=== PATIENT | male | born 1955 | race Caucasian/White ===

== ENCOUNTER → 2017-06-18 10:22 | Outpatient (CLI) | payer BC, SELFPAY ==
--- NOTE | 2017-06-18 10:43 | CT_ITS ---
STUDY: CT ABDOMEN AND PELVIS WITH AND WITHOUT CONTRAST REASON FOR EXAM: Male, 62 years old. Hematuria. History of pulmonary alveolar proteinosis. RADIATION DOSAGE (If Supplied By Facility): CTDIvol = ( 20.29 ) mGy, DLP = ( 3141.71 ) mGycm TECHNIQUE: Transaxial images were obtained from the dome of the diaphragm to the symphysis pubis with oral contrast. 100 ml of Isovue 300 contrast was administered. Sagittal and coronal images were reconstructed. Individualized dose optimization techniques were used for this CT. COMPARISON: Comparison is made with prior study dated January 30, 2015. FINDINGS: The visualized lung bases are unremarkable. The visualized portions of the heart are within normal limits. Normal liver. Questionable tiny gallbladder polyps versus tiny gallstones. Normal spleen. Normal pancreas. Normal bilateral adrenal glands. Normal right kidney. Normal left kidney. Normal visualized stomach. Normal small intestine. Normal colon. The appendix is visualized and appears normal. There is diffuse atherosclerotic calcification of the abdominal aorta, without a demonstrated aneurysm. Normal inferior vena cava. There is borderline retroperitoneal lymphadenopathy with enlarged nodes no greater than 10mm in the short axis diameter. Normal urinary bladder. There are prostatic calcifications. Enlargement of the prostate with indentation at the bladder base. There is evidence of prior anterior abdominal wall hernia repair. There are diffuse degenerative changes of the visualized lumbar spine. CT/CT Abd/Pelvis W/WO Contrast IMPRESSION: Tiny gallstones are gallbladder polyps. No other acute abnormality is seen. Electronically Signed: Donavan Lizama MD at 13:46 EST Tel [phone], Service support ,
[2017-06-18 10:55] LABS: CREATININE FINGERSTICK 1.3 mg/dL (0.70-1.30)
[2017-06-18 11:46] LABS: PSA,Total - Annual Screen 0.61 ng/mL (0.00-4.00)
== END ==
PROVIDERS: Family Provider Family Medicine; PCP Family Medicine; Visit Provider Nurse Practitioner Adult Health
DX: R31.9 Hematuria, unspecified (principal); Z12.5 Encounter for screening for malignant neoplasm of prostate
CPT/HCPCS: 36415; 74178; 84153; Q9967; G0103

== ENCOUNTER → 2017-06-18 13:08 | Outpatient (CLI) | payer BC, SELFPAY ==
[2017-04-27 11:09] VITALS: BP 130/88; BMI 30.9
--- NOTE | 2017-06-18 | FLU_PTH ---
PATIENT: SOLANGE HERNANDEZ LOC: [facility] U#:[id number] AGE/SX: 69/M ROOM: RE06/18/[address]: LISA Weinstein : 1955 BED: DIS: SPEC #: [id number] RECD: 06/18/17 13:56 STATUS: ALTON MARLENE #: [id number] PEDRO: 06/18/17 00:[address]: Kristi Alegria NP DEPT: CYTOLOGY RECD BY: Palmer Stock ENTERED: 06/18/17 13:57 SP TYPE: Fluid OTHR DR: Dr. Moo Carmichael MD Tissues: Urine Procedures: Pap Stain (control) Special Stain Group II Surgery Specimen Level IV Cytospin Fluid HEADER OPERATION: Not noted PRE-OP DIAGNOSIS: Hematuria TISSUE SUBMITTED: Urine for cytology DIAGNOSIS CYTOLOGY Urine for cytology (cytospin): Atypical urothelial noted suspicious for malignancy. SJ:iman 2/8/18 COMMENT Case has been reviewed in consultation with Dr. De who concurs with the above diagnosis. IDC:AM CYTOLOGY STUDY Slides are reviewed. CYTOLOGY GROSS Received is 35 ml of yellow hazy fluid labeled with the patient's name and and designated per the requisition as urine. Submitted for cytology preparation. 06/18/17 TC:5 CPT: 76000
[2017-06-18 13:11] LABS: Cytology, Body Fluid / CSF SEE PATHOLOGY REPORT
== END ==
PROVIDERS: Family Provider Family Medicine; PCP Family Medicine; Visit Provider Nurse Practitioner Adult Health
DX: R31.9 Hematuria, unspecified (principal)
CPT/HCPCS: 87086; 88108; 88305; 88313

== ENCOUNTER → 2017-07-03 15:57 | Outpatient (CLI) | payer BC, SELFPAY ==
--- NOTE | 2017-07-03 15:59 | CT_ITS ---
CT of the temporal bones INDICATION: Left ear infection TECHNIQUE: CT of the temporal bones was performed in the axial projection without contrast followed by sagittal and coronal reconstructed. Radiographic technique was optimized to limit patient radiation dose. FINDINGS External auditory canal is well-aerated and patent. There is no appreciable mucosal thickening however, there is thickening and retraction of the tympanic membrane with soft tissue thickening of the cisco septum suspicious for acquired cholesteatoma. There is mucosal thickening within the tympanic cavity encasing the auditory ossicles.:. There is diffuse opacification of the mastoid air cells however, there is destruction of air cell septae which may be consistent with coalescent mastoiditis and possible coexisting cholesteatoma. The dural plate appears intact There also appears to be a cavity suggesting partial mastoid resection however clinical correlation is recommended in this regard CT/Orb Sella Post Fossa Ear w/o IMPRESSION: Left-sided otomastoiditis and findings suggestive of coexisting cholesteatoma. Clinical correlation recommended Electronically Signed: Issa Reinoso MD at 21:55 EST , Service support ,
== END ==
PROVIDERS: Family Provider Family Medicine; PCP Family Medicine; Visit Provider Otolaryngology
DX: H92.12 Otorrhea, left ear (principal); Z98.890 Other specified postprocedural states
CPT/HCPCS: 70480

== ENCOUNTER 2017-07-04 09:59 | Day surgery (SDC) | payer BC, SELFPAY ==
--- NOTE | 2017-07-04 | CYSPIN_PTH ---
PATIENT: SOLANGE HERNANDEZ [place] [facility] [place][id number] AGE/SX: 62/M ROOM: RE07/04/[address]: Dr. Homero Lopez MD : 1955 BED: DIS: 07/04/2017 SPEC #: [id number] RECD: 07/04/17 15:01 STATUS: ALTON MARLENE #: [id number] PEDRO: 07/04/17 00:[address]: Homero Lopez DEPT: CYTOLOGY RECD BY: Nikita Jc ENTERED: 07/04/17 15:02 SP TYPE: CYSPIN FL OTHR DR: Dr. Moo Carmichael MD Tissues: A - Urine B - Urine C - Urine Procedures: Pap Stain (control) Special Stain Group II Cytospin Fluid HEADER OPERATION: Cysto, retrogrades, urine collected for cytology PRE-OP DIAGNOSIS: Microscopic hematuria, abnormal cytology TISSUE SUBMITTED: A ? Urine for cytology ? bladder, B - Urine for cytology ? left ureter, C - Urine for cytology ? right ureter DIAGNOSIS CYTOLOGY A. Urine for cytology, bladder (cytospin): A cluster of mildly atypical urothelial cells noted. B. Urine for cytology, left ureter (cytospin): Clusters of urothelial cells are noted without significant atypia. C. Urine for cytology, right ureter (cytospin): Clusters of urothelial cells are noted without significant atypia. SJ:iman 07/07/17 COMMENT A. Differential diagnosis includes instrumentation, calculi or low-grade urothelial neoplasm. Please make reference to previous specimen ([id number]) urine for cytology with diagnosis of atypical urothelial cells noted suspicious for malignancy. CYTOLOGY STUDY Slides are reviewed. CYTOLOGY GROSS A - Received is 30 ml of yellow cloudy fluid labeled with the patient's name and and designated per the requisition as urine - bladder. Submitted for cytology preparation. B - Received is 1 ml of light yellow fluid labeled with the patient's name and and designated per the requisition as urine ? left ureter. Submitted for cytology preparation. C - Received is 1 ml of light yellow fluid labeled with the patient's name and and designated per the requisition as urine ? right ureter. Submitted for cytology preparation. / 07/04/17 TC:5 CPT: 40939 x3
[2017-07-04 10:21] VITALS: BP 133/88; PULSE 66; RESP 16; TEMP 35.9; O2SAT 99; BMI 29.7
[2017-07-04] MEDS: Cefazolin 2 GM in 0.9% Normal Saline 100 ML IV (12:17)
[2017-07-04 12:52] VITALS: BP 133/88; BP 138/94; PULSE 74; RESP 16; TEMP 36.8; O2SAT 98
--- NOTE | 2017-07-04 12:52 | PCM.OPRPT ---
Problem List (1) Microscopic hematuria Status: Acute Report of Operation Date of Procedure: 07/04/17 Pre-Operative Diagnosis: Microscopic hematuria and abnormal cytology Post-Operative Diagnosis: normal bladder normal retrograde pyelograms Surgery/Procedure Performed:: Cystoscopy bilateral retrograde pyelograms Description of Surgical Findings:: 62-year-old male taken back to the operating room he had an office cystoscopy the cytology came back suspicious for malignant cells. Urine taken back to the operating room today for a cystoscopy and bilateral retrogrades possible ureteroscopy and biopsy if necessary. 62-year-old male taken back to the operating room penis and testicles were prepped and draped in usual sterile fashion went into the bladder with a 21 [place]bourg[place] rigid cystourethroscope the entire length of of the urethra was normal, I did a cystoscopy of the bladder the bladder was completely normal no tumors or stones seen within the bladder left and right ureteral orifice normal prostate was mildly obstructive but no significant tissue. Think cannulated the left ureteral orifice got urine from the left kidney is sent this off for cytology the left retrograde That was normal. Cannulated the right ureteral orifice, got urine from the right kidney sent this for cytology. The right retrograde pyelogram and this was normal. I then drained the bladder patient anesthetic was reversed taken back to PACU in good condition will see him in 2 weeks to review the cytologies. Type of Anesthesia:: General Drains: none - Admit VTE Documentation VTE Present on Admission: No VTE Mechan Device Prophylaxis: SCD's VTE Pharm Prophylaxis ordered?: No Reason prophylaxis not ordered:: Treatment Not Indicated
[2017-07-04 13:00] VITALS: BP 133/88; BP 138/96; PULSE 70; RESP 16; O2SAT 97
[2017-07-04 13:15] VITALS: BP 133/85; BP 133/88; PULSE 66; RESP 16; O2SAT 94
[2017-07-04 13:22] VITALS: BP 132/87; BP 133/88; PULSE 63; RESP 16; TEMP 36.5; O2SAT 96
[2017-07-04 14:40] VITALS: BP 133/88
[2017-07-08 14:39] LABS: Cytology, Body Fluid / CSF SEE PATHOLOGY REPORT
[2017-07-08 14:39] LABS: Cytology, Body Fluid / CSF SEE PATHOLOGY REPORT
[2017-07-08 14:40] LABS: Cytology, Body Fluid / CSF SEE PATHOLOGY REPORT
== END 2017-07-04 14:40 | disposition home or self-care (01) ==
LOC: SDC 10:00 → AC 10:01
PROVIDERS: Family Provider Family Medicine; PCP Family Medicine; Visit Provider Urology
PROC: 0TJ98ZZ Inspection of Ureter, Via Natural or Artificial Opening Endoscopic (ICD-10-PCS; CPT 52351; principal; 2017-07-04 11:40)
DX: R31.21 Asymptomatic microscopic hematuria (principal); I10 Essential (primary) hypertension; J84.01 Alveolar proteinosis; J44.9 Chronic obstructive pulmonary disease, unspecified; K21.9 Gastro-esophageal reflux disease without esophagitis; Z79.899 Other long term (current) drug therapy; Z86.718 Personal history of other venous thrombosis and embolism; Z86.711 Personal history of pulmonary embolism
CPT/HCPCS: 52005; 76000; 88108; 88313; J7120; C1769; J2405

== ENCOUNTER → 2017-10-27 15:04 | Outpatient (CLI) | payer BC, SELFPAY ==
[2017-10-27 17:54] LABS: Absolute Lymphocyte Count 2.34 X10^3/ul (0.83-4.51); Absolute Neutrophil Count 3.8 X10^3/uL (2.0-7.7); Basophil# 0.01 X10^3/uL; Basophil% 0.1 % (0-1); Eosinophil# 0.07 X10^3/uL; Hematocrit 42.1 % (40-54); Hemoglobin 14.2 g/dl (13.0-16.5); Lymphocyte # 2.34 X10^3/ul (4.0); Lymphocyte % 34.7 % (19-41); Mean Corp Hgb Conc 33.7 g/gl (32-36); Mean Corpuscular Hgb 30.7 pg (27.0-32.0); Mean Corpuscular Volume 91.1 fL (80-94); Mean Platelet Vol. 10.2 fl (6.2-12.0); Monocyte# 0.56 X10^3/uL; Monocyte% 8.3 % (0-10); Neutrophil # 3.75 X10^3/uL (2.7-7.7); Neutrophil % 55.8 % (47-70); POSITIVE COUNT NO; POSITIVE DIFFERENTIAL NO; POSITIVE MORPHOLOGY NO; Platelet Count 290 K/mm3 (150-450); RBC Distribution Width CV 13.9 % (11.6-14.6); Red Blood Count 4.62 M/mm3 (4.6-6.2); White Blood Count 6.7 K/mm3 (4.4-11.0)
[2017-10-27 18:00] LABS: Vitamin B12 1186 pg/mL (211-911)
[2017-10-27 18:29] LABS: ALB/GLOB Ratio 0.9 RATIO (0.9-2.4); AST(SGOT) 25 U/L (15-37); Alanine Aminotransfer ALT/SGPT 45 U/L (16-61); Albumin, Serum 3.6 g/dL (3.2-5.0); Alkaline Phosphatase 72 U/L (45-117); Anion Gap 8 (5-15); BUN 24 mg/dL (7-18); BUN/Creat Ratio 17.1 RATIO (10-20); Calcium,Total 8.8 mg/dL (8.5-10.1); Chloride 104 mmol/L (98-107); Cholesterol 257 mg/dL (200); EST Glomerular Filtration Rate 55 mL/min (>60); Est Glom Filt Rate - Afr Amer 66 mL/min (>60); Globulin 3.8 g/dL (2.2-4.2); Glucose 87 mg/dL (74-106); High Density Lipoprotein 50 mg/dL; Potassium 4.3 mmol/L (3.5-5.1); Protein, Total 7.4 g/dL (6.4-8.2); Sodium Level 139 mmol/L (136-145); Thyroid Stim Hormone (TSH) 2.31 uIU/mL (0.358-3.74); Triglycerides 232 mg/dL; Very Low Density Lipoprotein 46 mg/dL (5-40)
[2017-10-27 19:16] LABS: Microalbumin,Random Urine 21.4 mg/L (NO RANGE EST.); Microalbumin:Creatinine Ratio 33.2 mg/g CRE (<30 mg/g CRE)
== END ==
PROVIDERS: Family Provider Family Medicine; PCP Family Medicine; Visit Provider Family Medicine
DX: I10 Essential (primary) hypertension (principal); E53.8 Deficiency of other specified B group vitamins
CPT/HCPCS: 36415; 80053; 80061; 82043; 82570; 82607; 82746; 84443; 85025

== ENCOUNTER → 2018-01-26 19:37 | Outpatient (CLI) | payer BC, SELFPAY ==
--- NOTE | 2018-01-26 | CYSPIN_PTH ---
PATIENT: SOLANGE HERNANDEZ LOC: [facility] U#:[id number] AGE/SX: 69/M ROOM: RE01/26/[address]: LISA Weinstein : 1955 BED: DIS: SPEC #: [id number] RECD: 01/27/18 08:27 STATUS: ALTON MARLENE #: [id number] PEDRO: 01/26/18 00:[address]: Kristi Alegria NP DEPT: CYTOLOGY RECD BY: Nikita Jc ENTERED: 01/27/18 08:27 SP TYPE: CYSPIN FL OTHR DR: Dr. Moo Carmichael MD Tissues: Urine Procedures: Pap Stain (control) Special Stain Group II Cytospin Fluid HEADER OPERATION: Not noted PRE-OP DIAGNOSIS: N31.1 TISSUE SUBMITTED: Urine for cytology DIAGNOSIS CYTOLOGY Urine for cytology (cytospin): Negative for malignant cells. See cytology study and comment. SJ:iman 01/28/18 COMMENT Clinical correlation and appropriate follow up are necessary. Please make reference to previous specimen ([id number]) urine for cytology with diagnosis of atypical urothelial cells noted suspicious for malignancy and ([id number]) urine for cytology, bladder with diagnosis of a cluster of mildly atypical urothelial cells and urine for cytology, left ureter and right ureter with diagnosis of clusters of urothelial cells are noted without significant atypia. CYTOLOGY STUDY Slides are reviewed. The specimen consists of benign urothelial cells, squamous cells, inflammatory cells and red blood cells. CYTOLOGY GROSS Received is 50 ml of clear yellow fluid labeled with the patient's name and and designated per the requisition as urine. Submitted for cytology preparation. 01/27/18 TC:5 CPT: 34759
[2018-01-26 20:00] LABS: Cytology, Body Fluid / CSF SEE PATHOLOGY REPORT
== END ==
PROVIDERS: Family Provider Family Medicine; PCP Family Medicine; Visit Provider Nurse Practitioner Adult Health
DX: N31.1 Reflex neuropathic bladder, not elsewhere classified (principal)
CPT/HCPCS: 88108; 88313

== ENCOUNTER → 2018-03-11 14:56 | Outpatient (CLI) | payer BC, SELFPAY ==
[2018-03-11 18:07] LABS: Microalbumin,Random Urine 50.3 mg/L (NO RANGE EST.); Microalbumin:Creatinine Ratio 39.9 mg/g CRE (<30 mg/g CRE)
[2018-03-13 16:12] LABS: Cytoplasmic Ab (C-ANCA) <1:20 titer (Neg:<1:20); Free Kappa Light Chains 12.2 mg/L (3.3-19.4); Free Lambda Light Chains 17.1 mg/L (5.7-26.3)
[2018-03-16 11:58] LABS: Complement C3 152 mg/dL (82-167); Perinuclear Ab (P-ANCA) <1:20 titer (Neg:<1:20)
[2018-03-16 12:04] LABS: ANTINUCLEAR ANTIBODIES DIRECT Negative (Negative)
== END ==
PROVIDERS: Family Provider Family Medicine; PCP Family Medicine; Visit Provider Internal Medicine Nephrology
DX: R31.21 Asymptomatic microscopic hematuria (principal)
CPT/HCPCS: 36415; 82043; 82570; 83883; 86038; 86160; 86256

== ENCOUNTER → 2018-04-15 10:27 | Outpatient (CLI) | payer BC, SELFPAY ==
[2018-04-15 10:35] LABS: Bacteria 0 SEEN /hpf (None Seen)
[2018-04-15 11:39] LABS: Absolute Neutrophil Count 3.5 X10^3/uL (2.0-7.7); Basophil# 0.01 X10^3/uL; Basophil% 0.2 % (0-1); Eosinophil# 0.08 X10^3/uL; Eosinophils% 1.4 % (0-5); Hematocrit 43.1 % (40-54); Hemoglobin 14.5 g/dl (13.0-16.5); Lymphocyte % 26.7 % (19-41); Mean Corp Hgb Conc 33.6 g/gl (32-36); Mean Corpuscular Hgb 30.8 pg (27.0-32.0); Mean Corpuscular Volume 91.5 fL (80-94); Mean Platelet Vol. 9.4 fl (6.2-12.0); Monocyte# 0.51 X10^3/uL; Monocyte% 9.1 % (0-10); Neutrophil % 62.4 % (47-70); Platelet Count 286 K/mm3 (150-450); RBC Distribution Width CV 14.2 % (11.6-14.6); RBC Distribution Width SD 47.1 fl (35.1-43.9); Red Blood Count 4.71 M/mm3 (4.6-6.2); White Blood Count 5.6 K/mm3 (4.4-11.0)
[2018-04-15 11:41] LABS: Color, Urine Yellow (Yellow); Glucose, Dipstick Normal (Normal); Ketone-Dipstick Negative (Negative); Leukocyte Esterase-Dipstick Negative /ul (Negative); Nitrite-Dipstick Negative (Negative); Occult Blood-Urine 150 /ul (Negative); Protein-Dipstick Negative (Negative); Urine Bilirubin Dipstick Negative (Negative); Urine Clarity Sl. Cloudy (Clear); Urine Urobilinogen Normal (Normal)
[2018-04-15 11:41] LABS: POSITIVE COUNT NO; POSITIVE DIFFERENTIAL NO; POSITIVE MORPHOLOGY NO
[2018-04-15 11:49] LABS: Mucous, Urine RARE /hpf (<or=2+); Red Blood Cells-Urine 0-5 SEEN /hpf (0-5); Squamous Epithelial Cells - UA 0-5 SEEN /hpf (0-5); White Blood Cells 0-5 SEEN /hpf (0-5)
[2018-04-15 12:04] LABS: AST(SGOT) 35 U/L (15-37); Alanine Aminotransfer ALT/SGPT 43 U/L (16-61); Albumin, Serum 3.8 g/dL (3.2-5.0); Alkaline Phosphatase 59 U/L (45-117); Anion Gap 7 (5-15); BUN 23 mg/dL (7-18); BUN/Creat Ratio 16.7 RATIO (10-20); Calcium,Total 9.3 mg/dL (8.5-10.1); Chloride 105 mmol/L (98-107); Cholesterol 198 mg/dL (200); Creatinine, Serum 1.38 mg/dL (0.70-1.30); EST Glomerular Filtration Rate 56 mL/min (>60); Est Glom Filt Rate - Afr Amer 67 mL/min (>60); Globulin 3.9 g/dL (2.2-4.2); Glucose 83 mg/dL (74-106); High Density Lipoprotein 70 mg/dL; Potassium 4.1 mmol/L (3.5-5.1); Protein, Total 7.7 g/dL (6.4-8.2); Sodium Level 141 mmol/L (136-145); Triglycerides 77 mg/dL; Very Low Density Lipoprotein 15 mg/dL (5-40)
[2018-04-16 11:36] LABS: Bilirubin, Direct 0.21 mg/dL (0.00-0.30); Phosphorus 2.9 mg/dL (2.5-4.9)
== END ==
PROVIDERS: Family Provider Family Medicine; PCP Family Medicine; Referring Provider Internal Medicine Nephrology; Visit Provider Internal Medicine Nephrology
DX: E78.5 Hyperlipidemia, unspecified (principal); R31.21 Asymptomatic microscopic hematuria; N18.3 Chronic kidney disease, stage 3 (moderate)
CPT/HCPCS: 36415; 80053; 80061; 81001; 82248; 84100; 85025

== ENCOUNTER → 2018-06-19 12:58 | Outpatient (CLI) | payer BC, SELFPAY ==
[2017-10-21 16:21] VITALS: BMI 28.7
[2018-06-19 13:04] LABS: Bacteria 0 SEEN /hpf (None Seen); Mucous, Urine 0 SEEN /hpf (<or=2+); Squamous Epithelial Cells - UA 0 SEEN /hpf (0-5)
[2018-06-19 13:28] LABS: Color, Urine Yellow (Yellow); Glucose, Dipstick Normal (Normal); Ketone-Dipstick Negative (Negative); Leukocyte Esterase-Dipstick Negative /ul (Negative); Nitrite-Dipstick Negative (Negative); Occult Blood-Urine 50 /ul (Negative); Protein-Dipstick Negative (Negative); Specific Gravity, Urine 1.015 (1.002-1.030); Urine Bilirubin Dipstick Negative (Negative); Urine Clarity Clear (Clear); Urine Urobilinogen Normal (Normal)
[2018-06-19 13:40] LABS: Red Blood Cells-Urine 0-5 SEEN /hpf (0-5)
[2018-06-19 13:41] LABS: White Blood Cells 0-5 SEEN /hpf (0-5)
[2018-06-19 13:50] LABS: Albumin, Serum 3.6 g/dL (3.2-5.0); BUN 20 mg/dL (7-18); BUN/Creat Ratio 15.2 RATIO (10-20); Calcium,Total 8.8 mg/dL (8.5-10.1); Chloride 105 mmol/L (98-107); Creatinine, Serum 1.32 mg/dL (0.70-1.30); EST Glomerular Filtration Rate 59 mL/min (>60); Est Glom Filt Rate - Afr Amer 71 mL/min (>60); Glucose 89 mg/dL (74-106); Phosphorus 3.7 mg/dL (2.5-4.9); Potassium 4.1 mmol/L (3.5-5.1); Sodium Level 139 mmol/L (136-145)
[2018-06-19 13:57] LABS: Protein, Urine (Random) < 6.0 mg/dL (<11.9)
== END ==
PROVIDERS: Family Provider Family Medicine; PCP Family Medicine; Referring Provider Internal Medicine Nephrology; Visit Provider Internal Medicine Nephrology
DX: R31.21 Asymptomatic microscopic hematuria (principal)
CPT/HCPCS: 36415; 80069; 81001; 82570; 84156

== ENCOUNTER → 2018-10-28 | Outpatient (CLI) | payer BC, SELFPAY ==
[2018-10-20 15:11] VITALS: BMI 29.5
[2018-10-28 17:56] LABS: Vitamin B12 501 pg/mL (211-911)
== END | disposition home or self-care (01) ==
LOC: MFPLAB 15:55
PROVIDERS: Family Provider Family Medicine; PCP Family Medicine; Referring Provider Family Medicine; Visit Provider Family Medicine
DX: E53.8 Deficiency of other specified B group vitamins (principal)
CPT/HCPCS: 36415; 82607

== ENCOUNTER → 2018-12-03 | Outpatient (CLI) | payer BC, SELFPAY ==
[2018-10-20 15:11] VITALS: BMI 29.5
[2018-12-03 17:47] LABS: Hematocrit 44.9 % (40-54); Hemoglobin 15.1 g/dL (13.0-16.5); Mean Corp Hgb Conc 33.6 g/dL (32-36); Mean Corpuscular Hgb 30.8 pg (27.0-32.0); Mean Corpuscular Volume 91.6 fL (80-94); Mean Platelet Vol. 9.7 fl (6.2-12.0); Platelet Count 274 K/mm3 (150-450); RBC Distribution Width CV 13.2 % (11.6-14.6); RBC Distribution Width SD 44.8 fl (35.1-43.9); White Blood Count 5.6 K/mm3 (4.4-11.0)
[2018-12-03 18:13] LABS: Microalbumin,Random Urine 16.2 mg/L (NO RANGE EST.); Microalbumin:Creatinine Ratio 10.1 mg/g CRE (<30 mg/g CRE)
[2018-12-03 18:15] LABS: Vitamin B12 569 pg/mL (211-911)
[2018-12-03 18:27] LABS: AST(SGOT) 28 U/L (15-37); Alanine Aminotransfer ALT/SGPT 36 U/L (16-61); Albumin, Serum 3.6 g/dL (3.2-5.0); Alkaline Phosphatase 57 U/L (45-117); Anion Gap 10 (5-15); BUN 24 mg/dL (7-18); BUN/Creat Ratio 16.9 RATIO (10-20); Calcium,Total 8.9 mg/dL (8.5-10.1); Chloride 106 mmol/L (98-107); Cholesterol 218 mg/dL (200); Creatinine, Serum 1.42 mg/dL (0.70-1.30); EST Glomerular Filtration Rate 54 mL/min (>60); Est Glom Filt Rate - Afr Amer 65 mL/min (>60); Globulin 3.6 g/dL (2.2-4.2); Glucose 81 mg/dL (74-106); High Density Lipoprotein 55 mg/dL; Potassium 3.9 mmol/L (3.5-5.1); Protein, Total 7.2 g/dL (6.4-8.2); Sodium Level 139 mmol/L (136-145); Thyroid Stim Hormone (TSH) 1.69 uIU/mL (0.358-3.74); Triglycerides 167 mg/dL; Very Low Density Lipoprotein 33 mg/dL (5-40)
== END | disposition home or self-care (01) ==
LOC: MFPLAB 15:33
PROVIDERS: Family Provider Family Medicine; PCP Family Medicine; Referring Provider Family Medicine; Visit Provider Family Medicine
DX: I10 Essential (primary) hypertension (principal); E53.8 Deficiency of other specified B group vitamins
CPT/HCPCS: 36415; 80053; 80061; 82043; 82570; 82607; 84443; 85027

== ENCOUNTER → 2018-12-22 07:53 | Outpatient (CLI) | payer BC, SELFPAY ==
[2017-10-21 16:21] VITALS: BMI 28.7
[2018-10-20 15:11] VITALS: BMI 29.5
[2018-12-22 09:01] LABS: Protein, Urine (Random) 8.6 mg/dL (<11.9); Protein:Creat Ratio 117 mg/g CRE (0-200)
[2018-12-22 09:22] LABS: Albumin, Serum 3.6 g/dL (3.2-5.0); BUN 18 mg/dL (7-18); Calcium,Total 8.8 mg/dL (8.5-10.1); Chloride 106 mmol/L (98-107); EST Glomerular Filtration Rate 51 mL/min (>60); Est Glom Filt Rate - Afr Amer 61 mL/min (>60); Glucose 93 mg/dL (74-106); Potassium 4.1 mmol/L (3.5-5.1); Sodium Level 142 mmol/L (136-145)
== END ==
PROVIDERS: Family Provider Family Medicine; PCP Family Medicine; Referring Provider Internal Medicine Nephrology; Visit Provider Internal Medicine Nephrology
DX: N18.3 Chronic kidney disease, stage 3 (moderate) (principal)
CPT/HCPCS: 36415; 80069; 82570; 84156

== ENCOUNTER → 2019-01-20 | Outpatient (CLI) | payer BC, SELFPAY ==
[2018-10-20 15:11] VITALS: BMI 29.5
[2019-01-20 10:29] LABS: Albumin, Serum 3.6 g/dL (3.2-5.0); BUN 23 mg/dL (7-18); Calcium,Total 9.3 mg/dL (8.5-10.1); Chloride 107 mmol/L (98-107); Creatinine, Serum 1.35 mg/dL (0.70-1.30); EST Glomerular Filtration Rate 57 mL/min (>60); Est Glom Filt Rate - Afr Amer 69 mL/min (>60); Glucose 93 mg/dL (74-106); Phosphorus 2.6 mg/dL (2.5-4.9); Potassium 3.9 mmol/L (3.5-5.1); Sodium Level 138 mmol/L (136-145)
== END | disposition home or self-care (01) ==
LOC: LAB 08:54
PROVIDERS: Family Provider Family Medicine; PCP Family Medicine; Referring Provider Internal Medicine Nephrology; Visit Provider Internal Medicine Nephrology
DX: N18.3 Chronic kidney disease, stage 3 (moderate) (principal); R31.21 Asymptomatic microscopic hematuria
CPT/HCPCS: 36415; 80069

== ENCOUNTER → 2019-05-10 07:38 | Outpatient (CLI) | payer BC, SELFPAY ==
[2018-10-20 15:11] VITALS: BMI 29.5
[2019-05-10 07:45] LABS: Bacteria 0 SEEN /hpf (None Seen); Mucous, Urine 0 SEEN /hpf (<or=2+); Squamous Epithelial Cells - UA 0 SEEN /hpf (0-5); White Blood Cells 0 SEEN /hpf (0-5)
[2019-05-10 08:16] LABS: Color, Urine Yellow (Yellow); Glucose, Dipstick Normal (Normal); Ketone-Dipstick Negative (Negative); Leukocyte Esterase-Dipstick Negative /ul (Negative); Nitrite-Dipstick Negative (Negative); Occult Blood-Urine 50 /ul (Negative); Protein-Dipstick Negative (Negative); Specific Gravity, Urine 1.015 (1.002-1.030); Urine Bilirubin Dipstick Negative (Negative); Urine Clarity Clear (Clear); Urine Urobilinogen Normal (Normal); Urine pH 6.5 (5.0 - 8.0)
[2019-05-10 08:19] LABS: Red Blood Cells-Urine 0-5 SEEN /hpf (0-5)
[2019-05-10 08:38] LABS: Albumin, Serum 3.3 g/dL (3.2-5.0); BUN 23 mg/dL (7-18); BUN/Creat Ratio 15.6 RATIO (10-20); Chloride 104 mmol/L (98-107); Creatinine, Serum 1.47 mg/dL (0.70-1.30); EST Glomerular Filtration Rate 52 mL/min (>60); Est Glom Filt Rate - Afr Amer 62 mL/min (>60); Glucose 95 mg/dL (74-106); Phosphorus 2.8 mg/dL (2.5-4.9); Potassium 3.8 mmol/L (3.5-5.1); Sodium Level 139 mmol/L (136-145)
== END ==
LOC: LAB.FUTURE 07:42 → LAB 07:44
PROVIDERS: Family Provider Family Medicine; PCP Family Medicine; Referring Provider Internal Medicine Nephrology; Visit Provider Internal Medicine Nephrology
DX: N18.3 Chronic kidney disease, stage 3 (moderate) (principal); R31.21 Asymptomatic microscopic hematuria
CPT/HCPCS: 36415; 80069; 81001

== ENCOUNTER → 2019-09-06 | Outpatient (CLI) | payer BC, SELFPAY ==
[2018-10-20 15:11] VITALS: BMI 29.5
[2019-09-06 09:08] LABS: Bacteria 0 SEEN /hpf (None Seen); Mucous, Urine 0 SEEN /hpf (<or=2+); Squamous Epithelial Cells - UA 0 SEEN /hpf (0-5); White Blood Cells 0 SEEN /hpf (0-5)
[2019-09-06 09:44] LABS: Absolute Lymphocyte Count 1.33 X10^3/uL (0.83-4.51); Absolute Neutrophil Count 2.9 X10^3/uL (2.0-7.7); Basophil# 0.02 X10^3/uL; Basophil% 0.4 % (0-1); Eosinophil# 0.12 X10^3/uL; Eosinophils% 2.5 % (0-5); Hematocrit 43.2 % (40-54); Hemoglobin 14.4 g/dL (13.0-16.5); Lymphocyte # 1.33 X10^3/ul (4.0); Lymphocyte % 27.9 % (19-41); Mean Corp Hgb Conc 33.3 g/dL (32-36); Mean Corpuscular Hgb 30.2 pg (27.0-32.0); Mean Corpuscular Volume 90.6 fL (80-94); Mean Platelet Vol. 9.3 fl (6.2-12.0); Monocyte# 0.41 X10^3/uL; Monocyte% 8.6 % (0-10); NRBC Flagged by Analyzer 0 % (0-5); Neutrophil # 2.88 X10^3/uL (2.7-7.7); Neutrophil % 60.4 % (47-70); Platelet Count 234 K/mm3 (150-450); RBC Distribution Width CV 13.7 % (11.6-14.6); RBC Distribution Width SD 45.7 fl (35.1-43.9); Red Blood Count 4.77 M/mm3 (4.6-6.2); White Blood Count 4.8 K/mm3 (4.4-11.0)
[2019-09-06 09:46] LABS: Color, Urine Yellow (Yellow); Glucose, Dipstick Normal (Normal); Ketone-Dipstick Negative (Negative); Leukocyte Esterase-Dipstick Negative /ul (Negative); Nitrite-Dipstick Negative (Negative); Occult Blood-Urine 10 /ul (Negative); Protein-Dipstick Negative (Negative); Urine Bilirubin Dipstick Negative (Negative); Urine Clarity Clear (Clear); Urine Urobilinogen Normal (Normal); Urine pH 6.5 (5.0 - 8.0)
[2019-09-06 10:01] LABS: Protein, Urine (Random) < 6.0 mg/dL (<11.9)
[2019-09-06 10:03] LABS: Red Blood Cells-Urine 0-5 SEEN /hpf (0-5)
[2019-09-06 10:44] LABS: Albumin, Serum 3.4 g/dL (3.2-5.0); BUN 22 mg/dL (7-18); BUN/Creat Ratio 17.6 RATIO (10-20); Calcium,Total 8.8 mg/dL (8.5-10.1); Chloride 107 mmol/L (98-107); Cholesterol 209 mg/dL (200); Creatinine, Serum 1.25 mg/dL (0.70-1.30); EST Glomerular Filtration Rate 62 mL/min (>60); Est Glom Filt Rate - Afr Amer 75 mL/min (>60); Ferritin 86 ng/mL (26-388); Glucose 97 mg/dL (74-106); High Density Lipoprotein 57 mg/dL; Phosphorus 2.7 mg/dL (2.5-4.9); Potassium 3.6 mmol/L (3.5-5.1); Sodium Level 140 mmol/L (136-145); Triglycerides 184 mg/dL; Very Low Density Lipoprotein 37 mg/dL (5-40)
[2019-09-06 10:51] LABS: Vitamin B12 429 pg/mL (211-911)
== END | disposition home or self-care (01) ==
LOC: LAB 09:00
PROVIDERS: Family Provider Family Medicine; PCP Family Medicine; Referring Provider Internal Medicine Nephrology; Visit Provider Internal Medicine Nephrology
DX: N18.3 Chronic kidney disease, stage 3 (moderate) (principal); R31.21 Asymptomatic microscopic hematuria; E53.8 Deficiency of other specified B group vitamins; E78.5 Hyperlipidemia, unspecified
CPT/HCPCS: 36415; 80061; 80069; 81001; 82570; 82607; 82728; 82746; 84156; 85025

== ENCOUNTER → 2020-02-29 | Outpatient (CLI) | payer BC, SELFPAY ==
[2018-10-20 15:11] VITALS: BMI 29.5
[2020-02-29 07:57] LABS: Bacteria 0 SEEN /hpf (None Seen); Mucous, Urine 0 SEEN /hpf (<or=2+); Squamous Epithelial Cells - UA 0 SEEN /hpf (0-5); White Blood Cells 0 SEEN /hpf (0-5)
[2020-02-29 08:39] LABS: Hematocrit 45.7 % (40-54); Hemoglobin 14.8 g/dL (13.0-16.5); Mean Corp Hgb Conc 32.4 g/dL (32-36); Mean Corpuscular Hgb 30.4 pg (27.0-32.0); Mean Corpuscular Volume 93.8 fL (80-94); Mean Platelet Vol. 9.5 fl (6.2-12.0); Platelet Count 258 K/mm3 (150-450); RBC Distribution Width CV 13.2 % (11.6-14.6); RBC Distribution Width SD 45.6 fl (35.1-43.9); Red Blood Count 4.87 M/mm3 (4.6-6.2); White Blood Count 4.6 K/mm3 (4.4-11.0)
[2020-02-29 09:05] LABS: Albumin, Serum 3.5 g/dL (3.2-5.0); BUN 19 mg/dL (7-18); BUN/Creat Ratio 14.4 RATIO (10-20); Calcium,Total 9.1 mg/dL (8.5-10.1); Chloride 102 mmol/L (98-107); Creatinine, Serum 1.32 mg/dL (0.70-1.30); EST Glomerular Filtration Rate 58 mL/min (>60); Est Glom Filt Rate - Afr Amer 71 mL/min (>60); Glucose 102 mg/dL (74-106); Phosphorus 2.5 mg/dL (2.5-4.9); Potassium 4.1 mmol/L (3.5-5.1); Sodium Level 138 mmol/L (136-145)
[2020-02-29 09:22] LABS: Color, Urine Yellow (Yellow); Glucose, Dipstick Normal (Normal); Ketone-Dipstick Negative (Negative); Leukocyte Esterase-Dipstick Negative /ul (Negative); Nitrite-Dipstick Negative (Negative); Occult Blood-Urine 10 /ul (Negative); Protein-Dipstick Negative (Negative); Specific Gravity, Urine 1.005 (1.002-1.030); Urine Bilirubin Dipstick Negative (Negative); Urine Clarity Clear (Clear); Urine Urobilinogen Normal (Normal); Urine pH 6.5 (5.0 - 8.0)
[2020-02-29 09:31] LABS: Red Blood Cells-Urine 0-5 SEEN /hpf (0-5)
[2020-02-29 09:41] LABS: Protein, Urine (Random) < 6.0 mg/dL (<11.9)
[2020-02-29 11:28] LABS: Hepatitis C Antibody Non-Reactive (Nonreactive)
== END | disposition home or self-care (01) ==
PROVIDERS: PCP Family Medicine; Referring Provider Internal Medicine Nephrology; Visit Provider Internal Medicine Nephrology
DX: N18.30 Chronic kidney disease, stage 3 unspecified (principal); R31.21 Asymptomatic microscopic hematuria; Z11.59 Encounter for screening for other viral diseases
CPT/HCPCS: 36415; 80069; 81001; 82570; 84156; 85027; 86803

== ENCOUNTER → 2020-05-17 13:40 | Outpatient (CLI) | payer BC, SELFPAY ==
[2018-10-20 15:11] VITALS: BMI 29.5
== END ==
PROVIDERS: PCP Family Medicine; Referring Provider Family Medicine; Visit Provider Family Medicine
DX: R69 Illness, unspecified (principal)

== ENCOUNTER → 2020-06-28 15:38 | Outpatient (CLI) | payer BC, SELFPAY ==
[2018-10-20 15:11] VITALS: BMI 29.5
--- NOTE | 2020-06-28 15:42 | RAD_ITS ---
STUDY: X-RAY - LEFT SHOULDER REASON FOR EXAM: Male, 65 years old. fall on ice, left shoulder pain TECHNIQUE: 4 view(s) of the shoulder. COMPARISON: None. FINDINGS: Normal glenohumeral articulation. Normal acromioclavicular joint. Normal acromion. Normal humeral head and visualized proximal humerus. The soft tissue structures are unremarkable. Normal visualized pulmonary apex. RAD/Shoulder min 2 Views IMPRESSION: Normal x-ray examination of the shoulder. Electronically Signed: Andrea Pizarro DO at 4:42 EST Tel , Service support ,
== END ==
PROVIDERS: PCP Family Medicine; Referring Provider Family Medicine; Visit Provider Family Medicine
DX: M25.512 Pain in left shoulder (principal)
CPT/HCPCS: 73030

== ENCOUNTER 2020-08-15 08:00 | Outpatient (RCR) | payer BC, SELFPAY ==
[2018-10-20 15:11] VITALS: BMI 29.5
--- NOTE | 2020-07-04 13:58 | HP.PTEVAL_ITS ---
Patient's Visit Information SOLANGE HERNANDEZ is a 65 year old M referred to Physical Therapy by Dr. Kishore Carvajal MD with a diagnosis of L SHLD PAIN. Date of Evaluation: 07/04/20 Physical Therapist: Norma Amanda PT, Cert MDT - Visit Plan Frequency: 2-3x /Week Duration: 4-6 Weeks Plan: L SHLD US, MANUAL THERAPY, POSTURE CORRECTION/STRENGTHENING, INSTRUCTION IN APPROPRIATE BODY MECHANICS AND ACTIVITY MODIFICATIONS. FRANCINE UE ROM, STRETCHING AND STRENGTHENING. HEP INSTRUCTION. ELECTRICAL STIMULATION WITH CP OR MH. - Subjective Diagnosis: L SHLD PAIN. 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 Disability: NO. Present symptoms: CONSTANT LEFT LATERAL SHLD PAIN. INTERMITTENT PAIN L NECK - RARE. INTERMITTENT TINGLING OF ALL THE LEFT FINGERS. Present since: MAY 29 2020. Pain Scale: Worst - 8/10 Least - 3/10. Currently: 4/10 - WORSENING. Commenced as a result of: FALL ON ICE ON PUBLIC SIDEWALK. JAMMED L ARM AND SIDE. HIT HEAD A LITTLE BIT. WENT TO DOCTOR A FEW DAYS LATER TO GET RIBS CHECKED. WENT ON MEDICINE FOR ABOUT 7 DAYS AND RIB PAIN GOT 90% BETTER. Symptoms at onset: L SHLD SORENESS. Worse: PICKING UP ANY HEAVY WEIGHT (OVER 10 LBS) CAUSES SEVERE PAIN, LYING SUPINE, REACHING FOR A SEAT BELT, ANYTHING THAT REQUIRES REACHING BACKWARDS, TUCKING IN SHIRT, PUTTING HAND BEHIND HEAD. LIFT L UE UP OFF THE BED IN SUPINE. REACHING ACROSS TO RIGHT SHLD WITH L UE. Better: IBUPROFEN, REST. Disturbed sleep: YES. NORMALLY SLEEPS ON L SIDE. Previous history/Previous treatment: NO HISTORY OF L SHLD PROBLEMS BEFORE THE FALL. NO SIGNIFICANT NECK HISTORY OR TREATMENTS. NO NECK OR SHLD SX'S. NO NECK OR SHLD INJECTIONS. SEVERAL MONTHS AGO WENT TO [facility] ONE VISIT FOR ALIGNMENT BECAUSE HELPED A FRIEND WITH A SIDE JOB - [facility] ADJUSTED NECK AND BACK - FELT GOOD AFTER. This episode: TRIED RESTING IT AND IBUPROFEN. Dizziness: NO. Tinnitis: NO. Nausea: NO. Shortness of Breath: NO. Difficulty Swollowing: NO. Gait: NORMAL. Accidents: UNREMARKABLE. Unexplained weight loss: NO. Imaging: SHLD X-RAY: IMPRESSION: Normal x-ray examination of the shoulder. Electronically Signed: Andrea Pizarro DO. at 4:42 EST. PMH/Recent major surgery: SEE BELOW. 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 - Objective Sitting Posture/Standing Posture: POOR. FH. R SHLD'S. Active Correction of posture: NE. Other Observations: INDEP GAIT AND TRANSFERS. GUARDING OF L UE THROUGHOUT SESSION AND GRIMMACING WITH AROM OF L SHLD CONSISTANTLY. Motor deficit: RIGHT UE 5/5 WITH MMT'ING AND QUARTER LINING SMOOTHER 80 LBS. L GRIB 70 LBS. L UE: SHLD FLEX 2+/5, ABD 3-/5, IR 4-/5, ER 3-/5. ELBOW, WRIST AND HAND 5/5. TESTING OF SHOULDER ALL PLANES PROVOKES C/O SHLD PAIN BUT PATIENT DENIES PAIN WITH TESTING OF ELBOW, WRIST AND HAND. Sensory deficit: FRANCINE UE LIGHT TOUCH SENSATION INTACT AND SYMMETRICAL. ROM deficit: SEATED: 130 DEG ACTIVE FLEX L SHLD, ABD 165 DEG. SUPINE PASSIVE FLEX 130 DEG, IR 50 DEG AND ER 45 DEG WITH 60 DEG ABD. Reflexes: 2/3 FRANCINE UE'S. Dural Signs: NEGATIVE FRANCINE UE'S. Cervical Mvmt Loss: Flex: NIL. Pro: NIL. Ext: MOD. Ret: MOD. RSB: MOD. LSB: MOD. R Rot: MIN. L Rot: MIN. PATIENT C/O LEFT UT PULLING WITH L ROTATION TESTING. Postural strength: POOR. TREATMENT: INSTRUCTION IN GENTLE PASSIVE SHLD FLEXION WITH TABLE WALK-AWAYS AND TOLERATED WELL. - Goals Goal 1:: DECREASE C/O L NECK AND SHLD PAIN Goal Time Frame: 4-6 Weeks Goal 2:: IMPROVE PERSONAL CARE, LIFTING, SLEEP, ADL, WORK AND RECREATIONAL FUNCTION. Goal Time Frame: 4-6 Weeks Goal 3:: PATIENT WILL BE INDEP WITH A HEP FOR CONTINUED IMPROVEMENT ONCE FORMAL PHYSICAL THERAPY CONCLUDES. Goal Time Frame: 4-6 Weeks - Anticipated Interventions Patient/Client Instruction: Educate patient on: Condition, Plan of Care, Risk Factors, Benefits of Fitness Program For the Purpose of:: To improve self management Therapeutic Exercise to Include: Strength training, Body mechanics, Postural training, Flexibilty training, Neuromotor development, Passive ROM, Active ROM, Scapular Strength/Stabilization For the Purpose of:: To decrease pain, To increase ROM, To improve muscle performance and motor function, To increase tolerance to activity/condition/position, To improve ability of physical actions for home/community/work/leisure Manual Therapy Techniques to Include: Mobilization, Passive ROM For the Purpose of:: To increase ROM TENS: Yes IF ES: Yes Cryotherapy (ice pack, ice massage): Yes Thermo therapy (hot pack): Yes Ultrasound (thermal/non thermal): Yes For the Purpose of:: To decrease pain, To decrease swelling/inflammation, To improve nutrient delivery to tissue Thank you for the opportunity to evaluate your patient. For Medicare and Medicare HMO plans, please review the plan of care and approve it. It will need to be FAXED BACK to us at [phone] for Medicare purposes. For Medicare only, by signing this I certify the plan of care. Please let me know if there are questions or concerns regarding this plan of care. Physician Signature: Date:
== END 2020-08-15 19:00 | disposition home or self-care (01) ==
LOC: PT 08:00
PROVIDERS: PCP Family Medicine; Referring Provider Family Medicine; Visit Provider Family Medicine
DX: M25.512 Pain in left shoulder (principal)
CPT/HCPCS: 97035; 97110; 97140; 97162; 97164; 97530

== ENCOUNTER → 2020-09-12 08:20 | Outpatient (CLI) | payer BC, SELFPAY ==
[2020-08-30 10:51] VITALS: BMI 27.7
[2020-09-12 08:33] LABS: Bacteria 0 SEEN /hpf (None Seen); Mucous, Urine 0 SEEN /hpf (<or=2+); Red Blood Cells-Urine 0 SEEN /hpf (0-5); Squamous Epithelial Cells - UA 0 SEEN /hpf (0-5); White Blood Cells 0 SEEN /hpf (0-5)
[2020-09-12 09:35] LABS: Absolute Lymphocyte Count 1.31 X10^3/uL (0.83-4.51); Basophil# 0.02 X10^3/uL; Basophil% 0.4 % (0-1); Eosinophil# 0.15 X10^3/uL; Eosinophils% 3.1 % (0-5); Hematocrit 45.1 % (40-54); Hemoglobin 14.4 g/dL (13.0-16.5); Lymphocyte # 1.31 X10^3/ul (0.83-4.51); Lymphocyte % 26.8 % (19-41); Mean Corp Hgb Conc 31.9 g/dL (32-36); Mean Corpuscular Hgb 29.9 pg (27.0-32.0); Mean Corpuscular Volume 93.6 fL (80-94); Mean Platelet Vol. 9.6 fl (6.2-12.0); Monocyte# 0.42 X10^3/uL; Monocyte% 8.6 % (0-10); NRBC Flagged by Analyzer 0 % (0-5); Neutrophil # 2.98 X10^3/uL (2.7-7.7); Neutrophil % 60.9 % (47-70); Platelet Count 273 K/mm3 (150-450); RBC Distribution Width CV 13.6 % (11.6-14.6); RBC Distribution Width SD 46.8 fl (35.1-43.9); Red Blood Count 4.82 M/mm3 (4.6-6.2); White Blood Count 4.9 K/mm3 (4.4-11.0)
[2020-09-12 09:36] LABS: Color, Urine Straw (Yellow); Glucose, Dipstick Normal (Normal); Ketone-Dipstick Negative (Negative); Leukocyte Esterase-Dipstick Negative /ul (Negative); Nitrite-Dipstick Negative (Negative); Occult Blood-Urine Negative /ul (Negative); Protein-Dipstick Negative (Negative); Urine Bilirubin Dipstick Negative (Negative); Urine Clarity Clear (Clear); Urine Urobilinogen Normal (Normal)
[2020-09-12 09:44] LABS: Protein, Urine (Random) 16.3 mg/dL (<11.9); Protein:Creat Ratio 94 mg/g CRE (0-200)
[2020-09-12 10:14] LABS: Albumin, Serum 3.5 g/dL (3.2-5.0); BUN 18 mg/dL (7-18); BUN/Creat Ratio 14.3 RATIO (10-20); Calcium,Total 8.9 mg/dL (8.5-10.1); Chloride 104 mmol/L (98-107); Creatinine, Serum 1.26 mg/dL (0.70-1.30); EST Glomerular Filtration Rate 61 mL/min (>60); Est Glom Filt Rate - Afr Amer 74 mL/min (>60); Glucose 98 mg/dL (74-106); Phosphorus 2.7 mg/dL (2.5-4.9); Sodium Level 139 mmol/L (136-145); Thyroid Stim Hormone (TSH) 2.63 uIU/mL (0.358-3.74)
== END ==
PROVIDERS: PCP Family Medicine; Referring Provider Physician Assistant Medical; Visit Provider Physician Assistant Medical
DX: N18.31 Chronic kidney disease, stage 3a (principal); R00.0 Tachycardia, unspecified; R31.21 Asymptomatic microscopic hematuria
CPT/HCPCS: 36415; 80069; 81001; 82570; 83735; 84156; 84443; 85025; 93225; 93226

== ENCOUNTER → 2020-09-19 14:50 | Outpatient (CLI) | payer BC, SELFPAY ==
[2020-08-30 10:51] VITALS: BMI 27.7
--- NOTE | 2020-09-19 14:56 | ECHOD_ITS ---
Reason For Study: ARRHYTHMIA Procedure This was a 2D Doppler, Color Flow transthoracic echocardiogram. Exam performed in department. Left Ventricle Normal LV size. Left ventricular systolic function is normal. The estimated ejection fraction is 55 %. Stage 1 diastolic dysfunction. Tricuspid Valve Normal tricuspid valve. Mild (1+) tricuspid valve insufficiency. Pulmonary artery systolic pressure is 33 mmHg. Aortic Valve Normal aortic valve. Trisinus/trileaflet aortic valve. Pulmonic Valve Normal pulmonic valve. Great Vessels Normal aortic root. The pulmonary artery is normal size. Normal inferior vena cava. Pericardium/Pleural No pericardial effusion. MMode/2D Measurements & Calculations LVIDd: 4.9 cm IVSd: 0.91 cm Ao root diam: 3.2 cm LVIDs: 3.2 cm LVPWd: 0.82 cm RVDd: 3.6 cm FS: 33.7 % LAV(MOD-bp): 30.2 ml SV(MOD-sp4): 55.9 ml LVAd ap4: 28.9 cm2 LAV(MOD-bp) Indexed: 16.1 ml/m2 LVLd ap4: 7.3 cm LAV(MOD-sp2): 37.0 ml EDV(MOD-sp4): 92.4 ml LAV(MOD-sp4): 24.2 ml EDV(sp4-el): 96.4 ml LVAs ap4: 16.5 cm2 LVLs ap4: 6.3 cm ESV(MOD-sp4): 36.5 ml ESV(sp4-el): 36.2 ml EF(MOD-sp4): 60.5 % EF(sp4-el): 62.4 % SV(sp4-el): 60.1 ml LA dimension(2D): 3.1 cm LA A4 area: 11.3 cm2 RA A4 area: 11.9 cm2 Time Measurements MV dec time: 0.34 sec Doppler Measurements & Calculations MV E max kevin: 61.2 cm/sec Lat Peak E' Kevin: 7.5 cm/sec Med Peak E' Kevin: 5.6 cm/sec MV A max kevin: 70.7 cm/sec E/E' lat: 8.2 E/E' med: 10.9 MV E/A: 0.87 Ao V2 max: 100.9 cm/sec LV V1 max: 86.6 cm/sec PA V2 max: 72.6 cm/sec Ao max P.1 mmHg LV V1 max P.0 mmHg TR max kevin: 264.6 cm/sec TR max P.0 mmHg ECHO/Echo Complete Interpretation Summary Normal LV size. Left ventricular systolic function is normal. Stage 1 diastolic dysfunction. The estimated ejection fraction is 55 %. Structurally normal valves. Ordering Physician: Tori Rivera/Surya Jose Referring Physician: HAYDEE STEPHENSON Performed By: Jennifer Huff RDCS
== END ==
PROVIDERS: PCP Family Medicine; Referring Provider Physician Assistant Medical; Visit Provider Physician Assistant Medical
DX: R00.0 Tachycardia, unspecified (principal); I10 Essential (primary) hypertension
CPT/HCPCS: 93306

== ENCOUNTER → 2020-10-12 08:40 | Outpatient (CLI) | payer BC, SELFPAY ==
[2020-08-30 10:51] VITALS: BMI 27.7
[2020-10-12 10:26] LABS: Absolute Lymphocyte Count 1.18 X10^3/uL (0.83-4.51); Absolute Neutrophil Count 3.7 X10^3/uL (2.0-7.7); Basophil# 0.01 X10^3/uL; Basophil% 0.2 % (0-1); Eosinophil# 0.08 X10^3/uL; Eosinophils% 1.5 % (0-5); Hematocrit 44.1 % (40-54); Hemoglobin 14.7 g/dL (13.0-16.5); Lymphocyte # 1.18 X10^3/ul (0.83-4.51); Lymphocyte % 21.7 % (19-41); Mean Corp Hgb Conc 33.3 g/dL (32-36); Mean Corpuscular Hgb 31.1 pg (27.0-32.0); Mean Corpuscular Volume 93.2 fL (80-94); Mean Platelet Vol. 9.7 fl (6.2-12.0); Monocyte% 9.2 % (0-10); NRBC Flagged by Analyzer 0 % (0-5); Neutrophil # 3.65 X10^3/uL (2.7-7.7); Neutrophil % 67.2 % (47-70); Platelet Count 279 K/mm3 (150-450); RBC Distribution Width CV 14.2 % (11.6-14.6); Red Blood Count 4.73 M/mm3 (4.6-6.2); White Blood Count 5.4 K/mm3 (4.4-11.0)
[2020-10-12 10:58] LABS: Vitamin B12 315 pg/mL (211-911)
[2020-10-12 11:20] LABS: Ferritin 133 ng/mL (26-388)
== END ==
PROVIDERS: PCP Family Medicine; Referring Provider Family Medicine; Visit Provider Family Medicine
DX: E53.8 Deficiency of other specified B group vitamins (principal)
CPT/HCPCS: 36415; 82607; 82728; 82746; 85025

== ENCOUNTER → 2021-03-08 08:15 | Outpatient (CLI) | payer BC, SELFPAY ==
[2021-03-08 09:14] LABS: Absolute Lymphocyte Count 1.39 X10^3/uL (0.83-4.51); Absolute Neutrophil Count 2.6 X10^3/uL (2.0-7.7); Basophil# 0.02 X10^3/uL; Basophil% 0.4 % (0-1); Eosinophil# 0.11 X10^3/uL; Eosinophils% 2.4 % (0-5); Hematocrit 44.6 % (40-54); Hemoglobin 15.1 g/dL (13.0-16.5); Lymphocyte # 1.39 X10^3/ul (0.83-4.51); Mean Corp Hgb Conc 33.9 g/dL (32-36); Mean Corpuscular Hgb 31.2 pg (27.0-32.0); Mean Corpuscular Volume 92.1 fL (80-94); Mean Platelet Vol. 9.4 fl (6.2-12.0); Monocyte# 0.47 X10^3/uL; Monocyte% 10.1 % (0-10); NRBC Flagged by Analyzer 0 % (0-5); Neutrophil # 2.64 X10^3/uL (2.7-7.7); Neutrophil % 56.9 % (47-70); Platelet Count 260 K/mm3 (150-450); RBC Distribution Width CV 13.4 % (11.6-14.6); RBC Distribution Width SD 45.7 fl (35.1-43.9); Red Blood Count 4.84 M/mm3 (4.6-6.2); White Blood Count 4.6 K/mm3 (4.4-11.0)
[2021-03-08 09:47] LABS: Vitamin B12 1057 pg/mL (211-911)
[2021-03-08 10:25] LABS: ALB/GLOB Ratio 0.9 RATIO (0.9-2.4); AST(SGOT) 32 U/L (15-37); Alanine Aminotransfer ALT/SGPT 45 U/L (16-61); Albumin, Serum 3.5 g/dL (3.2-5.0); Alkaline Phosphatase 57 U/L (45-117); Anion Gap 4 (5-15); BUN 21 mg/dL (7-18); BUN/Creat Ratio 13.8 RATIO (10-20); Calcium,Total 9.2 mg/dL (8.5-10.1); Chloride 106 mmol/L (98-107); Cholesterol 187 mg/dL (200); Creatinine, Serum 1.52 mg/dL (0.70-1.30); EST Glomerular Filtration Rate 49 mL/min (>60); Est Glom Filt Rate - Afr Amer 60 mL/min (>60); Globulin 3.8 g/dL (2.2-4.2); Glucose 92 mg/dL (74-106); High Density Lipoprotein 63 mg/dL; Potassium 4.1 mmol/L (3.5-5.1); Protein, Total 7.3 g/dL (6.4-8.2); Sodium Level 139 mmol/L (136-145); Triglycerides 128 mg/dL; Very Low Density Lipoprotein 26 mg/dL (5-40)
== END ==
PROVIDERS: PCP Family Medicine; Referring Provider Family Medicine; Visit Provider Family Medicine
DX: Z00.00 Encounter for general adult medical examination without abnormal findings (principal); E78.5 Hyperlipidemia, unspecified; I10 Essential (primary) hypertension; E53.8 Deficiency of other specified B group vitamins
CPT/HCPCS: 36415; 80053; 80061; 82607; 82746; 85025

== ENCOUNTER → 2022-02-22 | Outpatient (CLI) | payer BC, SELFPAY ==
[2022-02-22 11:52] LABS: Bacteria 0 SEEN /hpf (None Seen); Mucous, Urine 0 SEEN /hpf (<or=2+); Red Blood Cells-Urine 0 SEEN /hpf (0-5); Squamous Epithelial Cells - UA 0 SEEN /hpf (0-5); White Blood Cells 0 SEEN /hpf (0-5)
[2022-02-22 12:38] LABS: Color, Urine Yellow (Yellow); Glucose, Dipstick Normal (Normal); Ketone-Dipstick Negative (Negative); Leukocyte Esterase-Dipstick 25 /ul (Negative); Nitrite-Dipstick Negative (Negative); Occult Blood-Urine Negative /ul (Negative); Protein-Dipstick Negative (Negative); Urine Bilirubin Dipstick Negative (Negative); Urine Clarity Clear (Clear); Urine Urobilinogen Normal (Normal)
[2022-02-22 12:46] LABS: Protein:Creat Ratio 101 mg/g CRE (0-200)
[2022-02-22 13:18] LABS: Albumin, Serum 3.5 g/dL (3.2-5.0); BUN 17 mg/dL (7-18); Calcium,Total 9.2 mg/dL (8.5-10.1); Chloride 105 mmol/L (98-107); Creatinine, Serum 1.31 mg/dL (0.70-1.30); EST Glomerular Filtration Rate 58 mL/min (>60); Est Glom Filt Rate - Afr Amer 71 mL/min (>60); Glucose 100 mg/dL (74-106); Phosphorus 2.6 mg/dL (2.5-4.9); Potassium 4.3 mmol/L (3.5-5.1); Sodium Level 139 mmol/L (136-145)
== END | disposition home or self-care (01) ==
PROVIDERS: PCP Family Medicine; Referring Provider Internal Medicine Nephrology; Visit Provider Internal Medicine Nephrology
DX: N18.31 Chronic kidney disease, stage 3a (principal)
CPT/HCPCS: 36415; 80069; 81001; 82570; 84156

== ENCOUNTER → 2022-07-05 | Outpatient (CLI) | payer BC, SELFPAY | END | disposition home or self-care (01) | LOC: PSN 09:19 | PROVIDERS: PCP Family Medicine; Referring Provider Physician Assistant Medical; Visit Provider Physician Assistant Medical | DX: R00.0 Tachycardia, unspecified (principal); I10 Essential (primary) hypertension | CPT/HCPCS: 93225; 93226 ==

== ENCOUNTER → 2022-07-15 | Outpatient (CLI) | payer BC, SELFPAY ==
--- NOTE | 2022-07-15 16:24 | CT_ITS ---
STUDY: CTA CHEST REASON FOR EXAM: Male, 67 years old. PE, hx of bilateral PE RADIATION DOSAGE (If Supplied By Facility): CTDIvol = ( 10.77 ) mGy, DLP = ( 521.56 ) mGycm TECHNIQUE: The examination was performed with the intravenous administration of 100mL Isovue-370. Post-processing of the angiographic images was performed, with multiplanar reformation and 3D reconstruction. Individualized dose optimization techniques were used for this CT. COMPARISON: 08/09/2013 FINDINGS: Normal enhancement of the main pulmonary artery and right and left pulmonary arteries. Normal enhancement of the bilateral peripheral pulmonary arteries. There is no demonstrated pulmonary embolism. Normal thoracic aorta and visualized great vessels. There is no demonstrated aortic dissection. Normal heart and pericardium. Normal mediastinum. Normal hilar regions. Normal visualized trachea and bronchi. Significant decrease in the diffuse bilateral reticular opacities with minimal residual peripheral opacities. No consolidations, mass lesions or pleural effusions. Normal chest wall structures. No acute or aggressive osseous abnormality. No acute findings in the upper abdomen. Cholelithiasis. CT/CTA Chest W/WO Contrast IMPRESSION: Normal CTA chest examination, without a demonstrated pulmonary embolism or arterial dissection. Minimal residual interstitial changes, likely sequela of prior lung disease. No definite acute pulmonary findings. Electronically Signed: Dieter Lee MD at 17:59 EST ,
[2022-07-15 17:10] LABS: CREATININE FINGERSTICK 1.2 mg/dL (0.70-1.30); EGFR FINGERSTICK > 60.0000 mL/min (>60)
== END | disposition home or self-care (01) ==
LOC: CT 16:22
PROVIDERS: PCP Family Medicine; Visit Provider Physician Assistant Medical
DX: R00.0 Tachycardia, unspecified (principal); I26.99 Other pulmonary embolism without acute cor pulmonale; I10 Essential (primary) hypertension
CPT/HCPCS: 71275; Q9967

== ENCOUNTER → 2022-07-25 | Outpatient (CLI) | payer BC, SELFPAY ==
--- NOTE | 2022-07-25 07:47 | ECHOD_ITS ---
Reason For Study: SOB Procedure This was a 2D Doppler, Color Flow transthoracic echocardiogram. Exam performed in department. Left Ventricle Normal LV size. Left ventricular systolic function is normal. The estimated ejection fraction is 55 %. Stage 1 diastolic dysfunction. No regional wall motion abnormalities noted. Right Ventricle Normal RV size. Normal systolic function. Atria Normal left atrium. Normal right atrium. Mitral Valve Normal mitral valve. Mild (1+) eccentric mitral valve insufficiency. Tricuspid Valve Normal tricuspid valve. Unable to estimate RV systolic pressure due to inadequate jet, pulmonary artery pressure probably normal. Aortic Valve Normal aortic valve. Trisinus/trileaflet aortic valve. Pulmonic Valve Normal pulmonic valve. Great Vessels Normal aortic root. The pulmonary artery is normal size. Normal inferior vena cava. Pericardium/Pleural No pericardial effusion. MMode/2D Measurements & Calculations LVIDd: 5.6 cm IVSd: 0.95 cm Ao root diam: 3.5 cm LVIDs: 3.4 cm LVPWd: 0.87 cm FS: 39.8 % LAV(MOD-sp4): 26.1 ml LVAd ap4: 24.7 cm2 SV(MOD-sp4): 39.8 ml LVLd ap4: 7.2 cm EDV(MOD-sp4): 69.6 ml EDV(sp4-el): 71.9 ml LVAs ap4: 14.6 cm2 LVLs ap4: 6.3 cm ESV(MOD-sp4): 29.8 ml ESV(sp4-el): 28.9 ml EF(MOD-sp4): 57.2 % EF(sp4-el): 59.9 % SV(sp4-el): 43.1 ml LA A4 area: 11.9 cm2 LA dimension(2D): 3.9 cm RA A4 area: 15.3 cm2 Time Measurements MV dec time: 0.24 sec Doppler Measurements & Calculations MV E max kevin: 52.3 cm/sec Lat Peak E' Kevin: 5.0 cm/sec Med Peak E' Kevin: 5.3 cm/sec MV A max kevin: 59.4 cm/sec E/E' lat: 10.5 E/E' med: 9.9 MV E/A: 0.88 MV V2 max: 65.6 cm/sec Ao V2 max: 89.2 cm/sec MV max P.7 mmHg MV dec slope: 223.0 cm/sec2 Ao max P.2 mmHg MV V2 mean: 43.4 cm/sec Ao V2 mean: 62.8 cm/sec MV mean P.82 mmHg Ao mean P.8 mmHg MV V2 VTI: 22.6 cm Ao V2 VTI: 20.2 cm AV (velocity ratio): 0.83 LV V1 max: 76.8 cm/sec PA V2 max: 102.9 cm/sec LV V1 max P.4 mmHg PA V2 mean: 58.9 cm/sec LV V1 mean P.3 mmHg LV V1 mean: 53.6 cm/sec LV V1 VTI: 16.7 cm ECHO/Echo Complete Interpretation Summary Normal LV size. Left ventricular systolic function is normal. The estimated ejection fraction is 55 %. Mild (1+) eccentric mitral valve insufficiency. Stage 1 diastolic dysfunction. Ordering Physician: Tori Rivera Referring Physician: Tori Rivera Performed By: May Swenson RCS
== END | disposition home or self-care (01) ==
PROVIDERS: PCP Family Medicine; Referring Provider Physician Assistant Medical; Visit Provider Physician Assistant Medical
DX: R06.02 Shortness of breath (principal); I10 Essential (primary) hypertension; R00.0 Tachycardia, unspecified
CPT/HCPCS: 93306

== ENCOUNTER → 2022-11-28 | Outpatient (CLI) | payer BC, SELFPAY ==
[2022-11-28 14:39] LABS: Absolute Lymphocyte Count 1.67 X10^3/uL (0.83-4.51); Absolute Neutrophil Count 3.5 X10^3/uL (2.0-7.7); Basophil# 0.03 X10^3/uL; Basophil% 0.5 % (0-1); Eosinophil# 0.12 X10^3/uL; Hematocrit 44.1 % (40-54); Hemoglobin 14.5 g/dL (13.0-16.5); Lymphocyte # 1.67 X10^3/ul (0.83-4.51); Lymphocyte % 28.4 % (19-41); Mean Corp Hgb Conc 32.9 g/dL (32-36); Mean Corpuscular Hgb 31.1 pg (27.0-32.0); Mean Corpuscular Volume 94.6 fL (80-94); Mean Platelet Vol. 9.4 fl (6.2-12.0); Monocyte# 0.59 X10^3/uL; Monocyte% 10.1 % (0-10); NRBC Flagged by Analyzer 0 % (0-5); Neutrophil # 3.45 X10^3/uL (2.7-7.7); Neutrophil % 58.8 % (47-70); Platelet Count 271 K/mm3 (150-450); RBC Distribution Width CV 13.6 % (11.6-14.6); RBC Distribution Width SD 47.1 fl (35.1-43.9); Red Blood Count 4.66 M/mm3 (4.6-6.2); White Blood Count 5.9 K/mm3 (4.4-11.0)
[2022-11-28 15:05] LABS: Microalbumin,Random Urine 7.8 mg/L (NO RANGE EST.); Microalbumin:Creatinine Ratio 4.2 mg/g CRE (<30 mg/g CRE)
[2022-11-28 15:13] LABS: ALB/GLOB Ratio 0.8 RATIO (0.9-2.4); AST(SGOT) 26 U/L (15-37); Alanine Aminotransfer ALT/SGPT 33 U/L (16-61); Albumin, Serum 3.3 g/dL (3.2-5.0); Alkaline Phosphatase 60 U/L (45-117); Anion Gap 6 (5-15); BUN 19 mg/dL (7-18); BUN/Creat Ratio 14.6 RATIO (10-20); Chloride 107 mmol/L (98-107); Cholesterol 193 mg/dL (200); EST Glomerular Filtration Rate 59 mL/min (>60); Est Glom Filt Rate - Afr Amer 71 mL/min (>60); Globulin 3.9 g/dL (2.2-4.2); Glucose 93 mg/dL (74-106); High Density Lipoprotein 56 mg/dL; Potassium 4.2 mmol/L (3.5-5.1); Protein, Total 7.2 g/dL (6.4-8.2); Sodium Level 139 mmol/L (136-145); Triglycerides 299 mg/dL; Very Low Density Lipoprotein 60 mg/dL (5-40)
== END | disposition home or self-care (01) ==
LOC: LAB 13:17
PROVIDERS: PCP Family Medicine; Referring Provider Physician Assistant Medical; Visit Provider Physician Assistant Medical
DX: I12.9 Hypertensive chronic kidney disease with stage 1 through stage 4 chronic kidney disease, or unspecified chronic kidney disease (principal); N18.31 Chronic kidney disease, stage 3a; E78.5 Hyperlipidemia, unspecified
CPT/HCPCS: 36415; 80053; 80061; 82043; 82570; 85025

== ENCOUNTER → 2023-04-18 | Outpatient (CLI) | payer BC, SELFPAY ==
[2023-04-18 13:58] LABS: Anion Gap 5 (5-15); BUN 24 mg/dL (7-18); BUN/Creat Ratio 16.7 RATIO (10-20); Chloride 104 mmol/L (98-107); Creatinine, Serum 1.44 mg/dL (0.70-1.30); EST Glomerular Filtration Rate 52 mL/min (>60); Est Glom Filt Rate - Afr Amer 63 mL/min (>60); Glucose 115 mg/dL (74-106); Potassium 3.9 mmol/L (3.5-5.1); Sodium Level 136 mmol/L (136-145)
== END | disposition home or self-care (01) ==
LOC: LAB 12:53
PROVIDERS: PCP Family Medicine; Referring Provider Physician Assistant Medical; Visit Provider Physician Assistant Medical
DX: I10 Essential (primary) hypertension (principal)
CPT/HCPCS: 36415; 80048

== ENCOUNTER 2023-09-05 06:29 | Day surgery (SDC) | payer BC, SELFPAY ==
[2023-09-05] VITALS (7 sets, daily range): BP systolic 94–130; BP diastolic 75–86; PULSE 67–86; RESP 16–18; TEMP 35.8–36.5; O2SAT 91–100; BMI 30.7
[2023-09-05] MEDS: Lactated Ringers 1,000 ML 15 ML IV (07:00)
--- NOTE | 2023-09-05 07:21 | HP.PCM_ITS ---
HPI - General General Date of Admission: 01/25/20 Date of Service: 09/05/23 Chief Complaint: Screening for intestinal cancer HPI Narrative SOLANGE HERNANDEZ, is a 68 M who presents for screening colonoscopy today. Previous 1 was 13 years ago. He presents via open access. No abdominal pain. No bright red blood per rectum or melena. No abdominal pain. He otherwise enjoys good health except for his chronic pulmonary disease. [facility] Medical History (Updated 09/02/23 @ 10:51 by Dayana Lockhart) Bilateral pulmonary embolism Cardiology follow-up encounter COVID-19 (04/2020) DVT (deep venous thrombosis) (2014) Essential (primary) hypertension GERD (gastroesophageal reflux disease) High cholesterol History of echocardiogram HLD (hyperlipidemia) Hypertension Knee pain Lung disease Nocardia infection Non-smoker Pulmonary alveolar proteinosis Pulmonary embolism Wears glasses Home Medications multivitamin 1 ea PO DAILY SUPPLEMENT 06/27/17 [History Last Taken 09/04/23] lisinopril 10 mg tablet 10 mg PO DAILY #90 tabs 11/05/22 [Rx Last Taken 09/05/23 06:00] hydrochlorothiazide 25 mg tablet 25 mg PO DAILY #30 tabs 04/01/23 [Rx Last Taken 09/04/23] rosuvastatin 40 mg tablet 20 mg PO DAILY 30 days #15 tabs 04/01/23 [History Last Taken 09/04/23] amitriptyline 50 mg tablet 50 mg PO QHS PRN SLEEPI 07/21/23 [History Last Taken 09/04/23] carvedilol 12.5 mg tablet 12.5 mg PO DAILY 09/02/23 [History Last Taken 09/04/23] Allergy/AdvReac Type Severity Reaction Status Date / Time atorvastatin Allergy Vomiting Verified 09/05/23 06:47 morphine Allergy Nausea,Vomi Verified 09/05/23 06:47 ting piperacillin [From Zosyn] AdvReac Vomiting Verified 09/05/23 06:47 tazobactam [From Zosyn] AdvReac Vomiting Verified 09/05/23 06:47 Family History (Updated 07/21/23 @ 10:35 by Cristina Yañez) Brother Myocardial infarction Kidney disease Mother CAD (coronary artery disease) Father Cancer Oral ca Brother CVA (cerebral vascular accident) Surgical History (Updated 09/02/23 @ 10:51 by Dayana Lockhart) Bilateral therapeutic whole-lung lavage (2015) H/O knee surgery H/O nasal septoplasty History of bronchoscopy History of cardiac catheterization History of herniorrhaphy History of left heart catheterization (04/20/09) Hx of colonoscopy Status post stereotactic brain biopsy (2014) Social History (Updated 07/21/23 @ 10:36 by Cristina Yañez) current occupational status: employed current occupation: [employer] Smoking Status: Never smoker alcohol intake: current alcohol intake frequency: a few times a week Alcohol type: beer substance use type: does not use caffeine: Yes Type: tea Number of servings: 1 ROS Constitutional Constitutional: Reports systems reviewed and no addt'l complaints, except as documented Cardiovascular Cardiovascular: Denies chest pain Respiratory/Chest Respiratory/Chest: Denies shortness of breath at rest Gastrointestinal Gastrointestinal: Denies abdominal pain, change in bowel habits, hematochezia or melena Vital Signs Vital Signs Vital Signs: 09/05/23 06:49 09/05/23 06:50 Temperature 96.9 F L Temperature Source Temporal Pulse Rate 67 Respiratory Rate 16 Respiratory Pattern Normal Blood Pressure 130/86 H Blood Pressure Mean 100 Blood Pressure Source Monitor Blood Pressure Position Semi-Fowlers Blood Pressure Location Left Arm Pulse Ox 97 Oxygen Delivery Method Room Air Weight Weight: 185 lb Body Mass Index (BMI) 30.7 Physical Exam Const alert, oriented x3 and no apparent distress General Appearance: cooperative and comfortable Eyes General Eye: normal appearance of both eyes Neck General: normal visual inspection Chest inspection of chest normal Resp Effort and Inspection: able to speak in complete sentences and symmetric chest movement Auscultation: clear to auscultation bilaterally Cardio regular rate and regular rhythm GI soft to palpation, non-tender and non-distended Extremity no calf tenderness Neuro oriented x3 Psych thought process normal Assessment & Plan Assessment/Plan (1) Encounter for screening for malignant neoplasm of colon: PLAN: The patient presents via open access today for screening colonoscopy. He is aware of the technique, benefit, risk, alternatives. He has had an opportunity to ask and have questions answered. We will proceed as noted. Lam Benavidez M.D., F.A.C.S.
--- NOTE | 2023-09-05 07:30 | COLBX_PTH ---
PATIENT: SOLANGE HERNNADEZ LOC: EN U#:[id number] AGE/SX: 68/M ROOM: RE09/05/[address]: Dr. Lam Benavidez MD : 1955 BED: DIS: 09/05/2023 SPEC #: [id number] RECD: 09/05/23 11:10 STATUS: ALTON MARLENE #: [id number] PEDRO: 09/05/23 07:[address]: Lam Benavidez DEPT: SURGICAL PATHOLOGY RECD BY: Winter Med[place] ENTERED: 09/05/23 12:01 SP TYPE: COLON BX RESHMA DR: Dr. Moo Carmichael MD Tissues: Descending colon Procedures: Surgery Specimen Level IV HEADER OPERATION: Colonoscopy with biopsy PRE-OP DIAGNOSIS: Encounter for screening for malignant neoplasm of colon TISSUE SUBMITTED: Descending colon biopsy MICROSCOPIC DIAGNOSIS Descending colon, biopsy: Tubular adenoma. AM/mr 09/09/2023 MICROSCOPIC DESCRIPTION Slides are reviewed. GROSS DESCRIPTION Received in fixative is one container labeled with the patient's name and designated Descending colon biopsy. The specimen consists of one irregular fragment of light [place] soft tissue that measures 0.3 x 0.3 x 0.1 cm. The specimen is totally submitted in one cassette. ABILIO/ 09/05/2023 TC:5 CPT:16483
--- NOTE | 2023-09-05 08:23 | OP.COLON_ITS ---
Patient Name: Anthony Ma Procedure Date: 09/05/2023 7:48 AM Date of : 1955 Age: 68 Procedure: Colonoscopy Indications: Screening for colorectal malignant neoplasm Providers: Lam Benavidez MD Medicines: See the Anesthesia note for documentation of the administered medications Patient Profile: Last Colonoscopy: May 2011. Complications: No immediate complications. Procedure: Pre-Anesthesia Assessment: - Prior to the procedure, a History and Physical was performed, and patient medications and allergies were reviewed. The patient's tolerance of previous anesthesia was also reviewed. The risks and benefits of the procedure and the sedation options and risks were discussed with the patient. All questions were answered, and informed consent was obtained. Prior Anticoagulants: The patient has taken no anticoagulant or antiplatelet agents. ASA Grade Assessment: II - A patient with mild systemic disease. After reviewing the risks and benefits, the patient was deemed in satisfactory condition to undergo the procedure. After I obtained informed consent, the scope was passed under direct vision. Throughout the procedure, the patient's blood pressure, pulse, and oxygen saturations were monitored continuously. The adult colonoscope was introduced through the anus and advanced to the terminal ileum, with identification of the appendiceal orifice and IC valve. The colonoscopy was somewhat difficult due to a tortuous colon. The patient tolerated the procedure well. The quality of the bowel preparation was good. The ileocecal valve and the appendiceal orifice were photographed. Scope In: 7:57:26 AM Scope Withdrawal Time 0 hours 9 minutes 53 seconds Scope Out: 8:18:10 AM Total Procedure Duration Time 0 hours 20 minutes 44 seconds Findings: The digital rectal exam findings include internal hemorrhoids that prolapse with straining, but spontaneously regress to the resting position (Grade II). Pertinent negatives include normal prostate (size, shape, and consistency). Scattered diverticula were found in the sigmoid colon. An area of small nodule mucosa was found in the descending colon. Biopsies were taken with a cold forceps for histology. The exam was otherwise without abnormality. Impression: - Internal hemorrhoids that prolapse with straining, but spontaneously regress to the resting position (Grade II) found on digital rectal exam. - Diverticulosis in the sigmoid colon. - Abnormal mucosa in the descending colon. Biopsied. - The examination was otherwise normal. Recommendation: - Discharge patient to home. - Resume previous diet. - Continue present medications. - Repeat colonoscopy in 10 years for surveillance based on pathology results. - Telephone my office for pathology results in 1 week. Procedure Code(s): --- Professional --- 04106, Colonoscopy, flexible; with biopsy, single or multiple Diagnosis Code(s): --- Professional --- Z12.11, Encounter for screening for malignant neoplasm of colon K64.1, Second degree hemorrhoids K63.89, Other specified diseases of intestine K57.30, Diverticulosis of large intestine without perforation or abscess without bleeding CPT copyright 2021 [employer]. All rights reserved. The codes documented in this report are preliminary and upon antenna specialist review may be revised to meet current compliance requirements. Lam Benavidez MD 09/05/2023 8:23:16 AM This report has been signed electronically. Number of Addenda: 0 Note Initiated On: 09/05/2023 7:48 AM
--- NOTE | 2023-09-05 08:24 | OP.CCLET_ITS ---
09/05/2023 Moo Carmichael [address] [place] [address] Re : Colonoscopy procedure for Anthony Ma Dear Dr. Carmichael This procedure was performed on Tuesday, September 05, 2023. My impressions and recommendations are as follows: Impressions : - Internal hemorrhoids that prolapse with straining, but spontaneously regress to the resting position (Grade II) found on digital rectal exam. - Diverticulosis in the sigmoid colon. - Abnormal mucosa in the descending colon. Biopsied. - The examination was otherwise normal. Recommendations : - Discharge patient to home. - Resume previous diet. - Continue present medications. - Repeat colonoscopy in 10 years for surveillance based on pathology results. - Telephone my office for pathology results in 1 week. My findings are described in the full procedure note, which is enclosed. If I can be of further assistance, please feel free to contact me at Doctor phone number(s): Work: . Sincerely, Lam Benavidez MD 09/05/2023 8:23:16 AM This report has been signed electronically.
== END 2023-09-05 09:29 | disposition home or self-care (01) ==
LOC: EN 06:30 → AC 06:31
PROVIDERS: PCP Family Medicine; Referring Provider Surgery; Visit Provider Surgery
PROC: 0DJD8ZZ Inspection of Lower Intestinal Tract, Via Natural or Artificial Opening Endoscopic (ICD-10-PCS; CPT 45378; principal; 2023-09-05 07:25)
DX: Z12.11 Encounter for screening for malignant neoplasm of colon (principal); D12.4 Benign neoplasm of descending colon; K64.1 Second degree hemorrhoids; I10 Essential (primary) hypertension; K57.30 Diverticulosis of large intestine without perforation or abscess without bleeding; E78.00 Pure hypercholesterolemia, unspecified; Z79.899 Other long term (current) drug therapy
CPT/HCPCS: 45380; 88305; J7120; J2405

== ENCOUNTER 2023-09-30 07:39 | Outpatient (CLI) | payer BC, SELFPAY ==
[2023-09-30 08:38] LABS: Absolute Lymphocyte Count 1.24 X10^3/uL (0.83-4.51); Absolute Neutrophil Count 2.4 X10^3/uL (2.0-7.7); Basophil# 0.02 X10^3/uL; Basophil% 0.5 % (0-1); Eosinophil# 0.11 X10^3/uL; Eosinophils% 2.6 % (0-5); Hematocrit 42.3 % (40-54); Hemoglobin 13.8 g/dL (13.0-16.5); Lymphocyte # 1.24 X10^3/ul (0.83-4.51); Lymphocyte % 29.7 % (19-41); Mean Corp Hgb Conc 32.6 g/dL (32-36); Mean Corpuscular Hgb 30.4 pg (27.0-32.0); Mean Corpuscular Volume 93.2 fL (80-94); Mean Platelet Vol. 9.8 fl (6.2-12.0); Monocyte# 0.42 X10^3/uL; Monocyte% 10.1 % (0-10); NRBC Flagged by Analyzer 0 % (0-5); Neutrophil # 2.37 X10^3/uL (2.7-7.7); Neutrophil % 56.9 % (47-70); Platelet Count 267 K/mm3 (150-450); RBC Distribution Width CV 13.2 % (11.6-14.6); RBC Distribution Width SD 44.7 fl (35.1-43.9); Red Blood Count 4.54 M/mm3 (4.6-6.2); White Blood Count 4.2 K/mm3 (4.4-11.0)
[2023-09-30 09:22] LABS: Cholesterol 195 mg/dL (200); High Density Lipoprotein 55 mg/dL; Triglycerides 204 mg/dL; Very Low Density Lipoprotein 41 mg/dL (5-40)
[2023-09-30 10:16] LABS: Microalbumin,Random Urine 5.3 mg/L (NO RANGE EST.); Microalbumin:Creatinine Ratio 2.8 mg/g CRE (<30 mg/g CRE)
[2023-09-30 10:48] LABS: Vitamin B12 297 pg/mL (211-911); Vitamin D,25 Hydroxy 40.2 ng/mL
[2023-09-30 10:53] LABS: ALB/GLOB Ratio 0.9 RATIO (0.9-2.4); AST(SGOT) 26 U/L (15-37); Alanine Aminotransfer ALT/SGPT 34 U/L (16-61); Albumin, Serum 3.3 g/dL (3.2-5.0); Alkaline Phosphatase 51 U/L (45-117); Anion Gap 4 (5-15); BUN 20 mg/dL (7-18); BUN/Creat Ratio 15.4 RATIO (10-20); Calcium,Total 9.3 mg/dL (8.5-10.1); Chloride 105 mmol/L (98-107); EST Glomerular Filtration Rate 59 mL/min (>60); Est Glom Filt Rate - Afr Amer 71 mL/min (>60); Globulin 3.5 g/dL (2.2-4.2); Glucose 110 mg/dL (74-106); Potassium 3.9 mmol/L (3.5-5.1); Protein, Total 6.8 g/dL (6.4-8.2); Sodium Level 139 mmol/L (136-145)
== END 2023-09-30 23:59 | disposition home or self-care (01) ==
PROVIDERS: Physician Assistant Medical; PCP Family Medicine; Referring Provider Family Medicine; Visit Provider Family Medicine
DX: E53.8 Deficiency of other specified B group vitamins (principal); N18.31 Chronic kidney disease, stage 3a; I12.9 Hypertensive chronic kidney disease with stage 1 through stage 4 chronic kidney disease, or unspecified chronic kidney disease; E78.2 Mixed hyperlipidemia
CPT/HCPCS: 36415; 80053; 80061; 82043; 82306; 82570; 82607; 82746; 85025

== ENCOUNTER → 2024-04-29 | Outpatient (CLI) | payer BC, SELFPAY ==
[2024-04-29 10:57] LABS: AST(SGOT) 27 U/L (15-37); Alanine Aminotransfer ALT/SGPT 40 U/L (16-61); Albumin, Serum 3.6 g/dL (3.2-5.0); Alkaline Phosphatase 54 U/L (45-117); Bilirubin, Direct 0.16 mg/dL (0.00-0.30); Cholesterol 165 mg/dL (200); Globulin 3.6 g/dL (2.2-4.2); High Density Lipoprotein 54 mg/dL; Protein, Total 7.2 g/dL (6.4-8.2); Triglycerides 136 mg/dL; Very Low Density Lipoprotein 27 mg/dL (5-40)
[2024-04-29 11:00] LABS: Microalbumin,Random Urine 5.8 mg/L (NO RANGE EST.); Microalbumin:Creatinine Ratio 3.1 mg/g CRE (<30 mg/g CRE)
[2024-04-29 11:10] LABS: ALB/GLOB Ratio 0.9 RATIO (0.9-2.4); AST(SGOT) 29 U/L (15-37); Alanine Aminotransfer ALT/SGPT 40 U/L (16-61); Albumin, Serum 3.5 g/dL (3.2-5.0); Alkaline Phosphatase 59 U/L (45-117); Anion Gap 6 (5-15); BUN 21 mg/dL (7-18); BUN/Creat Ratio 15.9 RATIO (10-20); Calcium,Total 9.3 mg/dL (8.5-10.1); Chloride 104 mmol/L (98-107); Creatinine, Serum 1.32 mg/dL (0.70-1.30); EST Glomerular Filtration Rate 58 mL/min (>60); Est Glom Filt Rate - Afr Amer 70 mL/min (>60); Globulin 3.8 g/dL (2.2-4.2); Glucose 109 mg/dL (74-106); PSA,Total - Annual Screen 0.85 ng/mL (0.00-4.00); Protein, Total 7.3 g/dL (6.4-8.2); Sodium Level 136 mmol/L (136-145)
== END | disposition home or self-care (01) ==
LOC: MFPLAB 08:05
PROVIDERS: Physician Assistant Medical; PCP Family Medicine; Referring Provider Family Medicine; Visit Provider Family Medicine
DX: I12.9 Hypertensive chronic kidney disease with stage 1 through stage 4 chronic kidney disease, or unspecified chronic kidney disease (principal); N18.31 Chronic kidney disease, stage 3a; Z12.5 Encounter for screening for malignant neoplasm of prostate
CPT/HCPCS: 36415; 80053; 80061; 80076; 82043; 82570; 84153; G0103

== ENCOUNTER 2024-07-19 02:05 | Observation (INO) | payer BC, MEDICARE, SELFPAY ==
[2024-07-19] VITALS (11 sets, daily range): BP systolic 134–171; BP diastolic 87–99; PULSE 72–90; RESP 14–18; TEMP 36.3–37.2; O2SAT 94–98; BMI 31.4; BMI 30.7
--- NOTE | 2024-07-19 02:08 | EX.ED.DYSGE1 ---
HPI History of Present Illness Chief Complaint: Neuro S/Sx PFSH [facility] Medical History Wears glasses High cholesterol Pulmonary embolism Non-smoker Hypertension History of echocardiogram Cardiology follow-up encounter COVID-19 (04/2020) Bilateral pulmonary embolism GERD (gastroesophageal reflux disease) DVT (deep venous thrombosis) (2014) Pulmonary alveolar proteinosis HLD (hyperlipidemia) Essential (primary) hypertension Nocardia infection Knee pain Lung disease Home Medications ?Medication ?Instructions ?Recorded ?Last Taken ?Type multivitamin 1 ea PO DAILY SUPPLEMENT 06/27/17 09/04/23 History rosuvastatin 40 mg tablet 20 mg PO DAILY 30 days #15 tabs 04/01/23 09/04/23 History lisinopril 10 mg tablet 10 mg PO DAILY #90 tabs 11/18/23 Unknown Rx carvedilol 12.5 mg tablet 12.5 mg PO DAILY #180 tabs 12/26/23 Unknown Rx hydrochlorothiazide 25 mg tablet 25 mg PO DAILY #30 tabs 04/27/24 Unknown Rx Allergy/AdvReac Type Severity Reaction Status Date / Time atorvastatin Allergy Vomiting Verified 07/19/24 02:09 morphine Allergy Nausea,Vomi Verified 07/19/24 02:09 ting piperacillin (From Zosyn) AdvReac Vomiting Verified 07/19/24 02:09 tazobactam (From Zosyn) AdvReac Vomiting Verified 07/19/24 02:09 Family History Brother Myocardial infarction Kidney disease Mother CAD (coronary artery disease) Father Cancer Oral ca Brother CVA (cerebral vascular accident) Surgical History History of cardiac catheterization Hx of colonoscopy History of bronchoscopy History of herniorrhaphy H/O nasal septoplasty H/O knee surgery History of left heart catheterization (04/20/09) Bilateral therapeutic whole-lung lavage (2015) Status post stereotactic brain biopsy (2014) Social History current occupational status: employed current occupation: [employer] Smoking Status: Never smoker alcohol intake: current alcohol intake frequency: a few times a week Alcohol type: beer substance use type: does not use caffeine: Yes Type: tea Number of servings: 1 [facility] Narrative Medical decision making narrative: HISTORY OF PRESENT ILLNESS: 69-year-old male history of high cholesterol, DVT, PE, tobacco abuse, hypertension, presents with numbness and ting in the left arm and left cheek. He endorses he feels like his left cheek is going to droop. He noted his blood pressure was elevated 168/100 and this prompted him to come to the emergency department. Denies history of strokes. Denies falls or trauma. Denies chest pain or palpitations. He notes his last known well was approximate 11 PM on 07/18/2024 as he went to sleep and woke up with left arm tingling numbness heaviness. REVIEW OF SYSTEMS: Pertinent positives: Left face and left arm tingling Pertinent negatives: Chest pain PHYSICAL EXAM: Nursing triage notes reviewed, Vital signs reviewed Constitutional: please see mdm HENT: MMM Eyes: Pupils equal round and reactive to light, Extraocular muscles intact Neck: No stridor, no JVD, full neck ROM Lungs: Clear to auscultation, No wheezing or rales. No increased work of breathing, no conversational dyspnea, no accessory muscle use, no nasal flaring. No respiratory distress noted Heart: Regular rate and rhythm, No murmurs, No rubs and No gallops, 2+ distal pulses (radial, femoral, posterior tibial) in all extremities Abdomen: Soft, there is no tenderness, rigidity, rebound or guarding, no obvious peritoneal signs, no palpable pulsatile abdominal masses, no auscultated abdominal bruit : No CVAT Extremities: No edema Neuro: [Alert and oriented x3, neuro exam at baseline, cranial nerves II through XII are intact. No pain with extraocular muscle movement. There is negative test of skew. 5 of 5 strength in upper and lower extremities in flexion extension. Intact sensation to light touch in upper and lower extremity dermatomes. No truncal or extremity ataxia. No dysdiadochokinesia. Normal gait. 2+ reflexes in upper and lower extremities. No meningeal signs. Negative Babinski. NIH of 0 (I cannot elicit any sensory changes with palpation of involved areas on multiple attempts). Skin: No rash or lesions noted MEDICAL DECISION MAKING: Chief Complaint: Left-sided numbness, tingling External records reviewed: Prior imaging reviewed: Reviewed CT scan of the brain from 2015 noted brain mass at this time Factors affecting care: Brain mass as well as as per HPI Social determinants of health: none History obtained from others: family friend Consults: Radiology (Dr. Yepez) - noted no ICH, mass, ischemic change, internal medicine MDM Narrative: Patient was initially hypertensive with blood pressure 164/89, otherwise afebrile and nontoxic-appearing. His last known well was in the TNK and thrombectomy window however his NIH was 0. Could not elicit any sensory changes despite the patient's complaint of numbness and tingling. I considered the following differential diagnosis: ICH, CVA, TIA, large vessel occlusion, arterial dissection, Cory's paralysis, peripheral neuropathy Although a code stroke was not called I did obtain a Noncon CT head and CTA head and neck promptly. Also obtained additional labs images To further risk stratify the patient ALL IMAGES (IF OBTAINED) HAVE BEEN PERSONALLY REVIEWED AND INTERPRETED BY MYSELF. EKG with normal sinus bradycardia, normal axis, levels, no STEMI, no acute Noncon CT head negative CT of the head neck negative for dissection, large vessel occlusion or other acute vascular abnormality I have personally reviewed the patient's chest x-ray. Chest x-ray is unremarkable for pulmonary edema, pneumothorax, pneumonia or focal cardiopulmonary abnormality. CBC without leukocytosis, severe anemia, no thrombocytopenia. No coagulopathy BMP without evidence of significant electrolyte abnormalities, no anion gap, no acute kidney injury. High-sensitivity troponin is negative, no evidence of myocardial ischemia Will offer admission given subjective sensory changes for confirmatory MRI and risk factor modification. Will discuss with hospitalist. Hospitalist agreed to accept the patient for The patient and/or family, caregivers express understanding. The patient and/or family, caregivers agrees with the plan. Shared decision making: I will have a discussion with the patient and or visitors regarding risk/benefits of further testing or admission. They will be made aware of of the risk/benefits inherent in this decision they will be given the opportunity to voice understanding. Total critical care time today provided was at least 0 minutes. This excludes separately billable procedures. Critical care time (if documented) is secondary to the patient having high probability of clinically significant/life threatening deterioration in the patient's condition which required my urgent intervention. Impression: 1. Paresthesias 2. History of hypertension Dispo: Admit to PCU ops This note was generated with RENTISH dictation software. It may contain incorrect words, spelling, and punctuation that were not noted in review of the chart prior to signing. Discharge Plan Triage Chief Complaint: Neuro S/Sx ED Provider: Mike Redd Dx/Rx/DC Orders Prescriptions: No Action rosuvastatin 40 mg tablet 20 mg PO DAILY 30 Days Qty: 15 multivitamin 1 EACH tablet 1 ea PO DAILY lisinopril 10 mg tablet 10 mg PO DAILY Qty: 90 3RF carvedilol 12.5 mg tablet 12.5 mg PO DAILY Qty: 180 3RF Rx Instructions: must administer with a meal/food hydrochlorothiazide 25 mg tablet 25 mg PO DAILY Qty: 30 11RF Primary Care Provider: Moo Carmichael Referrals: Moo Carmichael MD [Primary Care Provider] - Print Language: Romansh
--- NOTE | 2024-07-19 02:14 | EKG12_ITS ---
Test Reason : DYSRHYTHMIA Blood Pressure : */* mmHG Vent. Rate : 88 BPM Atrial Rate : 88 BPM P-R Int : 188 ms QRS Dur : 90 ms QT Int : 358 ms P-R-T Axes : 49 31 25 degrees QTcB Int : 433 ms Normal sinus rhythm Normal ECG Confirmed by Eugene Cabral ([id number]), web editor DON CHAVIRA ([id number]) on 07/20/2024 10:49:20 AM Referred By: Confirmed By: Eugene Cabral
--- NOTE | 2024-07-19 02:14 | CT_ITS ---
PROCEDURE: STROKE BRAIN/HEAD WITHOUT CONT REASON FOR EXAM: Stroke, left-sided weakness TECHNIQUE: Noncontrast head CT with coronal and sagittal reformatted images COMPARISON: None. FINDINGS: No intracranial hemorrhage, mass effect or CT evidence of large vascular territory acute infarct. Small focus left convexity encephalomalacia seen. The ventricles are within limits and midline. Mild volume loss, atrophy. Mild mucoperiosteal thickening in the lower maxillary sinuses. Previous left mastoid surgery. The right mastoid and orbits appear within limits. CT/STROKE Brain/Head without Cont IMPRESSION: No intracranial hemorrhage, mass effect or CT evidence of large vascular territ ory acute infarct. Results reported verbally by phone by myself to Dr. Redd 07/19/2024 at 2:36 a .m.. One or more dose reduction techniques were used (e.g., Automated exposure contr ol, adjustment of the mA and/or kV according to patient size, use of iterative reconstruction technique). Reading Location: [id number]
--- NOTE | 2024-07-19 02:14 | RAD_ITS ---
PROCEDURE: CHEST 1 VIEW REASON FOR EXAM: Neuro deficit, acute, stroke suspected TECHNIQUE: Frontal view of the chest. COMPARISON: None available FINDINGS: The lungs appear clear. The cardiac and mediastinal contours appear within limits. The visualized osseous structures appear within limits. RAD/Chest 1 View IMPRESSION: No evidence of acute disease Reading Location: [id number]
--- NOTE | 2024-07-19 02:14 | CT_ITS ---
PROCEDURE: CTA HEAD AND NECK W/ CONTRAST REASON FOR EXAM: Stroke TECHNIQUE: CTA of the head and neck with coronal and sagittal and MIP reformatted images 3D reconstructions. IV CONTRAST: 93 cc Isovue 370 COMPARISON: None. FINDINGS: The [id number] appears intact. Anterior and posterior circulations appear intact. Codominant vertebrals form the basilar artery. No vessel cut off, flow significant stenosis or aneurysm identified. Standard appearing three-vessel arch noted. Both vertebrals arise from the subclavian as expected. Codominant vertebral arteries are intact throughout the cervical portions. Right and left common, internal and external carotid arteries are patent without flow significant stenosis or dissection. Major dural venous sinuses appear within limits. Mild mucoperiosteal thickening lower maxillary sinuses with possible tiny fluid level in the right may represent mild sinusitis. Previous left mastoidectomy. Cervical spondylosis/discogenic change C3 through C5. CT/CTA Head AND Neck W/ Contrast IMPRESSION: No vessel cut off, flow significant stenosis, dissection or aneurysm identified as above. Appearance of mild maxillary sinusitis as above. Results communicated verbally by phone by myself to Dr. Redd 07/19/2024 at 2: 56 a.m.. One or more dose reduction techniques were used (e.g., Automated exposure contr ol, adjustment of the mA and/or kV according to patient size, use of iterative reconstruction technique). Reading Location: [id number]
[2024-07-19 02:26] LABS: Absolute Lymphocyte Count 2.42 X10^3/uL (0.83-4.51); Basophil# 0.02 X10^3/uL; Basophil% 0.3 % (0-1); Eosinophil# 0.29 X10^3/uL; Eosinophils% 4.5 % (0-5); Hemoglobin 14.5 g/dL (13.0-16.5); Lymphocyte # 2.42 X10^3/ul (0.83-4.51); Lymphocyte % 37.3 % (19-41); Mean Corp Hgb Conc 33.7 g/dL (32-36); Mean Corpuscular Hgb 30.5 pg (27.0-32.0); Mean Corpuscular Volume 90.5 fL (80-94); Mean Platelet Vol. 9.1 fl (6.2-12.0); Monocyte# 0.74 X10^3/uL; Monocyte% 11.4 % (0-10); NRBC Flagged by Analyzer 0 % (0-5); Neutrophil # 2.99 X10^3/uL (2.7-7.7); Neutrophil % 46.2 % (47-70); Platelet Count 269 K/mm3 (150-450); RBC Distribution Width CV 12.8 % (11.6-14.6); RBC Distribution Width SD 42.5 fl (35.1-43.9); Red Blood Count 4.75 M/mm3 (4.6-6.2); White Blood Count 6.5 K/mm3 (4.4-11.0)
[2024-07-19 02:31] LABS: International Normalized Ratio 0.9; Prothrombin Time (Protime)PT. 12.1 SECONDS (11.7-14.9)
[2024-07-19 02:32] LABS: Partial Thromboplast Time 27.4 Seconds (24.1-36.2)
[2024-07-19 02:46] LABS: Bedside Glucose 91 mg/dL (74-106)
[2024-07-19 02:52] LABS: Anion Gap 12 (5-15); BUN 24 mg/dL (4-19); BUN/Creat Ratio 17.1 RATIO (10-20); Carbon Dioxide 24.6 mmol/L (21.0-32.0); Chloride 100 mmol/L (98-108); Creatinine, Serum 1.43 mg/dL (0.70-1.20); EST Glomerular Filtration Rate 54 (>60); Estimated Creatinine Clearance 52.16 ml/min (50-250); Glucose 105 mg/dL (70-99); Potassium 3.5 mmol/L (3.3-5.1); Sodium Level 137 mmol/L (133-145); Troponin T High Sensitivity 9 ng/L (<=22)
--- NOTE | 2024-07-19 03:06 | PCM.HP.STD ---
HPI - General General Date of Admission: 07/19/24 Date of Service: 07/19/24 Chief Complaint: L face, LUE paresthesias. HPI Narrative The patient is a 69 y/o M w/ PMHx: CKD stage III unclear subtype per GFR trending, HTN, HLD, Hx VTE (DVT, PE), Obesity, GERD, Hx pulmonary artery alveolar proteinosis, Hx Brain nodcardial infection as well as pulmonary infection with serial lavages with associated right hemiparesis who presents to the [facility] ED on 07/19/24 with history of awakening with numbness and tingling of his left arm and left cheek with elevated blood pressure at home noted be 168/100 prompting eventual ED evaluation to be cautious. He notes that he felt well at approximately 11 PM the evening prior and went to sleep without issue. He does report heaviness to the left upper extremity. He does report that he took 2 aspirin tablets before he left but is unsure of the exact amount. Workup in the ED included T98.3, heart rate 85, BP 164/89, respiratory rate 18, 98% room air, CBC with WC 6.5, human 14.5, platelet 269 without marked shift, unremarkable coags, BUN/: 24/1.43, GFR 54, glucose 105, troponin 9, CT of the brain with no acute intracranial hemorrhage, mass effect or large vascular territory infarct with a small focus of left convexity encephalomalacia seen, chest x-ray with no acute cardiopulmonary findings, CTA head neck with no vessel cutoff, flow significant stenosis, dissection or aneurysm identified, EKG with sinus bradycardia with no acute evidence of ischemia. In the ED NIH stroke scale was 0 with inability to elicit any difference as far as paresthesias per ED physician. [facility] Medical History Wears glasses High cholesterol Pulmonary embolism Non-smoker Hypertension History of echocardiogram Cardiology follow-up encounter COVID-19 (04/2020) Bilateral pulmonary embolism GERD (gastroesophageal reflux disease) DVT (deep venous thrombosis) (2014) Pulmonary alveolar proteinosis HLD (hyperlipidemia) Essential (primary) hypertension Nocardia infection Knee pain Lung disease Home Medications ?Medication ?Instructions ?Recorded ?Last Taken ?Type multivitamin 1 ea PO DAILY SUPPLEMENT 06/27/17 09/04/23 History rosuvastatin 40 mg tablet 20 mg PO DAILY 30 days #15 tabs 04/01/23 09/04/23 History lisinopril 10 mg tablet 10 mg PO DAILY #90 tabs 11/18/23 Unknown Rx carvedilol 12.5 mg tablet 12.5 mg PO DAILY #180 tabs 12/26/23 Unknown Rx hydrochlorothiazide 25 mg tablet 25 mg PO DAILY #30 tabs 04/27/24 Unknown Rx Allergy/AdvReac Type Severity Reaction Status Date / Time atorvastatin Allergy Vomiting Verified 07/19/24 02:09 morphine Allergy Nausea,Vomi Verified 07/19/24 02:09 ting piperacillin (From Zosyn) AdvReac Vomiting Verified 07/19/24 02:09 tazobactam (From Zosyn) AdvReac Vomiting Verified 07/19/24 02:09 Family History Brother Myocardial infarction Kidney disease Mother CAD (coronary artery disease) Father Cancer Oral ca Brother CVA (cerebral vascular accident) Surgical History History of cardiac catheterization Hx of colonoscopy History of bronchoscopy History of herniorrhaphy H/O nasal septoplasty H/O knee surgery History of left heart catheterization (04/20/09) Bilateral therapeutic whole-lung lavage (2015) Status post stereotactic brain biopsy (2014) Social History current occupational status: employed current occupation: [employer] Smoking Status: Never smoker alcohol intake: current alcohol intake frequency: a few times a week Alcohol type: beer substance use type: does not use caffeine: Yes Type: tea Number of servings: 1 ROS ROS Narrative Admission Review of Systems: CONSTITUTIONAL: No weight loss, fever, chills, + weakness or fatigue. HEENT: + Facial paresthesias. Eyes: No visual loss, blurred vision, double vision or yellow sclerae. Ears, Nose, Throat: No hearing loss, sneezing, congestion, runny nose or sore throat. SKIN: No rash or itching, lesions, wounds. CARDIOVASCULAR: No chest pain, chest pressure or chest discomfort, palpitations, edema, orthopnea, syncopal events. RESPIRATORY: No shortness of breath, cough or sputum, wheezing, hemoptysis. GASTROINTESTINAL: No anorexia, nausea, vomiting or diarrhea, abdominal pain, melena, BRBPR. GENITOURINARY: No dysuria, frequency, urgency or retention. NEUROLOGICAL: + Facial, extremity paresthesias. No headache, dizziness, syncope, paralysis, ataxia, focal weakness, change in bowel or bladder control, seizure. MUSCULOSKELETAL: + muscle, back pain, joint pain or stiffness. HEMATOLOGIC: No anemia, bleeding or bruising. LYMPHATICS: No enlarged nodes. No history of splenectomy. PSYCHIATRIC: No history of depression or anxiety. ENDOCRINOLOGIC: No reports of sweating, cold or heat intolerance. No polyuria or polydipsia. ALLERGIES: No history of asthma, hives, eczema or rhinitis. Vital Signs Vital Signs Vital Signs: 07/19/24 02:06 07/19/24 02:14 07/19/24 02:14 Temperature 98.3 F Temperature Source Oral Pulse Rate 85 90 Respiratory Rate 18 18 Blood Pressure 164/89 H 163/93 H Blood Pressure Mean 114 116 Pulse Ox 98 98 Oxygen Delivery Method Room Air Room Air 07/19/24 02:44 Temperature Temperature Source Pulse Rate 84 Respiratory Rate 18 Blood Pressure 171/99 H Blood Pressure Mean 123 Pulse Ox 98 Oxygen Delivery Method Room Air Weight Weight: 194 lb 7.163 oz Body Mass Index (BMI) 31.4 Physical Exam Narrative Physical Examination: General: Awake, alert, oriented x 3 and cooperative, seated upright in the ED bed, fatigued but no acute distress. Skin: Normal color, normal turgor, no icterus, no cyanosis. HEENT: AT/NC, EOMI, PERRLA, mildly dry MM, no carotid bruits or JVD noted. Lungs: Mildly diminished, greater bases, appropriate effort, no rales, ronchi or wheezing. Heart: Regular rate and rhythm; no gallop, rub audible. Abdomen: Soft, obese, NTTP, ND, mildly hyperactive BS, no appreciated HSM. Extremities: No cyanosis, clubbing, or edema. Neurological: Patient awake, alert, oriented as noted, cognitive function intact; pupils equally reactive to light and accommodation, cranial nerves grossly normal, moving all 4 extremities, no focal deficits, strength preserved, sensation despite his complaints intact equivocally bilaterally, finger-nose and [id number] appropriate, equivocal Babinski. Psychiatric: Affect appears fatigued otherwise normal, no acute evidence of depressive or anxiety feelings. Results Lab / Micro Data 07/19/24 02:09 07/19/24 02:09 Labs: Laboratory Results - last 24 hr 07/19/24 02:09: WBC 6.5, RBC 4.75, Hgb 14.5, Hct 43.0, MCV 90.5, MCH 30.5, MCHC 33.7, RDW Std Deviation 42.5, RDW Coeff of Colt 12.8, Plt Count 269, MPV 9.1, Immature Gran % (Auto) 0.300, Neut % (Auto) 46.2 L, Lymph % (Auto) 37.3, Roosevelt % (Auto) 11.4 H, Eos % (Auto) 4.5, Baso % (Auto) 0.3, Absolute Neuts (auto) 3.0, Absolute Lymphs (auto) 2.42, Nucleated RBC % 0, PT 12.1, INR 0.9, APTT 27.4, Sodium 137, Potassium 3.5, Chloride 100, Carbon Dioxide 24.6, Anion Gap 12, BUN 24 H, Creatinine 1.43 H, Estim Creat Clear Calc 52.16, Est GFR (MDRD) Non-Af 54 L, BUN/Creatinine Ratio 17.1, Glucose 105 H, Calcium 9.0, Troponin T High Sens 9 07/19/24 02:11: POC Glucose 91 07/19/24 04:14: Troponin T Hi Sens 2 Hr Cancelled Imaging Radiology Impression Brain CT 07/19/24 02:14 IMPRESSION: No intracranial hemorrhage, mass effect or CT evidence of large vascular territory acute infarct. Results reported verbally by phone by myself to Dr. Redd 07/19/2024 at 2:36 a.m.. One or more dose reduction techniques were used (e.g., Automated exposure control, adjustment of the mA and/or kV according to patient size, use of iterative reconstruction technique). Reading Location: [facility] Chest X-Ray 07/19/24 02:14 IMPRESSION: No evidence of acute disease Reading Location: [facility] Head/Neck CTA 07/19/24 02:14 IMPRESSION: No vessel cut off, flow significant stenosis, dissection or aneurysm identified as above. Appearance of mild maxillary sinusitis as above. Results communicated verbally by phone by myself to Dr. Redd 07/19/2024 at 2:56 a.m.. One or more dose reduction techniques were used (e.g., Automated exposure control, adjustment of the mA and/or kV according to patient size, use of iterative reconstruction technique). Reading Location: [id number] Assessment & Plan Assessment/Plan (1) Paresthesias: PLAN: Plan The patient is a 69 y/o M w/ PMHx: CKD stage III unclear subtype per GFR trending, HTN, HLD, Hx VTE (DVT, PE), Obesity, GERD, Hx pulmonary artery alveolar proteinosis, Hx Brain nodcardial infection as well as pulmonary infection with serial lavages with associated right hemiparesis who presents to the [facility] ED on 07/19/24 with history of awakening with numbness and tingling of his left arm and left cheek with elevated blood pressure at home noted be 168/100 prompting eventual ED evaluation to be cautious. #1. Paresthesias to the left upper extremity and face concerning for possible TIA/CVA: Will admit to PCU, will obtain MRI Brain, ECHO, PT/OT/Speech/Nutrition evaluation per protocol. Will allow permissive HTN, maintain on asa, statin, aspiration/fall precautions. Mag, TSH, FLP, HgbA1c requested. Maintain on fall and aspiration precautions. Initial troponin normal, EKG with no acute findings. Cautious will continue to cycle cardiac enzymes although certainly would be an atypical presentation for ACS. Initiate neurology evaluation. #2. History of VTE: Patient with history DVT, PE, currently not chronically anticoagulated, will maintain on chemoprophylaxis is noted. #3. Hypertension: Will maintain permissive hypertension for as needed agents per stroke protocol. #4. Hyperlipidemia: Continue home statin regimen. AM FLP. #5. 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 #6. Chronic Kidney Disease Stage III, unclear subtype per GFR trend: Admission BUN/Cr 24/1.43, GFR 54, baseline renal function primarily 1.3-1.5, repeat BMP in AM. #7. Chronic insomnia: Per record previously been on amitriptyline regimen, not currently listed, will have as needed melatonin. #8. Obesity: Weight loss and lifestyle changes encouraged. #9. GERD: Will have as needed Mylanta regimen. #10. DVT prophylaxis: Lovenox. #11. CODE status: Patient THU is his son and living will is currently in place. Discussed CODE status at length including difference between FULL code, DNR-CCA and DNR-CC status. Following discussions about the differences in these status, requested Full Code status. Charges/Coding Visit Charges Inpatient E&M: 68956 Init Hosp L3
[2024-07-19 03:37] LABS: Magnesium 1.7 mg/dL (1.5-2.2)
--- NOTE | 2024-07-19 03:48 | MRI_ITS ---
PROCEDURE: BRAIN WITHOUT CONTRAST (MRIBR), 07/19/2024 REASON FOR EXAM: TIA/CVA. Per technologist report, numbness/tingling of the left arm and face. History of previous brain biopsy and meningitis. COMPARISON: CT and CTA of same date TECHNIQUE: Multisequence multiplanar MRI brain was performed without intravenous contrast. Contrast: None. FINDINGS: Cerebrum: No acute infarct, definite/appreciable acute intracranial hemorrhage, or mass identified. Changes presumably related to previous biopsy in the left frontal lobe near the vertex extending to the corpus callosum, including hemosiderin staining and mild surrounding likely gliosis. Cerebellum: Unremarkable. Brainstem: Unremarkable. Ventricles/extra-axial spaces: Unremarkable. Major flow voids: Grossly unremarkable within limits of nondedicated technique, better evaluated previously. Paranasal sinuses: Mild bilateral maxillary mucosal thickening. Left mastoidectomy with fluid in some of the remaining inferior and posterior mastoid air cells. Scalp/calvarium: Unremarkable. Orbits: Grossly unremarkable within limits of nondedicated technique. Other: None. MRI/Brain without Contrast IMPRESSION: 1. No acute infarct or other definite evidence of an acute intracranial process identified. 2. Mild bilateral maxillary paranasal sinus disease. Left mastoidectomy with f luid in some of the remaining inferior and posterior mastoid air cells. 3. Additional description as above. Reading Location: [id number]
--- NOTE | 2024-07-19 03:48 | ECHOD_ITS ---
Reason For Study Reason For Study: TIA/CVA Procedure This was a 2D Doppler, Color Flow transthoracic echocardiogram. Exam performed portable in patient room. Left Ventricle Normal LV size. The estimated ejection fraction is 60 %. No evidence for diastolic dysfunction. No regional wall motion abnormalities noted. Right Ventricle Normal RV size. Normal systolic function. Atria The left and right atria are normal. No doppler evidence for ASD. Mitral Valve There is no mitral valve stenosis. Trivial mitral valve insufficiency. Tricuspid Valve There is no tricuspid stenosis. Trivial tricuspid valve insufficiency. Unable to estimate RV systolic pressure due to insufficient tricuspid regurgitant envelope. Aortic Valve Trisinus/trileaflet aortic valve. There is no aortic stenosis. No aortic valve insufficiency. Pulmonic Valve There is no pulmonic valvular stenosis. No pulmonic valve insufficiency. Great Vessels Normal sized aortic root. Pericardium/Pleural No pericardial effusion. MMode/2D Measurements & Calculations LVIDd: 4.5 cm IVSd: 1.2 cm Ao root diam: 3.2 cm LVIDs: 2.4 cm LVPWd: 1.2 cm RVDd: 3.0 cm FS: 46.0 % LAV(MOD-bp): 27.4 ml LVAd ap4: 21.8 cm2 LVAd ap2: 20.6 cm2 LAV(MOD-bp) Indexed: 14.0 ml/m2 LVLd ap4: 7.3 cm LVLd ap2: 7.2 cm LAV(MOD-sp2): 34.9 ml EDV(MOD-sp4): 54.2 ml EDV(MOD-sp2): 49.4 ml LAV(MOD-sp4): 20.9 ml EDV(sp4-el): 55.4 ml EDV(sp2-el): 49.8 ml LVAs ap4: 10.5 cm2 LVAs ap2: 11.3 cm2 LVLs ap4: 6.4 cm LVLs ap2: 6.6 cm ESV(MOD-sp4): 15.0 ml ESV(MOD-sp2): 16.5 ml ESV(sp4-el): 14.7 ml ESV(sp2-el): 16.5 ml EF(MOD-sp4): 72.3 % EF(MOD-sp2): 66.6 % EF(sp4-el): 73.5 % SV(MOD-sp4): 39.2 ml SV(MOD-sp2): 32.9 ml SV(sp4-el): 40.7 ml SI(MOD-sp4): 20.0 ml/m2 SI(MOD-sp2): 16.8 ml/m2 LA A4 area: 10.3 cm2 LA dimension(2D): 3.3 cm RA A4 area: 10.8 cm2 TAPSE: 2.1 cm Time Measurements MV dec time: 0.21 sec Doppler Measurements & Calculations MV E max kevin: 71.3 cm/sec Lat Peak E' Kevin: 10.3 cm/sec Med Peak E' Kevin: 8.8 cm/sec MV A max kevin: 95.1 cm/sec E/E' lat: 6.9 E/E' med: 8.1 MV E/A: 0.75 Ao V2 max: 102.8 cm/sec LV V1 max: 82.4 cm/sec PA V2 max: 74.9 cm/sec Ao max P.2 mmHg LV V1 max P.7 mmHg TR max kevin: 233.3 cm/sec TR max P.8 mmHg ECHO/Echo Complete Interpretation Summary The estimated ejection fraction is 60 %. No evidence for diastolic dysfunction. Trivial mitral valve insufficiency. Ordering Physician: Maraym Vale Referring Physician: Moo Carmichael MD Performed By: Jennifer Huff RDCS
[2024-07-19] MEDS: 0.9% Normal Saline (1000mL) 1,000 ML 100 ML IV (04:33)
[2024-07-19 06:57] LABS: Basophil# 0.02 X10^3/uL; Basophil% 0.4 % (0-1); Eosinophil# 0.19 X10^3/uL; Eosinophils% 3.7 % (0-5); Hematocrit 39.5 % (40-54); Hemoglobin 13.7 g/dL (13.0-16.5); Lymphocyte % 28.9 % (19-41); Mean Corp Hgb Conc 34.7 g/dL (32-36); Mean Corpuscular Volume 89.4 fL (80-94); Mean Platelet Vol. 9.2 fl (6.2-12.0); Monocyte# 0.49 X10^3/uL; Monocyte% 9.4 % (0-10); NRBC Flagged by Analyzer 0 % (0-5); Neutrophil # 2.98 X10^3/uL (2.7-7.7); Neutrophil % 57.4 % (47-70); Platelet Count 254 K/mm3 (150-450); RBC Distribution Width CV 12.9 % (11.6-14.6); RBC Distribution Width SD 42.4 fl (35.1-43.9); Red Blood Count 4.42 M/mm3 (4.6-6.2); White Blood Count 5.2 K/mm3 (4.4-11.0)
[2024-07-19 08:16] LABS: ALB/GLOB Ratio 1.4 RATIO (0.9-2.4); AST(SGOT) 43 U/L (<=37); Alanine Aminotransfer ALT/SGPT 47 U/L (<=46); Albumin, Serum 3.6 g/dL (3.4-4.8); Alkaline Phosphatase 53 U/L (40-129); Anion Gap 13 (5-15); BUN 21 mg/dL (4-19); BUN/Creat Ratio 17.1 RATIO (10-20); Calcium,Total 8.9 mg/dL (7.6-11.0); Carbon Dioxide 22.5 mmol/L (21.0-32.0); Chloride 102 mmol/L (98-108); Creatinine, Serum 1.24 mg/dL (0.70-1.20); EST Glomerular Filtration Rate 64 (>60); Estimated Creatinine Clearance 59.53 ml/min (50-250); Globulin 2.6 g/dL (2.2-4.2); Glucose 97 mg/dL (70-99); Protein, Total 6.2 g/dL (5.9-8.4); Sodium Level 138 mmol/L (133-145); Total Bilirubin 0.32 mg/dL (0.00-1.30)
[2024-07-19 08:21] LABS: Hemoglobin A1c 5.9 % (<=5.6)
[2024-07-19] MEDS: Enoxaparin 40 MG/0.4 ML Syringe SC (08:30)
[2024-07-19 08:36] LABS: Cholesterol 180 mg/dL (<=200); High Density Lipoprotein 46 mg/dL; Low Density Lipoprotein Calc. 91 mg/dL; Triglycerides 214 mg/dL; Very Low Density Lipoprotein 43 mg/dL (5-40); cholesterol:hdl ratio screen 3.92
--- NOTE | 2024-07-19 12:35 | STROKE.CONS ---
Assessment and Plan: Stroke Assessment/Plan SOLANGE HERNANDEZ is a 69 M with a history of CKD stage III unclear subtype per GFR trending, HTN, HLD, Hx VTE (DVT, PE), Obesity, GERD, Hx pulmonary artery alveolar proteinosis, Hx Brain nodcardial infection as well as pulmonary infection with serial lavages with associated right hemiparesis who presents with numbness and tingling of his left arm, left cheek, left leg with elevated blood pressure at home. Not a TNK or IR candidate. His symptoms have improved. Likely had a TIA. Neurological examination shows intact examination. Neuroimaging shows MRI Brain :No acute stroke. 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 If negative can get a 30 day Cardiac event monitor upon DC Thanks for consultation. spent 70 min in evaluation and management of this patient. HPI Consult Data Date of Consult: 07/19/24 HPI Narrative HPI Narrative: SOLANGE HERNANDEZ, is a 69 M with CKD stage III unclear subtype per GFR trending, HTN, HLD, Hx VTE (DVT, PE), Obesity, GERD, Hx pulmonary artery alveolar proteinosis, Hx Brain nodcardial infection as well as pulmonary infection with serial lavages with associated right hemiparesis who presents to the [facility] ED on 07/19/24 with history of awakening with numbness and tingling of his left arm and left cheek with elevated blood pressure at home. Also had tingling of the left leg. His BP was 168/100 prompting eventual ED evaluation to be cautious. He notes that he felt well at approximately 11 PM the evening prior and went to sleep without issue. He does report heaviness to the left upper extremity. His NIHSS in ER was 0 upon arrival. he has no symptoms in his face and leg, improvement in tingling in left arm. No neck pain. Workup showed CT of the brain with no acute intracranial hemorrhage, mass effect or large vascular territory infarct with a small focus of left convexity encephalomalacia seen, chest x-ray with no acute cardiopulmonary findings. CTA head neck with no vessel cutoff, flow significant stenosis, dissection or aneurysm identified, EKG with sinus bradycardia with no acute evidence of ischemia. [facility] Medical History Wears glasses High cholesterol Pulmonary embolism Non-smoker Hypertension History of echocardiogram Cardiology follow-up encounter COVID-19 (04/2020) Bilateral pulmonary embolism GERD (gastroesophageal reflux disease) DVT (deep venous thrombosis) (2014) Pulmonary alveolar proteinosis HLD (hyperlipidemia) Essential (primary) hypertension Nocardia infection Knee pain Lung disease Home Medications ?Medication ?Instructions ?Recorded ?Last Taken ?Type multivitamin 1 ea PO DAILY SUPPLEMENT 06/27/17 09/04/23 History rosuvastatin 40 mg tablet 20 mg PO DAILY 30 days #15 tabs 04/01/23 09/04/23 History lisinopril 10 mg tablet 10 mg PO DAILY #90 tabs 11/18/23 Unknown Rx carvedilol 12.5 mg tablet 12.5 mg PO DAILY #180 tabs 12/26/23 Unknown Rx hydrochlorothiazide 25 mg tablet 25 mg PO DAILY #30 tabs 04/27/24 Unknown Rx Allergy/AdvReac Type Severity Reaction Status Date / Time atorvastatin Allergy Vomiting Verified 07/19/24 02:09 morphine Allergy Nausea,Vomi Verified 07/19/24 02:09 ting piperacillin (From Zosyn) AdvReac Vomiting Verified 07/19/24 02:09 tazobactam (From Zosyn) AdvReac Vomiting Verified 07/19/24 02:09 Family History Brother Myocardial infarction Kidney disease Mother CAD (coronary artery disease) Father Cancer Oral ca Brother CVA (cerebral vascular accident) Surgical History History of cardiac catheterization Hx of colonoscopy History of bronchoscopy History of herniorrhaphy H/O nasal septoplasty H/O knee surgery History of left heart catheterization (04/20/09) Bilateral therapeutic whole-lung lavage (2015) Status post stereotactic brain biopsy (2014) Social History current occupational status: employed current occupation: [employer] Smoking Status: Never smoker alcohol intake: current alcohol intake frequency: a few times a week Alcohol type: beer substance use type: does not use caffeine: Yes Type: tea Number of servings: 1 Vital Signs Vital Signs Vital Signs: 07/19/24 02:06 07/19/24 02:14 07/19/24 02:14 Temperature 98.3 F Temperature Source Oral Pulse Rate 85 90 Pulse Strength Respiratory Rate 18 18 Respiratory Effort Respiratory Depth Respiratory Pattern Blood Pressure 164/89 H 163/93 H Blood Pressure Mean 114 116 Blood Pressure Source Blood Pressure Position Blood Pressure Location Pulse Ox 98 98 Oxygen Delivery Method Room Air Room Air 07/19/24 02:44 07/19/24 03:00 07/19/24 03:06 Temperature 98.0 F Temperature Source Temporal Pulse Rate 84 82 83 Pulse Strength Respiratory Rate 18 18 Respiratory Effort Respiratory Depth Respiratory Pattern Blood Pressure 171/99 H 160/94 H Blood Pressure Mean 123 116 Blood Pressure Source Blood Pressure Position Blood Pressure Location Pulse Ox 98 97 Oxygen Delivery Method Room Air Room Air 07/19/24 03:12 07/19/24 03:30 07/19/24 04:30 Temperature 98.0 F Temperature Source Pulse Rate 80 83 Pulse Strength Respiratory Rate 18 18 Respiratory Effort Normal Non-Labored Respiratory Depth Normal Respiratory Pattern Normal Blood Pressure 160/94 H 155/98 H Blood Pressure Mean 116 117 Blood Pressure Source Blood Pressure Position Blood Pressure Location Pulse Ox 96 98 Oxygen Delivery Method Room Air Room Air 07/19/24 04:30 07/19/24 08:12 07/19/24 10:00 Temperature 98.9 F 97.8 F Temperature Source Oral Oral Pulse Rate 75 72 Pulse Strength Normal (2+) Respiratory Rate 14 17 Respiratory Effort Respiratory Depth Respiratory Pattern Blood Pressure 163/93 H 134/87 H Blood Pressure Mean 116 102 Blood Pressure Source Monitor Monitor Blood Pressure Position Semi-Fowlers Supine Blood Pressure Location Right Arm Left Arm Pulse Ox 98 97 Oxygen Delivery Method Room Air Room Air Weight Weight: 86.3 kg Body Mass Index (BMI) 30.7 NIHSS NIHSS Nursing Documentation NIHSS Nursing Documentation: NIHSS: Ischemic Stroke/TIA Start: 07/19/24 03:48 Text: For PCU Patients: NIH and Neuro Check every 4 Status: Active hours, PRN and with change in RN caregiver. Freq: [id number] Protocol: Activity Type Activity Date Activity User E-sign Co-sign Detail Recorded Client Recorded Date Recorded By Document 07/19/24 10:00 AB [id number] 07/19/24 10:51 AB 07/19/24 10:00 NIH Stroke Scale [NIHSS] A score of 0 is normal or asymptomatic . Total possible score is 42. Inpatient: RN or Physician to activate a stroke alert for onset of new stroke symptoms or with NIHSS increase >/= 3 points. Following change in neurological status, NIHSS will be performed per physician order or more frequently PRN. -1a. Level of Consciousness Alert; keenly responsive -1b. LOC Questions Answers BOTH questions correctly. -1c. LOC Commands Performs both tasks correctly . -2. Best Gaze Normal -3. Visual No visual loss -4. Facial Palsy Minor paralysis (flattened nasolabial fold , asymmetry on smiling) -5a. Left Arm No drift; arm holds 90 (or 45 ) degrees for full 10 seconds -5b. Right Arm No drift; arm holds 90 (or 45 ) degrees for full 10 seconds -6a. Left Leg No drift; leg holds 30-degree position for full 5 seconds -6b. Right Leg No drift; leg holds 30-degree position for full 5 seconds -7. Limb Ataxia Absent -8. Sensory Mild-to- moderate sensory loss; -9. Best Language No aphasia; normal -10. Dysarthria Normal -11. Extinction and Inattention No abnormality -Total 2 Query Text:A score of 0 is normal or asymptomatic. Total possible score is 42 . ED: Notify Physician for NIHSS increase by > / = 3 points. Inpatient: RN or Physician to activate a stroke alert for NIHSS increase of > / = 3 points. Coma Scale [Assess] -Eye Opening Spontaneous -Motor Obeys Commands -Verbal Oriented [Total] -Coma Scale Total 15 NIHSS 1a. Level of Consciousness: Alert; keenly responsive 1b. LOC Questions: Answers BOTH questions correctly. 1c. LOC Commands: Performs both tasks correctly. 2. Best Gaze: Normal 3. Visual: No visual loss 4. Facial Palsy: Normal symmetrical movements 5a. Left Arm: No drift; arm holds 90 (or 45) degrees for full 10 seconds 5b. Right Arm: No drift; arm holds 90 (or 45) degrees for full 10 seconds 6a. Left Leg: No drift; leg holds 30-degree position for full 5 seconds 6b. Right Leg: No drift; leg holds 30-degree position for full 5 seconds 7. Limb Ataxia: Absent 8. Sensory: Normal; no sensory loss 9. Best Language: No aphasia; normal 10. Dysarthria: Normal 11. Extinction and Inattention: No abnormality Total: 0 Physical Exam Const alert, oriented x3 and no apparent distress General Appearance: cooperative, comfortable and well kempt HEENT normocephalic Face and Sinus: normal facial exam Neuro Neuro Narrative: Awake, alert oriented X3 Speech fluent, no aphasia CN 2-12 intact Power 5/5 in all extremities Sensation: Intact No ataxia Lab / Micro Data 07/19/24 06:17 07/19/24 06:17 Labs: Laboratory Results - last 24 hr 07/19/24 02:09: WBC 6.5, RBC 4.75, Hgb 14.5, Hct 43.0, MCV 90.5, MCH 30.5, MCHC 33.7, RDW Std Deviation 42.5, RDW Coeff of Colt 12.8, Plt Count 269, MPV 9.1, Immature Gran % (Auto) 0.300, Neut % (Auto) 46.2 L, Lymph % (Auto) 37.3, Todd % (Auto) 11.4 H, Eos % (Auto) 4.5, Baso % (Auto) 0.3, Absolute Neuts (auto) 3.0, Absolute Lymphs (auto) 2.42, Nucleated RBC % 0, PT 12.1, INR 0.9, APTT 27.4, Sodium 137, Potassium 3.5, Chloride 100, Carbon Dioxide 24.6, Anion Gap 12, BUN 24 H, Creatinine 1.43 H, Estim Creat Clear Calc 52.16, Est GFR (MDRD) Non-Af 54 L, BUN/Creatinine Ratio 17.1, Glucose 105 H, Calcium 9.0, Magnesium 1.7, Troponin T High Sens 9 07/19/24 02:11: POC Glucose 91 07/19/24 04:14: Troponin T Hi Sens 2 Hr Cancelled 07/19/24 06:17: WBC 5.2, RBC 4.42 L, Hgb 13.7, Hct 39.5 L, MCV 89.4, MCH 31.0, MCHC 34.7, RDW Std Deviation 42.4, RDW Coeff of Colt 12.9, Plt Count 254, MPV 9.2, Immature Gran % (Auto) 0.200, Neut % (Auto) 57.4, Lymph % (Auto) 28.9, Todd % (Auto) 9.4, Eos % (Auto) 3.7, Baso % (Auto) 0.4, Absolute Neuts (auto) 3.0, Absolute Lymphs (auto) 1.50, Nucleated RBC % 0, Sodium 138, Potassium 4.0, Chloride 102, Carbon Dioxide 22.5, Anion Gap 13, BUN 21 H, Creatinine 1.24 H, Estim Creat Clear Calc 59.53, Est GFR (MDRD) Non-Af 64, BUN/Creatinine Ratio 17.1, Glucose 97, Hemoglobin A1c 5.9, Calcium 8.9, Total Bilirubin 0.32, AST 43 H, ALT 47, Alkaline Phosphatase 53, Total Protein 6.2, Albumin 3.6, Globulin 2.6, Albumin/Globulin Ratio 1.4, Triglycerides 214 H, Cholesterol 180, LDL Cholesterol, Calc 91, VLDL Cholesterol 43 H, HDL Cholesterol 46, Cholesterol/HDL Ratio 3.92, TSH 2.920 Imaging Radiology Impression Brain CT 07/19/24 02:14 IMPRESSION: No intracranial hemorrhage, mass effect or CT evidence of large vascular territory acute infarct. Results reported verbally by phone by myself to Dr. Redd 07/19/2024 at 2:36 a.m.. One or more dose reduction techniques were used (e.g., Automated exposure control, adjustment of the mA and/or kV according to patient size, use of iterative reconstruction technique). Reading Location: [facility] Chest X-Ray 07/19/24 02:14 IMPRESSION: No evidence of acute disease Reading Location: [facility] Head/Neck CTA 07/19/24 02:14 IMPRESSION: No vessel cut off, flow significant stenosis, dissection or aneurysm identified as above. Appearance of mild maxillary sinusitis as above. Results communicated verbally by phone by myself to Dr. Redd 07/19/2024 at 2:56 a.m.. One or more dose reduction techniques were used (e.g., Automated exposure control, adjustment of the mA and/or kV according to patient size, use of iterative reconstruction technique). Reading Location: [facility] Brain MRI 07/19/24 03:48 IMPRESSION: 1. No acute infarct or other definite evidence of an acute intracranial process identified. 2. Mild bilateral maxillary paranasal sinus disease. Left mastoidectomy with fluid in some of the remaining inferior and posterior mastoid air cells. 3. Additional description as above. Reading Location: [id number] Active Medications Active Medications Active Medications: Current Medications Generic Name Dose Route Start Last Admin Trade Name Freq PRN Reason Stop Dose Admin Acetaminophen 650 mg 07/19/24 03:48 Acetaminophen 325 Mg Tablet PO Q4H PRN PRN Fever, pain 1-02/18 Al Hydroxide/Mg Hydroxide 30 ml 07/19/24 03:48 Mag Hydrox/Al Hydrox/Simeth 30 Ml Udc PO Q6H PRN PRN Gastric Burning Albuterol Sulfate 2.5 mg 07/19/24 03:48 Albuterol 2.5 Mg/3 Ml Vial.Neb. INHALATION Q2H PRN PRN Dyspnea, wheezing Aspirin 81 mg 07/20/24 08:00 Aspirin 81 Mg Tab.Chew PO BREAKFAST AILEEN Enoxaparin Sodium 40 mg 07/19/24 10:00 07/19/24 08:30 Enoxaparin 40 Mg/0.4 Ml Syringe SC 40 mg DAILY AILEEN Administration Guaifenesin 20 ml 07/19/24 03:48 Guaifenesin 10 Ml Udc (200mg/10ml) PO Q4H PRN PRN COUGH Hydralazine HCl 5 mg 07/19/24 03:48 Hydralazine 20 Mg/Ml Vial IV 07/20/24 03:48 Q30M PRN maintain BP parameters with HR <60 Sodium Chloride 1,000 mls @ 100 mls/hr 07/19/24 03:48 07/19/24 04:33 IV 07/19/24 13:47 100 mls/hr .Q10H AILEEN Administration Protocol Labetalol HCl 10 - 20 mg 07/19/24 03:48 Labetalol 20mg/4ml Syringe IV 07/20/24 03:48 Q10M PRN PRN maintain BP parameters with HR >/=60 Melatonin 3 mg 07/19/24 03:48 Melatonin 3 Mg Tablet PO QHS PRN PRN INSOMNIA Ondansetron HCl 4 mg 07/19/24 03:48 Ondansetron 4 Mg/2 Ml Vial IV Q8H PRN PRN NAUSEA/VOMITING Prochlorperazine Edisylate 5 mg 07/19/24 03:48 Prochlorperazine 10 Mg/2 Ml Vial IV Q4H PRN PRN Breakthrough Nausea/Vomiting Rosuvastatin Calcium 20 mg 07/19/24 22:00 Rosuvastatin Calcium 20 Mg Tablet PO QHS AILEEN Senna/Docusate Sodium 2 tablet 07/19/24 03:48 Senna/Docusate Sodium 1 Tablet PO BID PRN PRN Constipation Sodium Chloride 10 - 40 ml 07/19/24 04:17 0.9% Saline Lock 10 Ml Syringe IV UD PRN SALINE FLUSH
--- NOTE | 2024-07-19 13:50 | PCM.DC ---
Discharge Instructions Diet Discharge Diet: No restrictions DC O2, CPAP, BIPAP needs Home O2 Discharge instructions: No Dressing / Incision Discharge Activity: Return to Normal Activity Weight Bearing Status: Full weight bearing Follow Up Care Test Results: Test results from this visit will be discussed in further detail at your follow-up appointment, if applicable. Discharge Plan Admission Admit Date/Time: 07/19/24 03:07 Primary Reason for Your Visit: TIA Attending Provider: Brett Fairbanks Primary Care Provider: Moo Carmichael Consulting Providers: Nam Soto; Lucretia Lewis; Nina Westfall; Maricel Coleman; Maura Restrepo; Suhail Blanchard; Tatiana Gastelum; Odilon Burns; Kunal Gonzalez; Denilson Nash; Tamela Crews; Tonny Gong; Margot Jones; Gabby Beatty; Emily Washington; Baron Castrejon; Deborah White; Isauro Santiago; Michelle Pappas; Magda Valdovinos; Maryam Vale Discharge Orders/Prescriptions Prescriptions: New aspirin 81 mg Tablet,Chewable 81 mg PO BREAKFAST Qty: 0 0RF rosuvastatin [Crestor] 40 mg tablet 40 mg PO DAILY Qty: 1 0RF Continued multivitamin 1 EACH tablet 1 ea PO DAILY lisinopril 10 mg tablet 10 mg PO DAILY Qty: 90 3RF carvedilol 12.5 mg tablet 12.5 mg PO DAILY Qty: 180 3RF Rx Instructions: must administer with a meal/food hydrochlorothiazide 25 mg tablet 25 mg PO DAILY Qty: 30 11RF Discontinued rosuvastatin 40 mg tablet 20 mg PO DAILY 30 Days Qty: 15 Other Ambulatory Orders: 30 Day Event Recorder Preventi (Urgent) Timeframe: 1 Day Facility: [facility] - Location: Cardiovascular Services Ordered By: Dr. Brett Fairbanks Referrals / Follow Up: Moo Carmichael MD [Primary Care Provider] - Within 2 Weeks Disposition Disposition (needs filled in before D/C Order can be placed): Home, Self Care
--- NOTE | 2024-07-19 13:55 | DS.PCM_ITS ---
Providers Date of Admission: 07/19/24 Date of Discharge: 07/19/24 Primary Care Physician: Dr. Moo Carmichael MD Consultations 07/19/24 03:48 Consult: Tele-Neurology Routine Consulting Provider: [facility] Reason for Consult: Acute Ischemic Stroke/TIA EMERGENT Consult: No MD Notified: Yes Date Notified: 07/19/24 Time Notified: 04:48 Method of Notification: Answering Service Nursing Unit Staff Notify [facility] of Tele-Neurology Consult: Yes Reason For Visit: PARESTHESIAS Diagnosis Discharge Diagnosis (1) Paresthesias: Status: Acute Code(s): R20.2 - Paresthesia of skin Plan Final diagnosis #1 transient ischemic attack #2 chronic kidney disease stage IIIa #3 essential hypertension #4 hyperlipidemia Medications at Discharge Home Medications multivitamin 1 ea PO DAILY SUPPLEMENT 06/27/17 lisinopril 10 mg tablet 10 mg PO DAILY blood pressure #90 tabs 11/18/23 carvedilol 12.5 mg tablet 12.5 mg PO DAILY blood pressure #180 tabs 12/26/23 hydrochlorothiazide 25 mg tablet 25 mg PO DAILY diuretic #30 tabs 04/27/24 aspirin 81 mg chewable tablet 81 mg PO BREAKFAST #0 tabs 07/19/24 rosuvastatin 40 mg tablet (Crestor) 40 mg PO DAILY #1 TAB 07/19/24 Hospital Course Operations None Procedures 2-D Echocardiogram Summary of Care Provided Minutes Spent on Discharge: 70 Hospital Course: This 69-year-old white male was seen in the emergency room at [facility] with complaints of numbness and tingling in his left arm and left cheek. He took his blood pressure at home and it was elevated and it prompted him to come to the ER for evaluation. On examination in the ER, patient's NIH score was 0, a noncontrasted CT of the head was obtained and a CT of the head and neck was obtained. No acute abnormalities were noted. Patient was placed in observation status on PCU, he was seen by teleneurology and underwent an MRI of the brain which showed no evidence of acute stroke. It was recommended that the patient remain on aspirin and a statin on discharge from the hospital and it was recommended that he have a 30-day Holter monitor ordered. On 07/19/2024, patient was seen and examined: On examination he appeared in good health and spirits. Vital signs as documented. Skin warm and dry and without overt rashes. Neck without JVD, neck was supple, trachea midline, thyroid was normal. Lungs clear bilaterally, normal air movement was noted. Heart exam notable for regular rhythm, normal sounds and absence of murmurs, rubs or gallops. Abdomen unremarkable and without evidence of organomegaly, masses, or abdominal aortic enlargement. Bowel sounds are present, abdomen is not distended. Extremities nonedematous, no cyanosis was noted, no clubbing was noted. Neuro: Cranial nerves II through XII are grossly intact, no focal motor deficits were noted, sensation to light touch and pinprick intact, motor exam 5/5 throughout. Psych: Patient is alert and oriented x3, he does not appear anxious or depressed, he does not appear agitated. On 07/19/2024, patient was discharged home in stable condition Weight / BMI Weight Weight: 86.3 kg Body Mass Index (BMI) 30.7 ABG / Lab / Microbiology Data 07/19/24 06:17 07/19/24 06:17 Laboratory: Laboratory Results - last 24 hr 07/19/24 02:09: WBC 6.5, RBC 4.75, Hgb 14.5, Hct 43.0, MCV 90.5, MCH 30.5, MCHC 33.7, RDW Std Deviation 42.5, RDW Coeff of Colt 12.8, Plt Count 269, MPV 9.1, Immature Gran % (Auto) 0.300, Neut % (Auto) 46.2 L, Lymph % (Auto) 37.3, Hanson % (Auto) 11.4 H, Eos % (Auto) 4.5, Baso % (Auto) 0.3, Absolute Neuts (auto) 3.0, Absolute Lymphs (auto) 2.42, Nucleated RBC % 0, PT 12.1, INR 0.9, APTT 27.4, Sodium 137, Potassium 3.5, Chloride 100, Carbon Dioxide 24.6, Anion Gap 12, BUN 24 H, Creatinine 1.43 H, Estim Creat Clear Calc 52.16, Est GFR (MDRD) Non-Af 54 L, BUN/Creatinine Ratio 17.1, Glucose 105 H, Calcium 9.0, Magnesium 1.7, Troponin T High Sens 9 07/19/24 02:11: POC Glucose 91 07/19/24 04:14: Troponin T Hi Sens 2 Hr Cancelled 07/19/24 06:17: WBC 5.2, RBC 4.42 L, Hgb 13.7, Hct 39.5 L, MCV 89.4, MCH 31.0, MCHC 34.7, RDW Std Deviation 42.4, RDW Coeff of Colt 12.9, Plt Count 254, MPV 9.2, Immature Gran % (Auto) 0.200, Neut % (Auto) 57.4, Lymph % (Auto) 28.9, Hanson % (Auto) 9.4, Eos % (Auto) 3.7, Baso % (Auto) 0.4, Absolute Neuts (auto) 3.0, Absolute Lymphs (auto) 1.50, Nucleated RBC % 0, Sodium 138, Potassium 4.0, Chloride 102, Carbon Dioxide 22.5, Anion Gap 13, BUN 21 H, Creatinine 1.24 H, Estim Creat Clear Calc 59.53, Est GFR (MDRD) Non-Af 64, BUN/Creatinine Ratio 17.1, Glucose 97, Hemoglobin A1c 5.9, Calcium 8.9, Total Bilirubin 0.32, AST 43 H, ALT 47, Alkaline Phosphatase 53, Total Protein 6.2, Albumin 3.6, Globulin 2.6, Albumin/Globulin Ratio 1.4, Triglycerides 214 H, Cholesterol 180, LDL Cholesterol, Calc 91, VLDL Cholesterol 43 H, HDL Cholesterol 46, Cholesterol/HDL Ratio 3.92, TSH 2.920 Radiography Diagnostic Testing: Radiology Impression Brain CT 07/19/24 02:14 IMPRESSION: No intracranial hemorrhage, mass effect or CT evidence of large vascular territory acute infarct. Results reported verbally by phone by myself to Dr. Redd 07/19/2024 at 2:36 a.m.. One or more dose reduction techniques were used (e.g., Automated exposure control, adjustment of the mA and/or kV according to patient size, use of iterative reconstruction technique). Reading Location: [facility] Chest X-Ray 07/19/24 02:14 IMPRESSION: No evidence of acute disease Reading Location: [facility] Head/Neck CTA 07/19/24 02:14 IMPRESSION: No vessel cut off, flow significant stenosis, dissection or aneurysm identified as above. Appearance of mild maxillary sinusitis as above. Results communicated verbally by phone by myself to Dr. Redd 07/19/2024 at 2:56 a.m.. One or more dose reduction techniques were used (e.g., Automated exposure control, adjustment of the mA and/or kV according to patient size, use of iterative reconstruction technique). Reading Location: [facility] Brain MRI 07/19/24 03:48 IMPRESSION: 1. No acute infarct or other definite evidence of an acute intracranial process identified. 2. Mild bilateral maxillary paranasal sinus disease. Left mastoidectomy with fluid in some of the remaining inferior and posterior mastoid air cells. 3. Additional description as above. Reading Location: [facility] Echocardiogram 07/19/24 03:48 Interpretation Summary The estimated ejection fraction is 60 %. No evidence for diastolic dysfunction. Trivial mitral valve insufficiency. Ordering Physician: Maryam Vale Referring Physician: Moo Carmichael MD Performed By: Jennifer Huff RDCS D/C Instructions Discharge Diet: No restrictions Weight Bearing Status: Full weight bearing DC O2, CPAP, BIPAP Needs Home O2 Discharge instructions: No Meaningful Use Info Meaningful Use Meaningful Use Diagnoses (Choose all that apply): None applicable Ischemic Stroke Statin Dosing Therapy Reference: STATIN DOSE THERAPY REFERENCE: * Patients > 75 years receive moderate or high dose statin therapy. * Patients 75 years or YOUNGER should receive HIGH intensity statin dose unless contraindicated. You will be required to document reason for non-treatment if statin daily dose does not meet guidelines. HIGH DOSE STATIN THERAPY DAILY Atorvastatin > than or = to 40 mg Rosuvastatin > than or = to 20 mg Amlodipine + Atorvastatin > than or = to 2.5/40 mg Ezetimibe + Simvastatin 10/80 mg Simvastatin 80mg Discharge Plan Admission Admit Date/Time: 07/19/24 03:07 Primary Reason for Your Visit: TIA Attending Provider: Brett Fairbanks Primary Care Provider: Moo Carmichael Consulting Providers: Nam Soto; Lucretia Lewis; Nina Westfall; Maricel Coleman; Maura Restrepo; Suhail Blanchard; Tatiana Gastelum; Odilon Burns; Kunal Gonzalez; Denilson Nash; Tamela Crews; Tonny Gong; Margot Jones; Gabby Beatty; Emily Washington; Baron Castrejon; Deborah White; Isauro Santiago; Michelle Pappas; Magda Valdovinos; Maryam Vale Discharge Orders/Prescriptions Prescriptions: New aspirin 81 mg Tablet,Chewable 81 mg PO BREAKFAST Qty: 0 0RF rosuvastatin [Crestor] 40 mg tablet 40 mg PO DAILY Qty: 1 0RF Continued multivitamin 1 EACH tablet 1 ea PO DAILY lisinopril 10 mg tablet 10 mg PO DAILY Qty: 90 3RF carvedilol 12.5 mg tablet 12.5 mg PO DAILY Qty: 180 3RF Rx Instructions: must administer with a meal/food hydrochlorothiazide 25 mg tablet 25 mg PO DAILY Qty: 30 11RF Discontinued rosuvastatin 40 mg tablet 20 mg PO DAILY 30 Days Qty: 15 Other Ambulatory Orders: 30 Day Event Recorder Preventi (Urgent) Timeframe: 1 Day Facility: [facility] - Location: Cardiovascular Services Ordered By: Dr. Brett Fairbanks Referrals / Follow Up: Moo Carmichael MD [Primary Care Provider] - Within 2 Weeks Disposition Disposition (needs filled in before D/C Order can be placed): Home, Self Care Charges/Coding Visit Charges OBSV E&M: 80188 Observ/hosp same date L2
--- NOTE | 2024-07-19 14:27 | CASEMGMT ---
RN CM Noted DC order in. Reviewed chart, Pt I in room. No needs identified.
--- NOTE | 2024-07-20 09:24 | CASEMGMT ---
SW completed a PHQ 9 with patient as he had a TIA. Patient scored a 2 which indicates minimal depression. Patient denied any need for counseling resources. Candice KILLIAN
== END 2024-07-19 13:55 | disposition home or self-care (01) ==
LOC: ED 03:10 → PCU 03:24
PROVIDERS: Admitting Provider Family Medicine; Emergency Provider Emergency Medicine; PCP Family Medicine; Visit Provider Internal Medicine
DX: G45.9 Transient cerebral ischemic attack, unspecified (principal); N18.31 Chronic kidney disease, stage 3a; E78.00 Pure hypercholesterolemia, unspecified; E66.9 Obesity, unspecified; R00.1 Bradycardia, unspecified; I12.9 Hypertensive chronic kidney disease with stage 1 through stage 4 chronic kidney disease, or unspecified chronic kidney disease; Z86.718 Personal history of other venous thrombosis and embolism; K21.9 Gastro-esophageal reflux disease without esophagitis; R20.2 Paresthesia of skin; Z86.711 Personal history of pulmonary embolism; Z79.899 Other long term (current) drug therapy; Z68.31 Body mass index [BMI] 31.0-31.9, adult; G47.00 Insomnia, unspecified
CPT/HCPCS: 99284; 36415; 70450; 70496; 70498; 70551; 71045; 80048; 80053; 80061; 82962; 83036; 83735; 84443; 84484; 85025; 85610; 85730; 92610; 93005; 93306; 94668; 96360; 96361; 96372; 97802; 99221; Q9967; A4216; G0378

== ENCOUNTER → 2024-10-01 | Outpatient (CLI) | payer BC, SELFPAY ==
[2024-10-01 10:19] LABS: Anion Gap 10 (5-15); BUN 20 mg/dL (4-19); BUN/Creat Ratio 15.9 RATIO (10-20); Calcium,Total 9.5 mg/dL (7.6-11.0); Carbon Dioxide 25.7 mmol/L (21.0-32.0); Chloride 101 mmol/L (98-108); Creatinine, Serum 1.25 mg/dL (0.70-1.20); EST Glomerular Filtration Rate 63 (>60); Glucose 104 mg/dL (70-99); Potassium 4.5 mmol/L (3.3-5.1); Sodium Level 137 mmol/L (133-145)
== END | disposition home or self-care (01) ==
LOC: LAB 08:45
PROVIDERS: PCP Family Medicine; Referring Provider Student in an Organized Health Care Education/Training Program; Visit Provider Student in an Organized Health Care Education/Training Program
DX: I10 Essential (primary) hypertension (principal)
CPT/HCPCS: 36415; 80048

== ENCOUNTER 2025-05-02 19:49 | Emergency (ER) | payer BC, SELFPAY ==
[2025-05-02 19:50] VITALS: BP 149/97; PULSE 68; RESP 25; TEMP 36.1; O2SAT 99
--- NOTE | 2025-05-02 19:50 | ED.RN ---
Spoke with Dr. Redd about pt sx, advised no stroke alert at this time. Pt NIH is 0.
[2025-05-02 20:28] VITALS: BMI 32.1
--- NOTE | 2025-05-02 20:54 | EKG12_ITS ---
Test Reason : DYSRHYTHMIA Blood Pressure : */* mmHG Vent. Rate : 80 BPM Atrial Rate : 80 BPM P-R Int : 190 ms QRS Dur : 94 ms QT Int : 380 ms P-R-T Axes : 37 30 38 degrees QTcB Int : 438 ms Normal sinus rhythm Normal ECG Confirmed by Giorgi Vasques ([id number]), graphic editor MOMO PELAYO ([id number]) on 05/03/2025 10:54:03 AM Also confirmed by Giorgi Vasques ([id number]), graphic editor MOMO PELAYO ([id number]) on 05/04/2025 10:59:46 AM Referred By: Confirmed By: Giorgi Vasques
[2025-05-02 21:10] LABS: Hematocrit 43.1 % (40-54); Hemoglobin 14.6 g/dL (13.0-16.5); Immature Granulocytes Count 0.020 X10^3/uL (0.0-0.0); Mean Corp Hgb Conc 33.9 g/dL (32-36); Mean Corpuscular Volume 90.7 fL (80-94); Mean Platelet Vol. 9.1 fl (6.2-12.0); NRBC Flagged by Analyzer 0 % (0-5); Platelet Count 253 K/mm3 (150-450); RBC Distribution Width CV 12.7 % (11.6-14.6); RBC Distribution Width SD 41.9 fl (35.1-43.9); Red Blood Count 4.75 M/mm3 (4.6-6.2); White Blood Count 7.7 K/mm3 (4.4-11.0)
--- NOTE | 2025-05-02 21:14 | EX.ED.DYSGE1 ---
HPI History of Present Illness Chief Complaint: Dizziness [facility] Medical History Paresthesias Wears glasses High cholesterol Pulmonary embolism Non-smoker Hypertension History of echocardiogram Cardiology follow-up encounter COVID-19 (04/2020) Bilateral pulmonary embolism GERD (gastroesophageal reflux disease) DVT (deep venous thrombosis) (2014) Pulmonary alveolar proteinosis HLD (hyperlipidemia) Essential (primary) hypertension Nocardia infection Knee pain Lung disease Home Medications ?Medication ?Instructions ?Recorded ?Last Taken ?Type multivitamin 1 ea PO DAILY SUPPLEMENT 06/27/17 09/04/23 History hydrochlorothiazide 25 mg tablet 25 mg PO DAILY diuretic #30 tabs 04/27/24 Unknown Rx aspirin 81 mg chewable tablet 81 mg PO BREAKFAST #0 tabs 07/19/24 05/02/25 Rx rosuvastatin 40 mg tablet (Crestor) 40 mg PO DAILY #1 TAB 07/19/24 Unknown Rx carvedilol 6.25 mg tablet 6.25 mg PO DAILY blood pressure 10/01/24 Unknown Rx #30 tabs lisinopril 10 mg tablet 10 mg PO DAILY blood pressure #90 12/06/24 Unknown Rx tabs metoclopramide HCl 5 mg tablet 5 mg PO Q8H PRN nausea and 05/02/25 Unknown Rx (Reglan) vomiting 7 days #20 tabs Allergy/AdvReac Type Severity Reaction Status Date / Time atorvastatin Allergy Vomiting Verified 05/02/25 19:56 morphine Allergy Nausea,Vomi Verified 05/02/25 19:56 ting piperacillin (From Zosyn) AdvReac Vomiting Verified 05/02/25 19:56 tazobactam (From Zosyn) AdvReac Vomiting Verified 05/02/25 19:56 Family History Brother Myocardial infarction Kidney disease Mother CAD (coronary artery disease) Father Cancer Oral ca Brother CVA (cerebral vascular accident) Surgical History History of cardiac catheterization Hx of colonoscopy History of bronchoscopy History of herniorrhaphy H/O nasal septoplasty H/O knee surgery History of left heart catheterization (04/20/09) Bilateral therapeutic whole-lung lavage (2015) Status post stereotactic brain biopsy (2015) Social History (Updated 05/02/25 @ 20:30 by Dominique Gilliam) household members: spouse housing: house current occupational status: employed current occupation: [employer] Smoking Status: Never smoker alcohol intake: current alcohol intake frequency: a few times a week Alcohol type: beer substance use type: does not use caffeine: Yes Type: tea Number of servings: 1 EXAM Physical Exam Const Vital Signs: 05/02/25 19:50 05/02/25 20:54 05/02/25 21:22 Temperature 97 F L Temperature Source Temporal Pulse Rate 68 87 Respiratory Rate 25 H 19 H Blood Pressure 149/97 H Blood Pressure Mean 114 Pulse Ox 99 Oxygen Delivery Method Room Air Room Air 05/02/25 22:00 Temperature Temperature Source Pulse Rate 80 Respiratory Rate 18 Blood Pressure 143/89 H Blood Pressure Mean 107 Pulse Ox 99 Oxygen Delivery Method Room Air MDM MDM MDM Narrative Medical decision making narrative: HISTORY OF PRESENT ILLNESS: Chief complaint: Dizziness, blurred vision 69-year-old male history of pulm embolism,hypertension, hyperlipidemia Patient states he woke up approximately 6 AM this morning on 05/02/2025 with dizziness and blurred vision. Patient states symptoms resolved and then came back. He also complains of headache. He notes 1 episode of vomiting. Notes history of brain surgery. Denies falls or trauma. Denies slurred speech, facial drooping or loss of movement or sensation in the arms or legs. Endorses sick contacts and a significant other who had a cold recently. Denies history of migraines. Denies syncope. Denies chest pain or shortness of breath. Denies abdominal pain. Denies trouble urinating. Denies melena hematochezia REVIEW OF SYSTEMS: Pertinent positives: Headache, dizziness, blurred vision, nausea vomit Pertinent negatives: As per HPI PHYSICAL EXAM: Nursing triage notes reviewed, Vital signs reviewed Constitutional: please see mdm HENT: MMM Eyes: Pupils equal round and reactive to light, Extraocular muscles intact Neck: No stridor, no JVD, full neck ROM Lungs: Clear to auscultation, No wheezing or rales. No increased work of breathing, no conversational dyspnea, no accessory muscle use, no nasal flaring. No respiratory distress noted Heart: Regular rate and rhythm, No murmurs, No rubs and No gallops, 2+ distal pulses (radial, femoral, posterior tibial) in all extremities Abdomen: Soft, there is no tenderness, rigidity, rebound or guarding, no obvious peritoneal signs, no palpable pulsatile abdominal masses, no auscultated abdominal bruit : No CVAT Extremities: No edema Neuro: Alert and oriented x3, neuro exam at baseline, cranial nerves II through XII are intact. No pain with extraocular muscle movement. There is negative test of skew. 5 of 5 strength in upper and lower extremities in flexion extension. Intact sensation to light touch in upper and lower extremity dermatomes. No truncal or extremity ataxia. No gait ataxia. No dysdiadochokinesia. Normal gait. 2+ reflexes in upper and lower extremities. No meningeal signs. Negative Babinski. NIH of 0. Skin: No rash or lesions noted MEDICAL DECISION MAKING: Chief Complaint: please see HPI External records reviewed: Reviewed prior ED visit. Reviewed prior imaging Factors affecting care: As per HPI Social determinants of health: denies drug History obtained from others: Significant other Consults: none [facility] Narrative: Patient was initially hemodynamically stable, afebrile and nontoxic-appearing. Initial neurologic exam intact. No ataxia (gait or extremity), vertical or rotatory nystagmus to suggest a posterior circulation CVA I considered the following differential diagnosis: ICH, CVA, arrhythmia, anemia, electrolyte disturbance, dehydration I obtained a broad lab and imaging work to further determine if the patient was suffering from a life-threatening etiology. I initially treated the patient with 1 L normal saline, 0.5 mg IV Ativan, 5 mg of IV Reglan for symptomatic control of dizziness nausea and headache ALL IMAGES (IF OBTAINED) HAVE BEEN PERSONALLY REVIEWED AND INTERPRETED BY MYSELF. Initial EKG with normal sinus rhythm rate of 80, normal axis, normal intervals, no obvious STEMI CBC without leukocytosis, severe anemia, no thrombocytopenia. I have personally reviewed the patient's chest x-ray. Chest x-ray is unremarkable for pulmonary edema, pneumothorax, pneumonia or focal cardiopulmonary abnormality. CT scan of the brain showed no evidence of ICH or mass High-sensitivity troponin is negative, no evidence of myocardial ischemia CBC without leukocytosis, severe anemia, no thrombocytopenia. BMP without evidence of significant electrolyte abnormalities, no anion gap, no acute kidney injury. Upon reassessment the patient's vital signs remained stable. His neurologic exam remained intact with no focal deficits. He noted symptomatic improvement after the above interventions. His COVID flu and RSV tests are still pending. The synthesis of the patient's history, physical exam, labs images are most consistent with unknown etiology. Does not appear to be life-threatening. Will give Reglan to take as needed. Will give prompt PCP follow-up and strict return precautions The patient and/or family, caregivers express understanding. The patient and/or family, caregivers agrees with the plan. Shared decision making: I will have a discussion with the patient and or visitors regarding risk/benefits of further testing or admission. They will be made aware of of the risk/benefits inherent in this decision they will be given the opportunity to voice understanding. Total critical care time today provided was at least 0 minutes. This excludes separately billable procedures. Critical care time (if documented) is secondary to the patient having high probability of clinically significant/life threatening deterioration in the patient's condition which required my urgent intervention. Impression: 1. Headache 2. Nausea & Vomiting 3. Dizziness 4. Dehydration Dispo: Discharge home This note was generated with [employer] dictation software. It may contain incorrect words, spelling, and punctuation that were not noted in review of the chart prior to signing. Lab Data Labs: Laboratory Results - last 24 hr 05/02/25 05/02/25 21:01 21:23 WBC 7.7 RBC 4.75 Hgb 14.6 Hct 43.1 MCV 90.7 MCH 30.7 MCHC 33.9 RDW Std Deviation 41.9 RDW Coeff of Colt 12.7 Plt Count 253 MPV 9.1 Immature Gran % (Auto) 0.300 Neut % (Auto) 74.5 H Lymph % (Auto) 14.4 L Aiken % (Auto) 8.6 Eos % (Auto) 1.8 Baso % (Auto) 0.4 Absolute Neuts (auto) 5.7 Absolute Lymphs (auto) 1.10 Nucleated RBC % 0 Sodium 136 Potassium 4.2 Chloride 99 Carbon Dioxide 26.1 Anion Gap 11 BUN 22 H Creatinine 1.23 H Estim Creat Clear Calc 61.33 Est GFR (MDRD) Non-Af 64 BUN/Creatinine Ratio 17.9 Glucose 130 H Calcium 9.1 Troponin T High Sens 8 D POC Glucose 129 H Radiography Diagnostic Testing: Clinical Impression(s) from Imaging Studies Brain CT 05/02/25 21:44 IMPRESSION: No acute intracranial abnormality. Ancillary findings noted above. Reading Location: [facility] Chest X-Ray 05/02/25 22:40 IMPRESSION: Cardiomegaly. No acute pulmonary disease. Reading Location: [facility] Discharge Plan Triage Chief Complaint: Dizziness ED Provider: Mike Redd Dx/Rx/DC Orders Instructions: ED Dizziness, Uncertain Cause, ED Vomiting (Adult) Prescriptions: New metoclopramide HCl [Reglan] 5 mg tablet 5 mg PO Q8H PRN (Reason: nausea and vomiting) 7 Days Qty: 20 0RF No Action carvedilol 6.25 mg tablet 6.25 mg PO DAILY Qty: 30 11RF Rx Instructions: must administer with a meal/food multivitamin 1 EACH tablet 1 ea PO DAILY aspirin 81 mg Tablet,Chewable 81 mg PO BREAKFAST Qty: 0 0RF rosuvastatin [Crestor] 40 mg tablet 40 mg PO DAILY Qty: 1 0RF hydrochlorothiazide 25 mg tablet 25 mg PO DAILY Qty: 30 11RF lisinopril 10 mg tablet 10 mg PO DAILY Qty: 90 3RF Primary Care Provider: Moo Carmichael Referrals: Moo Carmichael MD [Primary Care Provider, Family Practice] Activity Restrictions/Additional Instructions: Thank you for trusting us with your care today! Your labs and images are reassuring. Please take Reglan as needed for nausea vomiting headache control at home Please take Tylenol (2 pills, 650 mg), ibuprofen (2 pills, 400 mg) every 6 hours as needed for pain and fever control. Please return to the emergency department if your symptoms change or worsen. Please follow with your primary care physician for further outpatient evaluation and management. Print Language: Amharic Disposition Disposition: Home, Self Care
[2025-05-02 21:22] VITALS: PULSE 87; RESP 19
[2025-05-02] MEDS: 0.9% Normal Saline (1000mL) 1,000 ML 999 ML IV (21:28)
--- NOTE | 2025-05-02 21:44 | CT_ITS ---
PROCEDURE: CT BRAIN/HEAD WITHOUT CONTRAST 05/02/2025 REASON FOR EXAM: DIZZINESS TECHNIQUE: Procedure Code: CTBR Modality: CT Procedure: BRAIN/HEAD WITHOUT CONTRAST Coronal and Sagittal reconstruction series were provided. One or more dose reduction techniques were used (e.g., Automated exposure control, adjustment of the mA and/or kV according to patient size, use of iterative reconstruction technique. RADIATION DOSE SUMMARY: CTDlvol: 44.99 mGy DLP: 796.11 mGycm COMPARISON: CT head/angiography and brain MRI 07/19/2024. FINDINGS: No acute intracranial hemorrhage, extra-axial collection, mass effect or evidence of acute infarct. Small area of chronic encephalomalacia/gliosis involving the left superior frontal gyrus. Mild atherosclerotic vascular calcifications. Grossly unremarkable orbits. Intact skull base and calvarium. Postoperative changes of left canal wall up mastoidectomy. Minimal peripheral mucosal thickening in the maxillary sinuses. Clear right mastoid air cells. CT/Brain/Head without Contrast IMPRESSION: No acute intracranial abnormality. Ancillary findings noted above. Reading Location: [id number]
[2025-05-02 21:46] LABS: Anion Gap 11 (7-18); BUN 22 mg/dL (4-19); BUN/Creat Ratio 17.9 RATIO (10-20); Calcium,Total 9.1 mg/dL (7.6-11.0); Carbon Dioxide 26.1 mmol/L (20.0-29.0); Chloride 99 mmol/L (96-106); Estimated Creatinine Clearance 61.33 ml/min (50-250); Glucose 130 mg/dL (70-99); Potassium 4.2 mmol/L (3.5-5.1)
--- OUTSIDE RECORDS SUMMARY | 2025-05-02 21:52 | XMS RPT_ITS | CCD ---
Author Organization 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 Moo Carmichael Primary Care Provider Dr. Moo Carmichael Referring Provider Nicole PINO, PA Tori Wilkinson Attending Provider Dr. Surya Jose Attending Provider Dr. Moo Carmichael Primary Care Provider Cristina Yañez Attending Provider Unavailable Dr. Lam Benavidez Attending Provider Dr. Lam Benavidez Referring Provider Dr. Lam Benavidez Other Provider Dr. Moo Carmichael Primary Care Provider Dr. Moo Carmichael Referring Provider ALVAREZ Tierney Attending Provider Dr. Moo Carmichael MD Primary Care Provider Dr. Moo Carmichael MD Attending Provider Dr. Moo Carmichael MD Referring Provider Tori Tierney Other Provider [phone] Dr. Mike Redd DO Emergency Provider Dr. Maryam Vale MD Admit Provider Dr. Maryam Vale MD Attending Provider Dr. Maryam Vale MD Other Provider Nam Soto MD Other Provider Unavailable Joshua JIMENEZ, Dr. Boykin Other Provider [phone] Malou JIMENEZ, Nina Other Provider Unavailable Jared NEGRETE, Dr. Connelly Other Provider Lauro JIMENEZ, Dr. Lorenzo Other Provider [phone] Santo JIMENEZ, Dr. Jang Other Provider [phone] Oriana JIMENEZ, Dr. Simpson Other Provider Grant JIMENEZ, Dr. Donald Other Provider [phone] Carlos JIMENEZ, Dr. Syed Other Provider Saad JIMENEZ, Dr. Oreilly Other Provider Mars JIMENEZ, Tamela Other Provider Farideh JIMENEZ, Dr. Lancaster Other Provider Robert JIMENEZ, Dr. Frost Other Provider [phone] Rogerio JIMENEZ, Dr. Pierre Other Provider Pamdini JIMENEZ, Dr. Emily Bai Other Provider Cash JIMENEZ, Dr. Draper Other Provider Cindy JIMENEZ, Dr. Cabrera Other Provider Jack JIMENEZ, Dr. Box Other Provider Mian JIMENEZ, Dr. Martinez Other Provider Unavailable Aruna JIMENEZ, Youhenrry Other Provider Unavailable Dr. Brett Fairbanks DO Attending Provider [phone] Didi JIMENEZ, Dr. Carney Attending Provider Dr. Moo Carmichael MD Primary Care Provider Rebeca JIMENEZ, Dr. London Attending Provider [phone] Brett Fairbanks DO Referring Provider [phone] Dr. Moo Carmichael MD Referring Provider Jameel Perez Attending Provider Jameel Perez Referring Provider [phone] Moo Carmichael Primary Care Unavailable Nam Soto Consulting Unavailable Maryam Vale L Admitting Unavailable Brett Fairbanks Attending Unavailable Adeli, Amir Consulting Unavailable Hinduja, Nina Consulting Unavailable Jared, Maricel Consulting Unavailable Zha, Maura Consulting Unavailable Santo, Suhail Consulting Unavailable Oriana, Tatiana Consulting Unavailable BitOdilon rush Consulting Unavailable Kunal Gonzalez Consulting Unavailable Denilson Nash Consulting Unavailable Tamela Crews Consulting Unavailable Tonny Gong Consulting Unavailable Margot Jones Consulting Unavailable Gabby Beatty Consulting Unavailable Emily Washington Consulting UnavailBaron Ye Consulting Unavailable White, Ramziggy Consulting Unavailable Jack, Isauro Consulting Unavailable Michelle Pappas Consulting Unavailable Magda Valdovinos Consulting Unavailable White, Maryam L Consulting Unavailable Carmichael, Moo Primary Care Unavailable Carmichael, Moo Referring Unavailable Tori Tierney Attending Unavail able Surya Jose Attending Unavailable Brett Fairbanks Referring Unavailable Carmichael, Moo Primary Care Unavailable Rommel Tolbert Attending Unavailpawan e Carmichael, Moo Primary Care Unavailable Carmichael, Moo Referring Unavailable Carmichael, Moo Attending Unavailable Carmichael, Moo Primary Care Unavailable Tori Tierney Consulting Unavail able Carmichael, Moo Primary Care Unavailable WhiteMaryam L Attending Unavailable White, Maryam L Consulting Unavailable White, Maryam L Admitting Unavailable Carmichael, Moo Primary Care Unavailable Carmichael, Moo Referring Unavailable Chula Carrenoyler Attending Unavailable Carmichael, Moo Primary Care Unavailable Claudioiter, Jameel Referring Unavailable ClaudioiterChulaJameel Attending Unavailable Magdi, Brett Referring Unavailable Brett Fairbanks Attending Unavailable Carmichael, Moo Primary Care Unavailable Allergies Allergy Classification Reported Allergen(s) Allergy Type Date of Onset Reaction(s) Facility (10 sources) atorvastatin; Translations: [atorvastatin] drug allergy 4 myalgias, Unknown, Vomiting [facility] Work Phone: (10 sources) morphine; Translations: [morphine] drug allergy 3 Nausea, Nausea,Vomitin g [facility] Work Phone: (3 sources) piperacillin / tazobactam drug allergy 5 Severe GI upset [facility] Work Phone: (2 sources) Sulfamethoxazole / Trimethoprim Drug Allergy 7 After [facility] use,severe GI [facility] Work Phone: (6 sources) Piperacillin Drug Allergy 3 Vomiting [facility] (6 sources) tazobactam Drug Allergy 3 Vomiting [facility] (1 source) Piperacillin Drug Allergy 5 [facility] (1 source) tazobactam Drug Allergy 5 [facility] Medications Current Medications Medication Drug Class(es) Dates Sig (Normalized) Sig (Original) aspirin 81 mg chewable tablet (8 sources) Nonsteroidal Anti-inflammatory Drug Start: 07-19-2024 take 1 tablet by mouth at breakfast Aspirin 81 mg Tablet,Chewable Active 81 mg PO WITH BREAKFAST 0 July 19, 2024 12:00am Start: 03-31-2013 End: 02-18-2014 take 1 tablet by mouth once daily ASPIRIN 81 MG TABS One tablet by mouth daily ASPIRIN [id number] Tori Rivera PA-C Start: 03-31-2013 End: 02-18-2014 take 1 tablet by mouth once daily ASPIRIN 81 MG TABS One tablet by mouth daily ASPIRIN [id number] Surya Jose MD carvedilol 6.25 mg oral tablet (20 sources) alpha-Adrenergic Sheng, beta-Adrenergic Sheng Start: 10-01-2024 take 1 tablet by mouth once daily at mealtime Carvedilol 6.25 mg tablet Active 6.25 mg PO DAILY October 01, 2024 8:27am must administer with a meal/food Start: 10-01-2024 End: 10-01-2024 take 6.25 mg by mouth once daily at mealtime Carvedilol 12.5 mg tablet Discontinued 6.25 mg PO DAILY October 01, 2024 8:02am October 01, 2024 8:28am must administer with a meal/food Start: 09-02-2023 End: 10-01-2024 take 1 tablet by mouth once daily at mealtime Carvedilol 12.5 mg tablet Discontinued 12.5 mg PO DAILY December 26, 2023 12:11pm October 01, 2024 8:02am must administer with a meal/food Start: 07-25-2022 End: 09-02-2023 take 1 tablet by mouth twice daily at mealtime Carvedilol 12.5 mg tablet Discontinued 12.5 mg PO TWICE A DAY 60 July 25, 2022 3:55pm September 02, 2023 10:44am must administer with a meal/food Start: 07-15-2022 End: 07-25-2022 take 1 tablet by mouth twice daily at mealtime Carvedilol (Coreg) 6.25 mg tablet Discontinued 6.25 mg PO TWICE A DAY 60 July 15, 2022 1:00am July 15, 2022 5:05pm must administer with a meal/food hydroCHLOROthiazide 25 mg oral tablet (8 sources) Thiazide Diuretic Start: 04-01-2023 End: 04-27-2024 take 1 tablet by mouth once daily Hydrochlorothiazide 25 mg tablet Active 25 mg PO DAILY April 27, 2024 5:24pm lisinopril 10 mg oral tablet (20 sources) Angiotensin Converting Enzyme Inhibitor Start: 11-05-2022 End: 11-18-2023 take 1 tablet by mouth once daily Lisinopril 10 mg tablet Active 10 mg PO DAILY November 18, 2023 2:18pm Start: 08-09-2013 End: 04-27-2017 take 1 tablet by mouth at bedtime Lisinopril 10 MG tablet Discontinued 10 mg PO AT BEDTIME May 24, 2014 1:00am April 27, 2017 12:24pm Multivitamin 1 EACH tablet (3 sources) Start: 06-27-2017 Multivitamin 1 EACH tablet Active 1 NMA PO DAILY June 27, 2017 1:00am Multivitamin preparation (3 sources) Start: 06-27-2017 Multivitamin A ctive 1 EACH PO DAILY June 27, 2017 12:00am Start: 06-27-2017 Multivitamin A ctive 1 EACH PO DAILY June 27, 2017 1:00am rosuvastatin calcium 40 mg oral tablet (13 sources) HMG-CoA Reductase Inhibitor Start: 07-19-2024 take 1 tablet by mouth once daily Rosuvastatin (Crestor) 40 mg tablet Active 40 mg PO DAILY July 19, 2024 12:00am Start: 04-01-2023 End: 07-19-2024 Rosuvastatin 40 mg tablet Discontinued 20 mg PO DAILY April 01, 2023 12:18pm July 19, 2024 1:52pm Start: 04-01-2023 take 20 mg by mouth once daily Rosuvastatin Active 20 MG PO DAILY April 01, 2023 12:18pm Start: 10-20-2018 End: 04-01-2023 take 1 tablet by mouth once daily Rosuvastatin 40 mg tablet Discontinued 40 mg PO DAILY October 20, 2018 12:00am April 01, 2023 12:18pm Completed/Discontinued Medications Medication Drug Class(es) Dates Sig (Normalized) Sig (Original) albuterol 0.83 mg/ml inhalant solution (12 sources) beta2-Adrenergic Agonist Start: 10-14-2014 End: 04-27-2015 ALBUTEROL SULFATE (2.5 MG/3ML) 0.083% NEBU via nebulizer twice daily q other week prior to other nebulizer drug ALBUTEROL SULFATE [id number] Elsy Collins Start: 10-14-2014 ALBUTEROL SULF ATE (2.5 MG/3ML) 0.083% NEBU 3 ml via nebulizer every 4 horus prn ALBUTEROL SULFATE [id number] Diana Freitas RN Amikacin (6 sources) Aminoglycoside Antibacterial Start: 06-13-2014 End: 06-16-2014 take 100 g intravenously every twelve hours Amikacin (Bulk) 100 GM Powder Discontinued 550 mg IV Q12H June 13, 2014 1:00am June 16, 2014 1:08pm Start: 06-13-2014 End: 06-16-2014 take 550 mg intravenously every twelve hours Amikacin (Bulk) Discontinued 550 MG IV Q12H June 13, 2014 12:00am June 16, 2014 12:08pm Start: 06-13-2014 End: 06-16-2014 take 550 mg intravenously every twelve hours Amikacin (Bulk) Discontinued 550 MG IV Q12H June 13, 2014 1:00am June 16, 2014 1:08pm amitriptyline hydrochloride 50 mg oral tablet (10 sources) Tricyclic Antidepressant Start: 07-21-2023 End: 07-19-2024 take 0.5-1 tablets by mouth at bedtime as needed Amitriptyline 50 mg tablet Discontinued 50 mg PO AT BEDTIME as needed for SLEEPI July 21, 2023 12:00am July 19, 2024 2:30am /2 to 1 tablet at hs prn Start: 10-18-2021 End: 07-15-2022 take 1 tablet by mouth at bedtime Amitriptyline 25 mg tablet Discontinued 25 mg PO AT BEDTIME October 18, 2021 12:00am July 15, 2022 4:23pm atorvastatin 20 mg oral tablet (6 sources) HMG-CoA Reductase Inhibitor Start: 03-25-2013 End: 08-17-2013 take 1 tablet by mouth once daily ATORVASTATIN CALCIUM 20 MG TABS One tablet by mouth daily ATORVASTATIN CALCIUM [id number] Surya Jose MD benzonatate (6 sources) Non-narcotic Antitussive Start: 10-14-2014 take 2 capsules by mouth every eight hours as needed TESSALON 200 MG CAPS 2 capsules by mouth every 8 hours as needed ALEJANDRAATE Diana Freitas RN Start: 10-14-2014 End: 12-13-2014 take 2 capsules by mouth every eight hours as needed TESSALON 200 MG CAPS 2 capsules by mouth every 8 hours as needed JACKNATATE Surya Jose MD Start: 10-14-2014 End: 12-13-2014 take 2 capsules by mouth every eight hours as needed TESSALON 200 MG CAPS 2 capsules by mouth every 8 hours as needed ENID Jose MD calcium carbonate 500 mg chewable tablet (6 sources) Start: 10-14-2014 End: 10-24-2015 take 1 tablet by mouth twice daily TUMS 500 MG CHEW One tablet by mouth twice daily CALCIUM CARBONATE ANTACID [id number] Diana Freitas RN Start: 10-14-2014 End: 10-24-2015 take 1 tablet by mouth twice daily TUMS 500 MG CHEW One tablet by mouth twice daily CALCIUM CARBONATE ANTACID [id number] Diana Freitas RN cefTRIAXone 2000 mg injection (12 sources) Cephalosporin Antibacterial Start: 06-13-2014 End: 04-27-2017 take 2 g intravenously every twelve hours Ceftriaxone 2 GM recon soln Discontinued 2 g IV Q12H 69 June 16, 2014 1:00am April 27, 2017 12:23pm cephalexin 500 mg oral capsule (6 sources) Cephalosporin Antibacterial Start: 04-27-2017 End: 05-07-2017 take 1 capsule by mouth every twelve hours Cephalexin (Keflex) 500 mg capsule Discontinued 500 mg PO Q12H 20 April 27, 2017 1:00am May 06, 2017 1:00am May 07, 2017 1:03am ciprofloxacin 500 mg oral tablet (6 sources) Quinolone Antimicrobial Start: 07-04-2017 End: 10-20-2018 take 1 tablet by mouth twice daily Ciprofloxacin Hcl 500 MG tablet Discontinued 500 mg PO TWICE A DAY July 04, 2017 1:00am October 20, 2018 4:20pm dexamethasone 4 mg oral tablet (20 sources) Corticosteroid Start: 08-23-2014 End: 10-14-2014 DEXAMETHASONE 4 MG TABS 1/2 tablet daily DEXAMETHASONE [id number] Diana Freitas RN Start: 07-05-2014 End: 04-27-2017 take 2 mg by mouth every other day Dexamethasone 4 MG tablet Discontinued 2 mg PO EVERY OTHER DAY July 05, 2014 5:58pm April 27, 2017 12:22pm Start: 07-05-2014 End: 04-27-2017 take 2 mg by mouth every other day Dexamethasone Discontinued 2 MG PO EVERY OTHER DAY July 05, 2014 5:58pm April 27, 2017 12:22pm Start: 06-16-2014 End: 06-16-2014 take 2 mg by mouth twice daily at mealtime Dexamethasone 4 MG tablet Discontinued 2 mg PO TWICE DAILY WITH MEALS June 16, 2014 1:00am June 16, 2014 1:23pm Start: 06-16-2014 End: 06-16-2014 take 2 mg by mouth twice daily at mealtime Dexamethasone Discontinued 2 MG PO TWICE DAILY WITH MEALS June 16, 2014 1:00am June 16, 2014 1:23pm Start: 06-13-2014 End: 06-16-2014 take 2 mg by mouth three times daily Decadron Discontinued 2 mg PO THREE TIMES A DAY June 13, 2014 1:00am June 16, 2014 1:05pm Start: 06-13-2014 End: 06-16-2014 take 2 mg by mouth twice daily Decadron Discontinued 2 mg PO TWICE A DAY June 13, 2014 1:00am June 16, 2014 1:08pm docusate sodium 100 mg oral tablet (6 sources) Start: 06-13-2014 End: 06-16-2014 take 100 mg by mouth twice daily Colace Discontinued 100 mg PO TWICE A DAY June 13, 2014 1:00am June 16, 2014 1:06pm esomeprazole 20 mg delayed release oral capsule (5 sources) Proton Pump Inhibitor Start: 10-22-2016 take 1 tablet by mouth once daily NEXIUM 20 MG CPDR One tablet by mouth daily ESOMEPRAZOLE MAGNESIUM [id number] Surya Jose MD Start: 02-18-2014 take 1 tablet by jeremiah th once daily NEXIUM 40 MG PACK One tablet by mouth daily ESOMEPRAZOLE MAGNESIUM [id number] Surya Jose MD Start: 02-18-2014 take 1 tablet by jeremiah th once daily NEXIUM 40 MG PACK One tablet by mouth daily ESOMEPRAZOLE MAGNESIUM [id number] Surya Jose MD fluconazole 100 mg oral tablet (18 sources) Azole Antifungal Start: 07-05-2014 End: 04-27-2017 take 1 tablet by mouth at bedtime Fluconazole 100 MG tablet Discontinued 100 mg PO AT BEDTIME July 05, 2014 5:58pm April 27, 2017 12:22pm Heparin, Porcine (Pf) (6 sources) Unfractionated Heparin, Anti-coagulant Start: 06-16-2014 End: 04-27-2017 Heparin, Porcine (Pf) 1,000 UNIT/10 ML syringe Discontinued 500 U IV DIRECTED as needed for Heparin Flush June 16, 2014 1:00am April 27, 2017 12:23pm Start: 06-16-2014 End: 04-27-2017 Heparin, Porcine (Pf) Discon tinued 500 UNIT IV DIRECTED June 16, 2014 12:00am April 27, 2017 11:23am Start: 06-16-2014 End: 04-27-2017 Heparin, Porcine (Pf) Discon tinued 500 UNIT IV DIRECTED June 16, 2014 1:00am April 27, 2017 12:23pm homatropine methylbromide 0.3 mg/ml / HYDROcodone bitartrate 1 mg/ml oral solution (6 sources) Opioid Agonist, Cholinergic Muscarinic Agonist Start: 10-14-2014 End: 12-13-2014 HYDROMET 5-1.5 MG/5ML SYRP 5-10 ml every 4 hours as needed for cough HYDROCODONE-HOMATROPINE [id number] Diana Freitas RN Start: 10-14-2014 End: 12-13-2014 HYDROMET 5-1.5 MG/5ML SYRP 5 -10 ml every 4 hours as needed for cough HYDROCODONE-HOMATROPINE [id number] Surya Jose MD Start: 10-14-2014 HYDROMET 5-1.5 MG/5ML SYRP 5-10 ml every 4 hours as needed for cough HYDROCODONE-HOMATROPINE [id number] Diana Freitas RN levETIRAcetam 500 mg oral tablet (6 sources) Start: 06-13-2014 End: 06-16-2014 take 1 tablet by mouth twice daily Levetiracetam 500 MG tablet Discontinued 500 mg PO TWICE A DAY June 13, 2014 1:00am June 16, 2014 1:09pm linezolid 600 mg oral tablet (18 sources) Oxazolidinone Antibacterial Start: 06-13-2014 End: 04-27-2017 take 1 tablet by mouth every twelve hours Linezolid 600 MG tablet Discontinued 600 mg PO EVERY 12 HOURS June 17, 2014 8:32am April 27, 2017 12:23pm LORazepam 1 mg oral tablet (6 sources) Benzodiazepine Start: 10-18-2021 End: 07-15-2022 take 1 tablet by mouth at bedtime as needed Lorazepam 1 mg tablet Discontinued 1 mg PO AT BEDTIME as needed October 18, 2021 12:00am July 15, 2022 4:23pm 24 hr metoprolol succinate 25 mg extended release oral tablet (20 sources) beta-Adrenergic Sheng Start: 10-14-2014 take 1 tablet by mouth once daily TOPROL XL 25 MG [id number] One tablet by mouth daily METOPROLOL SUCCINATE [id number] Surya Jose MD Start: 05-24-2014 End: 06-16-2014 take 1 tablet by mouth once daily Metoprolol Tartrate 25 MG tablet Discontinued 25 mg PO DAILY May 24, 2014 1:00am June 16, 2014 1:09pm Start: 08-09-2013 End: 10-20-2018 take 1 tablet by mouth once daily Metoprolol Succinate 25 mg tablet extended release 24 hr Discontinued 25 mg PO DAILY November 03, 2017 11:23am October 20, 2018 4:20pm Start: 08-09-2013 End: 10-13-2014 take 0.5 tablet by mouth once daily TOPROL XL 25 MG [id number] 1/2 tablet by mouth daily METOPROLOL SUCCINATE [id number] Taylor Jc RN Start: 08-09-2013 take 1 tablet by jeremiah th once daily TOPROL XL 25 MG [id number] One tablet by mouth daily METOPROLOL SUCCINATE [id number] Surya Jose MD Start: 08-09-2013 take 0.5 tablet by m outh once daily TOPROL XL 25 MG [id number] 1/2 tablet by mouth daily METOPROLOL SUCCINATE [id number] Diana Freitas RN MULTIPLE VITAMINS-MINERALS (2 sources) Start: 10-22-2016 take 1 tablet by mouth once daily MULTIVITAMIN ADULT TABS One tablet by mouth daily MULTIPLE VITAMINS-MINERALS [id number] Surya Jose MD nystatin 031260 unt/ml oral suspension (6 sources) Polyene Antifungal Start: 08-23-2014 End: 10-14-2014 NYSTATIN [id number] UNIT/ML SUSP swish and swallow as directed VENU [id number] Surya Jose MD Start: 08-23-2014 End: 10-14-2014 NYSTATIN [id number] UNIT/ML SUSP swish and swallow as directed NYSTATIN [id number] Surya Jose MD ondansetron 0.8 mg/ml oral solution (6 sources) Serotonin-3 Receptor Antagonist Start: 10-14-2014 End: 12-13-2014 take 5 mg by mouth every eight hours as needed ONDANSETRON HCL 4 MG/5ML SOLN 5 mg by mouth every 8 hours as needed ONDANSETRON HCL [id number] Surya Jose MD oxygen (6 sources) Start: 08-23-2014 End: 04-27-2015 OXYGEN 2 liters nasal cannula continuously OXYGEN Surya Jose MD Start: 08-23-2014 OXYGEN 2 liter s nasal cannula continuously OXYGEN Surya Jose MD pantoprazole 40 mg delayed release oral tablet (20 sources) Proton Pump Inhibitor Start: 02-18-2014 End: 04-27-2017 take 1 tablet by mouth once daily Pantoprazole 40 MG tablet Discontinued 40 mg PO DAILY May 24, 2014 1:00am April 27, 2017 12:24pm Start: 02-18-2014 take 1 tablet by jeremiah th once daily PROTONIX 20 MG TBEC One tablet by mouth daily PANTOPRAZOLE SODIUM [id number] Tori Rivera PA-C Start: 03-25-2013 End: 03-31-2013 take 1 tablet by mouth once daily PROTONIX 40 MG SOLR One tablet by mouth daily PANTOPRAZOLE SODIUM [id number] Daphne Desai RN promethazine hydrochloride 12.5 mg oral tablet (6 sources) Phenothiazine Start: 08-23-2014 End: 10-14-2014 take 1 tablet by mouth three times daily as needed PROMETHAZINE HCL 12.5 MG TABS One tablet by mouth three times daily as needed PROMETHAZINE HCL [id number] Diana Freitas RN SARGRAMOSTIM SOLR (6 sources) Leukocyte Growth Factor Start: 10-14-2014 End: 10-24-2015 LEUKINE SOLR inhaled via nebulizer twice daily for one week on, one week off, etc. SARGRAMOSTIM SOLR [id number] Tori Rivera PA-C Start: 10-14-2014 LEUKINE SOLR i nhaled via nebulizer twice daily for one week on, one week off, etc. SARGRAMOSTIM SOLR [id number] Diana Freitas RN sulfamethoxazole 800 mg / trimethoprim 160 mg oral tablet (15 sources) Dihydrofolate Reductase Inhibitor Antibacterial, Sulfonamide Antimicrobial Start: 04-27-2015 take 1 tablet by mouth twice daily BACTRIM DS 800-160 MG TABS One tablet by mouth twice daily SULFAMETHOXAZOLE-TRIMETHOPRIM [id number] Surya Jose MD Start: 04-27-2015 End: 10-24-2015 take 1 tablet by mouth twice daily BACTRIM DS 800-160 MG TABS One tablet by mouth twice daily SULFAMETHOXAZOLE-TRIMETHOPRIM [id number] Tori Rivera PA-C Start: 08-23-2014 End: 10-24-2015 take 1 tablet by mouth twice daily BACTRIM DS 800-160 MG TABS One tablet by mouth twice daily SULFAMETHOXAZOLE-TRIMETHOPRIM [id number] Tori Rivera PA-C Start: 08-23-2014 take 2 tablets by mo uth twice daily BACTRIM DS 800-160 MG TABS Two tablets b y mouth twice a day SULFAMETHOXAZOLE-TRIMETHOPRIM [id number] Diana Freitas RN Start: 08-23-2014 End: 11-07-2014 take 2 tablets by mouth twice daily BACTRIM DS 800-160 MG TABS Two tablets b y mouth twice a day SULFAMETHOXAZOLE-TRIMETHOPRIM [id number] Daphne Desai RN Start: 08-23-2014 take 2 tablets by mo uth twice daily BACTRIM DS 800-160 MG TABS Two tablets b y mouth twice daily SULFAMETHOXAZOLE-TRIMETHOPRIM [id number] Surya Jose MD tamsulosin hydrochloride 0.4 mg oral capsule (9 sources) alpha-Adrenergic Sheng Start: 10-14-2014 End: 04-27-2015 take 1 capsule by mouth at bedtime FLOMAX 0.4 MG CAPS 1 capsule by mouth at bedtime TAMSULOSIN HCL [id number] Surya Jose MD Start: 10-14-2014 take 2 capsules by m outh at bedtime FLOMAX 0.4 MG CAPS 2 capsules by mouth at bedtime TAMSULOSIN HCL [id number] Diana Freitas RN tiZANidine 4 mg oral tablet (5 sources) Central alpha-2 Adrenergic Agonist Start: 10-24-2015 End: 10-22-2016 take 1 tablet by mouth twice daily TIZANIDINE HCL 4 MG TABS One tablet by mouth twice daily TIZANIDINE HCL [id number] Tori Rivera PA-C traMADol hydrochloride 50 mg oral tablet (5 sources) Opioid Agonist Start: 10-24-2015 End: 10-22-2016 take 1 tablet by mouth three times daily TRAMADOL HCL 50 MG TABS One tablet by mouth three times daily TRAMADOL HCL [id number] Surya Jose MD traZODone hydrochloride 50 mg oral tablet (12 sources) Serotonin Reuptake Inhibitor Start: 10-14-2014 End: 12-13-2014 take 1 tablet by mouth once daily at bedtime TRAZODONE HCL 50 MG TABS One tablet by mouth daily at bedtime TRAZODONE HCL [id number] Diana Freitas RN Start: 08-23-2014 End: 10-14-2014 take 0.5 tablet by mouth once daily TRAZODONE HCL 100 MG TABS 1/2 tablet by mouth daily TRAZODONE HCL [id number] Surya Jose MD vitamin B 12 (8 sources) Vitamin B12 Start: 10-22-2016 VITAMIN B-12 1 000 MCG/15ML LIQD injections, as directed q 3 months CYANOCOBALAMIN [id number] Surya Jose MD Start: 08-23-2014 End: 10-14-2014 VITAMIN B-12 1000 MCG/15ML L IQD injections, as directed CYANOCOBALAMIN [id number] Diana Freitas RN Start: 08-23-2014 VITAMIN B-12 1 000 MCG/15ML LIQD injections, as directed CYANOCOBALAMIN [id number] Surya Jose MD Vitamin B Complex (5 sources) Start: 06-27-2017 End: 10-20-2018 Vitamin B Complex Discontinu ed 1 EACH PO DAILY June 27, 2017 12:00am October 20, 2018 3:20pm Start: 06-27-2017 End: 10-20-2018 Vitamin B Complex Discontinu ed 1 EACH PO DAILY June 27, 2017 1:00am October 20, 2018 4:20pm Start: 10-22-2016 take 1 tablet by jeremiah th once daily VITAMIN B COMPLEX TABS One tablet by mouth daily B COMPLEX VITAMINS [id number] Surya Jose MD Vitamin B Complex 1 EACH capsule (3 sources) Start: 06-27-2017 End: 10-20-2018 Vitamin B Complex 1 EACH capsule Discontinued 1 NMA PO DAILY June 27, 2017 1:00am October 20, 2018 4:20pm warfarin sodium 2 mg oral tablet (12 sources) Vitamin K Antagonist Start: 10-14-2014 End: 04-27-2015 COUMADIN 2 MG TABS Managed by Dr. Carmichael for PE/DVT WARFARIN SODIUM [id number] Surya Jose MD zolpidem tartrate 5 mg oral tablet (12 sources) gamma-Aminobutyric Acid-ergic Agonist Start: 06-13-2014 End: 04-27-2017 take 1 tablet by mouth at bedtime as needed Zolpidem 5 MG tablet Discontinued 5 mg PO AT BEDTIME NEEDED as needed for INSOMNIA 0 June 16, 2014 1:00am April 27, 2017 12:23pm Problems Active Problems Problem Classification Problem Date Documented Date Episodic/Chronic Cardiac dysrhythmias (9 sources) Tachyarrhythmia ; Translations: [Tachycardia, unspecified] Onset: 10-07-2024 10-19-2018 Episodic Complications of surgical procedures or medical care (6 sources) Post dural puncture headache; 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] 10-19-2018 Episodic Disorders of lipid metabolism (12 sources) Hyperlipidemia; Translations: [Hyperlipidemia, unspecified] Onset: 03-25-2013 03-25-2013 Chronic Essential hypertension (13 sources) Hypertensive disorder; Translations: [Essential hypertension] Onset: 08-09-2013 08-09-2013 Chronic Genitourinary symptoms and ill-defined conditions (6 sources) Microscopic hematuria; Translations: [Other microscopic hematuria] 10-19-2018 Episodic Hypertension with complications and secondary hypertension (1 source) Hypertensive chronic kidney disease with stage 1 through stage 4 chronic kidney disease, or unspecified chronic kidney disease; Translations: [Hypertensive chronic kidney disease with stage 1 through stage 4 chronic kidney disease, or unspecified chronic kidney disease] Onset: 06-03-2024 Chronic Other and ill-defined heart disease (3 sources) Left ventricular hypertrophy; Translations: [Cardiomegaly] Onset: 03-25-2013 03-25-2013 Chronic Other lower respiratory disease (3 sources) Pulmonary alveolar proteinosis; Translations: [Alveolar proteinosis] Onset: 12-30-2013 12-30-2013 Chronic Other nervous system disorders (6 sources) Paresthesia; Translations: [Paresthesia of skin] 07-19-2024 Episodic Other nervous system disorders (2 sources) Paresthesia of skin; Translations: [Paresthesia of skin] Onset: 07-21-2024 Episodic Other screening for suspected conditions (not mental disorders or infectious disease) (5 sources) Patient encounter status; Translations: [Encounter for screening for malignant neoplasm of colon] 07-21-2023 Episodic Pulmonary heart disease (9 sources) Pulmonary embolism; Translations: [Other pulmonary embolism without acute cor pulmonale] Onset: 10-14-2014 10-14-2014 Episodic Past or Other Problems Problem Classification Problem Date Documented Da te Episodic/Chronic Other lower respiratory disease (3 sources) Dyspnea; Translations: [Shortness of breath] Onset: 08-09-2013 08-09-2013 Episodic Other nutritional; endocrine; and metabolic disorders (7 sources) Body mass index (BMI) 29.0-29.9, adult; Translations: [Body mass index (BMI) 27.0-27.9, adult] Onset: 03-31-2013 10-24-2015 Episodic Other nutritional; endocrine; and metabolic disorders (2 sources) Body mass index (BMI) 27.0-27.9, adult; Translations: [Body mass index (BMI) 27.0-27.9, adult] Onset: 03-31-2013 08-23-2014 Episodic Phlebitis; thrombophlebitis and thromboembolism (3 sources) Acute embolism and thrombosis of unspecified deep veins of unspecified distal lower extremity; Translations: [Acute embolism and thrombosis of unspecified deep veins of unspecified distal lower extremity] Onset: 10-14-2014 10-14-2014 Episodic Unclassified (3 sources) Family history of ischemic heart disease; Translations: [Family history of ischemic heart disease and other diseases of the circulatory system] Onset: 03-25-2013 03-25-2013 Episodic Results Test Name Value Interpretation Reference Range Facility Anion gap in Serum or Plasma Ordered By: Jameel Carreno on 10-01-2024 Anion gap [Moles/Vol] 10 mmol/L - [facility] BUN/creatinine ratioOrdered By: Jameel Snyderiter on 10-01-2024 Urea nitrogen/Creatinine [Mass ratio] 15.9 mg/mg - [facility] Basic Metabolic Profile (BMP )on 10-01-2024 BUN/CRE 15.9 RATIO Normal 02-28 [facility] Comment on above: Performed By: #### L 500.2500 ####[facility] [address] [place], [address] Calcium [Mass/Vol] 9.5 mg/dL Normal 7.6-11.0 [facility] Comment on above: Performed By: #### L 500.2500 ####[facility] [address] [place], [address] Chloride [Moles/Vol] 101 mmol/L Normal 98-108 [place] Comment on above: Performed By: #### L 500.2500 ####[facility] [address] [place], [address] CO2 [Moles/Vol] 25.7 mmol/L Normal 21.0-32.0 [facility] Comment on above: Performed By: #### L 500.2500 ####[facility] [address] [place], [address] Creatinine [Mass/Vol] 1.25 mg/dL High 0.70-1.20 [facility] Comment on above: Performed By: #### L 500.2500 ####[facility] [address] [place], [address] GAP 10 Normal 09-23 [facility] Comment on above: Performed By: #### L 500.2500 ####[facility] [address] [place], [address] GFR/1.73 sq M.predicted among non-blacks MDRD (S/P/Bld) [Vol rate/Area] 63 mL/min/{1.73_m2} Normal >60 [facility] Comment on above: Result Comment: mL/m in/1.73m2 CKD-EPI Creatinine Equation (2020) Performed By: #### L 500.2500 ####[facility] [address] [place], [address] Glucose [Mass/Vol] 104 mg/dL High 70-99 [facility] Comment on above: Performed By: #### L 500.2500 ####[facility] [address] [place], [address] Potassium [Moles/Vol] 4.5 mmol/L Normal 3.3-5.1 [facility] Comment on above: Performed By: #### L 500.2500 ####[facility] [address] [place], [address] Sodium [Moles/Vol] 137 mmol/L Normal 133-145 [facility] Comment on above: Performed By: #### L 500.2500 ####[facility] [address] [place], [address] Urea nitrogen [Mass/Vol] 20 mg/dL High 4-19 [facility] Comment on above: Performed By: #### L 500.2500 ####[facility] [address] [place], [address] Carbon dioxide, total [Moles /volume] in Central venous bloodOrdered By: Jameel Carreno on 10-01-2024 CO2 [Moles/Vol] 25.7 mmol/L 21.0-32.0 [facility] Cardiology Visit Reporton Cardiology Visit Report [facility] [address] [place], [place] [address] OFFICE VISIT Date of Service: 10/01/24 MR#: [id number] Acct: [id number] Name: SOLANGE MA Rep #: [id number] : 1955 Provider: ALVAREZ Bryant Age/Sex: 69/M Location: [facility] [place] Status: Signed HPI HPI History of Present Illness Details: SOLANGE MA, is a 69 M who presents to the office today for follow-up for monitoring his cardiovascular health. 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 He also has a history of hypertension and hyperlipidemia. Patient underwent 48-hour Holter monitor in 2020 demonstrated an average heart rate of 77 bpm, minimum 52 bpm, maximum 135 bpm. There are a total of 5 premature ventricular ectopic isolated beats no runs noted. He was seen in the office July 2022 with concerns of an elevated heart rate. He underwent a 24-hour Holter monitor. This demonstrated an average heart rate of 102 beats per minute, minimum heart rate 73 bpm, maximum heart rate 135 bpm. There was a total of 6 ventricular ectopic beats, 7 supraventricular beats. No atrial fibrillation was noted. Echocardiogram September 2022 demonstrated preserved ejection fraction of 55%, mild eccentric mitral valve insufficiency and stage I diastolic dysfunction. He was in the ED 07/19/2024 for concerns of L-sided paresthesias and after work-up, PCP felt this was related to dehydration. He was evaluated with a brain CT, head and neck CTA, and brain MRI that were negative for acute stroke. He underwent echocardiogram at this time that demonstrated no evidence of diastolic dysfunction, ejection fraction 60% and trivial mitral valve insufficiency. At discharge, he underwent 14-day Holter monitor that did not observe any atrial fibrillation, average heart rate 77 bpm with highest 137, lowest 46 bpm. No significant pauses or arrhythmias captured. He has since been focusing on hydration, drinking electrolyte drinks, and exercise. Approximately 5 days ago, he was experiencing hypotension and his krapjvbc-eg-uuu (trauma TRANSFORMER ASSEMBLER in [place]) told him to cut his carvedilol in half and he has felt much better since doing this. He reports home BP readings near 118/77. He denies tachycardia with this medication change. Overall, patient reports doing well. BP has been controlled at home with recent medication change. He denies any concerning symptoms. He reports resolution of his strokelike symptoms that he experienced a few months ago. He denies noticing any palpitations or episodes of tachycardia. He feels his energy has significantly improved since decreasing his carvedilol. Further ROS below. 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: No Accompanied by: Self Is patient in pain?: No Allergies atorvastatin Allergy (Verified 10/01/24 07:58) Vomiting morphine Allergy (Verified 10/01/24 07:58) Nausea,Vomiting piperacillin (From Zosyn) Adverse Reaction (Verified 10/01/24 07:58) Vomiting tazobactam (From Zosyn) Adverse Reaction (Verified 10/01/24 07:58) Vomiting Medications ???Medication ???Instructions ???Recorded ???Confirmed ???Type multivitamin 1 ea PO DAILY SUPPLEMENT 06/27/17 10/01/24 History lisinopril 10 mg tablet 10 mg PO DAILY blood pressure #90 11/18/23 10/01/24 Rx tabs hydrochlorothiazide 25 mg tablet 25 mg PO DAILY diuretic #30 tabs 1 06/28/23 10/01/24 Rx aspirin 81 mg chewable tablet 81 mg PO BREAKFAST #0 tabs 5 10/01/24 Rx rosuvastatin 40 mg tablet (Crestor) 40 mg PO DAILY #1 TAB 07/19/24 10/01/24 Rx carvedilol 6.25 mg tablet 6.25 mg PO DAILY blood pressure Rx #30 tabs Have you fallen in the past year?: No PFSH Medical History Paresthesias Wears glasses High cholesterol Pulmonary embolism Non-smoker Hypertension History of echocardiogram Cardiology follow-up encounter COVID-19 (04/2020) Bilateral pulmonary embolism GERD (gastroesophageal reflux disease) DVT (deep venous thrombosis) (2014) Pulmonary alveolar proteinosis HLD (hyperlipidemia) Essential (primary) hypertension Nocardia infection Knee pain Lung disease Surgical History History of cardiac catheterization Hx of colonoscopy History of bronchoscopy History of herniorrhaphy H/O nasal septoplasty H/O knee surgery History of left heart catheterization (04/20/09) Bilateral therapeutic whole-lung lavage (2016) Status post stereotact (more content not included)... Normal [facility] Chloride assayOrdered By: Chula Carreno on 10-01-2024 Chloride [Moles/Vol] 101 mmol/L 98-108 [place] Glomerular filtration rate ( GFR) estimation/1.73 sq m using serum, plasma, or whole bOrdered By: Jameel Carreno on 10-01-2024 GFR/1.73 sq M.predicted among non-blacks MDRD (S/P/Bld) [Vol rate/Area] 63 mL/min/{1.73_m2} >60 [facility] Comment on above: mL/min/1.73m2 CKD-EP I Creatinine Equation (2020) Potassium measurement (mass/ volume)Ordered By: Jameel Carreno on 10-01-2024 Potassium (Unsp spec) [Mass/Vol] 4.5 mmol/L 3.3-5.1 [facility] Serum creatinine measurement (mass/volume)Ordered By: Jameel Carreno on 10-01-2024 Creatinine [Mass/Vol] 1.25 mg/dL High 0.70-1.20 [facility] Serum glucose measurement (m ass/volume)Ordered By: Jameel Carreno on 10-01-2024 Glucose [Mass/Vol] 104 mg/dL High 70-99 [facility] Serum or plasma calcium kenya urement (mass/volume)Ordered By: Jameel Carreno on 10-01-2024 Calcium [Mass/Vol] 9.5 mg/dL 7.6-11.0 [facility] Serum or plasma urea nitroge n measurement (mass/volume)Ordered By: Jameel Carreno on 10-01-2024 Urea nitrogen [Mass/Vol] 20 mg/dL High 4-19 [facility] Sodium levelOrdered By: Santiago Carreno on 10-01-2024 Sodium [Moles/Vol] 137 mmol/L 133-145 [facility] 12 Lead EKGon 07-19-2024 12 Lead EKG [facility] [address] [place] [address] 12 Lead EKG 07/19/24 0229 MR#: [id number] Acct: [id number] Name: SOLANGE MA Rep #: [id number] : 1955 69 From: Eugene Cabral MD Attending Dr: Dr. Brett Fairbanks DO Status: D IS SHYANN Ordering Dr: Mike Redd DO Date: 07/19/24 Location: [facility] Sex: M C Admitted: 07/19/24 Test Reason : DYSRHYTHMIA Blood Pressure : */* mmHG Vent. Rate : 88 BPM Atrial Rate : 88 BPM P-R Int : 188 ms QRS Dur : 90 ms QT Int : 358 ms P-R-T Axes : 49 31 25 degrees QTcB Int : 433 ms Normal sinus rhythm Normal ECG Confirmed by Eugene Cabral ([id number]), website/blog editor DON CHAVIRA ([id number]) on 07/20/2024 10:49:20 AM Referred By: Confirmed By: Eugene Cabral 07/20/24 1049 Date Eugene Carbal MD CC: Dr. Moo Carmichael MD; Dr. Brett Fairbanks DO; Dr. Mike Redd DO Signed Normal [facility] Absolute lymphocyte countOrd ered By: Maryam Vlae on 07-19-2024 Lymphocytes Auto (Unsp spec) [#/Vol] 1.50 10*3/uL 0.83-4.51 [facility] Absolute neutrophil countOrd ered By: Maryam Vale on 07-19-2024 Neutrophils (Bld) [#/Vol] 3.0 10*3/uL 2.0-7.7 [facility] Absolute neutrophil countOrd ered By: Mike Redd on 07-19-2024 Neutrophils (Bld) [#/Vol] 3.0 10*3/uL 2.0-7.7 [facility] Activated partial thrombopla stin time (aPTT) in platelet poor plasma by coagulation aOrdered By: Mike Redd on 07-19-2024 aPTT Coag (PPP) [Time] 27.4 s 24.1-36.2 [facility] Anion gap in Serum or Plasma Ordered By: Maryam Vale on 07-19-2024 Anion gap [Moles/Vol] 13 mmol/L 09-23 [facility] Anion gap in Serum or Plasma Ordered By: Mike Redd on 07-19-2024 Anion gap [Moles/Vol] 12 mmol/L 09-23 [facility] Automated lymphocyte count a s percentage of total leukocytesOrdered By: Maryam Vale on 07-19-2024 Lymphocytes/100 WBC Auto (Unsp spec) 28.9 % [facility] BUN/creatinine ratioOrdered By: Maryam Vale on 07-19-2024 Urea nitrogen/Creatinine [Mass ratio] 17.1 mg/mg 02-28 [facility] BUN/creatinine ratioOrdered By: Mike Redd on 07-19-2024 Urea nitrogen/Creatinine [Mass ratio] 17.1 mg/mg 02-28 [facility] Basic Metabolic Profile (BMP )on 07-19-2024 BUN/CRE 17.1 RATIO Normal 02-28 [facility] Comment on above: Performed By: #### L 300.4310, L500.2500, L501.4021, L100.0100, L300.3900 ####[facility] [address] [place], [address] Calcium [Mass/Vol] 9.0 mg/dL Normal 7.6-11.0 [facility] Comment on above: Performed By: #### L 300.4310, L500.2500, L501.4021, L100.0100, L300.3900 ####[facility] [address] [place], [address] Chloride [Moles/Vol] 100 mmol/L Normal 98-108 [place] Comment on above: Performed By: #### L 300.4310, L500.2500, L501.4021, L100.0100, L300.3900 ####[facility] [address] [place], [address] CO2 [Moles/Vol] 24.6 mmol/L Normal 21.0-32.0 [facility] Comment on above: Performed By: #### L 300.4310, L500.2500, L501.4021, L100.0100, L300.3900 ####[facility] [address] [place], [address] Creatinine [Mass/Vol] 1.43 mg/dL High 0.70-1.20 [facility] Comment on above: Performed By: #### L 300.4310, L500.2500, L501.4021, L100.0100, L300.3900 ####[facility] [address] [place], [address] ECRCL 52.16 ml/min Normal 50-250 [facility] Comment on above: Performed By: #### L 300.4310, L500.2500, L501.4021, L100.0100, L300.3900 ####[facility] [address] [place], [address] GAP 12 Normal 5-15 [facility] Comment on above: Performed By: #### L 300.4310, L500.2500, L501.4021, L100.0100, L300.3900 ####[facility] [address] [place], [address] GFR/1.73 sq M.predicted among non-blacks MDRD (S/P/Bld) [Vol rate/Area] 54 mL/min/{1.73_m2} Low >60 [facility] Comment on above: Result Comment: mL/m in/1.73m2 CKD-EPI Creatinine Equation (2020) Performed By: #### L 300.4310, L500.2500, L501.4021, L100.0100, L300.3900 ####[facility] [address] [place], [address] Glucose [Mass/Vol] 105 mg/dL High 70-99 [facility] Comment on above: Performed By: #### L 300.4310, L500.2500, L501.4021, L100.0100, L300.3900 ####[facility] [address] [place], [address] Potassium [Moles/Vol] 3.5 mmol/L Normal 3.3-5.1 [facility] Comment on above: Performed By: #### L 300.4310, L500.2500, L501.4021, L100.0100, L300.3900 ####[facility] [address] [place], [address] Sodium [Moles/Vol] 137 mmol/L Normal 133-145 [facility] Comment on above: Performed By: #### L 300.4310, L500.2500, L501.4021, L100.0100, L300.3900 ####[facility] [address] [place], [address] Urea nitrogen [Mass/Vol] 24 mg/dL High 4-19 [facility] Comment on above: Performed By: #### L 300.4310, L500.2500, L501.4021, L100.0100, L300.3900 ####[facility] [address] [place], [address] Basophil percentageOrdered B y: Maryam White on 07-19-2024 Basophils/100 WBC (Bld) 0.4 % 0-1 [facility] Basophil percentageOrdered B y: Mike Ivania on 07-19-2024 Basophils/100 WBC (Bld) 0.3 % 0-1 [facility] Bedside Glucoseon 07-19-2024 FINGERSTICK GLU 91 mg/dL Normal 74-106 [facility] Comment on above: Result Comment: CHUCK RCIKETTS OF PATIENT CARE PER NURSING PROTOCOL Performed By: #### L 501.080 #### [facility] [address] [place], [address] Bilirubin, totalOrdered By: Maryam Vale on 07-19-2024 Bilirubin [Mass/Vol] 0.32 mg/dL 0.00-1.30 [place] Brain without Contraston Brain without Contrast [facility] Imaging Services [address] [place], [place] [address] Brain without Contrast MR#: [id number] Acct: [id number] Name: SOLANGE MA Rep #: [id number] : 1955 M 69 From: Brett Summers MD PCP: Dr. Moo Carmichael MD Status: ADM SHYANN Study: Brain without Contrast Date of Exam: 07/19/24 Exam# [id number] Ordering Dr: Maryam Vale MD PROCEDURE: BRAIN WITHOUT CONTRAST (MRIBR), 07/19/2024 REASON FOR EXAM: TIA/CVA. Per technologist report, numbness/tingling of the left arm and face. History of previous brain biopsy and meningitis. COMPARISON: CT and CTA of same date TECHNIQUE: Multisequence multiplanar MRI brain was performed without intravenous contrast. Contrast: None. FINDINGS: Cerebrum: No acute infarct, definite/appreciabl e acute intracranial hemorrhage, or mass identified. Changes presumably related to previous biopsy in the left frontal lobe near the vertex extending to the corpus callosum, including hemosiderin staining and mild surrounding likely gliosis. Cerebellum: Unremarkable. Brainstem: Unremarkable. Ventricles/extra-ax ial spaces: Unremarkable. Major flow voids: Grossly unremarkable within limits of nondedicated technique, better evaluated previously. Paranasal sinuses: Mild bilateral maxillary mucosal thickening. Left mastoidectomy with fluid in some of the remaining inferior and posterior mastoid air cells. Scalp/calvarium: Unremarkable. Orbits: Grossly unremarkable within limits of nondedicated technique. Other: None. MRI/Brain without Contrast IMPRESSION: 1. No acute infarct or other definite evidence of an acute intracranial process identified. 2. Mild bilateral maxillary paranasal sinus disease. Left mastoidectomy with fluid in some of the remaining inferior and posterior mastoid air cells. 3. Additional description as above. Reading Location: [facility] CC: Dr. Maryam Vale MD; Dr. Moo Carmichael MD Straddle Buggy Operator: Signed Normal [facility] CBC W/Diff, Automatedon 07-10 0-2024 Absolute Lymph 1.50 X10 3/uL Normal 0.83-4.51 [facility] Comment on above: Performed By: #### L 500.4050, L501.9985, L500.4100, L501.9520, L100.0100 ####[facility] [address] [place], [address] Absolute Neut 3.0 X10 3/uL Normal 2.0-7.7 [facility] Comment on above: Performed By: #### L 500.4050, L501.9985, L500.4100, L501.9520, L100.0100 ####[facility] [address] [place], [address] Basophils/100 WBC (Bld) 0.4 % Normal 0-1 [facility] Comment on above: Performed By: #### L 500.4050, L501.9985, L500.4100, L501.9520, L100.0100 ####[facility] [address] [place], [address] Eosinophils/100 WBC (Bld) 3.7 % Normal 0-5 [facility] Comment on above: Performed By: #### L 500.4050, L501.9985, L500.4100, L501.9520, L100.0100 ####[facility] [address] [place], [address] Erythrocyte distribution width (RBC) [Ratio] 12.9 % Normal 11.6-14.6 [facility] Comment on above: Performed By: #### L 500.4050, L501.9985, L500.4100, L501.9520, L100.0100 ####[facility] [address] [place], [address] Hematocrit (Bld) [Volume fraction] 39.5 % Low 40-54 [facility] Comment on above: Performed By: #### L 500.4050, L501.9985, L500.4100, L501.9520, L100.0100 ####[facility] [address] [place], [address] Hemoglobin (Bld) [Mass/Vol] 13.7 g/dL Normal 13.0-16.5 [facility] Comment on above: Performed By: #### L 500.4050, L501.9985, L500.4100, L501.9520, L100.0100 ####[facility] [address] [place], [address] IG% 0.200 Normal 0.0-0.9 [facility] Comment on above: Result Comment: IG% - Immature Granulocytes (promyelocytes, myelocytes and metamyelocytes) > 1% indicates that a LEFT SHIFT is Present. Performed By: #### L 500.4050, L501.9985, L500.4100, L501.9520, L100.0100 ####[facility] [address] [place], [address] Lymphocytes/100 WBC (Bld) 28.9 % Normal 19-41 [facility] Comment on above: Performed By: #### L 500.4050, L501.9985, L500.4100, L501.9520, L100.0100 ####[facility] [address] [place], [address] MCH (RBC) [Entitic mass] 31.0 pg Normal 27.0-32.0 [facility] Comment on above: Performed By: #### L 500.4050, L501.9985, L500.4100, L501.9520, L100.0100 ####[facility] [address] [place], [address] MCHC (RBC) [Mass/Vol] 34.7 g/dL Normal 32-36 [facility] Comment on above: Performed By: #### L 500.4050, L501.9985, L500.4100, L501.9520, L100.0100 ####[facility] [address] [place], [address] MCV (RBC) [Entitic vol] 89.4 fL Normal 80-94 [facility] Comment on above: Performed By: #### L 500.4050, L501.9985, L500.4100, L501.9520, L100.0100 ####[facility] [address] [place], [address] Monocytes/100 WBC (Bld) 9.4 % Normal 0-10 [facility] Comment on above: Performed By: #### L 500.4050, L501.9985, L500.4100, L501.9520, L100.0100 ####[facility] [address] [place], [address] Neutrophils/100 WBC (Bld) 57.4 % Normal 47-70 [facility] Comment on above: Performed By: #### L 500.4050, L501.9985, L500.4100, L501.9520, L100.0100 ####[facility] [address] [place], [address] Nucleated RBC (Bld) [#/Vol] 0 10*3/uL Normal 0-5 [facility] Comment on above: Performed By: #### L 500.4050, L501.9985, L500.4100, L501.9520, L100.0100 ####[facility] [address] [place], [address] Platelet mean volume (Bld) [Entitic vol] 9.2 fL Normal 6.2-12.0 [facility] Comment on above: Performed By: #### L 500.4050, L501.9985, L500.4100, L501.9520, L100.0100 ####[facility] [address] [place], [address] Platelets (Bld) [#/Vol] 254 10*3/uL Normal 150-450 [facility] Comment on above: Performed By: #### L 500.4050, L501.9985, L500.4100, L501.9520, L100.0100 ####[facility] [address] [place], [address] RBC (Bld) [#/Vol] 4.42 10*6/uL Low 4.6-6.2 [facility] Comment on above: Performed By: #### L 500.4050, L501.9985, L500.4100, L501.9520, L100.0100 ####[facility] [address] [place], [address] RDW SD 42.4 fl Normal 35.1-43.9 [facility] Comment on above: Performed By: #### L 500.4050, L501.9985, L500.4100, L501.9520, L100.0100 ####[facility] [address] [place], [address] WBC (Bld) [#/Vol] 5.2 10*3/uL Normal 4.4-11.0 [facility] Comment on above: Performed By: #### L 500.4050, L501.9985, L500.4100, L501.9520, L100.0100 ####[facility] [address] [place], [address] Absolute Lymph 2.42 X10 3/uL Normal 0.83-4.51 [facility] Comment on above: Performed By: #### L 300.4310, L500.2500, L501.4021, L100.0100, L300.3900 #### [facility] [address] [place], [address] Absolute Neut 3.0 X10 3/uL Normal 2.0-7.7 [facility] Comment on above: Performed By: #### L 300.4310, L500.2500, L501.4021, L100.0100, L300.3900 #### [facility] [address] [place], [address] Basophils/100 WBC (Bld) 0.3 % Normal 0-1 [facility] Comment on above: Performed By: #### L 300.4310, L500.2500, L501.4021, L100.0100, L300.3900 #### [facility] [address] [place], [address] Eosinophils/100 WBC (Bld) 4.5 % Normal 0-5 [facility] Comment on above: Performed By: #### L 300.4310, L500.2500, L501.4021, L100.0100, L300.3900 #### [facility] [address] [place], [address] Erythrocyte distribution width (RBC) [Ratio] 12.8 % Normal 11.6-14.6 [facility] Comment on above: Performed By: #### L 300.4310, L500.2500, L501.4021, L100.0100, L300.3900 #### [facility] [address] [place], [address] Hematocrit (Bld) [Volume fraction] 43.0 % Normal 40-54 [facility] Comment on above: Performed By: #### L 300.4310, L500.2500, L501.4021, L100.0100, L300.3900 #### [facility] [address] [place], [address] Hemoglobin (Bld) [Mass/Vol] 14.5 g/dL Normal 13.0-16.5 [facility] Comment on above: Performed By: #### L 300.4310, L500.2500, L501.4021, L100.0100, L300.3900 #### [facility] [address] [place], [address] IG% 0.300 Normal 0.0-0.9 [facility] Comment on above: Result Comment: IG% - Immature Granulocytes (promyelocytes, myelocytes and metamyelocytes) > 1% indicates that a LEFT SHIFT is Present. Performed By: #### L 300.4310, L500.2500, L501.4021, L100.0100, L300.3900 #### [facility] [address] [place], [address] Lymphocytes/100 WBC (Bld) 37.3 % Normal 19-41 [facility] Comment on above: Performed By: #### L 300.4310, L500.2500, L501.4021, L100.0100, L300.3900 #### [facility] [address] [place], [address] MCH (RBC) [Entitic mass] 30.5 pg Normal 27.0-32.0 [facility] Comment on above: Performed By: #### L 300.4310, L500.2500, L501.4021, L100.0100, L300.3900 #### [facility] [address] [place], [address] MCHC (RBC) [Mass/Vol] 33.7 g/dL Normal 32-36 [facility] Comment on above: Performed By: #### L 300.4310, L500.2500, L501.4021, L100.0100, L300.3900 #### [facility] [address] [place], [address] MCV (RBC) [Entitic vol] 90.5 fL Normal 80-94 [facility] Comment on above: Performed By: #### L 300.4310, L500.2500, L501.4021, L100.0100, L300.3900 #### [facility] [address] [place], [address] Monocytes/100 WBC (Bld) 11.4 % High 0-10 [facility] Comment on above: Performed By: #### L 300.4310, L500.2500, L501.4021, L100.0100, L300.3900 #### [facility] [address] [place], [address] Neutrophils/100 WBC (Bld) 46.2 % Low 47-70 [facility] Comment on above: Performed By: #### L 300.4310, L500.2500, L501.4021, L100.0100, L300.3900 #### [facility] [address] [place], [address] Nucleated RBC (Bld) [#/Vol] 0 10*3/uL Normal 0-5 [facility] Comment on above: Performed By: #### L 300.4310, L500.2500, L501.4021, L100.0100, L300.3900 #### [facility] [address] [place], [address] Platelet mean volume (Bld) [Entitic vol] 9.1 fL Normal 6.2-12.0 [facility] Comment on above: Performed By: #### L 300.4310, L500.2500, L501.4021, L100.0100, L300.3900 #### [facility] [address] [place], [address] Platelets (Bld) [#/Vol] 269 10*3/uL Normal 150-450 [facility] Comment on above: Performed By: #### L 300.4310, L500.2500, L501.4021, L100.0100, L300.3900 #### [facility] [address] [place], [address] RBC (Bld) [#/Vol] 4.75 10*6/uL Normal 4.6-6.2 [facility] Comment on above: Performed By: #### L 300.4310, L500.2500, L501.4021, L100.0100, L300.3900 #### [facility] [address] [place], [address] RDW SD 42.5 fl Normal 35.1-43.9 [facility] Comment on above: Performed By: #### L 300.4310, L500.2500, L501.4021, L100.0100, L300.3900 #### [facility] [address] [place], [address] WBC (Bld) [#/Vol] 6.5 10*3/uL Normal 4.4-11.0 [facility] Comment on above: Performed By: #### L 300.4310, L500.2500, L501.4021, L100.0100, L300.3900 #### [facility] [address] [place], [address] CTA Head AND Neck W/ Contras ton 07-19-2024 CTA Head AND Neck W/ Contrast [facility] Imaging Services [address] [place] [address] CTA Head AND Neck W/ Contrast MR#: [id number] Acct: [id number] Name: SOLANGE MA Rep #: [id number] : 1955 M 69 From: Lam Yepez MD PCP: Dr. Moo Carmichael MD Status: [facility] ER Study: CTA Head AND Neck W/ Contrast Date of Exam: Exam# [id number] Ordering Dr: Mike Redd DO PROCEDURE: CTA HEAD AND NECK W/ CONTRAST REASON FOR EXAM: Stroke TECHNIQUE: CTA of the head and neck with coronal and sagittal and MIP reformatted images 3D reconstructions. IV CONTRAST: 93 cc Isovue 370 COMPARISON: None. FINDINGS: The ggoqvm-sw-Wdyoix appears intact. Anterior and posterior circulations appear intact. Codominant vertebrals form the basilar artery. No vessel cut off, flow significant stenosis or aneurysm identified. Standard appearing three-vessel arch noted. Both vertebrals arise from the subclavian as expected. Codominant vertebral arteries are intact throughout the cervical portions. Right and left common, internal and external carotid arteries are patent without flow significant stenosis or dissection. Major dural venous sinuses appear within limits. Mild mucoperiosteal thickening lower maxillary sinuses with possible tiny fluid level in the right may represent mild sinusitis. Previous left mastoidectomy. Cervical spondylosis/discoge linn change C3 through C5. CT/CTA Head AND Neck W/ Contrast IMPRESSION: No vessel cut off, flow significant stenosis, dissection or aneurysm identified as above. Appearance of mild maxillary sinusitis as above. Results communicated verbally by phone by myself to Dr. Redd 07/19/2024 at 2:56 a.m.. One or more dose reduction techniques were used (e.g., Automated exposure control, adjustment of the mA and/or kV according to patient size, use of iterative reconstruction technique). Reading Location: [facility] CC: Dr. Moo Carmichael MD; Dr. Mike Redd DO Straddle Buggy Operator: Signed Normal [facility] Calculated very low density lipoprotein (VLDL) cholesterol measurementOrdered By: Maryam Vale on 07-19-2024 Calculated very low density lipoprotein (VLDL) cholesterol measurement 43 mg/dL High 5-40 [facility] VLDL Cholesterol 43 mg/dL High 5-40 [facility] Carbon dioxide, total [Moles /volume] in Central venous bloodOrdered By: Maryam Vale on 07-19-2024 CO2 [Moles/Vol] 22.5 mmol/L 21.0-32.0 [facility] Carbon dioxide, total [Moles /volume] in Central venous bloodOrdered By: Mike Redd on 07-19-2024 CO2 [Moles/Vol] 24.6 mmol/L 21.0-32.0 [facility] Chest 1 Viewon 07-19-2024 Chest 1 View [facility] Imaging Services [address] [place], [place] [address] Chest 1 View MR#: [id number] Acct: [id number] Name: SOLANGE MA Rep #: [id number] : 1955 M 69 From: Lam Yepez MD PCP: Dr. Moo Carmichael MD Status: REG ER Study: Chest 1 View Date of Exam: 07/19/24 Exam# [id number] Ordering Dr: Mike Redd DO PROCEDURE: CHEST 1 VIEW REASON FOR EXAM: Neuro deficit, acute, stroke suspected TECHNIQUE: Frontal view of the chest. COMPARISON: None available FINDINGS: The lungs appear clear. The cardiac and mediastinal contours appear within limits. The visualized osseous structures appear within limits. RAD/Chest 1 View IMPRESSION: No evidence of acute disease Reading Location: [facility] CC: Dr. Moo Carmichael MD; Dr. Mike Redd DO Straddle Buggy Operator: Signed Normal [facility] Chloride assayOrdered By: Araceli Vale on 07-19-2024 Chloride [Moles/Vol] 102 mmol/L 98-108 [place] Chloride assayOrdered By: Ignacia Redd on 07-19-2024 Chloride [Moles/Vol] 100 mmol/L 98-108 [place] Comprehensive Metabolic Prof ilon 07-19-2024 Albumin [Mass/Vol] 3.6 g/dL Normal 3.4-4.8 [facility] Comment on above: Order Comment: Comme nts: NPO at [place] prior to lipid panel Performed By: #### L 500.4050, L501.9985, L500.4100, L501.9520, L100.0100 ####[facility] [address] [place], [place], [address] Albumin/Globulin [Mass ratio] 1.4 {ratio} Normal 0.9-2.4 [facility] Comment on above: Order Comment: Comme nts: NPO at [place] prior to lipid panel Performed By: #### L 500.4050, L501.9985, L500.4100, L501.9520, L100.0100 ####[facility] [address] [place], [address] ALK PHOS 53 U/L Normal 40-129 [facility] Comment on above: Order Comment: Comme nts: NPO at [place] prior to lipid panel Performed By: #### L 500.4050, L501.9985, L500.4100, L501.9520, L100.0100 ####[facility] [address] [place], [address] ALT [Catalytic activity/Vol] 47 U/L Normal <=46 [facility] Comment on above: Order Comment: Comme nts: NPO at [place] prior to lipid panel Performed By: #### L 500.4050, L501.9985, L500.4100, L501.9520, L100.0100 ####[facility] [address] [place], [address] AST [Catalytic activity/Vol] 43 U/L High <=37 [facility] Comment on above: Order Comment: Comme nts: NPO at [place] prior to lipid panel Performed By: #### L 500.4050, L501.9985, L500.4100, L501.9520, L100.0100 ####[facility] [address] [place], [address] Bilirubin [Mass/Vol] 0.32 mg/dL Normal 0.00-1.30 [place] Comment on above: Order Comment: Comme nts: NPO at [place] prior to lipid panel Performed By: #### L 500.4050, L501.9985, L500.4100, L501.9520, L100.0100 ####[facility] [address] [place], [address] BUN/CRE 17.1 RATIO Normal 10-20 [facility] Comment on above: Order Comment: Comme nts: NPO at [place] prior to lipid panel Performed By: #### L 500.4050, L501.9985, L500.4100, L501.9520, L100.0100 ####[facility] [address] [place], [address] Calcium [Mass/Vol] 8.9 mg/dL Normal 7.6-11.0 [facility] Comment on above: Order Comment: Comme nts: NPO at [place] prior to lipid panel Performed By: #### L 500.4050, L501.9985, L500.4100, L501.9520, L100.0100 ####[facility] [address] [place], [address] Chloride [Moles/Vol] 102 mmol/L Normal 98-108 [facility] Comment on above: Order Comment: Comme nts: NPO at [place] prior to lipid panel Performed By: #### L 500.4050, L501.9985, L500.4100, L501.9520, L100.0100 ####[facility] [address] [place], [address] CO2 [Moles/Vol] 22.5 mmol/L Normal 21.0-32.0 [facility] Comment on above: Order Comment: Comme nts: NPO at [place] prior to lipid panel Performed By: #### L 500.4050, L501.9985, L500.4100, L501.9520, L100.0100 ####[facility] [address] [place], [address] Creatinine [Mass/Vol] 1.24 mg/dL High 0.70-1.20 [facility] Comment on above: Order Comment: Comme nts: NPO at [place] prior to lipid panel Performed By: #### L 500.4050, L501.9985, L500.4100, L501.9520, L100.0100 ####[facility] [address] [place], [address] ECRCL 59.53 ml/min Normal 50-250 [facility] Comment on above: Order Comment: Comme nts: NPO at [place] prior to lipid panel Performed By: #### L 500.4050, L501.9985, L500.4100, L501.9520, L100.0100 ####[facility] [address] [place], [address] GAP 13 Normal 5-15 [facility] Comment on above: Order Comment: Comme nts: NPO at [place] prior to lipid panel Performed By: #### L 500.4050, L501.9985, L500.4100, L501.9520, L100.0100 ####[facility] [address] [place], [address] GFR/1.73 sq M.predicted among non-blacks MDRD (S/P/Bld) [Vol rate/Area] 64 mL/min/{1.73_m2} Normal >60 [facility] Comment on above: Order Comment: Comme nts: NPO at [place] prior to lipid panel Result Comment: mL/m in/1.73m2 CKD-EPI Creatinine Equation (2020) Performed By: #### L 500.4050, L501.9985, L500.4100, L501.9520, L100.0100 ####[facility] [address] [place], [address] Globulin (S) [Mass/Vol] 2.6 g/dL Normal 2.2-4.[address] [facility] Comment on above: Order Comment: Comme nts: NPO at [place] prior to lipid panel Performed By: #### L 500.4050, L501.9985, L500.4100, L501.9520, L100.0100 ####[facility] [address] [place], [address] Glucose [Mass/Vol] 97 mg/dL Normal 70-99 [facility] Comment on above: Order Comment: Comme nts: NPO at [place] prior to lipid panel Performed By: #### L 500.4050, L501.9985, L500.4100, L501.9520, L100.0100 ####[facility] [address] [place], [address] Potassium [Moles/Vol] 4.0 mmol/L Normal 3.3-5.1 [facility] Comment on above: Order Comment: Comme nts: NPO at [place] prior to lipid panel Performed By: #### L 500.4050, L501.9985, L500.4100, L501.9520, L100.0100 ####[facility] [address] [place], [address] Sodium [Moles/Vol] 138 mmol/L Normal 133-145 [facility] Comment on above: Order Comment: Comme nts: NPO at [place] prior to lipid panel Performed By: #### L 500.4050, L501.9985, L500.4100, L501.9520, L100.0100 ####[facility] [address] [place], [address] T PROT 6.2 g/dL Normal 5.9-8.4 [facility] Comment on above: Order Comment: Comme nts: NPO at [place] prior to lipid panel Performed By: #### L 500.4050, L501.9985, L500.4100, L501.9520, L100.0100 ####[facility] [address] [place], [address] Urea nitrogen [Mass/Vol] 21 mg/dL High 4-19 [facility] Comment on above: Order Comment: Comme nts: NPO at [place] prior to lipid panel Performed By: #### L 500.4050, L501.9985, L500.4100, L501.9520, L100.0100 ####[facility] [address] [place], [address] Discharge Instructionon 07-10 Discharge Instruction [facility] Medical Records Department [address] [place] [address] Instructions for Home/Discharge Instructions 07/19/24 1350 MR#: [id number] Acct: [id number] Name: SOLANGE MA Rep #: [id number] : 1955 69 From: Brett Fairbanks DO PCP: Dr. Moo Carmichael MD Status:ADM SHYANN Discharge Instructions Diet Discharge Diet: No restrictions DC O2, CPAP, BIPAP needs Home O2 Discharge instructions: No Dressing / Incision Discharge Activity: Return to Normal Activity Weight Bearing Status: Full weight bearing Follow Up Care Test Results: Test results from this visit will be discussed in further detail at your follow-up appointment, if applicable. Discharge Plan Admission Admit Date/Time: 07/19/24 03:07 Primary Reason for Your Visit: TIA Attending Provider: Brett Fairbanks Primary Care Provider: Moo Carmichael Consulting Providers: Nam Soto; Lucretia Lewis; Nina Westfall; Maricel Coleman; Maura Restrepo; Suhail Blanchard; Tatiana Gastelum; Odilon Burns; Kunal Gonzalez; Denilson Nash; Tamela Crews; Tonny Gong; Margot Jones; Gabby Beatty; Emily Washington; Baron Castrejon; Deborah White; Isauro Santiago; Michelle Pappas; Magda Valdovinos; Maryam Vale Discharge Orders/Prescription s Prescriptions: New aspirin 81 mg Tablet,Chewable 81 mg PO BREAKFAST Qty: 0 0RF rosuvastatin [Crestor] 40 mg tablet 40 mg PO DAILY Qty: 1 0RF Continued multivitamin 1 EACH tablet 1 ea PO DAILY lisinopril 10 mg tablet 10 mg PO DAILY Qty: 90 3RF carvedilol 12.5 mg tablet 12.5 mg PO DAILY Qty: 180 3RF Rx Instructions: must administer with a meal/food hydrochlorothiazide 25 mg tablet 25 mg PO DAILY Qty: 30 11RF Discontinued rosuvastatin 40 mg tablet 20 mg PO DAILY 30 Days Qty: 15 Other Ambulatory Orders: 30 Day Event Recorder Preventi (Urgent) Timeframe: 1 Day Facility: [facility] - Location: Cardiovascular Services Ordered By: Dr. Brett Fairbanks Referrals / Follow Up: Moo Carmichael MD [Primary Care Provider] - Within 2 Weeks Disposition Disposition (needs filled in before D/C Order can be placed): Home, Self Care 07/19/24 1355 Brett Fairbanks DO CC: Maricel Coleman; Margot Jones; Baron Castrejon; Maura Restrepo MD; Nina Westfall MD; Nam Soto MD; Dr. Lucretia Lewis MD; Dr. Maryam Vale MD; Dr. Suhail Blanchard MD; Dr. Moo Carmichael MD; Dr. Tatiana Gastelum MD; Dr. Kunal Gonzalez MD; Dr. Odilon Burns MD; Dr. Denilson Nash MD; Dr. Tonny Gong DO; Dr. Emily Washington MD; Dr. Gabby Beatty MD; Dr. Deborah White MD; Dr. Isauro Santiago MD; Dr. Michelle Pappas MD; Tamela Crews DO; Magda Valdovinos MD Signed Normal [facility] Echo Completeon 07-19-2024 Echo [facility] Cardiovascular Services [address] [facility] [place] [address] Echo Complete 07/19/24 0836 MR#: [id number] Acct: [id number] Name: SOLANEG MA Rep #: [id number] : 1955 69 From: Rommel Tolbert MD Attending Dr: Dr. Brett Fairbanks DO Status: A DM SHYANN Ordering Dr: Maryam Vale MD Date: 07/19/24 Location: U Sex: M C Admitted: 07/19/24 Reason For Study Reason For Study: TIA/CVA Procedure This was a 2D Doppler, Color Flow transthoracic echocardiogram. Exam performed portable in patient room. Left Ventricle Normal LV size. The estimated ejection fraction is 60 %. No evidence for diastolic dysfunction. No regional wall motion abnormalities noted. Right Ventricle Normal RV size. Normal systolic function. Atria The left and right atria are normal. No doppler evidence for ASD. Mitral Valve There is no mitral valve stenosis. Trivial mitral valve insufficiency. Tricuspid Valve There is no tricuspid stenosis. Trivial tricuspid valve insufficiency. Unable to estimate RV systolic pressure due to insufficient tricuspid regurgitant envelope. Aortic Valve Trisinus/trileaflet aortic valve. There is no aortic stenosis. No aortic valve insufficiency. Pulmonic Valve There is no pulmonic valvular stenosis. No pulmonic valve insufficiency. Great Vessels Normal sized aortic root. Pericardium/Pleural No pericardial effusion. MMode/2D Measurements Calculations LVIDd: 4.5 cm IVSd: 1.2 cm Ao root diam: 3.2 cm LVIDs: 2.4 cm LVPWd: 1.2 cm RVDd: 3.0 cm FS: 46.0 % __ LAV(MOD-bp): 27.4 ml LVAd ap4: 21.8 cm2 LVAd ap2: 20.6 cm2 LAV(MOD-bp) Indexed: 14.0 ml/m2 LVLd ap4: 7.3 cm LVLd ap2: 7.2 cm LAV(MOD-sp2): 34.9 ml EDV(MOD-sp4): 54.2 ml EDV(MOD-sp2): 49.4 ml LAV(MOD-sp4): 20.9 ml EDV(sp4-el): 55.4 ml EDV(sp2-el): 49.8 ml LVAs ap4: 10.5 cm2 LVAs ap2: 11.3 cm2 LVLs ap4: 6.4 cm LVLs ap2: 6.6 cm ESV(MOD-sp4): 15.0 ml ESV(MOD-sp2): 16.5 ml ESV(sp4-el): 14.7 ml ESV(sp2-el): 16.5 ml EF(MOD-sp4): 72.3 % EF(MOD-sp2): 66.6 % EF(sp4-el): 73.5 % __ SV(MOD-sp4): 39.2 ml SV(MOD-sp2): 32.9 ml SV(sp4-el): 40.7 ml SI(MOD-sp4): 20.0 ml/m2 SI(MOD-sp2): 16.8 ml/m2 __ LA A4 area: 10.3 cm2 LA dimension(2D): 3.3 cm RA A4 area: 10.8 cm2 __ TAPSE: 2.1 cm Time Measurements MV dec time: 0.21 sec Doppler Measurements Calculations MV E max romaine: 71.3 cm/sec Lat Peak E' Romaine: 10.3 cm/sec Med Peak E' Romaine: 8.8 cm/sec MV A max romaine: 95.1 cm/sec E/E' lat: 6.9 E/E' med: 8.1 MV E/A: 0.75 __ Ao V2 max: 102.8 cm/sec LV V1 max: 82.4 cm/sec PA V2 max: 74.9 cm/sec Ao max P.2 mmHg LV V1 max P.7 mmHg __ TR max romaine: 233.3 cm/sec TR max P.8 mmHg ECHO/Echo Complete Interpretation Summary The estimated ejection fraction is 60 %. No evidence for diastolic dysfunction. Trivial mitral valve insufficiency. __ Ordering Physician: Maryam Vale Referring Physician: Moo Carmichael MD Performed By: Jennifer Huff RDCS 07/19/24 1252 Date Rommel Tolbert MD CC: Dr. Maryam Vale MD; Dr. Moo Carmichael MD; Dr. Brett Fairbanks, DO Date Dictated: 07/19/24835 Date Transcribed: 07/19/24 1252 Straddle Buggy Operator: Signed Normal [facility] Echocardiogram study reportO rdered By: Rommel Tolbert on 07-19-2024 Study report [facility] Cardiovascular Services [address] [place] [address] Echo Complete 07/19/24835 MR#: [id number] Acct: [id number] Name: SOLANGE MA Rep #:[id number] : 1955 69 From: Rommel baltazar MD Attending Dr: Dr. Brett Fairbanks, Status: ADM SHYANN Ordering Dr: Maryam Vale MD Date: 07/19/24 Location: [facility] Sex: M C Admitted: 07/19/24 Reason For Study Reason For Study: TIA/CVA Procedure This was a 2D Doppler, Color Flow transthoracic echocardiogram. Exam performed portable in patient room. Left Ventricle Normal LV size. The estimated ejection fraction is 60 %. No evidence for diastolic dysfunction. No regional wall motion abnormalities noted. Right Ventricle Normal RV size. Normal systolic function. Atria The left and right atria are normal. No doppler evidence for ASD. Mitral Valve There is no mitral valve stenosis. Trivial mitral valve insufficiency. Tricuspid Valve There is no tricuspid stenosis. Trivial tricuspid valve insufficiency. Unable toestimate RV systolic pressure due to insufficient tricuspid regurgitant envelope. Aortic Valve Trisinus/trileaflet aortic valve. There is no aortic stenosis. No aortic valve insufficiency. Pulmonic Valve There is no pulmonic valvular stenosis. No pulmonic valve insufficiency. Great Vessels Normal sized aortic root. Pericardium/Pleural No pericardial effusion. MMode/2D Measurements & Calculations LVIDd: 4.5 cm IVSd: 1.2 cm Ao root diam: 3.2 cm LVIDs: 2.4 cm LVPWd: 1.2 cm RVDd: 3.0 cm FS: 46.0 % ____ LAV(MOD-bp): 27.4 ml LVAd ap4: 21.8 cm2 LVAd ap2: 20.6 cm2 LAV(MOD-bp) Indexed: 14.0 ml/m2 LVLd ap4: 7.3 cm LVLd ap2: 7.2 cm LAV(MOD-sp2): 34.9 ml EDV(MOD-sp4): 54.2 ml EDV(MOD-sp2): 49.4 ml LAV(MOD-sp4): 20.9 ml EDV(sp4-el): 55.4 ml EDV(sp2-el): 49.8 ml LVAs ap4: 10.5 cm2 LVAs ap2: 11.3 cm2 LVLs ap4: 6.4 cm LVLs ap2: 6.6 cm ESV(MOD-sp4): 15.0 ml ESV(MOD-sp2): 16.5 ml ESV(sp4-el): 14.7 ml ESV(sp2-el): 16.5 ml EF(MOD-sp4): 72.3 % EF(MOD-sp2): 66.6 % EF(sp4-el): 73.5 % __ SV(MOD-sp4): 39.2 ml SV(MOD-sp2): 32.9 ml SV(sp4-el): 40.7 ml SI(MOD-sp4): 20.0 ml/m2 SI(MOD-sp2): 16.8 ml/m2 ____ LA A4 area: 10.3 cm2 LA dimension(2D): 3.3 cm RA A4 area: 10.8 cm2 ____ TAPSE: 2.1 cm Time Measurements MV dec time: 0.21 sec Doppler Measurements & Calculations MV E max romaine: 71.3 cm/sec Lat Peak E' Romaine: 10.3 cm/sec Med Peak E' Romaine: 8.8 cm/sec MV A max romaine: 95.1 cm/sec E/E' lat: 6.9 E/E' med: 8.1 MV E/A: 0.75 ____ Ao V2 max: 102.8 cm/sec LV V1 max: 82.4 cm/sec PA V2 max: 74.9 cm/sec Ao max P.2 mmHg LV V1 max P.7 mmHg __ TR max romaine: 233.3 cm/sec TR max P.8 mmHg ECHO/Echo Complete Interpretation Summary The estimated ejection fraction is 60 %. No evidence for diastolic dysfunction. Trivial mitral valve insufficiency. __ Ordering Physician: Maryam Vale Referring Physician: Moo Carmichael MD Performed By: Jennifer Huff RDCS 07/19/24 1252 Date _ Rommel Tolbert MD CC: Dr. Maryam Vale MD; Dr. Moo aCrmichael MD; Dr. Brett Fairbanks DO ~ Date Dictated: 07/19/24 0836 Date Transcribed: 07/19/24 125 Straddle Buggy Operator: Signed [facility] Work Phone: Emergency Department Summary on 07-19-2024 Emergency Department Summary [facility] Medical Records Department [address] [place] [address] Emergency Department Summary 07/19/24 MR#: [id number] Acct: [id number] Name: SOLANGE MA Rep #: [id number] : 1955 69 From: Mike Redd DO PCP: Dr. Moo Carmichael MD Status:[facility] ER Location: ED HPI History of Present Illness Chief Complaint: Neuro S/Sx PFSH PFSH Medical History Wears glasses High cholesterol Pulmonary embolism Non-smoker Hypertension History of echocardiogram Cardiology follow-up encounter COVID-19 (04/2020) Bilateral pulmonary embolism GERD (gastroesophageal reflux disease) DVT (deep venous thrombosis) (2014) Pulmonary alveolar proteinosis HLD (hyperlipidemia) Essential (primary) hypertension Nocardia infection Knee pain Lung disease Home Medications ???Medication ???Instructions ???Recorded ???Last Taken ???Type multivitamin 1 ea PO DAILY SUPPLEMENT 06/27/17 09/04/23 History rosuvastatin 40 mg tablet 20 mg PO DAILY 30 days #15 tabs 09/04/23 History lisinopril 10 mg tablet 10 mg PO DAILY #90 tabs 11/18/23 U nknown Rx carvedilol 12.5 mg tablet 12.5 mg PO DAILY #180 tabs 4 Unknown Rx hydrochlorothiazide 25 mg tablet 25 mg PO DAILY #30 tabs 04/27/24 U nknown Rx Allergy/AdvReac Type Severity Reaction Status Date / Time atorvastatin Allergy Vomiting Verified 07/19/24 02:09 morphine Allergy Nausea,Vomi Verified 07/19/24 02:09 ting piperacillin (From Zosyn) AdvReac Vomiting Verified 07/19/24 02:09 tazobactam (From Zosyn) AdvReac Vomiting Verified 07/19/24 02:09 Family History Brother Myocardial infarction Kidney disease Mother CAD (coronary artery disease) Father Cancer Oral ca Brother CVA (cerebral vascular accident) Surgical History History of cardiac catheterization Hx of colonoscopy History of bronchoscopy History of herniorrhaphy H/O nasal septoplasty H/O knee surgery History of left heart catheterization (04/20/09) Bilateral therapeutic whole-lung lavage (2015) Status post stereotactic brain biopsy (2014) Social History current occupational status: employed current occupation: [employer] Smoking Status: Never smoker alcohol intake: current alcohol intake frequency: a few times a week Alcohol type: beer substance use type: does not use caffeine: Yes Type: tea Number of servings: 1 MDM MDM MDM Narrative Medical decision making narrative: HISTORY OF PRESENT ILLNESS: 69-year-old male history of high cholesterol, DVT, PE, tobacco abuse, hypertension, presents with numbness and ting in the left arm and left cheek. He endorses he feels like his left cheek is going to droop. He noted his blood pressure was elevated 168/100 and this prompted him to come to the emergency department. Denies history of strokes. Denies falls or trauma. Denies chest pain or palpitations. He notes his last known well was approximate 11 PM on 07/18/2024 as he went to sleep and woke up with left arm tingling numbness heaviness. REVIEW OF SYSTEMS: Pertinent positives: Left face and left arm tingling Pertinent negatives: Chest pain PHYSICAL EXAM: Nursing triage notes reviewed, Vital signs reviewed Constitutional: please see mdm HENT: MMM Eyes: Pupils equal round and reactive to light, Extraocular muscles intact Neck: No stridor, no JVD, full neck ROM Lungs: Clear to auscultation, No wheezing or rales. No increased work of breathing, no conversational dyspnea, no accessory muscle use, no nasal flaring. No respiratory distress noted Heart: Regular rate and rhythm, No murmurs, No rubs and No gallops, 2+ distal pulses (radial, femoral, posterior tibial) in all extremities Abdomen: Soft, there is no tenderness, rigidity, rebound or guarding, no obvious peritoneal signs, no palpable pulsatile abdominal masses, no auscultated abdominal bruit : No CVAT Extremities: No edema Neuro: [Alert and oriented x3, neuro exam at baseline, cranial nerves II through XII are intact. No pain with extraocular muscle movement. There is negative test of skew. 5 of 5 strength in upper and lower extremities in flexion extension. Intact sensation to light touch in upper and lower extremity dermatomes. No truncal or extremity ataxia. No dysdiadochokinesia. Normal gait. 2+ reflexes in upper and lower extremities. No meningeal signs. Negative Babinski. NIH of 0 (I cannot elicit any sensory changes with palpation of involved areas on multiple attempts). Skin: No rash or lesions noted MEDICAL DECISION MAKING: Chief Complaint: Left-sided numbness, tingling External records r (more content not included)... Normal [facility] Eosinophil percentageOrdered By: Maryam White on 07-19-2024 Eosinophils/100 WBC (Bld) 3.7 % 0-5 [facility] Eosinophil percentageOrdered By: Mike Ivania on 07-19-2024 Eosinophils/100 WBC (Bld) 4.5 % 0-5 [facility] Erythrocyte distribution wid th ratioOrdered By: Maryam Vale on 07-19-2024 Erythrocyte distribution width (RBC) [Ratio] 12.9 % 11.6-14.6 [facility] Erythrocyte distribution wid th ratioOrdered By: Mike Ivania on 07-19-2024 Erythrocyte distribution width (RBC) [Ratio] 12.8 % 11.6-14.6 [facility] Erythrocyte distribution wid th standard deviationOrdered By: Maryam Vale on 07-19-2024 Erythrocyte distribution width (RBC) [Entitic vol] 42.4 fL 35.1-43.9 [facility] Erythrocyte distribution width (RBC) [Ratio] 42.4 fl 35.1-43.9 [facility] Erythrocyte distribution wid th standard deviationOrdered By: Mike Redd on 07-19-2024 Erythrocyte distribution width (RBC) [Entitic vol] 42.5 fL 35.1-43.9 [facility] Estimation of creatinine maria elena aranceOrdered By: Maryam Vale on 07-19-2024 Estimated Creatinine Clearance Calc 59.53 ml/min 50-250 [facility] Estimation of creatinine maria elena aranceOrdered By: Mike Redd on 07-19-2024 Estimated Creatinine Clearance Calc 52.16 ml/min 50-250 [facility] GFR/1.73 sq M.predicted hien g non-blacks MDRD (S/P/Bld) [Vol rate/Area]Ordered By: Maryam Vale on 07-19-2024 Estimated GFR (MDRD) Non-Af Amer 64 >60 [facility] Comment on above: mL/min/1.73m2 CKD-EP I Creatinine Equation (2020) GFR/1.73 sq M.predicted hien g non-blacks MDRD (S/P/Bld) [Vol rate/Area]Ordered By: Mike Redd on 07-19-2024 Estimated GFR (MDRD) Non-Af Amer 54 Low >60 [facility] Comment on above: mL/min/1.73m2 CKD-EP I Creatinine Equation (2020) Glomerular filtration rate ( GFR) estimation/1.73 sq m using serum, plasma, or whole bOrdered By: Maryam Vale on 07-19-2024 GFR/1.73 sq M.predicted among non-blacks MDRD (S/P/Bld) [Vol rate/Area] 64 mL/min/{1.73_m2} >60 [facility] Comment on above: mL/min/1.73m2 CKD-EP I Creatinine Equation (2020) Glucose measurement at [facility] deOrdered By: Mike Redd on 07-19-2024 Bedside Glucose (Misc Panel) 91 mg/dL 74-106 [facility] Comment on above: MANAGEMENT OF PATIEN T CARE PER NURSING PROTOCOL Glucose [Mass/Vol] 91 mg/dL 74-106 [facility] Comment on above: MANAGEMENT OF PATIEN T CARE PER NURSING PROTOCOL H AND P Exam - [facility] 07-19-2024 H&P Exam - Hospitalist [facility] Medical Records Department [address] [place] [address] H P Exam - Hospitalist 07/19/24 0306 MR#: [id number] Acct: [id number] Name: SOLANGE MA Rep #: [id number] : 1955 69 From: Maryam Vale MD PCP: Dr. Moo Carmichael MD Status:ADM SHYANN Location: [place] [address] HPI - General General Date of Admission: 07/19/24 Date of Service: 07/19/24 Chief Complaint: L face, LUE paresthesias. HPI Narrative The patient is a 69 y/o M w/ PMHx: CKD stage III unclear subtype per GFR trending, HTN, HLD, Hx VTE (DVT, PE), Obesity, GERD, Hx pulmonary artery alveolar proteinosis, Hx Brain nodcardial infection as well as pulmonary infection with serial lavages with associated right hemiparesis who presents to the [facility] ED on 07/19/24 with history of awakening with numbness and tingling of his left arm and left cheek with elevated blood pressure at home noted be 168/100 prompting eventual ED evaluation to be cautious. He notes that he felt well at approximately 11 PM the evening prior and went to sleep without issue. He does report heaviness to the left upper extremity. He does report that he took 2 aspirin tablets before he left but is unsure of the exact amount. Workup in the ED included T98.3, heart rate 85, BP 164/89, respiratory rate 18, 98% room air, CBC with WC 6.5, human 14.5, platelet 269 without marked shift, unremarkable coags, BUN/: 24/1.43, GFR 54, glucose 105, troponin 9, CT of the brain with no acute intracranial hemorrhage, mass effect or large vascular territory infarct with a small focus of left convexity encephalomalacia seen, chest x-ray with no acute cardiopulmonary findings, CTA head neck with no vessel cutoff, flow significant stenosis, dissection or aneurysm identified, EKG with sinus bradycardia with no acute evidence of ischemia. In the ED NIH stroke scale was 0 with inability to elicit any difference as far as paresthesias per ED physician. [facility] Medical History Wears glasses High cholesterol Pulmonary embolism Non-smoker Hypertension History of echocardiogram Cardiology follow-up encounter COVID-19 (04/2020) Bilateral pulmonary embolism GERD (gastroesophageal reflux disease) DVT (deep venous thrombosis) (2014) Pulmonary alveolar proteinosis HLD (hyperlipidemia) Essential (primary) hypertension Nocardia infection Knee pain Lung disease Home Medications ???Medication ???Instructions ???Recorded ???Last Taken ???Type multivitamin 1 ea PO DAILY SUPPLEMENT 06/27/17 09/04/23 History rosuvastatin 40 mg tablet 20 mg PO DAILY 30 days #15 tabs 09/04/23 History lisinopril 10 mg tablet 10 mg PO DAILY #90 tabs 11/18/23 U nknown Rx carvedilol 12.5 mg tablet 12.5 mg PO DAILY #180 tabs 4 Unknown Rx hydrochlorothiazide 25 mg tablet 25 mg PO DAILY #30 tabs 04/27/24 U nknown Rx Allergy/AdvReac Type Severity Reaction Status Date / Time atorvastatin Allergy Vomiting Verified 07/19/24 02:09 morphine Allergy Nausea,Vomi Verified 07/19/24 02:09 ting piperacillin (From Zosyn) AdvReac Vomiting Verified 07/19/24 02:09 tazobactam (From Zosyn) AdvReac Vomiting Verified 07/19/24 02:09 Family History Brother Myocardial infarction Kidney disease Mother CAD (coronary artery disease) Father Cancer Oral ca Brother CVA (cerebral vascular accident) Surgical History History of cardiac catheterization Hx of colonoscopy History of bronchoscopy History of herniorrhaphy H/O nasal septoplasty H/O knee surgery History of left heart catheterization (04/20/09) Bilateral therapeutic whole-lung lavage (2016) Status post stereotactic brain biopsy (2014) Social History current occupational status: employed current occupation: [employer] Smoking Status: Never smoker alcohol intake: current alcohol intake frequency: a few times a week Alcohol type: beer substance use type: does not use caffeine: Yes Type: tea Number of servings: 1 ROS ROS Narrative Admission Review of Systems: CONSTITUTIONAL: No weight loss, fever, chills, + weakness or fatigue. HEENT: + Facial paresthesias. Eyes: No visual loss, blurred vision, double vision or yellow sclerae. Ears, Nose, Throat: No hearing loss, sneezing, congestion, runny nose or sore throat. SKIN: No rash or itching, lesions, wounds. CARDIOVASCULAR: No chest pain, chest pressure or chest discomfort, palpitations, edema, orthopnea, syncopal events. RESPIRATORY: No shortness of breath, cough or sputum, wheezing, hemoptysis. GASTROINTESTINAL: No anorexia, nausea, vomiting or diarrhea, abdominal pain, melena, BRBPR. GENITOURINARY: No dysuria, frequency (more content not included)... Normal [facility] Hematocrit Auto (Bld) [Volum e fraction]Ordered By: Maryam Vale on 07-19-2024 Hematocrit (Bld) [Volume fraction] 39.5 % Low - [facility] Hematocrit Auto (Bld) [Volum e fraction]Ordered By: Mike Redd on 07-19-2024 Hematocrit (Bld) [Volume fraction] 43.0 % - [facility] Hemoglobin A1con 07-19-2024 HbA1c (Bld) [Mass fraction] 5.9 % Normal <=5.6 [facility] Comment on above: Performed By: #### L 500.4050, L501.9985, L500.4100, L501.9520, L100.0100 ####[facility] [address] [place], [address] Hemoglobin A1c percentageOrd ered By: Maryam Vale on 07-19-2024 HbA1c (Bld) [Mass fraction] 5.9 % >5.7 [facility] Hemoglobin measurementOrdere d By: Maryam Vale on 07-19-2024 Hemoglobin (Bld) [Mass/Vol] 13.7 g/dL 13.0-16.5 [facility] Hemoglobin measurementOrdere d By: Mike Redd on 07-19-2024 Hemoglobin (Bld) [Mass/Vol] 14.5 g/dL 13.0-16.5 [facility] Immature granulocytes/100 WB C Auto (Bld)Ordered By: Maryam Vale on 07-19-2024 Immature granulocytes/100 WBC (Bld) 0.200 % 0.0-0.9 [facility] Comment on above: IG% - Immature Granu locytes (promyelocytes, myelocytes and metamyelocytes) > 1% indicates that a LEFT SHIFT is Present. Immature granulocytes/100 WB C Auto (Bld)Ordered By: Mike Redd on 07-19-2024 Immature granulocytes/100 WBC (Bld) 0.300 % 0.0-0.9 [facility] Comment on above: IG% - Immature Granu locytes (promyelocytes, myelocytes and metamyelocytes) > 1% indicates that a LEFT SHIFT is Present. International normalized rat io (INR) calculationOrdered By: Mike Redd on 07-19-2024 INR Coag (Bld) [Relative time] 0.9 {INR} [facility] L499.0042on 07-19-2024 Trop T High Sen Normal <=22 [facility] Comment on above: Result Comment: Canc elled via OM: Ordered Performed By: #### L 499.0042 #### [facility] [address] [place], [address] L499.0043on 07-19-2024 Trop T High Sen Normal <=22 [facility] Comment on above: Result Comment: Rosangela wiseman via OM: Ordered Performed By: #### L 499.0043 ####[facility] [address] [place], [address] L501.4021on 07-19-2024 Trop T High Sen 9 ng/L Normal <=22 [facility] Comment on above: Performed By: #### L 300.4310, L500.2500, L501.4021, L100.0100, L300.3900 ####[facility] [address] [place], [address] LDL calc ser/plasOrdered By: Maryam Vale on 07-19-2024 Cholesterol in LDL [Mass/Vol] 91 mg/dL [facility] Comment on above: Lqcvqibkaw=015-914 m g/dL & Higher Pqle=620 mg/dL or greater LDL Cholesterol, Calculated 91 mg/dL [facility] Comment on above: Prsghlrjie=474-574 m g/dL & Higher Ekpy=365 mg/dL or greater Laboratory - Chemistry and C hemistry - challengeOrdered By: Maryam Vale on 07-19-2024 AST [Catalytic activity/Vol] 43 U/L High <38 [facility] Lipid Profileon 07-19-2024 CHOL:HDL 3.92 Normal [facility] Comment on above: Order Comment: Comme nts: NPO at [place] prior to lipid panel Performed By: #### L 500.4050, L501.9985, L500.4100, L501.9520, L100.0100 ####[facility] [address] [place], [address] Cholesterol [Mass/Vol] 180 mg/dL Normal <=200 [facility] Comment on above: Order Comment: Comme nts: NPO at [place] prior to lipid panel Result Comment: Chol esterol level, Desirable <200 mg/dL Borderline high cholesterol 200-239 mg/dL High cholesterol >=240 mg/dL Recommendations of the NCEP Adult Treatment Panel for the following risk-cutoff thresholds for the [place] population. Performed By: #### L 500.4050, L501.9985, L500.4100, L501.9520, L100.0100 ####[facility] [address] [place], [address] Cholesterol in HDL [Mass/Vol] 46 mg/dL Normal [facility] Comment on above: Order Comment: Comme nts: NPO at [place] prior to lipid panel Result Comment: [place] onal Cholesterol Education Program (NCEP) guidelines: <40 mg/dL: Low HDL-cholesterol (major risk factor for CHD) >= 60 mg/dL: High HDL-cholesterol (negative risk factor for CHD) HDL-cholesterol is affected by a number of factors, e.g. smoking, exercise, hormones, sex and age. Performed By: #### L 500.4050, L501.9985, L500.4100, L501.9520, L100.0100 ####[facility] [address] [place], [address] Cholesterol in LDL [Mass/Vol] 91 mg/dL Normal [facility] Comment on above: Order Comment: Comme nts: NPO at [place] prior to lipid panel Result Comment: Bord wrblay=096-875 mg/dL Higher Yxid=483 mg/dL or greater Performed By: #### L 500.4050, L501.9985, L500.4100, L501.9520, L100.0100 ####[facility] [address] [place], [address] Cholesterol in VLDL [Mass/Vol] 43 mg/dL High 5-40 [facility] Comment on above: Order Comment: Comme nts: NPO at [place] prior to lipid panel Performed By: #### L 500.4050, L501.9985, L500.4100, L501.9520, L100.0100 ####[facility] [address] [place], [address] Triglyceride [Mass/Vol] 214 mg/dL High [facility] Comment on above: Order Comment: Comme nts: NPO at [place] prior to lipid panel Result Comment: The drugs N-Acetylcysteine and Metamizole may falsely depress this assay. Normal range: <150 mg/dL Borderline High: 150-199 mg/dL High: 200-499 mg/dL Very High: >500 mg/dL Performed By: #### L 500.4050, L501.9985, L500.4100, L501.9520, L100.0100 ####[facility] [address] [place], [place], [address] Lymphocytes Auto (Unsp spec) [#/Vol]Ordered By: Maryam Vale on 07-19-2024 Lymphocytes (Bld) [#/Vol] 1.50 10*3/uL 0.83-4.5 1 [facility] Lymphocytes Auto (Unsp spec) [#/Vol]Ordered By: Mike Redd on 07-19-2024 Lymphocytes (Bld) [#/Vol] 2.42 10*3/uL 0.83-4.5 1 [facility] Lymphocytes/100 WBC Auto (Un sp spec)Ordered By: Maryam Vale on 07-19-2024 Lymphocytes/100 WBC (Bld) 28.9 % [facility] Lymphocytes/100 WBC Auto (Un sp spec)Ordered By: Mike Redd on 07-19-2024 Lymphocytes/100 WBC (Bld) 37.3 % [facility] MCV (mean corpuscular volume ) determinationOrdered By: Maryam Vale on 07-19-2024 MCV (RBC) [Entitic vol] 89.4 fL 80-94 [facility] MCV (mean corpuscular volume ) determinationOrdered By: Mike Redd on 07-19-2024 MCV (RBC) [Entitic vol] 90.5 fL 80-94 [facility] MR/CON.PCM.NEon 07-19-2024 MR/CON.PCM.NE [facility] Medical Records Department [address] [place] [address] Consultation - Neurology 07/19/24 1235 MR#: [id number] Acct: [id number] Name: SOLANGE MA Rep #: [id number] : 1955 69 From: Nina Westfall MD PCP: Dr. Moo Carmichael MD Status:ADM SHYANN Location: [place] [address] Assessment and Plan: Stroke Assessment/Plan SOLANGE MA is a 69 M with a history of CKD stage III unclear subtype per GFR trending, HTN, HLD, Hx VTE (DVT, PE), Obesity, GERD, Hx pulmonary artery alveolar proteinosis, Hx Brain nodcardial infection as well as pulmonary infection with serial lavages with associated right hemiparesis who presents with numbness and tingling of his left arm, left cheek, left leg with elevated blood pressure at home. Not a TNK or IR candidate. His symptoms have improved. Likely had a TIA. Neurological examination shows intact examination. Neuroimaging shows MRI Brain :No acute stroke. 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 If negative can get a 30 day Cardiac event monitor upon DC Thanks for consultation. spent 70 min in evaluation and management of this patient. HPI Consult Data Date of Consult: 07/19/24 HPI Narrative HPI Narrative: SOLANGE MA, is a 69 M with CKD stage III unclear subtype per GFR trending, HTN, HLD, Hx VTE (DVT, PE), Obesity, GERD, Hx pulmonary artery alveolar proteinosis, Hx Brain nodcardial infection as well as pulmonary infection with serial lavages with associated right hemiparesis who presents to the [facility] ED on 07/19/24 with history of awakening with numbness and tingling of his left arm and left cheek with elevated blood pressure at home. Also had tingling of the left leg. His BP was 168/100 prompting eventual ED evaluation to be cautious. He notes that he felt well at approximately 11 PM the evening prior and went to sleep without issue. He does report heaviness to the left upper extremity. His NIHSS in ER was 0 upon arrival. he has no symptoms in his face and leg, improvement in tingling in left arm. No neck pain. Workup showed CT of the brain with no acute intracranial hemorrhage, mass effect or large vascular territory infarct with a small focus of left convexity encephalomalacia seen, chest x-ray with no acute cardiopulmonary findings. CTA head neck with no vessel cutoff, flow significant stenosis, dissection or aneurysm identified, EKG with sinus bradycardia with no acute evidence of ischemia. [facility] Medical History Wears glasses High cholesterol Pulmonary embolism Non-smoker Hypertension History of echocardiogram Cardiology follow-up encounter COVID-19 (04/2020) Bilateral pulmonary embolism GERD (gastroesophageal reflux disease) DVT (deep venous thrombosis) (2014) Pulmonary alveolar proteinosis HLD (hyperlipidemia) Essential (primary) hypertension Nocardia infection Knee pain Lung disease Home Medications ???Medication ???Instructions ???Recorded ???Last Taken ???Type multivitamin 1 ea PO DAILY SUPPLEMENT 06/27/17 09/04/23 History rosuvastatin 40 mg tablet 20 mg PO DAILY 30 days #15 tabs 09/04/23 History lisinopril 10 mg tablet 10 mg PO DAILY #90 tabs 11/18/23 U nknown Rx carvedilol 12.5 mg tablet 12.5 mg PO DAILY #180 tabs 4 Unknown Rx hydrochlorothiazide 25 mg tablet 25 mg PO DAILY #30 tabs 04/27/24 U nknown Rx Allergy/AdvReac Type Severity Reaction Status Date / Time atorvastatin Allergy Vomiting Verified 07/19/24 02:09 morphine Allergy Nausea,Vomi Verified 07/19/24 02:09 ting piperacillin (From Zosyn) AdvReac Vomiting Verified 07/19/24 02:09 tazobactam (From Zosyn) AdvReac Vomiting Verified 07/19/24 02:09 Family History Brother Myocardial infarction Kidney disease Mother CAD (coronary artery disease) Father Cancer Oral ca Brother CVA (cerebral vascular accident) Surgical History History of cardiac catheterization Hx of colonoscopy History of bronchoscopy History of herniorrhaphy H/O nasal septoplasty H/O knee surgery History of left heart catheterization (04/20/09) Bilateral therapeutic whole-lung lavage (2016) Status post stereotactic brain biopsy (2015) Social History current occupational status: employed current occupation: [employer] Smoking Status: Never smoker alcohol intake: current alcohol intake frequency: a few times a week Alcohol type: beer substance use type: does not use caffeine: Yes Type: tea Number of servings: 1 Vital Signs Vital Signs Vital Signs: (more content not included)... Normal [facility] Magnesiumon 07-19-2024 Magnesium [Mass/Vol] 1.7 mg/dL Normal 1.5-2.2 [place] Comment on above: Order Comment: Comme nts: may add to ED labs Performed By: #### L 501.5200 #### [facility] [address] [facility] [place], [place], [id number] Magnesium (Unsp spec) [Mass/ Vol]Ordered By: Maryam Vale on 07-19-2024 Magnesium [Mass/Vol] 1.7 mg/dL 1.5-2.2 [place] Magnesium measurement (mass/ volume)Ordered By: Maryam Vale on 07-19-2024 Magnesium (Unsp spec) [Mass/Vol] 1.7 mg/dL 1.5-2.2 [facility] Magnetic resonance imaging r eportOrdered By: Brett Summers on 07-19-2024 Study report [facility] Imaging Services [address] [place], [place] [id number] Brain without Contrast MR#: [id number] Acct: [id number] Name: SOLANGE MA Rep #: [id number] : 1955 M 69 From: Sapphire Summers MD PCP: Dr. Moo Carmcihael MD Status: ADM SHYANN Study:Brain without Contrast Date of Exam: 07/19/24 Exam# [id number] Ordering Dr: Araceli Vale MD PROCEDURE: BRAIN WITHOUT CONTRAST (MRIBR), 07/19/2024 REASON FOR EXAM: TIA/CVA. Per technologist report, numbness/tingling of the left arm and face. History of previous brain biopsy and meningitis. COMPARISON: CT and CTA of same date TECHNIQUE: Multisequence multiplanar MRI brain was performed without intravenous contrast. Contrast: None. FINDINGS: Cerebrum: No acute infarct, definite/appreciabl e acute intracranial hemorrhage, or mass identified. Changes presumably related to previous biopsy in the left frontal lobe near the vertex extending to the corpus callosum, including hemosiderin staining and mild surrounding likely gliosis. Cerebellum: Unremarkable. Brainstem: Unremarkable. Ventricles/extra-ax ial spaces: Unremarkable. Major flow voids: Grossly unremarkable within limits of nondedicated technique, better evaluated previously. Paranasal sinuses: Mild bilateral maxillary mucosal thickening. Left mastoidectomy with fluid in some of the remaining inferior and posterior mastoid air cells. Scalp/calvarium: Unremarkable. Orbits: Grossly unremarkable within limits of nondedicated technique. Other: None. MRI/Brain without Contrast IMPRESSION: 1. No acute infarct or other definite evidence of an acute intracranial process identified. 2. Mild bilateral maxillary paranasal sinus disease. Left mastoidectomy with fluid in some of the remaining inferior and posterior mastoid air cells. 3. Additional description as above. Reading Location: [facility] CC: Dr. Maryam Vale MD; Dr. Moo Carmichael MD ~ Straddle Buggy Operator: Signed [facility] Mean corpuscular hemoglobin (MCH) determinationOrdered By: Maryam Vale on 07-19-2024 MCH (RBC) [Entitic mass] 31.0 pg 27.0-32.0 [facility] Mean corpuscular hemoglobin (MCH) determinationOrdered By: Mike Redd on 07-19-2024 MCH (RBC) [Entitic mass] 30.5 pg 27.0-32.0 [facility] Mean corpuscular hemoglobin concentration (MCHC) determinationOrdered By: Maryam Vale on 07-19-2024 MCHC (RBC) [Mass/Vol] 34.7 g/dL - [facility] Mean corpuscular hemoglobin concentration (MCHC) determinationOrdered By: Mike Redd on 07-19-2024 MCHC (RBC) [Mass/Vol] 33.7 g/dL - [facility] Mean platelet volume determi nationOrdered By: Maryam Vale on 07-19-2024 Platelet mean volume (Bld) [Entitic vol] 9.2 fL 6.2-12.0 [facility] Mean platelet volume determi nationOrdered By: Mike Redd on 07-19-2024 Platelet mean volume (Bld) [Entitic vol] 9.1 fL 6.2-12.0 [facility] Monocyte percentageOrdered B y: Maryam White on 07-19-2024 Monocytes/100 WBC (Bld) 9.4 % 0-10 [facility] Monocyte percentageOrdered B y: Mike Redd on 07-19-2024 Monocytes/100 WBC (Bld) 11.4 % High 0-10 [facility] Neutrophil percentageOrdered By: Maryam White on 07-19-2024 Neutrophils/100 WBC (Bld) 57.4 % 47-70 [facility] Neutrophil percentageOrdered By: Mike Redd on 07-19-2024 Neutrophils/100 WBC (Bld) 46.2 % Low 47-70 [facility] No Panel InformationOrdered By: Mike Redd on 07-19-2024 Troponin T High Sensitivity 9 ng/L <22 [facility] Nucleated red blood cell per centageOrdered By: Maryam Vale on 07-19-2024 Nucleated RBC/100 WBC (Bld) [Ratio] 0 % 0-5 [facility] Nucleated red blood cell per centageOrdered By: Mike Redd on 07-19-2024 Nucleated RBC/100 WBC (Bld) [Ratio] 0 % 0-5 [facility] Partial Thromboplast Timeon 07-19-2024 aPTT Coag (Bld) [Time] 27.4 s Normal 24.1-36.2 [facility] Comment on above: Performed By: #### L 300.4310, L500.2500, L501.4021, L100.0100, L300.3900 ####[facility] [address] [place], [place], [address] Platelet countOrdered By: Araceli Vale on 07-19-2024 Platelets (Bld) [#/Vol] 254 10*3/uL 150-450 [facility] Platelet countOrdered By: Ignacia Redd on 07-19-2024 Platelets (Bld) [#/Vol] 269 10*3/uL 150-450 [facility] Potassium (Unsp spec) [Mass/ Vol]Ordered By: Maryam Vale on 07-19-2024 Potassium [Moles/Vol] 4.0 mmol/L 3.3-5.1 [facility] Potassium (Unsp spec) [Mass/ Vol]Ordered By: Mike Redd on 07-19-2024 Potassium [Moles/Vol] 3.5 mmol/L 3.3-5.1 [facility] Potassium measurement (mass/ volume)Ordered By: Maryam Vale on 07-19-2024 Potassium (Unsp spec) [Mass/Vol] 4.0 mmol/L 3.3-5.1 [facility] Prothrombin Time w/INRon INR Coag (PPP) [Relative time] 0.9 {INR} Normal [facility] Comment on above: Performed By: #### L 300.4310, L500.2500, L501.4021, L100.0100, L300.3900 ####[facility] [address] [place], [address] PT Coag (PPP) [Time] 12.1 s Normal 11.7-14.9 [place] Comment on above: Performed By: #### L 300.4310, L500.2500, L501.4021, L100.0100, L300.3900 ####[facility] [address] [place], [address] Prothrombin timeOrdered By: Mike Redd on 07-19-2024 PT Coag (PPP) [Time] 12.1 s 11.7-14.9 [place] RBC Auto (Bld) [#/Vol]Ordere d By: Maryam Vale on 07-19-2024 RBC (Bld) [#/Vol] 4.42 10*6/uL Low 4.6-6.2 [facility] RBC Auto (Bld) [#/Vol]Ordere d By: Mike Redd on 07-19-2024 RBC (Bld) [#/Vol] 4.75 10*6/uL 4.6-6.2 [facility] STROKE Brain/Head without Co nton 07-19-2024 STROKE Brain/Head without Cont [facility] Imaging Services [address] [place] [address] STROKE Brain/Head without Cont MR#: [id number] Acct: [id number] Name: SOLANGE MA Rep #: [id number] : 1955 M 69 From: Lam Yepez MD PCP: Dr. Moo Carmichael MD Status: REG ER Study: STROKE Brain/Head without Cont Date of Exam: 0 07/19/24 Exam# [id number] Ordering Dr: Mike Redd DO PROCEDURE: STROKE BRAIN/HEAD WITHOUT CONT REASON FOR EXAM: Stroke, left-sided weakness TECHNIQUE: Noncontrast head CT with coronal and sagittal reformatted images COMPARISON: None. FINDINGS: No intracranial hemorrhage, mass effect or CT evidence of large vascular territory acute infarct. Small focus left convexity encephalomalacia seen. The ventricles are within limits and midline. Mild volume loss, atrophy. Mild mucoperiosteal thickening in the lower maxillary sinuses. Previous left mastoid surgery. The right mastoid and orbits appear within limits. CT/STROKE Brain/Head without Cont IMPRESSION: No intracranial hemorrhage, mass effect or CT evidence of large vascular territory acute infarct. Results reported verbally by phone by myself to Dr. Redd 07/19/2024 at 2:36 a.m.. One or more dose reduction techniques were used (e.g., Automated exposure control, adjustment of the mA and/or kV according to patient size, use of iterative reconstruction technique). Reading Location: [facility] CC: Dr. Moo Carmichael MD; Dr. Mike Redd DO Straddle Buggy Operator: Signed Normal [facility] Screening total cholesterol/ high density lipoprotein (HDL) cholesterol ratioOrdered By: Maryam Vale on 07-19-2024 Cholesterol.total/Choleste rol in HDL [Mass ratio] 3.92 {ratio} [facility] Serum creatinine measurement (mass/volume)Ordered By: Maryam Vale on 07-19-2024 Creatinine [Mass/Vol] 1.24 mg/dL High 0.70-1.20 [facility] Serum creatinine measurement (mass/volume)Ordered By: Mike Redd on 07-19-2024 Creatinine [Mass/Vol] 1.43 mg/dL High 0.70-1.20 [facility] Serum globulin measurementOr dered By: Maryam Vale on 07-19-2024 Globulin (S) [Mass/Vol] 2.6 g/dL 2.2-4.2 [facility] Serum glucose measurement (m ass/volume)Ordered By: Maryam Vale on 07-19-2024 Glucose [Mass/Vol] 97 mg/dL 70-99 [facility] Serum glucose measurement (m ass/volume)Ordered By: Mike Redd on 07-19-2024 Glucose [Mass/Vol] 105 mg/dL High 70-99 [facility] Serum or plasma alanine mathew otransferase (ALT) measurementOrdered By: Maryam Vale on 07-19-2024 ALT [Catalytic activity/Vol] 47 U/L <47 [facility] Serum or plasma albumin kenya urement (mass/volume)Ordered By: Maryam Vale on 07-19-2024 Albumin [Mass/Vol] 3.6 g/dL 3.4-4.8 [facility] Serum or plasma albumin/glob ulin mass ratioOrdered By: Maryam Vale on 07-19-2024 Albumin/Globulin [Mass ratio] 1.4 {ratio} 0.9-2.4 [facility] Serum or plasma alkaline korina sphatase measurementOrdered By: Maryam Vale on 07-19-2024 ALP [Catalytic activity/Vol] 53 U/L 40-129 [facility] Serum or plasma calcium kenya urement (mass/volume)Ordered By: Maryam Vale on 07-19-2024 Calcium [Mass/Vol] 8.9 mg/dL 7.6-11.0 [facility] Serum or plasma calcium kenya urement (mass/volume)Ordered By: Mike Redd on 07-19-2024 Calcium [Mass/Vol] 9.0 mg/dL 7.6-11.0 [facility] Serum or plasma cholesterol in HDL measurement (mass/volume)Ordered By: Maryam Vale on 07-19-2024 Cholesterol in HDL [Mass/Vol] 46 mg/dL >40 [facility] Comment on above: National Cholesterol Education Program (NCEP) guidelines:<40 mg/dL: Low HDL-cholesterol (major risk factor for CHD)>= 60 mg/dL: High HDL-cholesterol (negative risk factor for CHD)HDL-cholesterol is affected by a number of factors, e.g. smoking, exercise, hormones, sex and age. Serum or plasma cholesterol measurement (mass/volume)Ordered By: Maryam Vale on 07-19-2024 Cholesterol [Mass/Vol] 180 mg/dL <201 [facility] Comment on above: Cholesterol level, D esirable <200 mg/dLBorderline high cholesterol 200-239 mg/dLHigh cholesterol >=240 mg/dLRecommendations of the NCEP Adult Treatment Panel for the following risk-cutoff thresholds for the [place] population. Serum or plasma urea nitroge n measurement (mass/volume)Ordered By: Maryam Vale on 07-19-2024 Urea nitrogen [Mass/Vol] 21 mg/dL High - [facility] Serum or plasma urea nitroge n measurement (mass/volume)Ordered By: Mike Redd on 07-19-2024 Urea nitrogen [Mass/Vol] 24 mg/dL High - [facility] Sodium levelOrdered By: Genaro Vale on 07-19-2024 Sodium [Moles/Vol] 138 mmol/L 133-145 [facility] Sodium levelOrdered By: Jericho spivey Ivania on 07-19-2024 Sodium [Moles/Vol] 137 mmol/L 133-145 [facility] TSH DL <= 0.005 mIU/L QnOrde red By: Maryam Vale on 07-19-2024 Thyroid Stimulating Hormone (TSH) 2.920 uIU/mL 0.300-4.200 [facility] TSH Qn 2.920 uIU/mL 0.300-4.200 [facility] Thyroid Stim Hormone (TSH)on 07-19-2024 TSH 2.920 uIU/mL Normal 0.300-4.200 [facility] Comment on above: Order Comment: Comme nts: NPO at [place] prior to lipid panel Performed By: #### L 500.4050, L501.9985, L500.4100, L501.9530, L100.0100 ####[facility] [address] [place], [address] Total proteinOrdered By: Adrian Vale on 07-19-2024 Protein [Mass/Vol] 6.2 g/dL 5.9-8.4 [facility] Triglycerides measurementOrd ered By: Maryam Vale on 07-19-2024 Triglyceride [Mass/Vol] 214 mg/dL High <199 [facility] Comment on above: The drugs N-Acetylcy steine and Metamizole may falsely depress this assay. Normal range: <150 mg/dLBorderline High: 150-199 mg/dLHigh: 200-499 mg/dLVery High: >500 mg/dL White blood cell (WBC) count Ordered By: Maryam Vale on 07-19-2024 WBC (Bld) [#/Vol] 5.2 10*3/uL 4.4-11.0 [facility] White blood cell (WBC) count Ordered By: Mike Redd on 07-19-2024 WBC (Bld) [#/Vol] 6.5 10*3/uL 4.4-11.0 [facility] aPTT Coag (PPP) [Time]Ordere d By: Mike Redd on 07-19-2024 aPTT Coag (Bld) [Time] 27.4 s 24.1-36.2 [facility] Albumin to globulin ratioOrd ered By: Moo Carmichael on 04-29-2024 Albumin/Globulin [Mass ratio] 0.9 {ratio} 0.9-2.4 [facility] Bilirubin directOrdered By: Tori Rivera on 04-29-2024 Bilirubin.direct [Mass/Vol] 0.16 mg/dL 0.00-0.30 [facility] Bilirubin, totalOrdered By: Moo Carmichael on 04-29-2024 Bilirubin [Mass/Vol] 0.60 mg/dL 0.20-1.00 [place] Comment on above: For patients on eltr ombopag therapy, use of Dimension [place] TBIL is not recommended. Blood urea nitrogen (BUN)/cr eatinine ratioOrdered By: Moo Carmichael on 04-29-2024 Urea nitrogen/Creatinine [Mass ratio] 15.9 mg/mg 10-20 [facility] Carbon dioxide measurementOr dered By: Moo Carmichael on 04-29-2024 CO2 [Moles/Vol] 26.0 mmol/L 21.0-32.0 [facility] Chloride measurementOrdered By: Moo Carmichael on 04-29-2024 Chloride [Moles/Vol] 104 mmol/L 98-107 [facility] Comprehensive Metabolic Prof ilon 04-29-2024 Albumin [Mass/Vol] 3.5 g/dL Normal 3.2-5.0 [facility] Comment on above: Performed By: #### L 502.0250, L501.9910, L500.4050 #### [facility] [address] [place], [address] Albumin/Globulin [Mass ratio] 0.9 {ratio} Normal 0.9-2.4 [facility] Comment on above: Performed By: #### L 502.0250, L501.9910, L500.4050 #### [facility] [address] [place], [address] ALK P 59 U/L Normal 45-117 [facility] Comment on above: Performed By: #### L 502.0250, L501.9910, L500.4050 #### [facility] [address] [place], [address] ALT [Catalytic activity/Vol] 40 U/L Normal 16-61 [facility] Comment on above: Performed By: #### L 502.0250, L501.9910, L500.4050 #### [facility] [address] [place], [address] AST [Catalytic activity/Vol] 29 U/L Normal 15-37 [facility] Comment on above: Performed By: #### L 502.0250, L501.9910, L500.4050 #### [facility] [address] [place], [address] Bilirubin [Mass/Vol] 0.60 mg/dL Normal 0.20-1.00 [place] Comment on above: Result Comment: For patients on eltrombopag therapy, use of Dimension [place] TBIL is not recommended. Performed By: #### L 502.0250, L501.9910, L500.4050 #### [facility] [address] [place], [address] BUN/CRE 15.9 RATIO Normal 10-20 [facility] Comment on above: Performed By: #### L 502.0250, L501.9910, L500.4050 #### [facility] [address] [place], [address] CA,Total 9.3 mg/dL Normal 8.5-10.1 [facility] Comment on above: Performed By: #### L 502.0250, L501.9910, L500.4050 #### [facility] [address] [place], [address] Chloride [Moles/Vol] 104 mmol/L Normal 98-107 [place] Comment on above: Performed By: #### L 502.0250, L501.9910, L500.4050 #### [facility] [address], [address] CO2 [Moles/Vol] 26.0 mmol/L Normal 21.0-32.0 [facility] Comment on above: Performed By: #### L 502.0250, L501.9910, L500.4050 #### [facility] [address] [place], [address] Creatinine [Mass/Vol] 1.32 mg/dL High 0.70-1.30 [facility] Comment on above: Result Comment: The validity of the calculated GFR GFRAA in patients over 70 years has not been determined. Clinical correlation is essential. Performed By: #### L 502.0250, L501.9910, L500.4050 #### [facility] [address] [place], [address] EST GFR - AA 70 mL/min Normal >60 [facility] Comment on above: Result Comment: Afri can [place] GFR Calc Performed By: #### L 502.0250, L501.9910, L500.4050 #### [facility] [address] [place], [address] GAP 6 Normal 5-15 [facility] Comment on above: Performed By: #### L 502.0250, L501.9910, L500.4050 #### [facility] [address] [place], [address] GFR/1.73 sq M.predicted among non-blacks MDRD (S/P/Bld) [Vol rate/Area] 58 mL/min/{1.73_m2} Low >60 [facility] Comment on above: Result Comment: Non- GFR Calc Performed By: #### L 502.0250, L501.9910, L500.4050 #### [facility] [address] [place], [address] Globulin (S) [Mass/Vol] 3.8 g/dL Normal 2.2-4.[address] [facility] Comment on above: Performed By: #### L 502.0250, L501.9910, L500.4050 #### [facility] [address] [place], [address] Glucose [Mass/Vol] 109 mg/dL High 74-106 [facility] Comment on above: Result Comment: Fast ing Glucose result from 100 to 125 mg/dL suggests IMPAIRED HOMEOSTASIS per A.D.A. criteria. Performed By: #### L 502.0250, L501.9910, L500.4050 #### [facility] [address] [place], [address] Potassium [Moles/Vol] 4.0 mmol/L Normal 3.5-5.1 [facility] Comment on above: Performed By: #### L 502.0250, L501.9910, L500.4050 #### [facility] [address] [place], [address] Sodium [Moles/Vol] 136 mmol/L Normal 136-145 [facility] Comment on above: Performed By: #### L 502.0250, L501.9910, L500.4050 #### [facility] [address] [place], [address] T PROT 7.3 g/dL Normal 6.4-8.2 [facility] Comment on above: Performed By: #### L 502.0250, L501.9910, L500.4050 #### [facility] [address] [place], [address] Urea nitrogen [Mass/Vol] 21 mg/dL High 7-18 [facility] Comment on above: Performed By: #### L 502.0250, L501.9910, L500.4050 #### [facility] [address] [place], [address] Estimated glomerular filtrat ion rate (GFR) AmericanOrdered By: Moo Carmichael on 04-29-2024 Estimated GFR (MDRD) Amer 70 mL/min >60 [facility] Comment on above: GFR Calc Glomerular filtration rate ( GFR) estimationOrdered By: Moo Carmichael on 04-29-2024 Estimated GFR (MDRD) Non-Af Amer 58 mL/min Low >60 [facility] Comment on above: Non- GFR Calc Glucose measurementOrdered B y: Moo Carmichael on 04-29-2024 Glucose [Mass/Vol] 109 mg/dL High 74-106 [facility] Comment on above: Fasting Glucose resu lt from 100 to 125 mg/dL suggests IMPAIRED HOMEOSTASIS per A.D.A. criteria. High density lipoprotein (HD L) measurementOrdered By: Toir Rivera on 04-29-2024 Cholesterol in HDL [Mass/Vol] 54 mg/dL >40 [facility] Comment on above: The drugs N-Acetylcy steine and Metamizole may falsely depress this assay. Reference Range HDL <40 mg/dL Low HDL Cholesterol HDL >or= 60 mg/dL High HDL Cholesterol Laboratory - Chemistry and C hemistry - challengeOrdered By: Moo Carmichael on 04-29-2024 AST [Catalytic activity/Vol] 29 U/L 15-37 [facility] Lipid Profileon 04-29-2024 Cholesterol [Mass/Vol] 165 mg/dL Normal 200 [facility] Comment on above: Result Comment: <200 mg/dL Desirable 200-240 mg/dL Borderline >240 mg/dL High Risk Performed By: #### L 500.3400, L500.4100 ####[facility] [address] [place], [address] Cholesterol in HDL [Mass/Vol] 54 mg/dL Normal [facility] Comment on above: Result Comment: The drugs N-Acetylcysteine and Metamizole may falsely depress this assay. Reference Range HDL <40 mg/dL Low HDL Cholesterol HDL >or= 60 mg/dL High HDL Cholesterol Performed By: #### L 500.3400, L500.4100 ####[facility] [address] [place], [address] Cholesterol in LDL [Mass/Vol] 84 mg/dL Normal 0-130 [facility] Comment on above: Performed By: #### L 500.3400, L500.4100 ####[facility] [address] [place], [address] Cholesterol in VLDL [Mass/Vol] 27 mg/dL Normal 5-40 [facility] Comment on above: Performed By: #### L 500.3400, L500.4100 ####[facility] [address] [place], [address] Triglyceride [Mass/Vol] 136 mg/dL Normal [facility] Comment on above: Result Comment: The drugs N-Acetylcysteine and Metamizole may falsely depress this assay. Serum Triglycerides Reference Interval Normal <150 mg/dL Borderline high 150 - 199 mg/dL High 200 - 499 mg/dL Very High > or = 500 mg/dL Performed By: #### L 500.3400, L500.4100 ####[facility] [address] [place], [address] Liver Profileon 04-29-2024 Albumin [Mass/Vol] 3.6 g/dL Normal 3.2-5.0 [facility] Comment on above: Performed By: #### L 500.3400, L500.4100 ####[facility] [address] [place], [address] ALK P 54 U/L Normal 45-117 [facility] Comment on above: Performed By: #### L 500.3400, L500.4100 ####[facility] [address] [place], [address] ALT [Catalytic activity/Vol] 40 U/L Normal 16-61 [facility] Comment on above: Performed By: #### L 500.3400, L500.4100 ####[facility] [address] [place], [address] AST [Catalytic activity/Vol] 27 U/L Normal 15-37 [facility] Comment on above: Performed By: #### L 500.3400, L500.4100 ####[facility] [address] [place], [address] Bilirubin [Mass/Vol] 0.50 mg/dL Normal 0.20-1.00 [place] Comment on above: Result Comment: For patients on eltrombopag therapy, use of Dimension [place] TBIL is not recommended. Performed By: #### L 500.3400, L500.4100 ####[facility] [address] [place], [address] Bilirubin.direct [Mass/Vol] 0.16 mg/dL Normal 0.00-0.30 [facility] Comment on above: Performed By: #### L 500.3400, L500.4100 ####[facility] [address] [place], [address] Globulin (S) [Mass/Vol] 3.6 g/dL Normal 2.2-4.2 [facility] Comment on above: Performed By: #### L 500.3400, L500.4100 ####[facility] [address] [place], [address] T PROT 7.2 g/dL Normal 6.4-8.2 [facility] Comment on above: Performed By: #### L 500.3400, L500.4100 ####[facility] [address] [place], [address] Low density lipoprotein (LDL ) cholesterol measurementOrdered By: Tori Rivera on 04-29-2024 Cholesterol in LDL [Mass/Vol] 84 mg/dL 0-130 [facility] Microalb:Creat Ratio,Random URon 04-29-2024 Creatinine [Mass/Vol] 189.00 mg/dL Normal NO RAN GE EST. [facility] Comment on above: Performed By: #### L 502.0250, L501.9910, L500.4050 #### [facility] [address] [place], [address] MALB:CRE 3.1 mg/g CRE Normal <30 mg/g CRE [facility] Comment on above: Performed By: #### L 502.0250, L501.9910, L500.4050 #### [facility] [address] [place], [address] MICROALBUMIN,UR 5.8 mg/L Normal NO RANGE EST. [facility] Comment on above: Performed By: #### L 502.0250, L501.9910, L500.4050 #### [facility] [address] [place], [address] PSA,Total - Annual Screenon 04-29-2024 PSA,TOT SCREEN 0.85 ng/mL Normal 0.00-4.00 [facility] Comment on above: Result Comment: This test was performed using the TPSA assay method for the [employer] chemistry system. Values obtained with different assay methods cannot be used interchangably. When changing PSA assays in the course of monitoring a patient, additional sequential testing should be carried out to confirm baseline values. Performed By: #### L 502.0250, L501.9910, L500.4050 #### [facility] [address] [place], [place], [address] Potassium measurementOrdered By: Moo Carmichael on 04-29-2024 Potassium [Moles/Vol] 4.0 mmol/L 3.5-5.1 [facility] Random urine microalbumin me asurementOrdered By: Moo Carmichael on 04-29-2024 Urine Random Microalbumin 5.8 mg/L NO RANGE EST. [facility] Screening prostate specific antigen (PSA) measurementOrdered By: Moo Carmichael on 04-29-2024 Prostate Specific Antigen Screen 0.85 ng/mL 0.00-4.00 [facility] Comment on above: This test was perfor med using the TPSA assay method for [employer] chemistry system. Values obtained with differentassay methods cannot be used interchangably.When changing PSA assays in the course of monitoring apatient, additional sequential testing should be carriedout to confirm baseline values. Serum anion gap measurementO rdered By: Moo Carmichael on 04-29-2024 Anion gap [Moles/Vol] 6 mmol/L 5-15 [facility] Serum globulin measurementOr dered By: Moo Carmichael on 04-29-2024 Globulin (S) [Mass/Vol] 3.8 g/dL 2.2-4.2 [facility] Serum or plasma alanine mathew otransferase (ALT) measurementOrdered By: Moo Carmichael on 04-29-2024 ALT [Catalytic activity/Vol] 40 U/L 16-61 [facility] Serum or plasma albumin kenya urement (mass/volume)Ordered By: Moo Carmichael on 04-29-2024 Albumin [Mass/Vol] 3.5 g/dL 3.2-5.0 [facility] Serum or plasma alkaline korina sphatase measurementOrdered By: Moo Carmichael on 04-29-2024 ALP [Catalytic activity/Vol] 59 U/L 45-117 [facility] Serum or plasma calcium kenya urement (mass/volume)Ordered By: Moo Carmichael on 04-29-2024 Calcium [Mass/Vol] 9.3 mg/dL 8.5-10.1 [facility] Serum or plasma cholesterol measurement (mass/volume)Ordered By: Tori Rivera on 04-29-2024 Cholesterol [Mass/Vol] 165 mg/dL <200 [facility] Comment on above: <200 mg/dL Desirable 200-240 mg/dL Borderline >240 mg/dL High Risk Serum or plasma creatinine m easurement (mass/volume)Ordered By: Moo Carmichael on 04-29-2024 Creatinine [Mass/Vol] 1.32 mg/dL High 0.70-1.30 [facility] Comment on above: The validity of the calculated GFR & GFRAA in patients over 70 years has not been determined. Clinical correlation is essential. Serum or plasma urea nitroge n measurement (mass/volume)Ordered By: Moo Carmichael on 04-29-2024 Urea nitrogen [Mass/Vol] 21 mg/dL High 7-18 [facility] Sodium levelOrdered By: Moo Carmichael on 04-29-2024 Sodium [Moles/Vol] 136 mmol/L 136-145 [facility] Total proteinOrdered By: Regla Carmichael on 04-29-2024 Protein [Mass/Vol] 7.3 g/dL 6.4-8.2 [facility] Triglycerides measurementOrd ered By: Tori Rivera on 04-29-2024 Triglyceride [Mass/Vol] 136 mg/dL <[address] [facility] Comment on above: The drugs N-Acetylcy steine and Metamizole may falsely depress this assay.Serum Triglycerides Reference Interval Normal <150 mg/dL Borderline high 150 - 199 mg/dL High 200 - 499 mg/dL Very High > or = 500 mg/dL Urine albumin/creatinine rat io for detection of microalbuminuriaOrdered By: Moo Carmichael on 04-29-2024 Urine Microalbumin/Creatinine Ratio 3.1 mg/g CRE <30 [facility] Urine creatinine measurement (mass/volume)Ordered By: Moo Carmichael on 04-29-2024 Creatinine (U) [Mass/Vol] 189.00 mg/dL NO RANGE EST. [facility] Very low density lipoprotein (VLDL) cholesterol measurementOrdered By: Tori Rivera on 04-29-2024 VLDL Cholesterol 27 mg/dL 5-40 [facility] Basophil percentageOrdered B y: Tori Rivera on 04-18-2023 Chloride [Moles/Vol] 104 mmol/L 98-107 [place] Glucose [Mass/Vol] 115 mg/dL 74-106 [facility] Comment on above: Fasting Glucose resu lt from 100 to 125 mg/dL suggests IMPAIRED HOMEOSTASIS per A.D.A. criteria. Potassium [Moles/Vol] 3.9 mmol/L 3.5-5.1 [facility] Sodium [Moles/Vol] 136 mmol/L 136-145 [facility] Laboratory - Chemistry and C hemistry - challengeOrdered By: Tori Rivera on 04-18-2023 CO2 [Moles/Vol] 27.0 mmol/L 21.0-32.0 [facility] Urea nitrogen/Creatinine [Mass ratio] 16.7 mg/mg 10-20 [facility] No Panel InformationOrdered By: Tori Rivera on 04-18-2023 Estimated GFR (MDRD) Amer 63 mL/min >60 [facility] Comment on above: GFR Calc Estimated GFR (MDRD) Non-Af Amer 52 mL/min >60 [facility] Comment on above: Non- GFR Calc Serum or plasma calcium kenya urement (mass/volume)Ordered By: Tori Rivera on 04-18-2023 Calcium [Mass/Vol] 9.0 mg/dL 8.5-10.1 [facility] Serum or plasma creatinine m easurement (mass/volume)Ordered By: Tori Rivera on 04-18-2023 Creatinine [Mass/Vol] 1.44 mg/dL 0.70-1.30 [facility] Comment on above: The validity of the calculated GFR & GFRAA in patients over 70 years has not been determined. Clinical correlation is essential. Serum or plasma urea nitroge n measurement (mass/volume)Ordered By: Tori Rivera on 04-18-2023 Urea nitrogen [Mass/Vol] 24 mg/dL 7-18 [facility] Thin prep Papanicolaou smear with manual screeningOrdered By: Tori Rivera on 04-18-2023 Thin prep Papanicolaou smear with manual screening 5 5-15 [facility] Basophil percentageOrdered B y: Tori Rivera on 07-15-2022 Creatinine [Mass/Vol] 1.2 mg/dL 0.70-1.30 [facility] No Panel InformationOrdered By: Tori Rivera on 07-15-2022 Bedside Estimated GFR (eGFR) > 60.0000 mL/min >60 [facility] Office Visiton 10-22-2016 Fall risk assessment No [facility] [employer] Work Phone: [phone] Protein mass conc Done [facility] [employer] Work Phone: [phone] Office Visit: [facility] 10-24-19 16 Documentation of current medications (procedure) Done Invalid Interpretation Code [facility] Work Phone: [phone] External Other: Preferred Me thod of Contacton 04-27-2015 methcontact phone [facility] [employer] Work Phone: [phone] Patient's prefered method of contact phone Invalid Interpretation Code [facility] Work Phone: [phone] Office Visiton 04-27-2015 Tobacco smoking status NHIS Never smoker [employer] Work Phone: [phone] Tobacco use CPHS Never smoker Invalid Interpretation Code [employer] Work Phone: [phone] Replaced Document: Alfredo Shen CG Observationson 12-13-2014 EKG QRS axis 52 deg [employer] Work Phone: [phone] electrocardiogram interpretation Sinus Rhythm WITHIN NORMAL LIMITS Invalid Interpretation Code [facility] Work Phone: [phone] GE use only - for [employer] import when terms are not otherwise specified 394 ms Invalid Interpretation Code [facility] Work Phone: [phone] Interpretation Sinus Rhythm WITHIN NORMAL LIMITS [facility] Work Phone: [phone] P [place] 44 deg [facility] Work Phone: [phone] P wave axis, electrocardiogram 44 deg Invalid Interpretation Code [facility] Work Phone: [phone] NH Interval 152 ms [facility] Work Phone: [phone] NH interval, electrocardiogram 152 ms Invalid Interpretation Code [facility] Work Phone: [phone] Pulse (Heart Rate) 92 /min Invalid Interpretation Code [facility] Work Phone: [phone] QRS axis, electrocardiogram 52 deg Invalid Interpretation Code [facility] Work Phone: [phone] QRS Duration 94 ms [facility] Work Phone: [phone] QRS duration, electrocardiogram 94 ms Invalid Interpretation Code [facility] Work Phone: [phone] QT Interval new path ms [facility] Work Phone: [phone] QT interval, electrocardiogram new path ms Invalid Interpretation Code [facility] Work Phone: [phone] QTc Lin 394 ms [facility] Work Phone: [phone] T [place] -1 deg [facility] Work Phone: [phone] T wave axis, electrocardiogram -1 deg Invalid Interpretation Code [facility] Work Phone: [phone] Clinical 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 Alanine aminotransferase (ALT) 36 U/L [facility] Work Phone: [phone] Albumin 3.8 g/dL [facility] Work Phone: [phone] Alkaline phosphatase (ALP) 54 U/L Inval id Interpretation Code [facility] Work Phone: [phone] ALP enzyme act/vol (Bld) 54 U/L [facility] Work Phone: [phone] Anion gap 14 mmol/L Invalid Interpretation Code [facility] Work Phone: [phone] Anion gap molar conc 14 mmol/L [facility] Work Phone: [phone] Aspartate aminotransferase (AST) 28 U/L [facility] Work Phone: [phone] basophils as percent of blood leukocytes, manual count 0.2 % [facility] Work Phone: [phone] Bilirubin (total) mg/dL [facility] Work Phone: 1) Calcium 9.5 mg/dL [facility] Work Phone: 1) Chloride 97 mmol/L Low [facility] Work Phone: [phone] CO2 24 mmol/L Invalid Interpretation Code [facility] Work Phone: [phone]) CO2 ppres (BldV) 24 mmol/L [facility] Work Phone: 1) Creatinine 1.48 mg/dL High [facility] Work Phone: 1) eGFR (non-black) 59 mL/min/{1.73_m2} [facility] Work Phone: 1) eGFR (non-black) 49 mL/min/{1.73_m2} Invalid Interpretation Code [facility] Work Phone: 1) eosinophils as percent of blood leukocytes, manual count 0.0 % [facility] Work Phone: [phone] Erythrocyte distribution width Ratio (RBC) 13.7 % [facility] Work Phone: [phone] Erythrocytes (RBC) 4.0 10*6/uL Low [facility] Work Phone: [phone]) Glomerular Filtration Rate 49 mL/min/1.73m2 [facility] Work Phone: [phone]) Glucose 88 mg/dL Invalid Interpretation Code [facility] Work Phone: [phone] Glucose mass conc 88 mg/dL [facility] Work Phone: 1) Hematocrit (HCT) 37.0 % Low [facility] Work Phone: [phone] Hematocrit Volume Fraction (Bld) 37.0 % Low [facility] Work Phone: [phone] Hemoglobin (HGB) 12.7 g/dL Low [facility] Work Phone: [phone] Lymphocytes/100 leukocytes 32.6 % Inval id Interpretation Code [facility] Work Phone: [phone] Lymphocytes/100 WBC (Bld) 32.6 % [facility] Work Phone: [phone] MCH 31.8 pg Invalid Interpretation Code [facility] Work Phone: [phone] MCH Entitic mass (RBC) 31.8 pg [facility] Work Phone: [phone] MCHC 34.3 g/dL Invalid Interpretation Code [facility] Work Phone: [phone] MCHC mass conc (RBC) 34.3 g/dL [facility] Work Phone: [phone] MCV 92.5 fL Invalid Interpretation Code [facility] Work Phone: [phone] MCV Entitic volume (RBC) 92.5 fL [facility] Work Phone: [phone] Monocytes/100 leukocytes 12.8 % Invalid Interpretation Code [facility] Work Phone: [phone] Monocytes/100 WBC (Bld) 12.8 % [facility] Work Phone: [phone] neutrophils, band form as percent of blood leukocytes, manual count 54.4 % [facility] Work Phone: [phone] Platelet mean volume Entitic volume (Bld) 9.0 fL [facility] Work Phone: [phone] Platelets 273 10*3/mm3 Invalid Interpretation Code [facility] Work Phone: [phone] Platelets #/vol (Bld) 273 10*3/mm3 [facility] Work Phone: [phone] PMV by Dionte 9.0 fL Invalid Interpretation Code [facility] Work Phone: [phone] Potassium 4.6 mmol/L [facility] Work Phone: [phone] Protein 6.2 g/dL [facility] Work Phone: [phone] RBC #/vol (Bld) 4.0 10*6/uL Low [facility] Work Phone: [phone] RDW-CA 13.7 % Invalid Interpretation Code [facility] Work Phone: [phone] Sodium 135 mmol/L [facility] Work Phone: [phone] Urea nitrogen 7 mg/dL Low [facility] Work Phone: [phone] WBC #/vol (Bld) 4.38 10*3/uL [employer] Work Phone: [phone] WBC (Leukocytes) 4.38 10*3/uL Invalid Interpretation Code [facility] Work Phone: [phone] Visiton 08-23-2014 cardiac risk group C GMI [facility]ings [facility] Work Phone: [phone] cardiovascular disease 10Y risk [#] [place] 11 % [employer] Work Phone: [phone] Lab Report: CBC W/Diff, Auto matedon 07-04-2014 Absolute Neut 4.7 X10 3/UL 2.0-7.7 [employer] Work Phone: [phone] Absolute Neutrophil count 4.7 X10 3/UL Invali d Interpretation Code 2.0-7.7 [employer] Work Phone: Basophils/100 leukocytes 0.1 % Invalid Interpretation Code 0-1 [employer] Work Phone: Basophils/100 WBC (Bld) 0.1 % 0-1 [facility] Work Phone: Eosinophils/100 leukocytes 0.5 % Inval id Interpretation Code 0-5 [facility] Work Phone: Eosinophils/100 WBC (Bld) 0.5 % 0-5 [facility] Work Phone: [phone] Lymphocytes 3.36 X10 3/UL Invalid Interpretation Code 0.83-4.51 [facility] Work Phone: Lymphocytes #/vol (Bld) 3.36 X10 3/UL 0.83-4.51 [facility] Work Phone: Neutrophils/100 leukocytes 53.1 % Inval id Interpretation Code 47-70 [facility] Work Phone: Neutrophils/100 WBC (Bld) 53.1 % 47-70 [facility] Work Phone: [phone] Lab Report: CRPon 07-04-2014 C Reactive Protein, semiquantitative result 13.00 Critically high 0.0-3.0 [facility] Work Phone: [phone] C-REACTIVE PROT 13.00 Critically high 0.0-3.[address] [facility] Work Phone: [phone] Lab Report: Comprehensive Me tabolic Profilon 07-04-2014 Albumin/Globulin Ratio 0.8 {ratio} Critically low 0.9-2.4 [facility] Work Phone: [phone] BUN/Creatinine Ratio 19.1 RATIO 10-[address] [facility] Work Phone: [phone] eGFR (non-black) 73 mL/min/{1.73_m2} >60 [facility] Work Phone: [phone] eGFR (non-black) 88 mL/min/{1.73_m2} Invalid Interpretation Code >60 [facility] Work Phone: [phone] EST GFR - AA 88 mL/min >60 [facility] Work Phone: [phone] Globulin 3.5 g/dL Invalid Interpretation Code 2.7-4.2 [facility] Work Phone: [phone] Globulin mass conc (S) 3.5 g/dL 2.7-4.2 [facility] Work Phone: [phone] Replaced Document: (P) Eryth rocyte Sed Rateon 07-04-2014 Erythrocyte sedimentation rate 20 mm/h 0-20 [facility] Work Phone: [phone] Clinical Lists Update: Prelo community outreach advocate 05-08-2014 Thyroid stimulating hormone (TSH) 2.09 u[iU]/mL [facility] Work Phone: [phone] Replaced Document: [employer] E CG Observationson 08-09-2013 Pulse (Heart Rate) 390 ms Invalid Interpretation Code [facility] Work Phone: [phone] Clinical Lists Update: Prelo community outreach advocate 03-12-2013 Cholesterol 249 mg/dL High [facility] Work Phone: [phone] HDL Cholesterol 56 mg/dL [facility] Work Phone: [phone] LDL Cholesterol 172 mg/dL High [facility] Work Phone: [phone] Triglyceride 105 mg/dL [facility] Work Phone: [phone] Vital Signs Date Time Vital Sign Value Performing Clinician Hilda montanez 10-01-2024 07:56-0400 Body height 167.[address] Moo Carmichael MD Work Phone: [facility] 10-01-2024 07:56-0400 Body mass index (BMI) [Ratio] 30.7 kg/m2 Dr. Moo Carmichael MD Work Phone: [facility] 10-01-2024 07:56-0400 Body weight 86.[address] Moo Carmichael MD Work Phone: [facility] 10-01-2024 07:56-0400 Diastolic blood pressure 86 mm[Hg] Dr. Moo Carmichael MD Work Phone: [facility] 10-01-2024 07:56-0400 Heart rate 67 /min Dr. Moo Carmichael MD Work Phone: [facility] 10-01-2024 07:56-0400 Respiratory rate 16 /min Dr. Moo Carmichael MD Work Phone: [facility] 10-01-2024 07:56-0400 Systolic blood pressure 122 mm[Hg] Dr. Moo Carmichael MD Work Phone: [facility] 07-19-2024 14:14-0400 Body height 167.[address] Moo Carmichael MD Work Phone: [facility] 07-19-2024 14:14-0400 Body weight 86.[address] Moo Carmichael MD Work Phone: [facility] 07-19-2024 13:55-0400 Body temperature 97.4 [degF] Dr. Moo Carmichael MD Work Phone: [facility] 07-19-2024 13:55-0400 Diastolic blood pressure 91 mm[Hg] Dr. Moo Carmichael MD Work Phone: [facility] 07-19-2024 13:55-0400 Heart rate 80 /min Dr. Moo Carmichael MD Work Phone: [facility] 07-19-2024 13:55-0400 Respiratory rate 16 /min Dr. Moo Carmichael MD Work Phone: 8(907)501-544032 [place] [address] 07-19-2024 13:55-0400 SaO2% (BldA) [Mass fraction] 97 % Dr. Moo Carmichael MD Work Phone: 3(183)028-013632 [place] [address] 07-19-2024 13:55-0400 Systolic blood pressure 149 mm[Hg] Dr. Moo Carmichael MD Work Phone: 2(442)595-173417 [place] [address] 07-19-2024 06:00-0400 Body mass index (BMI) [Ratio] 30.7 kg/m2 Dr. Moo Carmichael MD Work Phone: 3(982)434-625217 [place] [address] 07-19-2024 03:30-0400 Diastolic blood pressure 98 mm[Hg] Dr. Moo Carmichael MD Work Phone: 0(929)314-885632 [place] [address] 07-19-2024 03:30-0400 Heart rate 83 /min Dr. Moo Carmichael MD Work Phone: 9(147)294-175217 [place] [address] 07-19-2024 03:30-0400 Respiratory rate 18 /min Dr. Moo Carmichael MD Work Phone: 2(331)727-885632 [place] [address] 07-19-2024 03:30-0400 SaO2% (BldA) [Mass fraction] 98 % Dr. Moo Carmichael MD Work Phone: 6(307)735-936432 [place] [address] 07-19-2024 03:30-0400 Systolic blood pressure 155 mm[Hg] Dr. Moo Carmichael MD Work Phone: 4(954)123-683117 [place] [address] 07-19-2024 03:12-0400 Body temperature 98 [degF] Dr. Moo Carmichael MD Work Phone: 3(461)567-736532 [place] [address] 07-19-2024 02:12-0400 Body height 167.[address] Moo Carmichael MD Work Phone: 8(311)155-809232 [place] [address] 07-19-2024 02:12-0400 Body mass index (BMI) [Ratio] 31.4 kg/m2 Dr. Moo Carmichael MD Work Phone: 0(605)592-250832 [place] [address] 07-19-2024 02:12-0400 Body weight 88.[address] Moo Carmichael MD Work Phone: 0(119)996-030517 [place] [address] 09-05-2023 08:45-0400 Body temperature 97.7 [degF] Dr. Moo Carmichael Work Phone: 4(835)280-128617 [place] [address] 09-05-2023 08:45-0400 Diastolic blood pressure 81 mm[Hg] Dr. Moo Carmichael Work Phone: 6(074)022-386117 [place] [address] 09-05-2023 08:45-0400 Heart rate 67 /min Dr. Moo Carmichael Work Phone: 2(209)972-839317 [place] [address] 09-05-2023 08:45-0400 Respiratory rate 18 /min Dr. Moo Carmichael Work Phone: 8(527)756-856017 [place] [address] 09-05-2023 08:45-0400 SaO2% (BldA) [Mass fraction] 100 % Dr. Moo Carmichael Work Phone: 0(002)709-916117 [place] [address] 09-05-2023 08:45-0400 Systolic blood pressure 117 mm[Hg] Dr. Moo Carmichael Work Phone: 1(879)168-039517 [place] [address] 09-05-2023 08:24-0400 Inhaled oxygen flow rate 2 L/min Dr. Moo Carmichael Work Phone: 7(506)020-522732 [place] [address] 09-05-2023 06:50-0400 Body height 165.[address] Moo Carmichael Work Phone: 6(720)873-483417 [place] [address] 09-05-2023 06:50-0400 Body mass index (BMI) [Ratio] 30.7 kg/m2 Dr. Moo Carmichael Work Phone: 8(004)467-778332 [place] [address] 09-05-2023 06:50-0400 Body weight 83.[address] Moo Carmichael Work Phone: 0(008)223-361632 [place] [address] 07-21-2023 10:42-0400 Body mass index (BMI) [Ratio] 29 kg/m2 Dr. Moo Carmichael Work Phone: [facility] 07-21-2023 10:42-0400 Body weight 81.[address] Moo Carmichael Work Phone: [facility] 04-01-2023 11:20-0500 Body height 167.[address] Moo Carmichael Work Phone: [facility] 04-01-2023 11:17-0500 Body mass index (BMI) [Ratio] 31.1 kg/m2 Dr. oMo Carmichael Work Phone: [facility] 04-01-2023 11:17-0500 Body weight 87.[address] Moo Carmichael Work Phone: [facility] 04-01-2023 11:17-0500 Diastolic blood pressure 88 mm[Hg] Dr. Moo Carmichael Work Phone: [facility] 04-01-2023 11:17-0500 Heart rate 82 /min Dr. Moo Carmichael Work Phone: [facility] 04-01-2023 11:17-0500 Respiratory rate 18 /min Dr. Moo Carmichael Work Phone: [facility] 04-01-2023 11:17-0500 SaO2% (BldA) [Mass fraction] 97 % Dr. Moo Carmichael Work Phone: [facility] 04-01-2023 11:17-0500 Systolic blood pressure 136 mm[Hg] Dr. Moo Carmichael Work Phone: [facility] 07-15-2022 15:21-0500 Body height 167.[address] Moo Carmichael Work Phone: [facility] 07-15-2022 15:21-0500 Body mass index (BMI) [Ratio] 30.3 kg/m2 Dr. Moo Carmichael Work Phone: [facility] 07-15-2022 15:21-0500 Body weight 85.[address] Moo Carmichael Work Phone: [facility] 07-15-2022 15:21-0500 Diastolic blood pressure 99 mm[Hg] Dr. Moo Carmichael Work Phone: [facility] 07-15-2022 15:21-0500 Heart rate 100 /min Dr. Moo Carmichael Work Phone: [facility] 07-15-2022 15:21-0500 Respiratory rate 18 /min Dr. Moo Carmichael Work Phone: [facility] 07-15-2022 15:21-0500 SaO2% (BldA) [Mass fraction] 99 % Dr. Moo Carmichael Work Phone: [facility] 07-15-2022 15:21-0500 Systolic blood pressure 158 mm[Hg] Dr. Moo Carmichael Work Phone: [facility] 10-22-2016 16:33-0400 BMI (Body Mass Index) 29.53 kg/m2 MD [facility] Work Phone: 10-22-2016 16:33-0400 BP Diastolic 70 mm[Hg] MD [facility] Work Phone: 10-22-2016 16:33-0400 BP Systolic 100 mm[Hg] Surya Jose MD [facility] Work Phone: 10-22-2016 16:33-0400 Height 167.64 cm MD [facility] Work Phone: 10-22-2016 16:33-0400 Pulse (Heart Rate) 64 /min MD [facility] Work Phone: 10-22-2016 16:33-0400 Respiratory Rate 20 /min MD [facility] Work Phone: 10-22-2016 16:33-0400 Weight 83.01 kg Surya Jose MD [facility] Work Phone: 10-24-2015 15:23-0400 BMI (Body Mass Index) 29.13 kg/m2 [facility] Work Phone: 10-24-2015 15:23-0400 BP Diastolic 98 mm[Hg] [facility] Work Phone: 10-24-2015 15:23-0400 BP Systolic 140 mm[Hg] [facility] Work Phone: 10-24-2015 15:23-0400 BSA (Body Surface Area) 1.92 m2 [facility] Work Phone: 10-24-2015 15:23-0400 Pulse (Heart Rate) 64 /min [facility] Work Phone: 10-24-2015 15:23-0400 Respiratory Rate 18 /min [facility] Work Phone: 10-24-2015 15:23-0400 Weight 81.87 kg [facility] Work Phone: 04-27-2015 15:35-0500 Height 167.64 cm [facility] Work Phone: 04-27-2015 15:35-0500 Pulse Oximetry 93 % [facility] Work Phone: 12-13-2014 12:08-0400 Heart rate 92 /min MD [facility] Work Phone: 08-09-2013 13:03-0400 Heart rate 390 ms MD [facility] Work Phone: 08-09-2013 12:57-0400 Body Temperature 97.3 [degF] [facility] Work Phone: 08-09-2013 12:57-0400 Pulse Oximetry 92 % [facility] Work Phone: Encounters Encounter Date Encounter Type Care Provider Facility Start: 10-01-2024 End: 10-01-[address] Moo Carmichael MD Work Phone: [facility] Work Phone: Start: 10-01-2024 End: 10-01-2024 Patient encounter procedure Jameel PINO -[facility] Work Phone: Start: 10-01-2024 End: 10-01-2024 ambulatory Moo [place] Facility:[facility] Start: 09-21-2024 ambulatory Moo Carmichael Facility:[facility] Start: 07-28-[address] Brett ortiz DO -Cardiovascular Services Work Phone: Start: 07-28-2024 ambulatory Brett Webster y:[facility] Start: 07-27-2024 ambulatory Surya Jose Facility:[facility] Start: 07-27-2024 Non-patient / Non-visit Dr. Ruddy JIMENEZ -[facility] Work Phone: Start: 07-19-2024 ambulatory Rommel Tolbert Fa cility:[facility] Start: 07-19-2024 Non-patient / Non-visit Dr. Lo Tolbert MD -[facility] Start: 07-19-2024 End: 07-19-2024 ambulatory Moo Carmichael Facility:[facility] Start: 07-19-2024 End: 07-19-2024 Evaluation and management of inpatient Dr. Maryam Vale MD -Progressive Care Unit Work Phone: Start: 07-19-2024 End: 07-19-[address] Moo Carmichael MD Work Phone: [facility] Work Phone: Start: 04-29-2024 End: 04-29-[address] Moo Carmichael MD -Laboratory, [facility] Start: 04-29-2024 End: 04-29-2024 ambulatory Moo Carmichael Facility:[facility] Start: 09-05-2023 Non-patient / Non-visit Dr. Fredis Carmichael Work Phone: [facility] Start: 09-05-2023 End: 09-05-2023 Admission to same day surgery center Dr. Moo Carmichael Work Phone: [facility]-Endoscopy Work Phone: Start: 09-05-2023 End: 09-05-[address] Moo Carmichael Work Phone: [facility] Work Phone: Start: 07-21-2023 Non-patient / Non-visit Dr. Fredis Carmichael Work Phone: [facility] Work Phone: Start: 04-18-2023 End: 04-18-[address] Moo Carmichael Work Phone: [facility] Work Phone: Start: 04-18-2023 End: 04-18-[address] Moo Carmichael Work Phone: [facility]-Laboratory Work Phone: Start: 04-01-2023 End: 04-01-[address] Moo Carmichael Work Phone: [facility] Work Phone: Start: 07-25-2022 Non-patient / Non-visit Dr. Fredis Carmichael Work Phone: [facility] Start: 07-25-2022 End: 07-25-[address] Moo Carmichael Work Phone: [facility] Work Phone: Start: 07-25-2022 End: 07-25-[address] Moo Carmichael Work Phone: [facility]-Cardiovascula r Services Start: 07-15-2022 End: 07-15-[address] Moo Carmichael Work Phone: [facility] Start: 07-15-2022 End: 07-15-[address] Moo Carmichael Work Phone: [facility] Start: 07-05-2022 End: 07-05-[address] Moo Carmichael Work Phone: [facility]-Pulmonary Services/Neurology Procedures Date Procedure Procedure Detail Performing Clinician Start: 07-19-[address] Moo Carmichael MD Work Phone: Start: 07-19-2024 MRI of brain without contrast Dr. Moo Carmichael MD Work Phone: Start: 07-19-2024 CT angiography of he ad and neck Dr. Moo Carmichael MD Work Phone: Start: 07-19-2024 CT of head without contrast Dr. Moo Carmichael MD Work Phone: Start: 07-19-2024 Plain chest X-ray Dr. Ac Carmichael MD Work Phone: Start: 09-05-[address] Moo manuel Work Phone: Start: 07-15-2022 CT angiography of ch est with contrast Dr. Moo Carmichael Work Phone: Start: 04-27-2015 End: 04-27-2015 Follow Up Appt 6 months Minh Washington Start: 04-27-2015 End: 04-27-2015 MMM Surya Jose MD Start: 12-13-2014 End: 12-13-2014 SHRIMP PEELING MACHINE OPERATOR Surya Jose MD Start: 12-13-2014 End: 12-13-2014 Electrocardiogram, complete Surya Lambert i, MD Start: 12-13-2014 End: 12-13-2014 Follow Up Appt 4 months Minh [place] Start: 08-23-2014 End: 12-13-2014 YUDITH Jose MD Start: 08-23-2014 End: 08-24-2014 Documentation of current medications Surya Jose MD Start: 08-23-2014 End: 12-13-2014 Echocardiography Surya Jose MD Start: 08-23-2014 End: 12-13-2014 Follow Up Appt 1 year Surya Jose MD Start: 02-18-2014 End: 02-18-2014 YUDITH Rivera PA-C Work Phone: Start: 02-18-2014 End: 02-18-2014 Follow Up Appt 6 months Tori soriano PA-C Work Phone: Start: 08-17-2013 End: 08-17-2013 Follow Up Appt 6 months Minh [place] Start: 08-17-2013 End: 08-17-2013 MM Surya Jose MD Start: 08-09-2013 End: 02-02-2014 YUDITH Rivera PA-C Work Phone: Start: 08-09-2013 End: 02-02-2014 Ct thorax w/dye Tori Rivera PA-C Work Phone: Start: 08-09-2013 End: 02-02-2014 Electrocardiogram, complete Tori Paul PA-C Work Phone: Start: 08-09-2013 End: 02-18-2014 Follow Up Appt Other Tori gonzalez PA-C Work Phone: Start: 03-31-2013 End: 03-31-2013 YUDITH Jose MD Start: 03-31-2013 End: 04-19-2013 Echocardiography Surya Jose MD Start: 03-31-2013 End: 03-31-2013 Follow Up Appt 1 year Surya Jose MD Start: 03-31-2013 End: 04-16-2013 Nuclear stress test -exercise Surya Lou MD Plan of Treatment Date Care Activity Detail Author Start: 07-19-2024 Emergency department visit high/urgent severity EMERGENCY DEPT VISIT MOD MDM [facility] Start: 07-19-2024 Patient discharge [facility] Start: 07-19-2024 End: 07-19-2024 [facility] Start: 07-19-2024 Following clinical pathway protocol [facility] Start: 07-19-2024 Aspiration precautions [facility] Start: 07-19-2024 Assessment of risk of venous thromboembolism [facility] Start: 07-19-2024 Cardiac monitoring [facility] Start: 07-19-2024 Catheterization of vein [facility] Start: 07-19-2024 Consultation [facility] Start: 07-19-2024 Continuous pulse oximetry [facility] Start: 07-19-2024 Elevation of head of bed [facility] Start: 07-19-2024 Exercises [facility] Start: 07-19-2024 Fall prevention [facility] Start: 07-19-2024 Incentive spirometry [facility] Start: 07-19-2024 Inhalation therapy procedure [facility] Start: 07-19-2024 Insertion of catheter into peripheral vein [facility] Start: 07-19-2024 Introduction of urinary catheter [facility] Start: 07-19-2024 Measuring intake and output [facility] Start: 07-19-2024 Notification of physician [facility] Start: 07-19-2024 Oxygen therapy [facility] Start: 07-19-2024 Patient referral to dietitian [facility] Start: 07-19-2024 Providing care according to standard [facility] Start: 07-19-2024 Provision of activity privileges [facility] Start: 07-19-2024 Referral to occupational therapist [facility] Start: 07-19-2024 Referral to service [facility] Start: 07-19-2024 Speech therapy assessment [facility] Start: 07-19-2024 Telemedicine consultation with patient [facility] Start: 07-19-2024 Tobacco use cessation education [facility] Start: 07-19-2024 End: 07-19-2024 [facility] Start: 07-19-2024 Verification routine [facility] Start: 07-19-2024 Admission procedure [facility] Start: 07-19-2024 Hospital admission, emergency, from emergency room, medical nature [facility] Start: 07-19-2024 Oxygen therapy [facility] Start: 07-19-2024 [facility] Start: 09-05-2023 Patient discharge [facility] Start: 10-21-2017 End: 10-21-2017 Appointment Appointment [facility] Work Phone: Start: 10-22-2016 End: 10-22-2016 Appointment Appointment [facility] Work Phone: Start: 10-22-2016 End: 10-23-2016 SHRIMP PEELING MACHINE OPERATOR SHRIMP PEELING MACHINE OPERATOR [facility] Work Phone: Start: 10-22-2016 End: 10-23-2016 Follow Up Appt 1 year Follow Up Appt 1 year [facility] Work Phone: Start: 10-24-2015 End: 10-24-2015 SHRIMP PEELING MACHINE OPERATOR SHRIMP PEELING MACHINE OPERATOR [facility] Work Phone: Start: 10-24-2015 End: 10-24-2015 Follow Up Appt 1 year Follow Up Appt 1 year [facility] Work Phone: Start: 10-24-2015 End: 10-24-2015 Follow Up Appt Other Follow Up Appt Other [facility] Work Phone: Start: 04-27-2015 End: 04-27-2015 Follow Up Appt 6 months Follow Up Appt 6 months [facility] Work Phone: Start: 04-27-2015 End: 04-27-2015 MMM MMM [facility] Work Phone: Start: 12-13-2014 End: 12-13-2014 SHRIMP PEELING MACHINE OPERATOR SHRIMP PEELING MACHINE OPERATOR [facility] Work Phone: Start: 12-13-2014 End: 12-13-2014 Electrocardiogram, complete EKG (In office) [facility] Work Phone: Start: 12-13-2014 End: 12-13-2014 Follow Up Appt 4 months Follow Up Appt 4 months [facility] Work Phone: Start: 08-23-2014 End: 12-13-2014 SHRIMP PEELING MACHINE OPERATOR SHRIMP PEELING MACHINE OPERATOR [facility] Work Phone: Start: 08-23-2014 End: 08-24-2014 Echocardiography Echocardiogram (complete) [facility] Work Phone: Start: 08-23-2014 End: 12-13-2014 Follow Up Appt 1 year Follow Up Appt 1 year [facility] Work Phone: Start: 02-18-2014 End: 02-18-2014 SHRIMP PEELING MACHINE OPERATOR SHRIMP PEELING MACHINE OPERATOR [facility] Work Phone: Start: 02-18-2014 End: 02-18-2014 Follow Up Appt 6 months Follow Up Appt 6 months [facility] Work Phone: Start: 08-17-2013 End: 08-17-2013 Follow Up Appt 6 months Follow Up Appt 6 months [facility] Work Phone: Start: 08-17-2013 End: 08-17-2013 MMM MMM [facility] Work Phone: Start: 08-09-2013 End: 02-02-2014 SHRIMP PEELING MACHINE OPERATOR SHRIMP PEELING MACHINE OPERATOR [facility] Work Phone: Start: 08-09-2013 End: 08-09-2013 Ct thorax w/dye CT Chest with Contrast [facility] Work Phone: Start: 08-09-2013 End: 02-02-2014 Electrocardiogram, complete EKG (In office) [facility] Work Phone: Start: 08-09-2013 End: 02-18-2014 Follow Up Appt Other Follow Up Appt Other [facility] Work Phone: Start: 03-31-2013 End: 03-31-2013 SHRIMP PEELING MACHINE OPERATOR SHRIMP PEELING MACHINE OPERATOR [facility] Work Phone: Start: 03-31-2013 End: 03-31-2013 Echocardiography Echocardiogram (complete) [facility] Work Phone: Start: 03-31-2013 End: 03-31-2013 Follow Up Appt 1 year Follow Up Appt 1 year [facility] Work Phone: Start: 03-31-2013 End: 03-31-2013 Nuclear stress test -exercise Nuclear stress test -exercise [facility] Work Phone: Cardiac event recording [facility] Patient referral [facility] Work Phone: Immunizations Immunization Date Immunization Notes Care Provider Ankush shields 05-07-[address] Moo Carmichael Work Phone: [facility] Payers Date Payer Category Payer Medicare [id number] 2024 Self-pay [id number] 2015 Unknown [id number] Unknown [facility] PACKAGE PLAN [id number] Unknown [id number] [id number] Unknown [id number] [id number] [id number] Unknown [id number] 2.16.8 [id number] Unknown [id number] 2.16.8 [id number] Unknown [id number] 2.16.8 [id number] Unknown [id number] 2.16.8 [id number] Unknown [id number] 2.16.8 [id number] Unknown [id number] 2.16.8 [id number] Unknown [id number] 2.16.8 [id number] Social History Date Type Detail Facility Start: 07-15-2022 End: 04-01-2023 Tobacco smoking status NHIS Unknown if ever smoked [facility] Start: 1955 Sex Assigned At Male [facility] Start: 07-05-2014 None [facility] Start: 07-05-2014 Spouse/ Signif icant Other [facility] Start: 06-13-2014 Non-smoker [facility] Start: 07-19-2024 End: 07-19-2024 Tobacco smoking status NHIS Never smoked tobacco (finding) [facility] Start: 07-19-2024 End: 07-19-2024 Sex Male (finding) [facility] Goals Date Patient Goal Desired Activity /State Functional Status Date Assessment Result Facility 07-19-2024 Functional status Ambulates [facility] Work Phone: Mental Status Date Assessment Result Facility 07-19-2024 Cognitive function Awake;Alert;A ppropriate;Follow s Commands [facility] Work Phone: 09-05-2023 Cognitive function Level Of Consciousness Sedated [facility] Work Phone: 09-05-2023 Cognitive function Patient Orien tation Person;Place;Time [facility] Work Phone: Clinical Notes 09-05-2023 to 07-19-2024 Note Date & Type Note Facility 07-19-2024 Consult note Note Date/Time July 19, 2024 12:49pm [facility] Medical Records Department [address] [place] [address] Consultation - Neurology 07/19/24 1235 MR#: [id number] Acct: [id number] Name: SOLANGE MA Rep #:[id number] : 1955 69 From: Nina Westfall MD PCP: Dr. 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 Not a TNK or IR candidate. His symptoms have improved. Likely had a TIA. Neurological examination shows intact examination. Neuroimaging shows MRI Brain :No acute stroke. CTA: No significant stenosis HbA1C: 5.9 LDL: 91 Plan Recommend ASA HLD: Statin to keep LDL <70 HTN: Aim normotension on mcfp F/up on ECHO results. If negative can get a 30 day Cardiac event monitor upon DC Thanks for consultation. spent 70 min in evaluation and management of this patient. HPI Consult Data Date of Consult: 07/19/24 HPI Narrative HPI Narrative: SOLANGE MA, is a 69 M with CKD stage III unclear subtype per GFR trending, HTN, HLD, Hx VTE (DVT, PE), Obesity, GERD, Hx pulmonary artery alveolar proteinosis, Hx Brain nodcardial infection as well as pulmonary infection with serial lavageswith associated right hemiparesis who presents to the [facility] ED on 07/19/24 with history of awakening with numbness and tingling of his left arm and left cheek with elevated blood pressure at home. Also had tingling of the left leg. His BP was 168/100 prompting eventual ED evaluation to be cautious. He notes that he felt well at approximately 11 PM the evening prior and went to sleep without issue. He does report heaviness to the left upper extremity. His NIHSS in ER was 0 upon arrival. he has no symptoms in his face and leg, improvement in tingling in left arm. No neck pain. Workup showed CT of the brain with no acute intracranial hemorrhage, mass effector large vascular territory infarct with a small focus of left convexity encephalomalacia seen, chest x-ray with no acute cardiopulmonary findings. CTA head neck with no vessel cutoff, flow significant stenosis, dissection or aneurysm identified, EKG with sinus bradycardia with no acute evidence of ischemia. [facility] Medical History Wears glasses High cholesterol Pulmonary embolism Non-smoker Hypertension History of echocardiogram Cardiology follow-up encounter COVID-19 (04/2020) Bilateral pulmonary embolism GERD (gastroesophageal reflux disease) DVT (deep venous thrombosis) (2014) Pulmonary alveolar proteinosis HLD (hyperlipidemia) Essential (primary) hypertension Nocardia infection Knee pain Lung disease Home Medications ?Medication ?Instructions ?Recorded ?Last Taken ?Type multivitamin 1 ea PO DAILY SUPPLEMENT 09/04/23 History rosuvastatin 40 mg tablet 20 mg PO DAILY 30 days #15 t abs 04/01/23 09/04/23 History lisinopril 10 mg tablet 10 mg PO DAILY #90 tabs 07/0 02/02 Unknown Rx carvedilol 12.5 mg tablet 12.5 mg PO DAILY #180 tabs 0 12/26/23 Unknown Rx hydrochlorothiazide 25 mg tablet 25 mg PO DAILY #30 ta bs 04/27/24 Unknown Rx Allergy/AdvReac Type Severity Reaction Status Date / Time atorvastatin Allergy Vomiting Verified 07/19/24 02:09 morphine Allergy Nausea,Vomi Verified 07/19/24 02:09 ting piperacillin (From Zosyn) AdvReac Vomiting Verified 07/19/24 02:09 tazobactam (From Zosyn) AdvReac Vomiting Verified 07/19/24 02:09 Family History Brother Myocardial infarction Kidney disease Mother CAD (coronary artery disease) Father Cancer Oral ca Brother CVA (cerebral vascular accident) Surgical History History of cardiac catheterization Hx of colonoscopy History of bronchoscopy History of herniorrhaphy H/O nasal septoplasty H/O knee surgery History of left heart catheterization (04/20/09) Bilateral therapeutic whole-lung lavage (2015) Status post stereotactic brain biopsy (2014) Social History current occupational status: employed current occupation: [employer] Smoking Status: Never smoker alcohol intake: current alcohol intake frequency: a few times a week Alcohol type: beer substance use type: does not use caffeine: Yes Type: tea Number of servings: 1 Vital Signs Vital Signs Vital Signs: 07/19/24 02:06 07/19/24 02:14 07/19/24 02:14 Temperature 98.3 F Temperature Source Oral Pulse Rate 85 90 Pulse Strength Respiratory Rate 18 18 Respiratory Effort Respiratory Depth Respiratory Pattern Blood Pressure 164/89 H 163/93 H Blood Pressure Mean 114 116 Blood Pressure Source Blood Pressure Position Blood Pressure Location Pulse Ox 98 98 Oxygen Delivery Method Room Air Room Air 07/19/24 02:44 07/19/24 03:00 07/19/24 03:06 Temperature 98.0 F Temperature Source Temporal Pulse Rate 84 82 83 Pulse Strength Respiratory Rate 18 18 Respiratory Effort Respiratory Depth Respiratory Pattern Blood Pressure 171/99 H 160/94 H Blood Pressure Mean 123 116 Blood Pressure Source Blood Pressure Position Blood Pressure Location Pulse Ox 98 97 Oxygen Delivery Method Room Air Room Air 07/19/24 03:12 07/19/24 03:30 07/19/24 04:30 Temperature 98.0 F Temperature Source Pulse Rate 80 83 Pulse Strength Respiratory Rate 18 18 Respiratory Effort Normal Non-Labored Respiratory Depth Normal Respiratory Pattern Normal Blood Pressure 160/94 H 155/98 H Blood Pressure Mean 116 117 Blood Pressure Source Blood Pressure Position Blood Pressure Location Pulse Ox 96 98 Oxygen Delivery Method Room Air Room Air 07/19/24 04:30 07/19/24 08:12 07/19/24 10:00 Temperature 98.9 F 97.8 F Temperature Source Oral Oral Pulse Rate 75 72 Pulse Strength Normal (2+) Respiratory Rate 14 17 Respiratory Effort Respiratory Depth Respiratory Pattern Blood Pressure 163/93 H 134/87 H Blood Pressure Mean 116 102 Blood Pressure Source Monitor Monitor Blood Pressure Position Semi-Fowlers Supine Blood Pressure Location Right Arm Left Arm Pulse Ox 98 97 Oxygen Delivery Method Room Air Room Air Weight Weight: 86.3 kg Body Mass Index (BMI) 30.7 NIHSS NIHSS Nursing Documentation NIHSS Nursing Documentation: NIHSS: Ischemic Stroke/TIA Start: 07/19/24 03:48 Text: For PCU Patients: NIH and Neuro Check every 4 Status: Active hours, PRN and with change in RN caregiver. Freq: [id number] Protocol: Activity Type Activity Date Activity User E-sign Co-sign Detail Recorded Client Recorded Date Recorded By Document 07/19/24 10:00 [id number] 07/19/24 10:51 AB 07/19/24 10:00 NIH Stroke Scale [NIHSS] A score of 0 is normal or asymptomatic . Total possible score is 42. Inpatient: RN or Physician to activate a stroke alert for onset of new stroke symptoms or with NIHSS increase >/= 3 points. Following change in neurological status, NIHSS will be performed per physician order or more frequently PRN. -1a. Level of Consciousness Alert; keenly responsive -1b. LOC Questions Answers BOTH questions correctly. -1c. LOC Commands Performs both tasks correctly . -2. Best Gaze Normal -3. Visual No visual loss -4. Facial Palsy Minor paralysis (flattened nasolabial fold , asymmetry on smiling) -5a. Left Arm No drift; arm holds 90 (or 45 ) degrees for full 10 seconds -5b. Right Arm No drift; arm holds 90 (or 45 ) degrees for full 10 seconds -6a. Left Leg No drift; leg holds 30-degree position for full 5 seconds -6b. Right Leg No drift; leg holds 30-degree position for full 5 seconds -7. Limb Ataxia Absent -8. Sensory Mild-to- moderate sensory loss; -9. Best Language No aphasia; normal -10. Dysarthria Normal -11. Extinction and Inattention No abnormality -Total 2 Query Text:A score of 0 is normal or asymptomatic. Total possible score is 42 . ED: Notify Physician for NIHSS increase by > / = 3 points. Inpatient: RN or Physician to activate a stroke alert for NIHSS increase of > / = 3 points. Coma Scale [Assess] -Eye Opening Spontaneous -Motor Obeys Commands -Verbal Oriented [Total] -Coma Scale Total 15 NIHSS 1a. Level of Consciousness: Alert; keenly responsive 1b. LOC Questions: Answers BOTH questions correctly. 1c. LOC Commands: Performs both tasks correctly. 2. Best Gaze: Normal 3. Visual: No visual loss 4. Facial Palsy: Normal symmetrical movements 5a. Left Arm: No drift; arm holds 90 (or 45) degrees for full 10 seconds 5b. Right Arm: No drift; arm holds 90 (or 45) degrees for full 10 seconds 6a. Left Leg: No drift; leg holds 30-degree position for full 5 seconds 6b. Right Leg: No drift; leg holds 30-degree position for full 5 seconds 7. Limb Ataxia: Absent 8. Sensory: Normal; no sensory loss 9. Best Language: No aphasia; normal 10. Dysarthria: Normal 11. Extinction and Inattention: No abnormality Total: 0 Physical Exam Const alert, oriented x3 and no apparent distress General Appearance: cooperative, comfortable and well kempt HEENT normocephalic Face and Sinus: normal facial exam Neuro Neuro Narrative: Awake, alert oriented X3 Speech fluent, no aphasia CN 2-12 intact Power 5/5 in all extremities Sensation: Intact No ataxia Lab / Micro Data 07/19/24 06:17 07/19/24 06:17 Labs: Laboratory Results - last 24 hr 07/19/24 02:09: WBC 6.5, RBC 4.75, Hgb 14.5, Hct 43.0, MCV 90.5, MCH 30.5, MCHC 33.7, RDW Std Deviation 42.5, RDW Coeff of Colt 12.8, Plt Count 269, MPV 9.1, Immature Gran % (Auto) 0.300, Neut % (Auto) 46.2 L, Lymph % (Auto) 37.3, Ashe % (Auto) 11.4 H, Eos % (Auto) 4.5, Baso % (Auto) 0.3, Absolute Neuts (auto) 3.0, Absolute Lymphs (auto) 2.42, Nucleated RBC % 0, PT 12.1, INR 0.9, APTT 27.4, Sodium 137, Potassium 3.5, Chloride 100, Carbon Dioxide 24.6, Anion Gap 12, BUN 24 H, Creatinine 1.43 H, Estim Creat Clear Calc 52.16, Est GFR (MDRD) Non-Af 54 L, BUN/Creatinine Ratio 17.1, Glucose 105 H, Calcium 9.0, Magnesium 1.7, Troponin T High Sens 9 07/19/24 02:11: POC Glucose 91 07/19/24 04:14: Troponin T Hi Sens 2 Hr Cancelled 07/19/24 06:17: WBC 5.2, RBC 4.42 L, Hgb 13.7, Hct 39.5 L, MCV 89.4, MCH 31.0, MCHC 34.7, RDW Std Deviation 42.4, RDW Coeff of Colt 12.9, Plt Count 254, MPV 9.2, Immature Gran % (Auto) 0.200, Neut % (Auto) 57.4, Lymph % (Auto) 28.9, Ashe % (Auto) 9.4, Eos % (Auto) 3.7, Baso % (Auto) 0.4, Absolute Neuts (auto) 3.0, Absolute Lymphs (auto) 1.50, Nucleated RBC % 0, Sodium 138, Potassium 4.0, Chloride 102, Carbon Dioxide 22.5, Anion Gap 13, BUN 21 H, Creatinine 1.24 H, Estim Creat Clear Calc 59.53, Est GFR (MDRD) Non-Af 64, BUN/Creatinine Ratio 17.1, Glucose 97, Hemoglobin A1c 5.9, Calcium 8.9, Total Bilirubin 0.32, AST 43 H, ALT 47, Alkaline Phosphatase 53, Total Protein 6.2, Albumin 3.6, Globulin 2.6, Albumin/Globulin Ratio 1.4, Triglycerides 214 H, Cholesterol 180, LDL Cholesterol, Calc 91, VLDL Cholesterol 43 H, HDL Cholesterol 46, Cholesterol/HDL Ratio 3.92, TSH 2.920 Imaging Radiology Impression Brain CT 07/19/24 02:14 IMPRESSION: No intracranial hemorrhage, mass effect or CT evidence of large vascular territory acute infarct. Results reported verbally by phone by myself to Dr. Redd 07/19/2024 at 2:36 a.m.. One or more dose reduction techniques were used (e.g., Automated exposure control, adjustment of the mA and/or kV according to patient size, use of iterative reconstruction technique). Reading Location: [facility] Chest X-Ray 07/19/24 02:14 IMPRESSION: No evidence of acute disease Reading Location: [facility] Head/Neck CTA 07/19/24 02:14 IMPRESSION: No vessel cut off, flow significant stenosis, dissection or aneurysm identified as above. Appearance of mild maxillary sinusitis as above. Results communicated verbally by phone by myself to Dr. Redd 07/19/2024 at 2:56 a.m.. One or more dose reduction techniques were used (e.g., Automated exposure control, adjustment of the mA and/or kV according to patient size, use of iterative reconstruction technique). Reading Location: [facility] Brain MRI 07/19/24 03:48 IMPRESSION: 1. No acute infarct or other definite evidence of an acute intracranial process identified. 2. Mild bilateral maxillary paranasal sinus disease. Left mastoidectomy with fluid in some of the remaining inferior and posterior mastoid air cells. 3. Additional description as above. Reading Location: [facility] Active Medications Active Medications Active Medications: Current Medications Generic Name Dose Route Start Last Admin Trade Name Freq PRN Reason Stop Dose Admin Acetaminophen 650 mg 07/19/24 03:48 Acetaminophen 325 Mg Tablet PO Q4H PRN PRN Fever, pain 1-02/18 Al Hydroxide/Mg Hydroxide 30 ml 07/19/24 03:48 Mag Hydrox/Al Hydrox/Simeth 30 Ml Udc PO Q6H PRN PRN Gastric Burning Albuterol Sulfate 2.5 mg 07/19/24 03:48 Albuterol 2.5 Mg/3 Ml Vial.Neb. INHALATION Q2H PRN PRN Dyspnea, wheezing Aspirin 81 mg 07/20/24 08:00 Aspirin 81 Mg Tab.Chew PO BREAKFAST AILEEN Enoxaparin Sodium 40 mg 07/19/24 10:00 07/19/24 08:30 Enoxaparin 40 Mg/0.4 Ml Syringe SC 40 mg DAILY AILEEN Administration Guaifenesin 20 ml 07/19/24 03:48 Guaifenesin 10 Ml Udc (200mg/10ml) PO Q4H PRN PRN COUGH Hydralazine HCl 5 mg 07/19/24 03:48 Hydralazine 20 Mg/Ml Vial IV 07/20/24 03:48 Q30M PRN maintain BP parameters with HR <60 Sodium Chloride 1,000 mls @ 100 mls/hr 07/19/24 03:48 07/19/24 04:33 IV 07/19/24 13:47 100 mls/hr .Q10H AILEEN Administration Protocol Labetalol HCl 10 - 20 mg 07/19/24 03:48 Labetalol 20mg/4ml Syringe IV 07/20/24 03:48 Q10M PRN PRN maintain BP parameters with HR >/=60 Melatonin 3 mg 07/19/24 03:48 Melatonin 3 Mg Tablet PO QHS PRN PRN INSOMNIA Ondansetron HCl 4 mg 07/19/24 03:48 Ondansetron 4 Mg/2 Ml Vial IV Q8H PRN PRN NAUSEA/VOMITING Prochlorperazine Edisylate 5 mg 07/19/24 03:48 Prochlorperazine 10 Mg/2 Ml Vial IV Q4H PRN PRN Breakthrough Nausea/Vomiting Rosuvastatin Calcium 20 mg 07/19/24 22:00 Rosuvastatin Calcium 20 Mg Tablet PO QHS AILEEN Senna/Docusate Sodium 2 tablet 07/19/24 03:48 Senna/Docusate Sodium 1 Tablet PO BID PRN PRN Constipation Sodium Chloride 10 - 40 ml 07/19/24 04:17 0.9% Saline Lock 10 Ml Syringe IV UD PRN SALINE FLUSH 07/19/24 1249 <Electronically signed by Nina Westfall MD> Cosigner Signature (if applicable): CC: Dr. Moo Carmichael MD~ Signed [facility] Work Phone: [phone] 414-493703-10-2025 Discharge summary [facility] Medical Records Department [address] [place] [id number] Instructions for Home/Discharge Instructions 07/19/24 1350 MR#: [id number] Acct: [id number] Name: SOLANGE MA Rep #:[id number] : 1955 69 From: Brett Fairbanks DO PCP: Dr. Moo Carmichael MD Status:ADM SHYANN Discharge Instructions Diet Discharge Diet: No restrictions DC O2, CPAP, BIPAP needs Home O2 Discharge instructions: No Dressing / Incision Discharge Activity: Return to Normal Activity Weight Bearing Status: Full weight bearing Follow Up Care Test Results: Test results from this visit will be discussed in further detail at your follow- up appointment, if applicable. Discharge Plan Admission Admit Date/Time: 07/19/24 03:07 Primary Reason for Your Visit: TIA Attending Provider: Brett Fairbanks Primary Care Provider: Moo Carmichael Consulting Providers: Nam Soto; Lucretia Lewis; Nina Westfall; Maricel Coleman; Maura Restrepo; Suhail Blanchard; Tatiana Gastelum; Odilon Burns; Kunal Gonzalez; Denilson Nash; Tamela Crews; Tonny Gong; Margot Jones; Gabby Beatty; Emily Washington; Baron Castrejon; Deborah White; Isauro Santiago; Michelle Pappas; Magda Valdovinos;Maryam Vale Discharge Orders/Prescriptions Prescriptions: New aspirin 81 mg Tablet,Chewable 81 mg PO BREAKFAST Qty: 0 0RF rosuvastatin [Crestor] 40 mg tablet 40 mg PO DAILY Qty: 1 0RF Continued multivitamin 1 EACH tablet 1 ea PO DAILY lisinopril 10 mg tablet 10 mg PO DAILY Qty: 90 3RF carvedilol 12.5 mg tablet 12.5 mg PO DAILY Qty: 180 3RF Rx Instructions: must administer with a meal/food hydrochlorothiazide 25 mg tablet 25 mg PO DAILY Qty: 30 11RF Discontinued rosuvastatin 40 mg tablet 20 mg PO DAILY 30 Days Qty: 15 Other Ambulatory Orders: 30 Day Event Recorder Preventi (Urgent) Timeframe: 1 Day Facility: [facility] - Location: Cardiovascular Services Ordered By: Dr. Brett Fairbanks Referrals / Follow Up: Moo Carmichael MD [Primary Care Provider] - Within 2 Weeks Disposition Disposition (needs filled in before D/C Order can be placed): Home, Self Care 07/19/24 1355Mark Magdi DO CC: Maricel Coleman; Margot Jones; Baron Castrejon; Maura Restrepo MD; Nina Westfall MD; Nam Soto MD; Dr. Lucretia Lewis MD; Dr. Maryam Vale MD; Dr. Suhail Blanchard MD; Dr. Moo Carmichael MD; Dr. Tatiana Gastelum MD; Dr. Kunal Gonzalez MD;Dr. Odilon Burns MD; Dr. Denilson Nash MD; Dr. Tonny Gong DO; Dr. Emily Sinha MD; Dr. Gabby Beatty MD; Dr. Deborah White MD; Dr. Isauro Santiago MD; Dr. Michelle Pappas MD; Tamela Crews DO; Magda Valdovinos MD ~ Signed [facility]03-10-2025 [facility] Medical Records Department [address] [place] [address] Discharge Summary 07/19/24 1355 MR#: [id number] Acct: [id number] Name: SOLANGE AM Rep #: [id number] : 1955 69 From: Brett Fairbanks DO PCP: Dr. Moo Carmichael MD Status:DIS SHYANN Location: [place] [address] Providers Date of Admission: 07/19/24 Date of Discharge: 07/19/24 Primary Care Physician: Dr. Moo Carmichael MD Consultations 07/19/24 03:48 Consult: Tele-Neurology Routine Consulting Provider: [facility] Reason for Consult: Acute Ischemic Stroke/TIA EMERGENT Consult: No MD Notified: Yes Date Notified: 07/19/24 Time Notified: 04:48 Method of Notification: Answering Service Nursing Unit Staff Notify [facility] of Tele-Neurology Consult: Yes Reason For Visit: PARESTHESIAS Diagnosis Discharge Diagnosis (1) Paresthesias: Status: Acute Code(s): R20.2 - Paresthesia of skin Plan Final diagnosis #1 transient ischemic attack #2 chronic kidney disease stage IIIa #3 essential hypertension #4 hyperlipidemia Medications at Discharge Home Medications multivitamin 1 ea PO DAILY SUPPLEMENT 06/27/17 lisinopril 10 mg tablet 10 mg PO DAILY blood pressure #90 tabs 11/18/23 carvedilol 12.5 mg tablet 12.5 mg PO DAILY blood pressure #180 tabs 12/26/23 hydrochlorothiazide 25 mg tablet 25 mg PO DAILY diuretic #30 tabs 04/27/24 aspirin 81 mg chewable tablet 81 mg PO BREAKFAST #0 tabs 07/19/24 rosuvastatin 40 mg tablet (Crestor) 40 mg PO DAILY #1 TAB 07/19/24 Hospital Course Operations None Procedures 2-D Echocardiogram Summary of Care Provided Minutes Spent on Discharge: 70 Hospital Course: This 69-year-old white male was seen in the emergency room at [facility] with complaints of numbness and tingling in his left arm and left cheek. He took his blood pressure at home and it was elevated and it prompted him to come to the ER for evaluation. On examination in the ER, patient's NIH score was 0, a noncontrasted CT of the head was obtained and a CT of the head and neck was obtained. No acute abnormalities were noted. Patient was placed in observation status on PCU, he was seen by teleneurology and underwent an MRI of the brain which showed no evidence of acute stroke. It was recommended that the patient remain on aspirin and a statin on discharge from the hospital and it was recommended that he have a 30-day Holter monitor ordered. On 07/19/2024, patient was seen and examined: On examination he appeared in good health and spirits. Vital signs as documented. Skin warm and dry and without overt rashes. Neck without JVD, neck was supple, trachea midline, thyroid was normal. Lungs clear bilaterally, normal air movement was noted. Heart exam notable for regular rhythm, normal sounds and absence of murmurs, rubs or gallops. Abdomen unremarkable and without evidence of organomegaly, masses, or abdominal aortic enlargement. Bowel sounds are present, abdomen is not distended. Extremities nonedematous, no cyanosis was noted, no clubbing was noted. Neuro: Cranial nerves II through XII are grossly intact, no focal motor deficits were noted, sensation to light touch and pinprick intact, motor exam 5/5 throughout. Psych: Patient is alert and oriented x3, he does not appear anxious or depressed, he does not appear agitated. On 07/19/2024, patient was discharged home in stable condition Weight / BMI Weight Weight: 86.3 kg Body Mass Index (BMI) 30.7 ABG / Lab / Microbiology Data 07/19/24 06:17 07/19/24 06:17 Laboratory: Laboratory Results - last 24 hr 07/19/24 02:09: WBC 6.5, RBC 4.75, Hgb 14.5, Hct 43.0, MCV 90.5, MCH 30.5, MCHC 33.7, RDW Std Deviation 42.5, RDW Coeff of Colt 12.8, Plt Count 269, MPV 9.1, Immature Gran % (Auto) 0.300, Neut % (Auto) 46.2 L, Lymph % (Auto) 37.3, Ashe % (Auto) 11.4 H, Eos % (Auto) 4.5, Baso % (Auto) 0.3, Absolute Neuts (auto) 3.0, Absolute Lymphs (auto) 2.42, Nucleated RBC % 0, PT 12.1, INR 0.9, APTT 27.4, Sodium 137, Potassium 3.5, Chloride 100, Carbon Dioxide 24.6, Anion Gap 12, BUN 24 H, C reatinine 1.43 H, Estim Creat Clear Calc 52.16, Est GFR (MDRD) Non-Af 54 L, BUN/Creatinine Ratio 17.1, Glucose 105 H, Calcium 9.0, Magnesium 1.7, Troponin T High Sens 9 07/19/24 02:11: POC Glucose 91 07/19/24 04:14: Troponin T Hi Sens 2 Hr Cancelled 07/19/24 06:17: WBC 5.2, RBC 4.42 L, Hgb 13.7, Hct 39.5 L, MCV 89.4, MCH 31.0, MCHC 34.7, RDW Std Deviation 42.4, RDW Coeff of Colt 12.9, Plt Count 254, MPV 9.2, Immature Gran % (Auto) 0.200, Neut % (Auto) 57.4, Lymph % (Auto) 28.9, Ashe % (Auto) 9.4, Eos % (Auto) 3.7, Baso % (Auto) 0.4, Absolute Neuts (auto) 3.0, Absolute Lymphs (auto) 1.50, Nucleated RBC % 0, Sodium 138, Potassium 4.0, Chloride 102, Carbon Dioxide 22.5, Anion Gap 13, BUN 21 H, Creatinine 1.24 H, Estim Creat Clear Calc 59.53, Est GFR (more content not included)...[facility] 07-19-2024 Consult note [facility] Medical Records Department [address] [place] [address] Consultation - Neurology 07/19/24 1235 MR#: [id number] Acct: [id number] Name: SOLANGE MA Rep #:[id number] : 1955 69 From: Nina Westfall MD PCP: Dr. 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 Not a TNK or IR candidate. His symptoms have improved. Likely had a TIA. Neurological examination shows intact examination. Neuroimaging shows MRI Brain :No acute stroke. CTA: No significant stenosis HbA1C: 5.9 LDL: 91 Plan Recommend ASA HLD: Statin to keep LDL <70 HTN: Aim normotension on mcfp F/up on ECHO results. If negative can get a 30 day Cardiac event monitor upon DC Thanks for consultation. spent 70 min in evaluation and management of this patient. HPI Consult Data Date of Consult: 07/19/24 HPI Narrative HPI Narrative: SOLANGE MA, is a 69 M with CKD stage III unclear subtype per GFR trending, HTN, HLD, Hx VTE (DVT, PE), Obesity, GERD, Hx pulmonary artery alveolar proteinosis, Hx Brain nodcardial infection as well aspulmonary infection with serial lavageswith associated right hemiparesis who presents to the [facility] 07/19/24 with history of awakening with numbness and tingling of his left arm and left cheek withelevated blood pressure at home. Also had tingling of the left leg. His BP was 168/100 prompting eventual ED evaluation to be cautious. He notes that he felt well at approximately 11 PM the evening prior and went to sleep without issue. He does report heaviness to the left upper extremity. His NIHSS in ER was 0 upon arrival. he has no symptoms in his face and leg, improvement in tingling in left arm. No neck pain. Workup showed CT of the brain with no acute intracranial hemorrhage, mass effector large vascular territory infarct with a small focus of left convexity encephalomalacia seen, chest x-ray with no acute cardiopulmonary findings. CTA head neck with no vessel cutoff, flow significant stenosis, dissection or aneurysm identified, EKG with sinus bradycardia with no acute evidence of ischemia. [facility] Medical History Wears glasses High cholesterol Pulmonary embolism Non-smoker Hypertension History of echocardiogram Cardiology follow-up encounter COVID-19 (04/2020) Bilateral pulmonary embolism GERD (gastroesophageal reflux disease) DVT (deep venous thrombosis) (2014) Pulmonary alveolar proteinosis HLD (hyperlipidemia) Essential (primary) hypertension Nocardia infection Knee pain Lung disease Home Medications ?Medication ?Instructions ?Recorded ?Last Taken ?Type multivitamin 1 ea PO DAILY SUPPLEMENT 09/04/23 History rosuvastatin 40 mg tablet 20 mg PO DAILY 30 days #15 t abs 04/01/23 09/04/23 History lisinopril 10 mg tablet 10 mg PO DAILY #90 tabs 02/02 Unknown Rx carvedilol 12.5 mg tablet 12.5 mg PO DAILY #180 tabs 0 12/26/23 Unknown Rx hydrochlorothiazide 25 mg tablet 25 mg PO DAILY #30 ta bs 04/27/24 Unknown Rx Allergy/AdvReac Type Severity Reaction Status Date / Time atorvastatin Allergy Vomiting Verified 07/19/24 02:09 morphine Allergy Nausea,Vomi Verified 07/19/24 02:09 ting piperacillin (From Zosyn) AdvReac Vomiting Verified 07/19/24 02:09 tazobactam (From Zosyn) AdvReac Vomiting Verified 07/19/24 02:09 Family History Brother Myocardial infarction Kidney disease Mother CAD (coronary artery disease) Father Cancer Oral ca Brother CVA (cerebral vascular accident) Surgical History History of cardiac catheterization Hx of colonoscopy History of bronchoscopy History of herniorrhaphy H/O nasal septoplasty H/O knee surgery History of left heart catheterization (04/20/09) Bilateral therapeutic whole-lung lavage (2015) Status post stereotactic brain biopsy (2014) Social History current occupational status: employed current occupation: [employer] Smoking Status: Never smoker alcohol intake: current alcohol intake frequency: a few times a week Alcohol type: beer substance use type: does not use caffeine: Yes Type: tea Number of servings: 1 Vital Signs Vital Signs Vital Signs: 07/19/24 02:06 07/19/24 02:14 07/19/24 02:14 Temperature 98.3 F Temperature Source Oral Pulse Rate 85 90 Pulse Strength Respiratory Rate 18 18 Respiratory Effort Respiratory Depth Respiratory Pattern Blood Pressure 164/89 H 163/93 H Blood Pressure Mean 114 116 Blood Pressure Source Blood Pressure Position Blood Pressure Location Pulse Ox 98 98 Oxygen Delivery Method Room Air Room Air 07/19/24 02:44 07/19/24 03:00 07/19/24 03:06 Temperature 98.0 F Temperature Source Temporal Pulse Rate 84 82 83 Pulse Strength Respiratory Rate 18 18 Respiratory Effort Respiratory Depth Respiratory Pattern Blood Pressure 171/99 H 160/94 H Blood Pressure Mean 123 116 Blood Pressure Source Blood Pressure Position Blood Pressure Location Pulse Ox 98 97 Oxygen Delivery Method Room Air Room Air 07/19/24 03:12 07/19/24 03:30 07/19/24 04:30 Temperature 98.0 F Temperature Source Pulse Rate 80 83 Pulse Strength Respiratory Rate 18 18 Respiratory Effort Normal Non-Labored Respiratory Depth Normal Respiratory Pattern Normal Blood Pressure 160/94 H 155/98 H Blood Pressure Mean 116 117 Blood Pressure Source Blood Pressure Position Blood Pressure Location Pulse Ox 96 98 Oxygen Delivery Method Room Air Room Air 07/19/24 04:30 07/19/24 08:12 07/19/24 10:00 Temperature 98.9 F 97.8 F Temperature Source Oral Oral Pulse Rate 75 72 Pulse Strength Normal (2+) Respiratory Rate 14 17 Respiratory Effort Respiratory Depth Respiratory Pattern Blood Pressure 163/93 H 134/87 H Blood Pressure Mean 116 102 Blood Pressure Source Monitor Monitor Blood Pressure Position Semi-Fowlers Supine Blood Pressure Location Right Arm Left Arm Pulse Ox 98 97 Oxygen Delivery Method Room Air Room Air Weight Weight: 86.3 kg Body Mass Index (BMI) 30.7 NIHSS NIHSS Nursing Documentation NIHSS Nursing Documentation: NIHSS: Ischemic Stroke/TIA Start: 07/19/24 03:48 Text: For PCU Patients: NIH and Neuro Check every 4 Status: Active hours, PRN and with change in RN caregiver. Freq: [id number] Protocol: Activity Type Activity Date Activity User E-sign Co-sign Detail Recorded Client Recorded Date Recorded By Document 07/19/24 10:00 AB [id number] 07/19/24 10:51 AB 07/19/24 10:00 NIH Stroke Scale [NIHSS] A score of 0 is normal or asymptomatic . Total possible score is 42. Inpatient: RN or Physician to activate a stroke alert for onset of new stroke symptoms or with NIHSS increase >/= 3 points. Following change in neurological status, NIHSS will be performed per physician order or more frequently PRN. -1a. Level of Consciousness Alert; keenly responsive -1b. LOC Questions Answers BOTH questions correctly. -1c. LOC Commands Performs both tasks correctly . -2. Best Gaze Normal -3. Visual No visual loss -4. Facial Palsy Minor paralysis (flattened nasolabial fold , asymmetry on smiling) -5a. Left Arm No drift; arm holds 90 (or 45 ) degrees for full 10 seconds -5b. Right Arm No drift; arm holds 90 (or 45 ) degrees for full 10 seconds -6a. Left Leg No drift; leg holds 30-degree position for full 5 seconds -6b. Right Leg No drift; leg holds 30-degree position for full 5 seconds -7. Limb Ataxia Absent -8. Sensory Mild-to- moderate sensory loss; -9. Best Language No aphasia; normal -10. Dysarthria Normal -11. Extinction and Inattention No abnormality -Total 2 Query Text:A score of 0 is normal or asymptomatic. Total possible score is 42 . ED: Notify Physician for NIHSS increase by > / = 3 points. Inpatient: RN or Physician to activate a stroke alert for NIHSS increase of > / = 3 points. Coma Scale [Assess] -Eye Opening Spontaneous -Motor Obeys Commands -Verbal Oriented [Total] -Coma Scale Total 15 NIHSS 1a. Level of Consciousness: Alert; keenly responsive 1b. LOC Questions: Answers BOTH questions correctly. 1c. LOC Commands: Performs both tasks correctly. 2. Best Gaze: Normal 3. Visual: No visual loss 4. Facial Palsy: Normal symmetrical movements 5a. Left Arm: No drift; arm holds 90 (or 45) degrees for full 10 seconds 5b. Right Arm: No drift; arm holds 90 (or 45) degrees for full 10 seconds 6a. Left Leg: No drift; leg holds 30-degree position for full 5 seconds 6b. Right Leg: No drift; leg holds 30-degree position for full 5 seconds 7. Limb Ataxia: Absent 8. Sensory: Normal; no sensory loss 9. Best Language: No aphasia; normal 10. Dysarthria: Normal 11. Extinction and Inattention: No abnormality Total: 0 Physical Exam Const alert, oriented x3 and no apparent distress General Appearance: cooperative, comfortable and well kempt HEENT normocephalic Face and Sinus: normal facial exam Neuro Neuro Narrative: Awake, alert oriented X3 Speech fluent, no aphasia CN 2-12 intact Power 5/5 in all extremities Sensation: Intact No ataxia Lab / Micro Data 07/19/24 06:17 07/19/24 06:17 Labs: Laboratory Results - last 24 hr 07/19/24 02:09: WBC 6.5, RBC 4.75, Hgb 14.5, Hct 43.0, MCV 90.5, MCH 30.5, MCHC 33.7, RDW Std Deviation 42.5, RDW Coeff of Colt 12.8, Plt Count 269, MPV 9.1, Immature Gran % (Auto) 0.300, Neut % (Auto) 46.2 L, Lymph % (Auto) 37.3, Ashe % (Auto) 11.4 H, Eos % (Auto) 4.5, Baso % (Auto) 0.3, Absolute Neuts (auto) 3.0, Absolute Lymphs (auto) 2.42, Nucleated RBC % 0, PT 12.1, INR 0.9, APTT 27.4, [id number], Potassium 3.5, Chloride 100, Carbon Dioxide 24.6, Anion Gap 12, BUN 24 H, Creatinine 1.43 H, Estim Creat Clear Calc 52.16, Est GFR (MDRD) Non-Af 54 L, BUN/Creatinine Ratio 17.1, Glucose 105 H, Calcium 9.0, Magnesium 1.7, Troponin T High Sens 9 07/19/24 02:11: POC Glucose 91 07/19/24 04:14: Troponin T Hi Sens 2 Hr Cancelled 07/19/24 06:17: WBC 5.2, RBC 4.42 L, Hgb 13.7, Hct 39.5 L, MCV 89.4, MCH 31.0, MCHC 34.7, RDW Std Deviation 42.4, RDW Coeff of Colt 12.9, Plt Count 254, MPV 9.2, Immature Gran % (Auto) 0.200, Neut % (Auto) 57.4, Lymph % (Auto) 28.9, Ashe % (Auto) 9.4, Eos % (Auto) 3.7, Baso % (Auto) 0.4, Absolute Neuts (auto) 3.0, Absolute Lymphs (auto) 1.50, Nucleated RBC % 0, Sodium 138, Potassium 4.0, Chloride 102, Carbon Dioxide 22.5, Anion Gap 13, BUN 21 H, Creatinine 1.24 H, Estim Creat Clear Calc 59.53, Est GFR (MDRD) Non-Af 64, BUN/Creatinine Ratio 17.1, Glucose 97, Hemoglobin A1c 5.9, Calcium 8.9, Total Bilirubin 0.32, AST 43 H, ALT 47, Alkaline Phosphatase 53, Total Protein 6.2, Albumin 3.6, Globulin 2.6, Albumin/Globulin Ratio 1.4, Triglycerides 214 H, Cholesterol 180, LDL Cholesterol, Calc 91, VLDL Cholesterol 43 H, HDL Cholesterol 46, Cholesterol/HDL Ratio 3.92, TSH 2.920 Imaging Radiology Impression Brain CT 07/19/24 02:14 IMPRESSION: No intracranial hemorrhage, mass effect or CT evidence of large vascular territory acute infarct. Results reported verbally by phone by myself to Dr. Redd 07/19/2024 at 2:36 a.m.. One or more dose reduction techniques were used (e.g., Automated exposure control, adjustment of the mA and/or kV according to patient size, use of iterative reconstruction technique). Reading Location: [facility] Chest X-Ray 07/19/24 02:14 IMPRESSION: No evidence of acute disease Reading Location: [facility] Head/Neck CTA 07/19/24 02:14 IMPRESSION: No vessel cut off, flow significant stenosis, dissection or aneurysm identified as above. Appearance of mild maxillary sinusitis as above. Results communicated verbally by phone by myself to Dr. Redd 07/19/2024 at 2:56 a.m.. One or more dose reduction techniques were used (e.g., Automated exposure control, adjustment of the mA and/or kV according to patient size, use of iterative reconstruction technique). Reading Location: [id number] Brain MRI 07/19/24 03:48 IMPRESSION: 1. No acute infarct or other definite evidence of an acute intracranial process identified. 2. Mild bilateral maxillary paranasal sinus disease. Left mastoidectomy with fluid in some of the remaining inferior and posterior mastoid air cells. 3. Additional description as above. Reading Location: [facility] Active Medications Active Medications Active Medications: Current Medications Generic Name Dose Route Start Last Admin Trade Name Freq PRN Reason Stop Dose Admin Acetaminophen 650 mg 07/19/24 03:48 Acetaminophen 325 Mg Tablet PO Q4H PRN PRN Fever, pain 1-02/18 Al Hydroxide/Mg Hydroxide 30 ml 07/19/24 03:48 Mag Hydrox/Al Hydrox/Simeth 30 Ml Udc PO Q6H PRN PRN Gastric Burning Albuterol Sulfate 2.5 mg 07/19/24 03:48 Albuterol 2.5 Mg/3 Ml Vial.Neb. INHALATION Q2H PRN PRN Dyspnea, wheezing Aspirin 81 mg 07/20/24 08:00 Aspirin 81 Mg Tab.Chew PO BREAKFAST AILEEN Enoxaparin Sodium 40 mg 07/19/24 10:00 07/19/24 08:30 Enoxaparin 40 Mg/0.4 Ml Syringe SC 40 mg DAILY AIELEN Administration Guaifenesin 20 ml 07/19/24 03:48 Guaifenesin 10 Ml Udc (200mg/10ml) PO Q4H PRN PRN COUGH Hydralazine HCl 5 mg 07/19/24 03:48 Hydralazine 20 Mg/Ml Vial IV 07/20/24 03:48 Q30M PRN maintain BP parameters with HR <60 Sodium Chloride 1,000 mls @ 100 mls/hr 07/19/24 03:48 07/19/24 04:33 IV 07/19/24 13:47 100 mls/hr .Q10H AILEEN Administration Protocol Labetalol HCl 10 - 20 mg 07/19/24 03:48 Labetalol 20mg/4ml Syringe IV 07/20/24 03:48 Q10M PRN PRN maintain BP parameters with HR >/=60 Melatonin 3 mg 07/19/24 03:48 Melatonin 3 Mg Tablet PO QHS PRN PRN INSOMNIA Ondansetron HCl 4 mg 07/19/24 03:48 Ondansetron 4 Mg/2 Ml Vial IV Q8H PRN PRN NAUSEA/VOMITING Prochlorperazine Edisylate 5 mg 07/19/24 03:48 Prochlorperazine 10 Mg/2 Ml Vial IV Q4H PRN PRN Breakthrough Nausea/Vomiting Rosuvastatin Calcium 20 mg 07/19/24 22:00 Rosuvastatin Calcium 20 Mg Tablet PO QHS AILEEN Senna/Docusate Sodium 2 tablet 07/19/24 03:48 Senna/Docusate Sodium 1 Tablet PO BID PRN PRN Constipation Sodium Chloride 10 - 40 ml 07/19/24 04:17 0.9% Saline Lock 10 Ml Syringe IV UD PRN SALINE FLUSH 07/19/24 1249 Cosigner Signature (if applicable): CC: Dr. Moo Carmichael MD~ Signed [facility]03-10-2025 History and physical note Author Maryam Vale [facility] Note Date/Time July 19, 2024 3:2 8am [facility] Medical Records Department [address] [place] [address] H&P Exam - Hospitalist 07/19/24 0306 MR#: [id number] Acct: [id number] Name: SOLANGE MA Rep #:[id number] : 1955 69 From: Maryam Vale MD PCP: Dr. Moo Carmichael MD Status:ADM SHYANN Location: [place] [address] HPI - General General Date of Admission: 07/19/24 Date of Service: 07/19/24 Chief Complaint: L face, LUE paresthesias. HPI Narrative The patient is a 69 y/o M w/ PMHx: CKD stage III unclear subtype per GFR trending, HTN, HLD, Hx VTE (DVT, PE), Obesity, GERD, Hx pulmonary artery alveolar proteinosis, Hx Brain nodcardial infection as well as pulmonary infection with serial lavages with associated right hemiparesis who presents to the [facility] ED on 3/10/25 with history of awakening with numbness and tingling of his left arm and left cheek with elevated blood pressure at home noted be 168/100 prompting eventual ED evaluation to be cautious. He notes that he felt well at approximately 11 PM the evening prior and went to sleep without issue. He does report heaviness to the left upper extremity. He does report that he took 2 aspirin tablets before he left but is unsure of the exact amount. Workupin the ED included T98.3, heart rate 85, BP 164/89, respiratory rate 18, 98% room air, CBC with WC 6.5, human 14.5, platelet 269 without marked shift, unremarkable coags, BUN/: 24/1.43, GFR 54, glucose 105, troponin 9, CT of the brain with no acute intracranial hemorrhage, mass effect or large vascular territory infarct with a small focus of left convexity encephalomalacia seen, chest x-ray with no acute cardiopulmonary findings, CTA head neck with no vesselcutoff, flow significant stenosis, dissection or aneurysm identified, EKG with sinus bradycardia with no acute evidence of ischemia. In the ED NIH stroke scale was 0 with inability to elicit any difference as far as paresthesias per ED physician. [facility] Medical History Wears glasses High cholesterol Pulmonary embolism Non-smoker Hypertension History of echocardiogram Cardiology follow-up encounter COVID-19 (04/2020) Bilateral pulmonary embolism GERD (gastroesophageal reflux disease) DVT (deep venous thrombosis) (2014) Pulmonary alveolar proteinosis HLD (hyperlipidemia) Essential (primary) hypertension Nocardia infection Knee pain Lung disease Home Medications ?Medication ?Instructions ?Recorded ?Last Taken ?Type multivitamin 1 ea PO DAILY SUPPLEMENT 09/04/23 History rosuvastatin 40 mg tablet 20 mg PO DAILY 30 days #15 t abs 04/01/23 09/04/23 History lisinopril 10 mg tablet 10 mg PO DAILY #90 tabs 07/0 02/02 Unknown Rx carvedilol 12.5 mg tablet 12.5 mg PO DAILY #180 tabs 0 12/26/23 Unknown Rx hydrochlorothiazide 25 mg tablet 25 mg PO DAILY #30 ta bs 04/27/24 Unknown Rx Allergy/AdvReac Type Severity Reaction Status Date / Time atorvastatin Allergy Vomiting Verified 07/19/24 02:09 morphine Allergy Nausea,Vomi Verified 07/19/24 02:09 ting piperacillin (From Zosyn) AdvReac Vomiting Verified 07/19/24 02:09 tazobactam (From Zosyn) AdvReac Vomiting Verified 07/19/24 02:09 Family History Brother Myocardial infarction Kidney disease Mother CAD (coronary artery disease) Father Cancer Oral ca Brother CVA (cerebral vascular accident) Surgical History History of cardiac catheterization Hx of colonoscopy History of bronchoscopy History of herniorrhaphy H/O nasal septoplasty H/O knee surgery History of left heart catheterization (04/20/09) Bilateral therapeutic whole-lung lavage (2015) Status post stereotactic brain biopsy (2014) Social History current occupational status: employed current occupation: [employer] Smoking Status: Never smoker alcohol intake: current alcohol intake frequency: a few times a week Alcohol type: beer substance use type: does not use caffeine: Yes Type: tea Number of servings: 1 ROS ROS Narrative Admission Review of Systems: CONSTITUTIONAL: No weight loss, fever, chills, + weakness or fatigue. HEENT: + Facial paresthesias. Eyes: No visual loss, blurred vision, double vision or yellow sclerae. Ears, Nose, Throat: No hearing loss, sneezing, congestion, runny nose or sore throat. SKIN: No rash or itching, lesions, wounds. CARDIOVASCULAR: No chest pain, chest pressure or chest discomfort, palpitations,edema, orthopnea, syncopal events. RESPIRATORY: No shortness of breath, cough or sputum, wheezing, hemoptysis. GASTROINTESTINAL: No anorexia, nausea, vomiting or diarrhea, abdominal pain, melena, BRBPR. GENITOURINARY: No dysuria, frequency, urgency or retention. NEUROLOGICAL: + Facial, extremity paresthesias. No headache, dizziness, syncope, paralysis, ataxia, focal weakness, change in bowel or bladder control, seizure. MUSCULOSKELETAL: + muscle, back pain, joint pain or stiffness. HEMATOLOGIC: No anemia, bleeding or bruising. LYMPHATICS: No enlarged nodes. No history of splenectomy. PSYCHIATRIC: No history of depression or anxiety. ENDOCRINOLOGIC: No reports of sweating, cold or heat intolerance. No polyuria orpolydipsia. ALLERGIES: No history of asthma, hives, eczema or rhinitis. Vital Signs Vital Signs Vital Signs: 07/19/24 02:06 07/19/24 02:14 07/19/24 02:14 Temperature 98.3 F Temperature Source Oral Pulse Rate 85 90 Respiratory Rate 18 18 Blood Pressure 164/89 H 163/93 H Blood Pressure Mean 114 116 Pulse Ox 98 98 Oxygen Delivery Method Room Air Room Air 07/19/24 02:44 Temperature Temperature Source Pulse Rate 84 Respiratory Rate 18 Blood Pressure 171/99 H Blood Pressure Mean 123 Pulse Ox 98 Oxygen Delivery Method Room Air Weight Weight: 194 lb 7.163 oz Body Mass Index (BMI) 31.4 Physical Exam Narrative Physical Examination: General: Awake, alert, oriented x 3 and cooperative, seated upright in the ED bed, fatigued but no acute distress. Skin: Normal color, normal turgor, no icterus, no cyanosis. HEENT: AT/NC, EOMI, PERRLA, mildly dry MM, no carotid bruits or JVD noted. Lungs: Mildly diminished, greater bases, appropriate effort, no rales, ronchi orwheezing. Heart: Regular rate and rhythm; no gallop, rub audible. Abdomen: Soft, obese, NTTP, ND, mildly hyperactive BS, no appreciated HSM. Extremities: No cyanosis, clubbing, or edema. Neurological: Patient awake, alert, oriented as noted, cognitive function intact; pupils equally reactive to light and accommodation, cranial nerves grossly normal, moving all 4 extremities, no focal deficits, strength preserved,sensation despite his complaints intact equivocally bilaterally, finger-nose [id number] appropriate, equivocal Babinski. Psychiatric: Affect appears fatigued otherwise normal, no acute evidence of depressive or anxiety feelings. Results Lab / Micro Data 07/19/24 02:09 07/19/24 02:09 Labs: Laboratory Results - last 24 hr 07/19/24 02:09: WBC 6.5, RBC 4.75, Hgb 14.5, Hct 43.0, MCV 90.5, MCH 30.5, MCHC 33.7, RDW Std Deviation 42.5, RDW Coeff of Colt 12.8, Plt Count 269, MPV 9.1, Immature Gran % (Auto) 0.300, Neut % (Auto) 46.2 L, Lymph % (Auto) 37.3, Ashe % (Auto) 11.4 H, Eos % (Auto) 4.5, Baso % (Auto) 0.3, Absolute Neuts (auto) 3.0, Absolute Lymphs (auto) 2.42, Nucleated RBC % 0, PT 12.1, INR 0.9, APTT 27.4, Sodium 137, Potassium 3.5, Chloride 100, Carbon Dioxide 24.6, Anion Gap 12, BUN 24 H, Creatinine 1.43 H, Estim Creat Clear Calc 52.16, Est GFR (MDRD) Non-Af 54 L, BUN/Creatinine Ratio 17.1, Glucose 105 H, Calcium 9.0, Troponin T High Sens 9 07/19/24 02:11: POC Glucose 91 07/19/24 04:14: Troponin T Hi Sens 2 Hr Cancelled Imaging Radiology Impression Brain CT 07/19/24 02:14 IMPRESSION: No intracranial hemorrhage, mass effect or CT evidence of large vascular territory acute infarct. Results reported verbally by phone by myself to Dr. Redd 07/19/2024 at 2:36 a.m.. One or more dose reduction techniques were used (e.g., Automated exposure control, adjustment of the mA and/or kV according to patient size, use of iterative reconstruction technique). Reading Location: [facility] Chest X-Ray 07/19/24 02:14 IMPRESSION: No evidence of acute disease Reading Location: [facility] Head/Neck CTA 07/19/24 02:14 IMPRESSION: No vessel cut off, flow significant stenosis, dissection or aneurysm identified as above. Appearance of mild maxillary sinusitis as above. Results communicated verbally by phone by myself to Dr. Redd 07/19/2024 at 2:56 a.m.. One or more dose reduction techniques were used (e.g., Automated exposure control, adjustment of the mA and/or kV according to patient size, use of iterative reconstruction technique). 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 #1. Paresthesias to the left upper extremity and face concerning for possible TIA/CVA: Will admit to PCU, will obtain MRI Brain, ECHO, PT/OT/Speech/Nutrition evaluation per protocol. Will allow permissive HTN, maintain on asa, statin, aspiration/fall precautions. Mag, TSH, FLP, HgbA1c requested. Maintain on fall and aspiration precautions. Initial troponin normal, EKG with no acute findings. Cautious will continue to cycle cardiac enzymes although certainly would be an atypical presentation for ACS. Initiate neurology evaluation. #2. History of VTE: Patient with history DVT, PE, currently not chronically anticoagulated, will maintain on chemoprophylaxis is noted. #3. Hypertension: Will maintain permissive hypertension for as needed agents per stroke protocol. #4. Hyperlipidemia: Continue home statin regimen. AM FLP. #5. 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 #6. Chronic Kidney Disease Stage III, unclear subtype per GFR trend: Admission BUN/Cr 24/1.43, GFR 54, baseline renal function primarily 1.3-1.5, repeat BMP Haja. #7. Chronic insomnia: Per record previously been on amitriptyline regimen, not currently listed, will have as needed melatonin. #8. Obesity: Weight loss and lifestyle changes encouraged. #9. GERD: Will have as needed Mylanta regimen. #10. DVT prophylaxis: Lovenox. #11. CODE status: Patient THU is his son and living will is currently in place. Discussed CODE status at length including difference between FULL code, DNR-CCA and DNR-CC status. Following discussions about the differences in these status, requested Full Code status. Charges/Coding Visit Charges Inpatient E&M: 33263 Init Hosp L3 07/19/24 0328 <Electronically signed by Maryam Vale MD> Cosigner Signature (if applicable): CC: Dr. Maryam Vale MD; Dr. Moo Carmichael MD~ Signed [facility] Work Phone: [phone]) 800-704603-10-2025 Discharge summary [facility] Date/Time July 19, 2024 3:0 8am [facility] Medical Records Department [address] [place] [address] Emergency Department Summary 07/19/24 MR#: [id number] Acct: [id number] Name: SOLANGE MA Rep #:[id number] : 1955 69 From: Mike Coto PCP: Dr. Moo Carmichael MD Status:REG ER Location: ED HPI History of Present Illness Chief Complaint: Neuro S/Sx [facility] Medical History Wears glasses High cholesterol Pulmonary embolism Non-smoker Hypertension History of echocardiogram Cardiology follow-up encounter COVID-19 (04/2020) Bilateral pulmonary embolism GERD (gastroesophageal reflux disease) DVT (deep venous thrombosis) (2014) Pulmonary alveolar proteinosis HLD (hyperlipidemia) Essential (primary) hypertension Nocardia infection Knee pain Lung disease Home Medications ?Medication ?Instructions ?Recorded ?Last Taken ?Type multivitamin 1 ea PO DAILY SUPPLEMENT 09/04/23 History rosuvastatin 40 mg tablet 20 mg PO DAILY 30 days #15 t abs 04/01/23 09/04/23 History lisinopril 10 mg tablet 10 mg PO DAILY #90 tabs 07/0 02/02 Unknown Rx carvedilol 12.5 mg tablet 12.5 mg PO DAILY #180 tabs 0 8/16/24 Unknown Rx hydrochlorothiazide 25 mg tablet 25 mg PO DAILY #30 ta bs 04/27/24 Unknown Rx Allergy/AdvReac Type Severity Reaction Status Date / Time atorvastatin Allergy Vomiting Verified 07/19/24 02:09 morphine Allergy Nausea,Vomi Verified 07/19/24 02:09 ting piperacillin (From Zosyn) AdvReac Vomiting Verified 07/19/24 02:09 tazobactam (From Zosyn) AdvReac Vomiting Verified 07/19/24 02:09 Family History Brother Myocardial infarction Kidney disease Mother CAD (coronary artery disease) Father Cancer Oral ca Brother CVA (cerebral vascular accident) Surgical History History of cardiac catheterization Hx of colonoscopy History of bronchoscopy History of herniorrhaphy H/O nasal septoplasty H/O knee surgery History of left heart catheterization (04/20/09) Bilateral therapeutic whole-lung lavage (2015) Status post stereotactic brain biopsy (2014) Social History current occupational status: employed current occupation: [employer] Smoking Status: Never smoker alcohol intake: current alcohol intake frequency: a few times a week Alcohol type: beer substance use type: does not use caffeine: Yes Type: tea Number of servings: 1 MDM MDM MDM Narrative Medical decision making narrative: HISTORY OF PRESENT ILLNESS: 69-year-old male history of high cholesterol, DVT, PE, tobacco abuse, hypertension, presents with numbness and ting in the left arm and left cheek. He endorses he feels like his left cheek is going to droop. He noted his blood pressure was elevated 168/100 and this prompted him to come to the emergency department. Denies history of strokes. Denies falls or trauma. Denies chest pain or palpitations. He notes his last known well was approximate 11 PM on 07/18/2024 as he went to sleep and woke up with left arm tingling numbness heaviness. REVIEW OF SYSTEMS: Pertinent positives: Left face and left arm tingling Pertinent negatives: Chest pain PHYSICAL EXAM: Nursing triage notes reviewed, Vital signs reviewed Constitutional: please see mdm HENT: MMM Eyes: Pupils equal round and reactive to light, Extraocular muscles intact Neck: No stridor, no JVD, full neck ROM Lungs: Clear to auscultation, No wheezing or rales. No increased work of breathing, no conversational dyspnea, no accessory muscle use, no nasal flaring. No respiratory distress noted Heart: Regular rate and rhythm, No murmurs, No rubs and No gallops, 2+ distal pulses (radial, femoral, posterior tibial) in all extremities Abdomen: Soft, there is no tenderness, rigidity, rebound or guarding, no obviousperitoneal signs, no palpable pulsatile abdominal masses, no auscultated abdominal bruit : No CVAT Extremities: No edema Neuro: [Alert and oriented x3, neuro exam at baseline, cranial nerves II through XII are intact. No pain with extraocular muscle movement. There is negative test of skew. 5 of 5 strength in upper and lower extremities in flexion extension. Intact sensation to light touch in upper and lower extremity dermatomes. No truncal or extremity ataxia. No dysdiadochokinesia. Normal gait. 2+ reflexes in upper and lower extremities. No meningeal signs. Negative Babinski. NIH of 0 (I cannot elicit any sensory changes with palpation of involved areas on multiple attempts). Skin: No rash or lesions noted MEDICAL DECISION MAKING: Chief Complaint: Left-sided numbness, tingling External records reviewed: Prior imaging reviewed: Reviewed CT scan of the brain from 2015 noted brain mass at this time Factors affecting care: Brain mass as well as as per HPI Social determinants of health: none History obtained from others: family friend Consults: Radiology (Dr. Yepez) - noted no ICH, mass, ischemic change, internal medicine MDM Narrative: Patient was initially hypertensive with blood pressure 164/89, otherwise afebrile and nontoxic-appearing. His last known well was in the TNK and thrombectomy window however his NIH was 0. Could not elicit any sensory changes despite the patient's complaint of numbness and tingling. I considered the following differential diagnosis: ICH, CVA, TIA, large vessel occlusion, arterial dissection, Cory's paralysis, peripheral neuropathy Although a code stroke was not called I did obtain a Noncon CT head and CTA head and neck promptly. Also obtained additional labs images To further risk stratify the patient ALL IMAGES (IF OBTAINED) HAVE BEEN PERSONALLY REVIEWED AND INTERPRETED BY MYSELF. EKG with normal sinus bradycardia, normal axis, levels, no STEMI, no acute Noncon CT head negative CT of the head neck negative for dissection, large vessel occlusion or other acute vascular abnormality I have personally reviewed the patient's chest x-ray. Chest x-ray is unremarkable for pulmonary edema, pneumothorax, pneumonia or focal cardiopulmonary abnormality. CBC without leukocytosis, severe anemia, no thrombocytopenia. No coagulopathy BMP without evidence of significant electrolyte abnormalities, no anion gap, no acute kidney injury. High-sensitivity troponin is negative, no evidence of myocardial ischemia Will offer admission given subjective sensory changes for confirmatory MRI and risk factor modification. Will discuss with hospitalist. Hospitalist agreed to accept the patient for The patient and/or family, caregivers express understanding. The patient and/or family, caregivers agrees with the plan. Shared decision making: I will have a discussion with the patient and or visitors regarding risk/benefits of further testing or admission. They will be made aware of of the risk/benefits inherent in this decision they will be given the opportunity to voice understanding. Total critical care time today provided was at least 0 minutes. This excludes separately billable procedures. Critical care time (if documented) is secondary to the patient having high probability of clinically significant/life threatening deterioration in the patient's condition which required my urgent intervention. Impression: 1. Paresthesias 2. History of hypertension Dispo: Admit to PCU ops This note was generated with [employer] dictation software. It may contain incorrect words, spelling, and punctuation that were not noted in review of the chart prior to signing. Discharge Plan Triage Chief Complaint: Neuro S/Sx ED Provider: Mike Redd Dx/Rx/DC Orders Prescriptions: No Action rosuvastatin 40 mg tablet 20 mg PO DAILY 30 Days Qty: 15 multivitamin 1 EACH tablet 1 ea PO DAILY lisinopril 10 mg tablet 10 mg PO DAILY Qty: 90 3RF carvedilol 12.5 mg tablet 12.5 mg PO DAILY Qty: 180 3RF Rx Instructions: must administer with a meal/food hydrochlorothiazide 25 mg tablet 25 mg PO DAILY Qty: 30 11RF Primary Care Provider: Moo Carmichael Referrals: Moo Carmichael MD [Primary Care Provider] - Print Language: Andorran What to do if you have Problems For any increased pain, shortness of breath, bleeding, nausea or vomiting, chestpain, or any unexpected problems, contact your Primary Care Provider. Call [facility] ([phone]) or report to the closest Emergency Room. Call 911 if necessary. 07/19/24307 <Electronically signed by Mike Redd DO> Cosigner Signature (if applicable): CC: Dr. Moo Carmichael MD ~ Signed [facility] Work Phone: 1(117) [phone] Evaluation note* Diagnosis Onset Date Resolution Status Admit Date Paresthesias acute July 19, 2024 3:07am [facility] Work Phone: [phone]) [phone] Evaluation note* Diagnosis Onset Date Resolution Status Admit Date Paresthesias inactive July 19, 2024 3:07am Essential (primary) hypertension chr onic October 01, 2024 7:54am HLD (hyperlipidemia) chronic October 01, 2024 7:54am Tachyarrhythmia chronic October 01, 2024 7:54am [facility] Work Phone: [phone]) 324-455203-10-2025 History and physical note [facility] Medical Records Department [address] [place] [address] H&P Exam - Hospitalist 07/19/24305 MR#: [id number] Acct: [id number] Name: SOLANGE MA Rep #:[id number] : 1955 69 From: Maryam Vale MD PCP: Dr. Moo Carmichael MD Status:ADM SHYANN Location: [place] [address] HPI - General General Date of Admission: 07/19/24 Date of Service: 07/19/24 Chief Complaint: L face, LUE paresthesias. 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 He notes that he felt well at approximately 11 PM the evening prior and went to sleep without issue. He does report heaviness to the left upper extremity. He does report that he took 2 aspirin tablets before he left but is unsure of the exact amount. Workupin the ED included T98.3, heart rate 85, BP 164/89, respiratory rate 18, 98% room air, CBC with WC 6.5, human 14.5, platelet 269 without marked shift, unremarkable coags, BUN/: 24/1.43, GFR 54, glucose 105, troponin 9, CT of the brainwith no acute intracranial hemorrhage, mass effect or large vascular territory infarct with a smallfocus of left convexity encephalomalacia seen, chest x-ray with no acute cardiopulmonary findings, CTA head neck with no vesselcutoff, flow significant stenosis, dissection or aneurysm identified, EKG with sinus bradycardia with no acute evidence of ischemia. In the ED NIH stroke scale was 0 with inability to elicit any difference as far as paresthesias per ED physician. [facility] Medical History Wears glasses High cholesterol Pulmonary embolism Non-smoker Hypertension History of echocardiogram Cardiology follow-up encounter COVID-19 (04/2020) Bilateral pulmonary embolism GERD (gastroesophageal reflux disease) DVT (deep venous thrombosis) (2014) Pulmonary alveolar proteinosis HLD (hyperlipidemia) Essential (primary) hypertension Nocardia infection Knee pain Lung disease Home Medications ?Medication ?Instructions ?Recorded ?Last Taken ?Type multivitamin 1 ea PO DAILY SUPPLEMENT 09/04/23 History rosuvastatin 40 mg tablet 20 mg PO DAILY 30 days #15 t abs 04/01/23 09/04/23 History lisinopril 10 mg tablet 10 mg PO DAILY #90 tabs 07/0 02/02 Unknown Rx carvedilol 12.5 mg tablet 12.5 mg PO DAILY #180 tabs 0 12/26/23 Unknown Rx hydrochlorothiazide 25 mg tablet 25 mg PO DAILY #30 ta bs 04/27/24 Unknown Rx Allergy/AdvReac Type Severity Reaction Status Date / Time atorvastatin Allergy Vomiting Verified 07/19/24 02:09 morphine Allergy Nausea,Vomi Verified 07/19/24 02:09 ting piperacillin (From Zosyn) AdvReac Vomiting Verified 07/19/24 02:09 tazobactam (From Zosyn) AdvReac Vomiting Verified 07/19/24 02:09 Family History Brother Myocardial infarction Kidney disease Mother CAD (coronary artery disease) Father Cancer Oral ca Brother CVA (cerebral vascular accident) Surgical History History of cardiac catheterization Hx of colonoscopy History of bronchoscopy History of herniorrhaphy H/O nasal septoplasty H/O knee surgery History of left heart catheterization (04/20/09) Bilateral therapeutic whole-lung lavage (2015) Status post stereotactic brain biopsy (2014) Social History current occupational status: employed current occupation: [employer] Smoking Status: Never smoker alcohol intake: current alcohol intake frequency: a few times a week Alcohol type: beer substance use type: does not use caffeine: Yes Type: tea Number of servings: 1 ROS ROS Narrative Admission Review of Systems: CONSTITUTIONAL: No weight loss, fever, chills, + weakness or fatigue. HEENT: + Facial paresthesias. Eyes: No visual loss, blurred vision, double vision or yellow sclerae. Ears, Nose, Throat: No hearing loss, sneezing, congestion, runny nose or sore throat. SKIN: No rash or itching, lesions, wounds. CARDIOVASCULAR: No chest pain, chest pressure or chest discomfort, palpitations,edema, orthopnea, syncopal events. RESPIRATORY: No shortness of breath, cough or sputum, wheezing, hemoptysis. GASTROINTESTINAL: No anorexia, nausea, vomiting or diarrhea, abdominal pain, melena, BRBPR. GENITOURINARY: No dysuria, frequency, urgency or retention. NEUROLOGICAL: + Facial, extremity paresthesias. No headache, dizziness, syncope, paralysis, ataxia,focal weakness, change in bowel or bladder control, seizure. MUSCULOSKELETAL: + muscle, back pain, joint pain or stiffness. HEMATOLOGIC: No anemia, bleeding or bruising. LYMPHATICS: No enlarged nodes. No history of splenectomy. PSYCHIATRIC: No history of depression or anxiety. ENDOCRINOLOGIC: No reports of sweating, cold or heat intolerance. No polyuria orpolydipsia. ALLERGIES: No history of asthma, hives, eczema or rhinitis. Vital Signs Vital Signs Vital Signs: 07/19/24 02:06 07/19/24 02:14 07/19/24 02:14 Temperature 98.3 F Temperature Source Oral Pulse Rate 85 90 Respiratory Rate 18 18 Blood Pressure 164/89 H 163/93 H Blood Pressure Mean 114 116 Pulse Ox 98 98 Oxygen Delivery Method Room Air Room Air 07/19/24 02:44 Temperature Temperature Source Pulse Rate 84 Respiratory Rate 18 Blood Pressure 171/99 H Blood Pressure Mean 123 Pulse Ox 98 Oxygen Delivery Method Room Air Weight Weight: 194 lb 7.163 oz Body Mass Index (BMI) 31.4 Physical Exam Narrative Physical Examination: General: Awake, alert, oriented x 3 and cooperative, seated upright in the ED bed, fatigued but no acute distress. Skin: Normal color, normal turgor, no icterus, no cyanosis. HEENT: AT/NC, EOMI, PERRLA, mildly dry MM, no carotid bruits or JVD noted. Lungs: Mildly diminished, greater bases, appropriate effort, no rales, ronchi orwheezing. Heart: Regular rate and rhythm; no gallop, rub audible. Abdomen: Soft, obese, NTTP, ND, mildly hyperactive BS, no appreciated HSM. Extremities: No cyanosis, clubbing, or edema. Neurological: Patient awake, alert, oriented as noted, cognitive function intact; pupils equally reactive to light and accommodation, cranial nerves grossly normal, moving all 4 extremities, no focaldeficits, strength preserved,sensation despite his complaints intact equivocally bilaterally, finger-nose [id number] appropriate, equivocal Babinski. Psychiatric: Affect appears fatigued otherwise normal, no acute evidence of depressive or anxiety feelings. Results Lab / Micro Data 07/19/24 02:09 07/19/24 02:09 Labs: Laboratory Results - last 24 hr 07/19/24 02:09: WBC 6.5, RBC 4.75, Hgb 14.5, Hct 43.0, MCV 90.5, MCH 30.5, MCHC 33.7, RDW Std Deviation 42.5, RDW Coeff of Colt 12.8, Plt Count 269, MPV 9.1, Immature Gran % (Auto) 0.300, Neut % (Auto) 46.2 L, Lymph % (Auto) 37.3, Ashe % (Auto) 11.4 H, Eos % (Auto) 4.5, Baso % (Auto) 0.3, Absolute Neuts (auto) 3.0, Absolute Lymphs (auto) 2.42, Nucleated RBC % 0, PT 12.1, INR 0.9, APTT 27.4, [id number], Potassium 3.5, Chloride 100, Carbon Dioxide 24.6, Anion Gap 12, BUN 24 H, Creatinine 1.43 H, Estim Creat Clear Calc 52.16, Est GFR (MDRD) Non-Af 54 L, BUN/Creatinine Ratio 17.1, Glucose 105 H, Calcium 9.0, Troponin T High Sens 9 07/19/24 02:11: POC Glucose 91 07/19/24 04:14: Troponin T Hi Sens 2 Hr Cancelled Imaging Radiology Impression Brain CT 07/19/24 02:14 IMPRESSION: No intracranial hemorrhage, mass effect or CT evidence of large vascular territory acute infarct. Results reported verbally by phone by myself to Dr. Redd 07/19/2024 at 2:36 a.m.. One or more dose reduction techniques were used (e.g., Automated exposure control, adjustment of the mA and/or kV according to patient size, use of iterative reconstruction technique). Reading Location: [facility] Chest X-Ray 07/19/24 02:14 IMPRESSION: No evidence of acute disease Reading Location: [facility] Head/Neck CTA 07/19/24 02:14 IMPRESSION: No vessel cut off, flow significant stenosis, dissection or aneurysm identified as above. Appearance of mild maxillary sinusitis as above. Results communicated verbally by phone by myself to Dr. Redd 07/19/2024 at 2:56 a.m.. One or more dose reduction techniques were used (e.g., Automated exposure control, adjustment of the mA and/or kV according to patient size, use of iterative reconstruction technique). Reading Location: [facility] Assessment & Plan Assessment/Plan (1) Paresthesias: PLAN: Plan The patient is a 69 y/o M w/ PMHx: CKD stage III unclear subtype per GFR trending, HTN, HLD, Hx VTE(DVT, PE), Obesity, GERD, Hx pulmonary artery alveolar proteinosis, Hx Brain nodcardial infection as well as pulmonary infection with serial lavages with associated right hemiparesis who presents to the [facility] ED on 07/19/24 with history of awakening with numbness and tingling of his left arm and left cheek with elevated blood pressure at home noted be 168/100 prompting eventual ED evaluation to be cautious. #1. Paresthesias to the left upper extremity and face concerning for possible TIA/CVA: Will admit to PCU, will obtain MRI Brain, ECHO, PT/OT/Speech/Nutrition evaluation per protocol. Will allow permissive HTN, maintain on asa, statin, aspiration/fall precautions. Mag, TSH, FLP, HgbA1c requested. Maintain on fall and aspiration precautions. Initial troponin normal, EKG with no acute findings. Cautious will continue to cycle cardiac enzymes although certainly would be an atypical presentation forACS. Initiate neurology evaluation. #2. History of VTE: Patient with history DVT, PE, currently not chronically anticoagulated, will maintain on chemoprophylaxis is noted. #3. Hypertension: Will maintain permissive hypertension for as needed agents per stroke protocol. #4. Hyperlipidemia: Continue home statin regimen. AM FLP. #5. 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 #6. Chronic Kidney Disease Stage III, unclear subtype per GFR trend: Admission BUN/Cr 24/1.43, GFR 54, baseline renal function primarily 1.3-1.5, repeat BMP Haja. #7. Chronic insomnia: Per record previously been on amitriptyline regimen, not currently listed, will have as needed melatonin. #8. Obesity: Weight loss and lifestyle changes encouraged. #9. GERD: Will have as needed Mylanta regimen. #10. DVT prophylaxis: Lovenox. #11. CODE status: Patient THU is his son and living will is currently in place. Discussed CODE status at length including difference between FULL code, DNR-CCA and DNR-CC status. Following discussions about the differences in these status, requested Full Code status. Charges/Coding Visit Charges Inpatient E&M: 72224 Init Hosp L3 07/19/24 0328 Cosigner Signature (if applicable): CC: Dr. Maryam Vale MD; Dr. Moo Carmichael MD~ Signed [facility]03-10-2025 Discharge summary [facility] Medical Records Department [address] [place] [address] Emergency Department Summary 07/19/24 MR#: [id number] Acct: [id number] Name: SOLANGE MA Rep #:[id number] : 1955 69 From: Mike Coto PCP: Dr. Moo Carmichael MD Status:REG ER Location: ED HPI History of Present Illness Chief Complaint: Neuro [facility] Medical History Wears glasses High cholesterol Pulmonary embolism Non-smoker Hypertension History of echocardiogram Cardiology follow-up encounter COVID-19 (04/2020) Bilateral pulmonary embolism GERD (gastroesophageal reflux disease) DVT (deep venous thrombosis) (2014) Pulmonary alveolar proteinosis HLD (hyperlipidemia) Essential (primary) hypertension Nocardia infection Knee pain Lung disease Home Medications ?Medication ?Instructions ?Recorded ?Last Taken ?Type multivitamin 1 ea PO DAILY SUPPLEMENT 09/04/23 History rosuvastatin 40 mg tablet 20 mg PO DAILY 30 days #15 t abs 04/01/23 09/04/23 History lisinopril 10 mg tablet 10 mg PO DAILY #90 tabs 02/02 Unknown Rx carvedilol 12.5 mg tablet 12.5 mg PO DAILY #180 tabs 0 12/26/23 Unknown Rx hydrochlorothiazide 25 mg tablet 25 mg PO DAILY #30 ta bs 04/27/24 Unknown Rx Allergy/AdvReac Type Severity Reaction Status Date / Time atorvastatin Allergy Vomiting Verified 07/19/24 02:09 morphine Allergy Nausea,Vomi Verified 07/19/24 02:09 ting piperacillin (From Zosyn) AdvReac Vomiting Verified 07/19/24 02:09 tazobactam (From Zosyn) AdvReac Vomiting Verified 07/19/24 02:09 Family History Brother Myocardial infarction Kidney disease Mother CAD (coronary artery disease) Father Cancer Oral ca Brother CVA (cerebral vascular accident) Surgical History History of cardiac catheterization Hx of colonoscopy History of bronchoscopy History of herniorrhaphy H/O nasal septoplasty H/O knee surgery History of left heart catheterization (04/20/09) Bilateral therapeutic whole-lung lavage (2015) Status post stereotactic brain biopsy (2014) Social History current occupational status: employed current occupation: [employer] Smoking Status: Never smoker alcohol intake: current alcohol intake frequency: a few times a week Alcohol type: beer substance use type: does not use caffeine: Yes Type: tea Number of servings: 1 MDM MDM MDM Narrative Medical decision making narrative: HISTORY OF PRESENT ILLNESS: 69-year-old male history of high cholesterol, DVT, PE, tobacco abuse, hypertension, presents with numbness and ting in the left arm and left cheek. He endorses he feels like his left cheek is going to droop. He noted his blood pressure was elevated 168/100 and this prompted him to come to the emergency department. Denies history of strokes. Denies falls or trauma. Denies chest pain or palpitations. He notes his last known well was approximate 11 PM on 07/18/2024 as he went to sleep and woke up with left arm tingling numbness heaviness. REVIEW OF SYSTEMS: Pertinent positives: Left face and left arm tingling Pertinent negatives: Chest pain PHYSICAL EXAM: Nursing triage notes reviewed, Vital signs reviewed Constitutional: please see mdm HENT: MMM Eyes: Pupils equal round and reactive to light, Extraocular muscles intact Neck: No stridor, no JVD, full neck ROM Lungs: Clear to auscultation, No wheezing or rales. No increased work of breathing, no conversational dyspnea, no accessory muscle use, no nasal flaring. No respiratory distress noted Heart: Regular rate and rhythm, No murmurs, No rubs and No gallops, 2+ distal pulses (radial, femoral, posterior tibial) in all extremities Abdomen: Soft, there is no tenderness, rigidity, rebound or guarding, no obviousperitoneal signs, no palpable pulsatile abdominal masses, no auscultated abdominal bruit : No CVAT Extremities: No edema Neuro: [Alert and oriented x3, neuro exam at baseline, cranial nerves II through XII are intact. Nopain with extraocular muscle movement. There is negative test of skew. 5 of 5 strength in upper andlower extremities in flexion extension. Intact sensation to light touch in upper and lower extremity dermatomes. No truncal or extremity ataxia. No dysdiadochokinesia. Normal gait. 2+ reflexes in upper and lower extremities. No meningeal signs. Negative Babinski. NIH of 0 (I cannot elicit any sensory changes with palpation of involved areas on multiple attempts). Skin: No rash or lesions noted MEDICAL DECISION MAKING: Chief Complaint: Left-sided numbness, tingling External records reviewed: Prior imaging reviewed: Reviewed CT scan of the brain from 2015 noted brain mass at this time Factors affecting care: Brain mass as well as as per HPI Social determinants of health: none History obtained from others: family friend Consults: Radiology (Dr. Yepez) - noted no ICH, mass, ischemic change, internal medicine MDM Narrative: Patient was initially hypertensive with blood pressure 164/89, otherwise afebrile and nontoxic-appearing. His last known well was in the TNK and thrombectomy window however his NIH was 0. Could not elicit any sensory changes despite the patient's complaint of numbness and tingling. I considered the following differential diagnosis: ICH, CVA, TIA, large vessel occlusion, arterial dissection, Cory's paralysis, peripheral neuropathy Although a code stroke was not called I did obtain a Noncon CT head and CTA head and neck promptly. Also obtained additional labs images To further risk stratify the patient ALL IMAGES (IF OBTAINED) HAVE BEEN PERSONALLY REVIEWED AND INTERPRETED BY MYSELF. EKG with normal sinus bradycardia, normal axis, levels, no STEMI, no acute Noncon CT head negative CT of the head neck negative for dissection, large vessel occlusion or other acute vascular abnormality I have personally reviewed the patient's chest x-ray. Chest x-ray is unremarkable for pulmonary edema, pneumothorax, pneumonia or focal cardiopulmonary abnormality. CBC without leukocytosis, severe anemia, no thrombocytopenia. No coagulopathy BMP without evidence of significant electrolyte abnormalities, no anion gap, no acute kidney injury. High-sensitivity troponin is negative, no evidence of myocardial ischemia Will offer admission given subjective sensory changes for confirmatory MRI and risk factor modification. Will discuss with hospitalist. Hospitalist agreed to accept the patient for The patient and/or family, caregivers express understanding. The patient and/or family, caregivers agrees with the plan. Shared decision making: I will have a discussion with the patient and or visitors regarding risk/benefits of further testing or admission. They will be made aware of of the risk/benefits inherent in this decision they will be given the opportunity to voice understanding. Total critical care time today provided was at least 0 minutes. This excludes separately billable procedures. Critical care time (if documented) is secondary to the patient having high probability ofclinically significant/life threatening deterioration in the patient's condition which required my urgent intervention. Impression: 1. Paresthesias 2. History of hypertension Dispo: Admit to PCU ops This note was generated with [employer] dictation software. It may contain incorrect words, spelling, and punctuation that were not noted in review of the chart prior to signing. Discharge Plan Triage Chief Complaint: Neuro S/Sx ED Provider: Mike Redd Dx/Rx/DC Orders Prescriptions: No Action rosuvastatin 40 mg tablet 20 mg PO DAILY 30 Days Qty: 15 multivitamin 1 EACH tablet 1 ea PO DAILY lisinopril 10 mg tablet 10 mg PO DAILY Qty: 90 3RF carvedilol 12.5 mg tablet 12.5 mg PO DAILY Qty: 180 3RF Rx Instructions: must administer with a meal/food hydrochlorothiazide 25 mg tablet 25 mg PO DAILY Qty: 30 11RF Primary Care Provider: Moo Carmichael Referrals: oMo Carmichael MD [Primary Care Provider] - Print Language: Andorran What to do if you have Problems For any increased pain, shortness of breath, bleeding, nausea or vomiting, chestpain, or any unexpected problems, contact your Primary Care Provider. Call [facility] ([phone]) or report tothe closest Emergency Room. Call 911 if necessary. 07/19/24 0308 Cosigner Signature (if applicable): CC: Dr. Moo Carmichael MD ~ Signed [facility]03-10-2025 Radiology Diagnostic study note [facility] Imaging Services [address] [place] [address] CTA Head AND Neck W/ Contrast MR#: [id number] Acct: [id number] Name: SOLANGE MA Rep #: [id number] : 1955 M 69 From: Rajeev Yepez MD PCP: Dr. Moo Carmichael MD Status: REG ER Study:CTA Head AND Neck W/ Contrast Date of E xam: 07/19/24 Exam# [id number] Ordering Dr: Aranza Redd DO PROCEDURE: CTA HEAD AND NECK W/ CONTRAST REASON FOR EXAM: Stroke TECHNIQUE: CTA of the head and neck with coronal and sagittal and MIP reformatted images 3D reconstructions. IV CONTRAST: 93 cc Isovue 370 COMPARISON: None. FINDINGS: The [id number] appears intact. Anterior and posterior circulations appearintact. Codominant vertebrals form the basilar artery. No vessel cut off, flow significant stenosis or aneurysm identified. Standard appearing three-vessel arch noted. Both vertebrals arise from the subclavian as expected. Codominant vertebral arteries are intact throughout the cervical portions. Right and left common, internal and external carotid arteries are patent withoutflow significant stenosis or dissection. Major dural venous sinuses appear within limits. Mild mucoperiosteal thickening lower maxillary sinuses with possible tiny fluid level in the right may represent mild sinusitis. Previous left mastoidectomy. Cervical spondylosis/discogenic change C3 through C5. CT/CTA Head AND Neck W/ Contrast IMPRESSION: No vessel cut off, flow significant stenosis, dissection or aneurysm identified as above. Appearance of mild maxillary sinusitis as above. Results communicated verbally by phone by myself to Dr. Redd 07/19/2024 at 2:56 a.m.. One or more dose reduction techniques were used (e.g., Automated exposure control, adjustment of the mA and/or kV according to patient size, use of iterative reconstruction technique). Reading Location: [id number] CC: Dr. Moo Carmichael MD; Dr. Mike Redd DO ~ Straddle Buggy Operator: Signed [facility]03-10-2025 Radiology Diagnostic study note [facility] Imaging Services [address] [place], [place] [id number] Chest 1 View MR#: [id number] Acct: [id number] Name: SOLANGE MA Rep #: [id number] : 1955 M 69 From: Rajeev Yepez MD PCP: Dr. Moo Carmichael MD Status: REG ER Study:Chest 1 View Date of Exam: 5 Exam# [id number] Ordering Dr: Aranza Redd DO PROCEDURE: CHEST 1 VIEW REASON FOR EXAM: Neuro deficit, acute, stroke suspected TECHNIQUE: Frontal view of the chest. COMPARISON: None available FINDINGS: The lungs appear clear. The cardiac and mediastinal contours appear within limits. The visualized osseous structures appear within limits. RAD/Chest 1 View IMPRESSION: No evidence of acute disease Reading Location: [facility] CC: Dr. Moo Carmichael MD; Dr. Mike Redd DO ~ Straddle Buggy Operator: Signed [facility]03-10-2025 Radiology Diagnostic study note [facility] Imaging Services [address] [place], [place] [id number] STROKE Brain/Head without Cont MR#: [id number] Acct: [id number] Name: SOLANGE MA Rep #: [id number] : 1955 M 69 From: Rajeev Yepez MD PCP: Dr. Moo Carmichael MD Status: REG ER Study:STROKE Brain/Head without Cont Date of Exam: 07/19/24 Exam# [id number] Ordering Dr: Aranza Redd DO PROCEDURE: STROKE BRAIN/HEAD WITHOUT CONT REASON FOR EXAM: Stroke, left-sided weakness TECHNIQUE: Noncontrast head CT with coronal and sagittal reformatted images COMPARISON: None. FINDINGS: No intracranial hemorrhage, mass effect or CT evidence of large vascular territory acute infarct. Small focus left convexity encephalomalacia seen. The ventricles are within limits and midline. Mild volume loss, atrophy. Mild mucoperiosteal thickening in the lower maxillary sinuses. Previous left mastoid surgery. The right mastoid and orbits appear within limits. CT/STROKE Brain/Head without Cont IMPRESSION: No intracranial hemorrhage, mass effect or CT evidence of large vascular territory acute infarct. Results reported verbally by phone by myself to Dr. Redd 07/19/2024 at 2:36 a.m.. One or more dose reduction techniques were used (e.g., Automated exposure control, adjustment of the mA and/or kV according to patient size, use of iterative reconstruction technique). Reading Location: [facility] CC: Dr. Moo Carmichael MD; Dr. Mike Redd, DO ~ Straddle Buggy Operator: Signed [facility]04-26-2024 History and physical note Author Lam Benavidez [facility] September 05, 2023 7:22am Note Date/Time September 05, 2023 7:2 2am [facility] Medical Records Department [address] [place] [address] History & Physical Exam 09/05/23 0721 MR#: [id number] Acct: [id number] Name: SOLANGE MA Rep #:[id number] : 1955 68 From: Lam Benavidez MD PCP: Dr. Moo Carmichael MD Status:[facility] Location: [place] [address] HPI - General General Date of Admission: 01/25/20 Date of Service: 09/05/23 Chief Complaint: Screening for intestinal cancer HPI Narrative SOLANGE MA, is a 68 M who presents for screening colonoscopy today. Previous 1 was 13 years ago. He presents via open access. No abdominal pain. No bright red blood per rectum or melena. No abdominal pain. He otherwise enjoys good health except for his chronic pulmonary disease. [facility] Medical History (Updated 09/02/23 @ 10:51 by Dayana Lockhart) Bilateral pulmonary embolism Cardiology follow-up encounter COVID-19 (04/2020) DVT (deep venous thrombosis) (2014) Essential (primary) hypertension GERD (gastroesophageal reflux disease) High cholesterol History of echocardiogram HLD (hyperlipidemia) Hypertension Knee pain Lung disease Nocardia infection Non-smoker Pulmonary alveolar proteinosis Pulmonary embolism Wears glasses Home Medications multivitamin 1 ea PO DAILY SUPPLEMENT 06/27/17 [History Last Taken 09/04/23] lisinopril 10 mg tablet 10 mg PO DAILY #90 tabs 11/05/22 [Rx Last Taken 09/05/23 06:00] hydrochlorothiazide 25 mg tablet 25 mg PO DAILY #30 tabs 04/01/23 [Rx Last Taken 09/04/23] rosuvastatin 40 mg tablet 20 mg PO DAILY 30 days #15 tabs 04/01/23 [History Last Taken 09/04/23] amitriptyline 50 mg tablet 50 mg PO QHS PRN SLEEPI 07/21/23 [History Last Taken 09/04/23] carvedilol 12.5 mg tablet 12.5 mg PO DAILY 09/02/23 [History Last Taken 09/04/23] Allergy/AdvReac Type Severity Reaction Status Date / Time atorvastatin Allergy Vomiting Verified 09/05/23 06:47 morphine Allergy Nausea,Vomi Verified 09/05/23 06:47 ting piperacillin [From Zosyn] AdvReac Vomiting Verified 09/05/23 06:47 tazobactam [From Zosyn] AdvReac Vomiting Verified 09/05/23 06:47 Family History (Updated 07/21/23 @ 10:35 by Cristina Yañez) Brother Myocardial infarction Kidney disease Mother CAD (coronary artery disease) Father Cancer Oral ca Brother CVA (cerebral vascular accident) Surgical History (Updated 09/02/23 @ 10:51 by Dayana Lockhart) Bilateral therapeutic whole-lung lavage (2015) H/O knee surgery H/O nasal septoplasty History of bronchoscopy History of cardiac catheterization History of herniorrhaphy History of left heart catheterization (04/20/09) Hx of colonoscopy Status post stereotactic brain biopsy (2014) Social History (Updated 07/21/23 @ 10:36 by Cristina Yañez) current occupational status: employed current occupation: [employer] Smoking Status: Never smoker alcohol intake: current alcohol intake frequency: a few times a week Alcohol type: beer substance use type: does not use caffeine: Yes Type: tea Number of servings: 1 ROS Constitutional Constitutional: Reports systems reviewed and no addt'l complaints, except as documented Cardiovascular Cardiovascular: Denies chest pain Respiratory/Chest Respiratory/Chest: Denies shortness of breath at rest Gastrointestinal Gastrointestinal: Denies abdominal pain, change in bowel habits, hematochezia ormelena Vital Signs Vital Signs Vital Signs: 09/05/23 06:49 09/05/23 06:50 Temperature 96.9 F L Temperature Source Temporal Pulse Rate 67 Respiratory Rate 16 Respiratory Pattern Normal Blood Pressure 130/86 H Blood Pressure Mean 100 Blood Pressure Source Monitor Blood Pressure Position Semi-Fowlers Blood Pressure Location Left Arm Pulse Ox 97 Oxygen Delivery Method Room Air Weight Weight: 185 lb Body Mass Index (BMI) 30.7 Physical Exam Const alert, oriented x3 and no apparent distress General Appearance: cooperative and comfortable Eyes General Eye: normal appearance of both eyes Neck General: normal visual inspection Chest inspection of chest normal Resp Effort and Inspection: able to speak in complete sentences and symmetric chest movement Auscultation: clear to auscultation bilaterally Cardio regular rate and regular rhythm GI soft to palpation, non-tender and non-distended Extremity no calf tenderness Neuro oriented x3 Psych thought process normal Assessment & Plan Assessment/Plan (1) Encounter for screening for malignant neoplasm of colon: PLAN: The patient presents via open access today for screening colonoscopy. He is aware of the technique, benefit, risk, alternatives. He has had an opportunity to ask and have questions answered. We will proceed as noted. Lam Benavidez M.D., F.A.C.S. 09/05/23 0722 <Electronically signed by Lam Benavidez MD> Cosigner Signature (if applicable): CC: Dr. Moo Carmichael MD; Dr. Lam Benavidez MD~ Signed [facility] Work Phone: 1(180) 867-290604-26-2024 Procedure [facility]05-2023 [facility] Mike Redd [facility] Note Date/Time July 19, 2024 3:0 8am [facility] Medical Records Department [address] [place] [address] Emergency Department Summary 07/19/24 MR#: [id number] Acct: [id number] Name: SOLANGE MA Rep #:[id number] : 1955 69 From: Mike Coto PCP: Dr. Moo Carmichael MD Status:REG ER Location: ED HPI History of Present Illness Chief Complaint: Neuro S/Sx PFSH [facility] Medical History Wears glasses High cholesterol Pulmonary embolism Non-smoker Hypertension History of echocardiogram Cardiology follow-up encounter COVID-19 (04/2020) Bilateral pulmonary embolism GERD (gastroesophageal reflux disease) DVT (deep venous thrombosis) (2014) Pulmonary alveolar proteinosis HLD (hyperlipidemia) Essential (primary) hypertension Nocardia infection Knee pain Lung disease Home Medications ?Medication ?Instructions ?Recorded ?Last Taken ?Type multivitamin 1 ea PO DAILY SUPPLEMENT 09/04/23 History rosuvastatin 40 mg tablet 20 mg PO DAILY 30 days #15 t abs 04/01/23 09/04/23 History lisinopril 10 mg tablet 10 mg PO DAILY #90 tabs 02/02 Unknown Rx carvedilol 12.5 mg tablet 12.5 mg PO DAILY #180 tabs 0 12/26/23 Unknown Rx hydrochlorothiazide 25 mg tablet 25 mg PO DAILY #30 ta bs 04/27/24 Unknown Rx Allergy/AdvReac Type Severity Reaction Status Date / Time atorvastatin Allergy Vomiting Verified 07/19/24 02:09 morphine Allergy Nausea,Vomi Verified 07/19/24 02:09 ting piperacillin (From Zosyn) AdvReac Vomiting Verified 07/19/24 02:09 tazobactam (From Zosyn) AdvReac Vomiting Verified 07/19/24 02:09 Family History Brother Myocardial infarction Kidney disease Mother CAD (coronary artery disease) Father Cancer Oral ca Brother CVA (cerebral vascular accident) Surgical History History of cardiac catheterization Hx of colonoscopy History of bronchoscopy History of herniorrhaphy H/O nasal septoplasty H/O knee surgery History of left heart catheterization (04/20/09) Bilateral therapeutic whole-lung lavage (2015) Status post stereotactic brain biopsy (2014) Social History current occupational status: employed current occupation: [employer] Smoking Status: Never smoker alcohol intake: current alcohol intake frequency: a few times a week Alcohol type: beer substance use type: does not use caffeine: Yes Type: tea Number of servings: 1 [facility] [place] Narrative Medical decision making narrative: HISTORY OF PRESENT ILLNESS: 69-year-old male history of high cholesterol, DVT, PE, tobacco abuse, hypertension, presents with numbness and ting in the left arm and left cheek. He endorses he feels like his left cheek is going to droop. He noted his blood pressure was elevated 168/100 and this prompted him to come to the emergency department. Denies history of strokes. Denies falls or trauma. Denies chest pain or palpitations. He notes his last known well was approximate 11 PM on 07/18/2024 as he went to sleep and woke up with left arm tingling numbness heaviness. REVIEW OF SYSTEMS: Pertinent positives: Left face and left arm tingling Pertinent negatives: Chest pain PHYSICAL EXAM: Nursing triage notes reviewed, Vital signs reviewed Constitutional: please see mdm HENT: MMM Eyes: Pupils equal round and reactive to light, Extraocular muscles intact Neck: No stridor, no JVD, full neck ROM Lungs: Clear to auscultation, No wheezing or rales. No increased work of breathing, no conversational dyspnea, no accessory muscle use, no nasal flaring. No respiratory distress noted Heart: Regular rate and rhythm, No murmurs, No rubs and No gallops, 2+ distal pulses (radial, femoral, posterior tibial) in all extremities Abdomen: Soft, there is no tenderness, rigidity, rebound or guarding, no obviousperitoneal signs, no palpable pulsatile abdominal masses, no auscultated abdominal bruit : No CVAT Extremities: No edema Neuro: [Alert and oriented x3, neuro exam at baseline, cranial nerves II through XII are intact. No pain with extraocular muscle movement. There is negative test of skew. 5 of 5 strength in upper and lower extremities in flexion extension. Intact sensation to light touch in upper and lower extremity dermatomes. No truncal or extremity ataxia. No dysdiadochokinesia. Normal gait. 2+ reflexes in upper and lower extremities. No meningeal signs. Negative Babinski. NIH of 0 (I cannot elicit any sensory changes with palpation of involved areas on multiple attempts). Skin: No rash or lesions noted MEDICAL DECISION MAKING: Chief Complaint: Left-sided numbness, tingling External records reviewed: Prior imaging reviewed: Reviewed CT scan of the brain from 2015 noted brain mass at this time Factors affecting care: Brain mass as well as as per HPI Social determinants of health: none History obtained from others: family friend Consults: Radiology (Dr. Yepez) - noted no ICH, mass, ischemic change, internal medicine MDM Narrative: Patient was initially hypertensive with blood pressure 164/89, otherwise afebrile and nontoxic-appearing. His last known well was in the TNK and thrombectomy window however his NIH was 0. Could not elicit any sensory changes despite the patient's complaint of numbness and tingling. I considered the following differential diagnosis: ICH, CVA, TIA, large vessel occlusion, arterial dissection, Cory's paralysis, peripheral neuropathy Although a code stroke was not called I did obtain a Noncon CT head and CTA head and neck promptly. Also obtained additional labs images To further risk stratify the patient ALL IMAGES (IF OBTAINED) HAVE BEEN PERSONALLY REVIEWED AND INTERPRETED BY MYSELF. EKG with normal sinus bradycardia, normal axis, levels, no STEMI, no acute Noncon CT head negative CT of the head neck negative for dissection, large vessel occlusion or other acute vascular abnormality I have personally reviewed the patient's chest x-ray. Chest x-ray is unremarkable for pulmonary edema, pneumothorax, pneumonia or focal cardiopulmonary abnormality. CBC without leukocytosis, severe anemia, no thrombocytopenia. No coagulopathy BMP without evidence of significant electrolyte abnormalities, no anion gap, no acute kidney injury. High-sensitivity troponin is negative, no evidence of myocardial ischemia Will offer admission given subjective sensory changes for confirmatory MRI and risk factor modification. Will discuss with hospitalist. Hospitalist agreed to accept the patient for The patient and/or family, caregivers express understanding. The patient and/or family, caregivers agrees with the plan. Shared decision making: I will have a discussion with the patient and or visitors regarding risk/benefits of further testing or admission. They will be made aware of of the risk/benefits inherent in this decision they will be given the opportunity to voice understanding. Total critical care time today provided was at least 0 minutes. This excludes separately billable procedures. Critical care time (if documented) is secondary to the patient having high probability of clinically significant/life threatening deterioration in the patient's condition which required my urgent intervention. Impression: 1. Paresthesias 2. History of hypertension Dispo: Admit to PCU ops This note was generated with [employer] dictation software. It may contain incorrect words, spelling, and punctuation that were not noted in review of the chart prior to signing. Discharge Plan Triage Chief Complaint: Neuro S/Sx ED Provider: Mike Redd Dx/Rx/DC Orders Prescriptions: No Action rosuvastatin 40 mg tablet 20 mg PO DAILY 30 Days Qty: 15 multivitamin 1 EACH tablet 1 ea PO DAILY lisinopril 10 mg tablet 10 mg PO DAILY Qty: 90 3RF carvedilol 12.5 mg tablet 12.5 mg PO DAILY Qty: 180 3RF Rx Instructions: must administer with a meal/food hydrochlorothiazide 25 mg tablet 25 mg PO DAILY Qty: 30 11RF Primary Care Provider: Moo Carmichael Referrals: Moo Carmichael MD [Primary Care Provider] - Print Language: Andorran What to do if you have Problems For any increased pain, shortness of breath, bleeding, nausea or vomiting, chestpain, or any unexpected problems, contact your Primary Care Provider. Call [facility] ([phone]) or report to the closest Emergency Room. Call 911 if necessary. 07/19/24 0308 <Electronically signed by Mike Redd DO> Cosigner Signature (if applicable): CC: Dr. Moo Carmichael MD ~ Signed [facility] Work Phone: Discharge summary Author Brett [facility] Note Date/Time July 19, 2024 1:5 5pm [facility] Medical Records Department [address] [place] [address] Instructions for Home/Discharge Instructions 07/19/24 1350 MR#: [id number] Acct: [id number] Name: MARYSOLANGE DUTTONIP Rep #:[id number] : 1955 69 From: Brett Fairbanks DO PCP: Dr. Moo Carmichael MD Status:ADM SHYANN Discharge Instructions Diet Discharge Diet: No restrictions DC O2, CPAP, BIPAP needs Home O2 Discharge instructions: No Dressing / Incision Discharge Activity: Return to Normal Activity Weight Bearing Status: Full weight bearing Follow Up Care Test Results: Test results from this visit will be discussed in further detail at your follow- up appointment, if applicable. Discharge Plan Admission Admit Date/Time: 07/19/24 03:07 Primary Reason for Your Visit: TIA Attending Provider: Brett Fairbanks Primary Care Provider: Moo Carmichael Consulting Providers: Nam Soto; Lucretia Lewis; Nina Westfall; Maricel Coleman; Maura Restrepo; Suhail Blacnhard; Tatiana Gastelum; Odilon Burns; Kunal Gonzalez; Denilson Nash; Tamela Crews; Tonny Gong; Margot Jones; Gabby Beatty; Emily Washington; Baron Castrejon; Deborah White; Isauro Santiago; Michelle Pappas; Magda Valdovinos;Maryam Vale Discharge Orders/Prescriptions Prescriptions: New aspirin 81 mg Tablet,Chewable 81 mg PO BREAKFAST Qty: 0 0RF rosuvastatin [Crestor] 40 mg tablet 40 mg PO DAILY Qty: 1 0RF Continued multivitamin 1 EACH tablet 1 ea PO DAILY lisinopril 10 mg tablet 10 mg PO DAILY Qty: 90 3RF carvedilol 12.5 mg tablet 12.5 mg PO DAILY Qty: 180 3RF Rx Instructions: must administer with a meal/food hydrochlorothiazide 25 mg tablet 25 mg PO DAILY Qty: 30 11RF Discontinued rosuvastatin 40 mg tablet 20 mg PO DAILY 30 Days Qty: 15 Other Ambulatory Orders: 30 Day Event Recorder Preventi (Urgent) Timeframe: 1 Day Facility: [facility] - Location: Cardiovascular Services Ordered By: Dr. Brett Fairbanks Referrals / Follow Up: Moo Carmichael MD [Primary Care Provider] - Within 2 Weeks Disposition Disposition (needs filled in before D/C Order can be placed): Home, Self Care 07/19/24 5081<Electronically signed by Brett Fairbanks DO>Brett Fairbanks DO CC: Maricel Coleman; Margot Jones; Baron Castrejon; Maura Restrepo MD; Nina Westfall MD; Nam Soto MD; Dr. Lucretia Lewis MD; Dr. Maryam Vale MD; Dr. Suhail Blanchard MD; Dr. Moo Carmichael MD; Dr. Tatiana Gastelum MD; Dr. Kunal Gonzalez MD;Dr. Odilon Burns MD; Dr. Denilson Nash MD; Dr. Tonny Gong DO; Dr. Emily Sinha MD; Dr. Gabby Beatty MD; Dr. Deborah White MD; Dr. Isauro Santiago MD; Dr. Michelle Pappas MD; Tamela Crews DO; Magda Valdovinos MD ~ Signed [facility] Work Phone: Evaluation note* Diagnosis Onset Date Resolution Status Essential (primary) hypertension chronic Tachyarrhythmia chronic [facility] Work Phone: Evaluation note* Diagnosis Onset Date Resolution Status Encounter for screening for malignant neoplasm of colo n acute [facility] Work Phone: Evaluation note* Diagnosis Onset Date Resolution Status Essential (primary) hypertension chronic HLD (hyperlipidemia) [facility] Work Phone: Evaluation note* Diagnosis Onset Date Resolution Status Admit Date Paresthesias acute July 19, 2024 3:07am [facility] Work Phone: History and physical note Author Maryam Akanksha [facility] Note Date/Time July 19, 2024 3:2 8am [facility] Medical Records Department [address] [place] [address] H&P Exam - Hospitalist 07/19/24 0306 MR#: [id number] Acct: [id number] Name: SOLANGE MA Rep #:[id number] : 1955 69 From: Maryam Vale MD PCP: Dr. Moo Carmichael MD Status:ADM SHYANN Location: [place] [address] HPI - General General Date of Admission: 07/19/24 Date of Service: 07/19/24 Chief Complaint: L face, LUE paresthesias. HPI Narrative The patient is a 69 y/o M w/ PMHx: CKD stage III unclear subtype per GFR trending, HTN, HLD, Hx VTE (DVT, PE), Obesity, GERD, Hx pulmonary artery alveolar proteinosis, Hx Brain nodcardial infection as well as pulmonary infection with serial lavages with associated right hemiparesis who presents to the [facility] ED on 07/19/24 with history of awakening with numbness and tingling of his left arm and left cheek with elevated blood pressure at home noted be 168/100 prompting eventual ED evaluation to be cautious. He notes that he felt well at approximately 11 PM the evening prior and went to sleep without issue. He does report heaviness to the left upper extremity. He does report that he took 2 aspirin tablets before he left but is unsure of the exact amount. Workupin the ED included T98.3, heart rate 85, BP 164/89, respiratory rate 18, 98% room air, CBC with WC 6.5, human 14.5, platelet 269 without marked shift, unremarkable coags, BUN/: 24/1.43, GFR 54, glucose 105, troponin 9, CT of the brain with no acute intracranial hemorrhage, mass effect or large vascular territory infarct with a small focus of left convexity encephalomalacia seen, chest x-ray with no acute cardiopulmonary findings, CTA head neck with no vesselcutoff, flow significant stenosis, dissection or aneurysm identified, EKG with sinus bradycardia with no acute evidence of ischemia. In the ED NIH stroke scale was 0 with inability to elicit any difference as far as paresthesias per ED physician. [facility] Medical History Wears glasses High cholesterol Pulmonary embolism Non-smoker Hypertension History of echocardiogram Cardiology follow-up encounter COVID-19 (04/2020) Bilateral pulmonary embolism GERD (gastroesophageal reflux disease) DVT (deep venous thrombosis) (2014) Pulmonary alveolar proteinosis HLD (hyperlipidemia) Essential (primary) hypertension Nocardia infection Knee pain Lung disease Home Medications ?Medication ?Instructions ?Recorded ?Last Taken ?Type multivitamin 1 ea PO DAILY SUPPLEMENT 09/04/23 History rosuvastatin 40 mg tablet 20 mg PO DAILY 30 days #15 t abs 04/01/23 09/04/23 History lisinopril 10 mg tablet 10 mg PO DAILY #90 tabs 07/0 02/02 Unknown Rx carvedilol 12.5 mg tablet 12.5 mg PO DAILY #180 tabs 0 12/26/23 Unknown Rx hydrochlorothiazide 25 mg tablet 25 mg PO DAILY #30 ta bs 04/27/24 Unknown Rx Allergy/AdvReac Type Severity Reaction Status Date / Time atorvastatin Allergy Vomiting Verified 07/19/24 02:09 morphine Allergy Nausea,Vomi Verified 07/19/24 02:09 ting piperacillin (From Zosyn) AdvReac Vomiting Verified 07/19/24 02:09 tazobactam (From Zosyn) AdvReac Vomiting Verified 07/19/24 02:09 Family History Brother Myocardial infarction Kidney disease Mother CAD (coronary artery disease) Father Cancer Oral ca Brother CVA (cerebral vascular accident) Surgical History History of cardiac catheterization Hx of colonoscopy History of bronchoscopy History of herniorrhaphy H/O nasal septoplasty H/O knee surgery History of left heart catheterization (04/20/09) Bilateral therapeutic whole-lung lavage (2015) Status post stereotactic brain biopsy (2014) Social History current occupational status: employed current occupation: [employer] Smoking Status: Never smoker alcohol intake: current alcohol intake frequency: a few times a week Alcohol type: beer substance use type: does not use caffeine: Yes Type: tea Number of servings: 1 ROS ROS Narrative Admission Review of Systems: CONSTITUTIONAL: No weight loss, fever, chills, + weakness or fatigue. HEENT: + Facial paresthesias. Eyes: No visual loss, blurred vision, double vision or yellow sclerae. Ears, Nose, Throat: No hearing loss, sneezing, congestion, runny nose or sore throat. SKIN: No rash or itching, lesions, wounds. CARDIOVASCULAR: No chest pain, chest pressure or chest discomfort, palpitations,edema, orthopnea, syncopal events. RESPIRATORY: No shortness of breath, cough or sputum, wheezing, hemoptysis. GASTROINTESTINAL: No anorexia, nausea, vomiting or diarrhea, abdominal pain, melena, BRBPR. GENITOURINARY: No dysuria, frequency, urgency or retention. NEUROLOGICAL: + Facial, extremity paresthesias. No headache, dizziness, syncope, paralysis, ataxia, focal weakness, change in bowel or bladder control, seizure. MUSCULOSKELETAL: + muscle, back pain, joint pain or stiffness. HEMATOLOGIC: No anemia, bleeding or bruising. LYMPHATICS: No enlarged nodes. No history of splenectomy. PSYCHIATRIC: No history of depression or anxiety. ENDOCRINOLOGIC: No reports of sweating, cold or heat intolerance. No polyuria orpolydipsia. ALLERGIES: No history of asthma, hives, eczema or rhinitis. Vital Signs Vital Signs Vital Signs: 07/19/24 02:06 07/19/24 02:14 07/19/24 02:14 Temperature 98.3 F Temperature Source Oral Pulse Rate 85 90 Respiratory Rate 18 18 Blood Pressure 164/89 H 163/93 H Blood Pressure Mean 114 116 Pulse Ox 98 98 Oxygen Delivery Method Room Air Room Air 07/19/24 02:44 Temperature Temperature Source Pulse Rate 84 Respiratory Rate 18 Blood Pressure 171/99 H Blood Pressure Mean 123 Pulse Ox 98 Oxygen Delivery Method Room Air Weight Weight: 194 lb 7.163 oz Body Mass Index (BMI) 31.4 Physical Exam Narrative Physical Examination: General: Awake, alert, oriented x 3 and cooperative, seated upright in the ED bed, fatigued but no acute distress. Skin: Normal color, normal turgor, no icterus, no cyanosis. HEENT: AT/NC, EOMI, PERRLA, mildly dry MM, no carotid bruits or JVD noted. Lungs: Mildly diminished, greater bases, appropriate effort, no rales, ronchi orwheezing. Heart: Regular rate and rhythm; no gallop, rub audible. Abdomen: Soft, obese, NTTP, ND, mildly hyperactive BS, no appreciated HSM. Extremities: No cyanosis, clubbing, or edema. Neurological: Patient awake, alert, oriented as noted, cognitive function intact; pupils equally reactive to light and accommodation, cranial nerves grossly normal, moving all 4 extremities, no focal deficits, strength preserved,sensation despite his complaints intact equivocally bilaterally, finger-nose [id number] appropriate, equivocal Babinski. Psychiatric: Affect appears fatigued otherwise normal, no acute evidence of depressive or anxiety feelings. Results Lab / Micro Data 07/19/24 02:09 07/19/24 02:09 Labs: Laboratory Results - last 24 hr 07/19/24 02:09: WBC 6.5, RBC 4.75, Hgb 14.5, Hct 43.0, MCV 90.5, MCH 30.5, MCHC 33.7, RDW Std Deviation 42.5, RDW Coeff of Colt 12.8, Plt Count 269, MPV 9.1, Immature Gran % (Auto) 0.300, Neut % (Auto) 46.2 L, Lymph % (Auto) 37.3, Ashe % (Auto) 11.4 H, Eos % (Auto) 4.5, Baso % (Auto) 0.3, Absolute Neuts (auto) 3.0, Absolute Lymphs (auto) 2.42, Nucleated RBC % 0, PT 12.1, INR 0.9, APTT 27.4, Sodium 137, Potassium 3.5, Chloride 100, Carbon Dioxide 24.6, Anion Gap 12, BUN 24 H, Creatinine 1.43 H, Estim Creat Clear Calc 52.16, Est GFR (MDRD) Non-Af 54 L, BUN/Creatinine Ratio 17.1, Glucose 105 H, Calcium 9.0, Troponin T High Sens 9 07/19/24 02:11: POC Glucose 91 07/19/24 04:14: Troponin T Hi Sens 2 Hr Cancelled Imaging Radiology Impression Brain CT 07/19/24 02:14 IMPRESSION: No intracranial hemorrhage, mass effect or CT evidence of large vascular territory acute infarct. Results reported verbally by phone by myself to Dr. Redd 07/19/2024 at 2:36 a.m.. One or more dose reduction techniques were used (e.g., Automated exposure control, adjustment of the mA and/or kV according to patient size, use of iterative reconstruction technique). Reading Location: [facility] Chest X-Ray 07/19/24 02:14 IMPRESSION: No evidence of acute disease Reading Location: [facility] Head/Neck CTA 07/19/24 02:14 IMPRESSION: No vessel cut off, flow significant stenosis, dissection or aneurysm identified as above. Appearance of mild maxillary sinusitis as above. Results communicated verbally by phone by myself to Dr. Redd 07/19/2024 at 2:56 a.m.. One or more dose reduction techniques were used (e.g., Automated exposure control, adjustment of the mA and/or kV according to patient size, use of iterative reconstruction technique). 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 #1. Paresthesias to the left upper extremity and face concerning for possible TIA/CVA: Will admit to PCU, will obtain MRI Brain, ECHO, PT/OT/Speech/Nutrition evaluation per protocol. Will allow permissive HTN, maintain on asa, statin, aspiration/fall precautions. Mag, TSH, FLP, HgbA1c requested. Maintain on fall and aspiration precautions. Initial troponin normal, EKG with no acute findings. Cautious will continue to cycle cardiac enzymes although certainly would be an atypical presentation for ACS. Initiate neurology evaluation. #2. History of VTE: Patient with history DVT, PE, currently not chronically anticoagulated, will maintain on chemoprophylaxis is noted. #3. Hypertension: Will maintain permissive hypertension for as needed agents per stroke protocol. #4. Hyperlipidemia: Continue home statin regimen. AM FLP. #5. 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 #6. Chronic Kidney Disease Stage III, unclear subtype per GFR trend: Admission BUN/Cr 24/1.43, GFR 54, baseline renal function primarily 1.3-1.5, repeat BMP Haja. #7. Chronic insomnia: Per record previously been on amitriptyline regimen, not currently listed, will have as needed melatonin. #8. Obesity: Weight loss and lifestyle changes encouraged. #9. GERD: Will have as needed Mylanta regimen. #10. DVT prophylaxis: Lovenox. #11. CODE status: Patient THU is his son and living will is currently in place. Discussed CODE status at length including difference between FULL code, DNR-CCA and DNR-CC status. Following discussions about the differences in these status, requested Full Code status. Charges/Coding Visit Charges Inpatient E&M: 40920 Init Hosp L3 07/19/24 0328 <Electronically signed by Maryam Vale MD> Cosigner Signature (if applicable): CC: Dr. Maryam Vale MD; Dr. 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 RULE OUT PE SOB Reason for Visit Essential (primary) hypertension Tachyarrhythmia Chief Complaint Amb Documentation Reason for Visit Encounter for screen ing for malignant neoplasm of colon Chief Complaint 4 M FU INT LABS Reason for Visit Essential (primary) hypertension HLD (hyperlipidemia) Chief Complaint Admit Date PARESTHESIAS July 19, 2024 3:0 7am Reason for Visit Admit Date Paresthesias July 19, 2024 3:0 7am Chief Complaint Admit Date PARESTHESIAS July 19, 2024 3:0 7am 30 DAY MONITOR July 27, 2024 8:0 0am TIA July 28, 2024 10: 21am 1 Y FU October 01, 2024 7:54a m INT LABS October 01, 2024 8:43a m Reason for Visit Admit Date Paresthesias July 19, 2024 3:0 7am Essential (primary) hypertension September 7:54am HLD (hyperlipidemia) October 01, 2024 7:54 am Tachyarrhythmia October 01, 2024 7:54a m Family History No Family History Records Found Relationship Condition Age at Onset Recorded Date/T jonatan brother Myocardial infarction Unknown mother Coronary artery disease Unknown father Malignant neoplasm Unknown brother Cerebrovascular accident (CVA) Unknown Relationship Condition Age at Onset Recorded Date/T jonatan brother Myocardial infarction Unknown Kidney disorder Unknown mother Coronary artery disease Unknown father Malignant neoplasm Unknown brother Cerebrovascular accident (CVA) Unknown Advance Directives No Advanced Directives Records Found Advance Directive Response Recorded Date/ Time Advance Directives No June 6:01pm Living Will Yes June 27 018 9:18am Power of Creative Writing Professor Yes June 27, 2017 9:18am Advance Directive Response Recorded Date/ Time Advance Directives No June 6:01pm Living Will No September 02, 2023 10:45am Power of Creative Writing Professor No September 01 10:45am Advance Directive Response Recorded Date/ Time Advance Directives No June 5:01pm Living Will Yes June 27 8:18am Power of Creative Writing Professor Yes June 27, 2017 8:18am Advance Directive Response Recorded Date/ Time Living Will No July 19, 2024 2:10am Power of Creative Writing Professor Yes July 19 2:10am Name of Medical Power of Creative Writing Professor neo July 19, 2024 2:10am Advance Directives No June 6:01pm Advance Directive Response Recorded Date/ Time Living Will Yes July 19, 2024 3:49am Power of Creative Writing Professor Yes July 19 3:49am Name of Medical Power of Creative Writing Professor Neo Ma July 19, 2024 3:49am Advance Directives No June 6:01pm Advance Directive Response Recorded Date/ Time Living Will Yes July 19, 2024 3:49am Do you have a Healthcare Power of Creative Writing Professor? Yes July 19, 2024 3:49am Name of Medical Power of Creative Writing Professor Neo Ma July 19, 2024 3:49am Advance Directives No June 6:01pm Summary Purpose Additional Source Comments Care Teams (unrecognized sec tion and content) Team Status: Active Member Role Status Dates Dr. Moo Carmichael MD Family Provider Active Dr. Moo Carmichael MD Primary Care Provider Active Team Status: Inactive Member Role Status Dates Dr. Moo Carmichael MD Primary Care Provider, Referring Harriet valladares Active Tori PINO, PA Attending Provider Active Team Status: Active Member Role Status Dates Dr. Moo Carmichael MD Primary Care Provider Active Dr. Surya Jose MD Attending Provider Active Team Status: Inactive Member Role Status Dates Dr. Moo Carmichael MD Primary Care Provider Active Tori PINO, [place] Attending Provider, Referr ing Provider Active Team Status: Inactive Member Role Status Dates Dr. Moo Carmichael MD Primary Care Provider Active Tori PINO PA Attending Provider Active Team Status: Active Member Role Status Dates Dr. Moo Carmichael MD Primary Care Provider Active [facility] Attending Provider Active Team Status: Active Member Role Status Dates Dr. Moo Carmichael MD Primary Care Provider Active Dr. Lam Benavidez MD Attending Provid er, Referring Provider, Other Provider Active Team Status: Inactive Member Role Status Dates Dr. Moo Carmichael MD Primary Care Provider Active Dr. Lam Benavidez MD Attending Provider, Referring Provider Active Team Status: Active Member Role Status Dates Dr. Moo Carmichael MD Primary Care Provider Active Team Status: Inactive Member Role Status Dates Dr. Moo Carmichael MD Primary Care Provider Active Start: April 29, 2024 End: April 29, 2024 Dr. Moo Carmichael MD Attending Provider Active St art: April 29, 2024 End: April 29, 2024 Dr. Moo Carmichael MD Referring Provider Active St art: April 29, 2024 End: April 29, 2024 Tori PNIO, PA Other Provider Active Start: April 29, 2024 End: April 29, 2024 Team Status: Active Member Role Status Dates Dr. Moo Carmichael MD Primary Care Provider Active Start: July 19, 2024 Dr. Mike Redd DO Emergency Provider Active Start: July 19, 2024 Dr. Maryam Vale MD Admit Provider Active St art: July 19, 2024 Dr. Maryam Vale MD Attending Provider Active Start: July 19, 2024 Dr. Maryam Vale MD Other Provider Active St art: July 19, 2024 Team Status: Inactive Member Role Status Dates Dr. Moo Carmichael MD Primary Care Provider Active Start: July 19, 2024 End: July 19, 2024 Dr. Mike Redd DO Emergency Provider Active Start: July 19, 2024 End: July 19, 2024 Dr. Maryam Vale MD Admit Provider Active St art: July 19, 2024 End: July 19, 2024 Dr. Maryam Vale MD Other Provider Active St art: July 19, 2024 End: July 19, 2024 Nam Soto MD Other Provider Active Start: [facility] 2024 End: July 19, 2024 Dr. Lucretia Lewis MD Other Provider Active Start: July 19, 2024 End: July 19, 2024 Nina Westfall MD Other Provider Active Start : July 19, 2024 End: July 19, 2024 Dr. Maricel Coleman DO Other Provider Active St art: July 19, 2024 End: July 19, 2024 Dr. Maura Restrepo MD Other Provider Active Start: July 19, 2024 End: July 19, 2024 Dr. Suhail Blanchard MD Other Provider Active Sta rt: July 19, 2024 End: July 19, 2024 Dr. Tatiana Gastelum MD Other Provider Active Start : July 19, 2024 End: July 19, 2024 Dr. Odilon Burns MD Other Provider Active Start: July 19, 2024 End: July 19, 2024 Dr. Kunal Gonzalez MD Other Provider Active Start : July 19, 2024 End: July 19, 2024 Dr. Denilson Nash MD Other Provider Active Sta rt: July 19, 2024 End: July 19, 2024 Tamela Crews MD Other Provider Active Start : July 19, 2024 End: July 19, 2024 Dr. Tonny Gong MD Other Provider Active St art: July 19, 2024 End: July 19, 2024 Dr. Margot Jones MD Other Provider Active Start : July 19, 2024 End: July 19, 2024 Dr. Gabby Beatty MD Other Provider Active Sta rt: July 19, 2024 End: July 19, 2024 Dr. Emily Washington MD Other Provider Active Start: July 19, 2024 End: July 19, 2024 Dr. Baron Castrejon MD Other Provider Active St art: July 19, 2024 End: July 19, 2024 Dr. Deborah White MD Other Provider Active Star t: July 19, 2024 End: July 19, 2024 Dr. Isauro Santiago MD Other Provider Active St art: July 19, 2024 End: July 19, 2024 Dr. Michelle Pappas MD Other Provider Active Start: July 19, 2024 End: July 19, 2024 Magda Valdovinos MD Other Provider Active Start: July 19, 2024 End: July 19, 2024 Dr. Brett Fairbanks DO Attending Provider Active Start: July 19, 2024 End: July 19, 2024 Team Status: Active Member Role Status Dates Dr. Moo Carmichael MD Primary Care Provider Active Start: July 19, 2024 Dr. Rommel Tolbert MD Attending Provider Activ e Start: July 19, 2024 Team Status: Active Member Role Status Dates Dr. Moo Carmichael MD Primary Care Provider Active Start: July 27, 2024 Dr. Surya Jose MD Attending Provider Active S tart: July 27, 2024 Dr. Brett Fairbanks DO Referring Provider Active Start: July 27, 2024 Team Status: Active Member Role Status Dates Dr. Moo Carmichael MD Primary Care Provider Active Start: July 28, 2024 Dr. Brett Fairbanks DO Attending Provider Active Start: July 28, 2024 Dr. Brett Fairbanks DO Referring Provider Active Start: July 28, 2024 Team Status: Inactive Member Role Status Dates Dr. Moo Carmichael MD Primary Care Provider Active Start: October 01, 2024 End: October 01, 2024 Dr. Moo Carmichael MD Referring Provider Active St art: October 01, 2024 End: October 01, 2024 ALVAREZ Bryant Attending Provider Active St art: October 01, 2024 End: October 01, 2024 Team Status: Inactive Member Role Status Dates Dr. Moo Carmichael MD Primary Care Provider Active Start: October 01, 2024 End: October 01, 2024 ALVAREZ Bryant Attending Provider Active St art: October 01, 2024 End: October 01, 2024 ALVAREZ Bryant Referring Provider Active St art: October 01, 2024 End: October 01, 2024 Goals (unrecognized section and content) Goals may be documented in a n alternate sectionGoals may be documented in an alternate sectionGoals may be documented in an alternate sectionGoals may be documented in an alternate sectionGoals may be documented in an alternate section (unrecognized sect ion and content) No Status Records Found INFORMATION SOURCE (unrecogn ized section and content) DATE CREATED AUTHOR 10/09/2024 [facility] FOR RECORDS PERTAINING TO PATIENTS WHO ARE OR HAVE BEEN ENROLLED IN A CHEMICAL DEPENDENCY/SUBSTANCEABUSE PROGRAM, SOME INFORMATION MAY BE OMITTED. This clinical summary was aggregated from multiple sources. Caution should be exercised in using it in the provision of clinical care. This summary normalizes information from multiple sources, and as a consequence, information in this document may materially change the coding, format and clinical context of patient data. In addition, data may be omitted in some cases. CLINICAL DECISIONS SHOULD BE BASED ON THE PRIMARY CLINICAL RECORDS. [facility] [email or web address] [facility]. provides no warranty or guarantee of the accuracy or completeness of information in this document.
[2025-05-02 22:00] VITALS: BP 143/89; PULSE 80; RESP 18; O2SAT 99
[2025-05-02 22:10] LABS: Troponin T High Sensitivity 8 ng/L (<=22)
--- NOTE | 2025-05-02 22:40 | RAD_ITS ---
PROCEDURE: CHEST 1 VIEW (PORTABLE) 05/02/2025 REASON FOR EXAM: DIZZINESS TECHNIQUE: Frontal view of the chest. COMPARISON: 07/19/2024 FINDINGS: Lungs/Pleura: No focal consolidation, pneumothorax or sizable pleural effusion. Heart/Mediastinum: Cardiomegaly. No significant vascular congestion. Bones/Soft tissues: Mild degenerative changes of the spine. RAD/Chest 1 View (Portable) IMPRESSION: Cardiomegaly. No acute pulmonary disease. Reading Location: [id number]
[2025-05-02 23:43] VITALS: BP 138/83; PULSE 83; RESP 16; TEMP 36.6; O2SAT 95
== END 2025-05-02 23:50 | disposition home or self-care (01) ==
PROVIDERS: Emergency Provider Emergency Medicine; PCP Family Medicine; Visit Provider Emergency Medicine
DX: R42 Dizziness and giddiness (principal); R51.9 Headache, unspecified; R11.2 Nausea with vomiting, unspecified; E86.0 Dehydration; I10 Essential (primary) hypertension; E78.5 Hyperlipidemia, unspecified; K21.9 Gastro-esophageal reflux disease without esophagitis; Z79.82 Long term (current) use of aspirin; Z86.711 Personal history of pulmonary embolism; Z98.890 Other specified postprocedural states; Z86.718 Personal history of other venous thrombosis and embolism; Z79.899 Other long term (current) drug therapy
CPT/HCPCS: 70450; 71045; 80048; 82962; 84484; 85025; 87631; 93005; 96361; 96374; 96375; 99284; A4216